=== PATIENT | female | born 1945 | race Caucasian/White ===

== ENCOUNTER 2018-03-07 00:07 | Outpatient (CLI) | payer MEDICARE, OTHER, SELFPAY ==
[2018-03-07 11:00] LABS: FREE T4 0.53 ng/dL (0.76-1.46); Magnesium 2.2 mg/dL (1.8-2.4); TSH 33.53 uIU/mL (0.358-3.74)
== END 2018-03-07 00:27 ==
PROVIDERS: PCP Family Medicine; Visit Provider Internal Medicine Endocrinology, Diabetes & Metabolism
DX: E03.9 Hypothyroidism, unspecified (principal); E87.6 Hypokalemia; M81.0 Age-related osteoporosis without current pathological fracture
CPT/HCPCS: 36415; 82306; 83735; 84439; 84443

== ENCOUNTER 2018-03-30 10:32 | Emergency (ER) | payer MEDICARE, OTHER, SELFPAY ==
[2018-03-30 10:48] VITALS: BP 151/67; PULSE 51; RESP 16; TEMP 37; O2SAT 100
--- NOTE | 2018-03-30 11:17 | ED.GENADUL_ITS ---
Discharge Plan Disposition Patient Disposition: HOME Condition: Stable Discharge Details Chief Complaint: RespSymp Clinical Impression: Sinus congestion, Difficulty sleeping Primary Care Provider: Rui Torres ED Provider: Karissa Magaña Home Meds and New Rx's Prescriptions: Continued zolpidem [Ambien] 10 MG tablet 15 mg PO DAILY RF: 0 omega-3 fatty acids-fish oil [Fish Oil] 1 EACH capsule 1 ea PO DAILY RF: 0 levothyroxine 25 MCG tablet 25 mcg PO DAILY RF: 0 estradiol [Estrace] 42.5 GM cream 42.5 gm VG DIRECTED Qty: 1 RF: 6 melatonin-pyridoxine (vit B6) [Melatonin (with B6)] 1 EACH tablet 1 ea PO HS RF: 0 ginkgo biloba leaf extract 120 MG capsule 240 mg PO DAILY RF: 0 CalMag Thins 1 EACH tablet 1,000 mg PO DAILY RF: 0 theanine (bulk) 1 GM powder 100 mcg Miscellaneous HS RF: 0 zinc gluconate 10 MG lozenge 5 ea PO DAILY RF: 0 potassium chloride 20 MEQ tablet,ER particles/crystals 20 meq PO DAILY RF: 0 coenzyme Q10 [Co Q-10] 100 MG capsule 100 mg PO DAILY RF: 0 5-hydroxytryptophan (5-HTP) 50 MG capsule 50 mg PO DAILY RF: 0 turmeric root extract 500 MG capsule 500 mg PO DAILY RF: 0 Discharge Instructions Instructions: Sinusitis (ED) Additional Instructions: Please return immediately to the emergency department if you develop any new or worsening symptoms or if you become otherwise concerned. It is extremely important that you make an appointment to be seen by your primary care doctor within the next week in follow-up for this visit. Referrals: Rui Torres [Primary Care Provider] - Discharge Data Discharge Date/Time-TO BE ENTERED AT DEPARTURE: 03/30/18 16:21 Medical Decision Making Lainey Escalante is a 72 y/o woman with h/o hypothyroidism, HTN, insomnia, presenting to the emergency department with insomnia, sinus congestion. On exam Pt is very well and non-toxic appearing. Concern for long-standing chronic insomnia, likely sinus congestion. Exam/hx not c/w acute bacterial sinusitis, sepsis, meningitis, other acute life-threatening process. Plan for flonase. I called Pt's PCP, Dr. Mckinnon, who relayed that he has seen Pt many times for insomnia, and she has been on many different medications without significant relief. He reports that Pt is supposed to have outpt f/u with psychiatry for PTSD which may be contributory, and also for outpt sleep study. He states that he will see Pt in f/u as outpt and make medication adjustments at that time. I explained to Pt that given chronicity of symptoms and multiple medications tried with adverse reactions in the past, it would be best for her PCP to prescribe and monitor sleep meds. P reports now that she had chest pain earlier this am which lasted for two hours, ending just prior to our first meeting today. Pt reports that she has had similar pain many times in the past for which she has seen her PCP for. Pain was non-exertional, radiated down her left arm, sharp in quality. Pt reports this was the same pain she has been having for years. She is concerned that her not sleeping is leading to a heart attack. Low suspicion for ACS given context, however, will obtain EKG, CXR, screening labs. EKG shows borderline left axis, TW changes similar to prior. Labs non- diagnostic. Plan for repeat trop. Pt continues to have no chest pain on reassessment. Pt left ED prior to second blood draw, apparently stating to nursing that her ride was there and she needed to leave immediately. Pt had left ED at the time I was notified. I had discussed prior to her leaving her in case of discharge, RTED precautions, and importance of outpt f/u with her PCP. She had verbalized understanding of the plan. Medical Records Medical records reviewed: Yes I reviewed the patient's medical records. Imaging Data Radiologic Study: Attestation: I personally reviewed and interpreted this imaging study as follows: Radiologist's impression: CHEST X-RAY, PA AND LATERAL: Comparison is 07/21/16. The heart is normal in size. The lungs are clear. The mediastinal structures and pleura appear intact. CONCLUSION: Normal chest. Lab Data Lab results reviewed: Yes I reviewed the patient's lab results. Laboratory Tests Range/Units 03/30/18 03/30/18 03/30/18 14:13 14:13 17:30 WBC (4.4-10.8) k/cumm 6.62 RBC (4.00-5.20) m/cumm 4.32 Hgb (12.0-15.5) g/dL 13.5 Hct (36.0-46.0) % 40.3 MCV (80-95) fL 93.3 MCH (27.0-33.0) pg 31.3 MCHC (32.0-36.0) g/dL 33.5 RDW (11.7-14.6) % 12.8 Plt Count (130-400) x1000/uL 174 MPV (8.0-11.0) fL 9.7 Immature Gran % 0.2 Neutrophils % 54.4 Lymphocytes % 30.5 Monocytes % 7.4 Eosinophils % 7.3 Basophils % 0.2 Absolute Neutrophils (1.2-6.7) k/cumm 3.61 Absolute Lymphocytes (1.2-3.4) k/cumm 2.02 Absolute Monocytes (0.11-0.7) k/cumm 0.49 Absolute Eosinophils (0.0-0.7) k/cumm 0.48 Absolute Basophils (0.0-0.2) k/cumm 0.01 Sodium (136-145) mmol/L 140 Potassium (3.5-5.1) mmol/L 3.8 Chloride (98-107) mmol/L 103 Carbon Dioxide (21.0-32.0) mmol/L 28.6 Anion Gap (3-11) mmol/L 8.4 BUN (7-18) mg/dL 13 Creatinine (0.55-1.02) mg/dL 0.84 Estimated GFR/1.73 m2 (mL/min/1.73m2) >= 60.00 Glucose (70-100) mg/dL 97 Calcium (8.5-10.1) mg/dL 9.3 Total Bilirubin (0.2-1.0) mg/dL 0.4 AST (15-37) U/L 23 ALT (12-78) U/L 23 Alkaline Phosphatase (46-116) U/L 56 Troponin I (0.00-0.06) ng/mL 0.02 Cancelled Total Protein (6.4-8.2) g/dL 7.6 Albumin (3.4-5.0) g/dL 4.1 ECG Data Attestation: I personally reviewed and interpreted this ECG (s) as follows: Interpretation: EKG shows sinus bradycardia at 58, left axis, T wave changes similar to 07/21/16, no STEMI, nondiagnostic EKG HPI General Mode of arrival: ambulatory . Date/Time Provider Initiated Documentation: 03/30/18 11:16 . Limitations to Documentation: no limitations . Information obtained by: patient, RN notes reviewed and old records reviewed . HPI Narrative: Lainey Escalante is a 72 y/o woman with h/o HTN, hypothyroidism, insomnia presenting to the emergency department with difficulty sleeping and nasal congestion. Pt reports that she has a long hx of difficulty sleeping at night, and has been seen by her primary care doctor many times for this. Pt reports that she has tried ambien at multiple doses, lunesta, other medaitons, and has had adverse reactions or no improvement with these meds. Pt reports that she tried to see her PCP for continued difficulty sleeping today, but was unable to get an appointment and thus came to the emergency department. Pt reports that she has had trouble sleeping for the past 3 years since her , but insomnia always seems worse around the holidays. Pt also reports that she has had sinus pressure in right maxillary sinus and sinus congestion. Was on abx recently for this, stopped abx approx 2 weeks ago, but sinus congestion has returned. Pt denies any other pain, fevers, n/v/d, SOB, cough. Has been eating and drinking as usual and feels in her usual state of health. Related Data Home Medications Medication Instructions Recorded Confirmed CalMag Thins 1,000 mg PO DAILY 08/26/12 03/30/18 ginkgo biloba leaf extract 240 mg PO DAILY 08/26/12 03/30/18 melatonin-pyridoxine (vit B6) 1 ea PO HS 08/26/12 03/30/18 [Melatonin (with B6)] omega-3 fatty acids-fish oil [Fish 1 ea PO DAILY 06/04/13 03/30/18 Oil] zolpidem [Ambien] 15 mg PO DAILY tab-cap 06/04/13 03/30/18 5-hydroxytryptophan (5-HTP) 50 mg PO DAILY 06/27/16 03/30/18 coenzyme Q10 [Co Q-10] 100 mg PO DAILY 06/27/16 03/30/18 potassium chloride 20 meq PO DAILY 06/27/16 03/30/18 turmeric root extract 500 mg PO DAILY 06/27/16 03/30/18 zinc gluconate 5 ea PO DAILY 06/27/16 05/30/17 levothyroxine 25 mcg PO DAILY 08/26/16 03/30/18 estradiol [Estrace] 42.5 gm VG DIRECTED #1 tube 12/18/16 03/30/18 theanine (bulk) 100 mcg MISCELLANEOUS HS 01/25/17 03/30/18 Previous Rx's Medication Instructions Recorded estradiol [Estrace] 42.5 gm VG DIRECTED #1 tube 12/18/16 Allergies Allergy/AdvReac Type Severity Reaction Status Date / Time sulfamethoxazole Allergy fever Unverified 03/30/18 10:50 [From Bactrim] trimethoprim [From Bactrim] Allergy fever Unverified 03/30/18 10:50 zinc Allergy Hives Unverified 03/30/18 10:50 acetaminophen [From Tylenol] AdvReac Intermediate Unverified 03/30/18 10:50 red dye AdvReac Nausea Unverified 03/30/18 10:50 wheat AdvReac bloating Unverified 03/30/18 10:50 oatmeal AdvReac constipatio Uncoded 03/30/18 10:50 n SUGAR AdvReac Uncoded 03/30/18 10:50 General Stated Complaint: RespSymp YUMIKO: 4 Review of Systems Review of Systems Constitutional: denies fevers Eyes: denies eye pain ENT: denies dental pain, sore throat, ear pain, reports right sided sinus pain Cardiovascular: denies chest pain Respiratory: denies SOB, cough GI: denies abdominal pain, vomiting, diarrhea : denies flank pain MSK: denies back pain, neck pain, arthralgias, myalgias Skin: denies rash Neuro: denies headaches, n/t, weakness PFSH Medical History Atrophic vulva Dry eye Elevated lipids Hypertension Hypothyroidism Myofascial pain Primary fibromyalgia syndrome dry mouth lupus Surgical History Biopsy of breast section Hemorrhoidectomy Family History Mother Dementia Father Heart disease Social History Smoking/Tobacco Use Status: Former Tobacco Use Exam Narrative Exam Narrative: Constitutional: well and [id number], pleasant, conversing normally HENT: head atraumatic, normocephalic normal inspection, mucous membranes moist Eyes: conjunctiva normal, sclera normal, pupils 3mm b/l Neck: no stridor, normal ROM, trachea midline Chest: normal inspection Resp: normal work of breathing, LCTAB Cardio: normal rate, normal rhythm, no murmur appreciated Skin: warm, dry, normal color, no rash Neuro: alert, not altered, grossly non-focal, normal tone Psych: normal mood, normal affect, normal behavior Course Vital Signs Temperature 37 C 03/30/18 10:48 Pulse 51 L 03/30/18 10:48 Respiratory Rate 16 03/30/18 10:48 Blood Pressure 151/67 H 03/30/18 10:48 Pulse Oximetry 100 03/30/18 10:48 Temperature 37 C 03/30/18 10:48 Temperature Source Skin 03/30/18 10:48 Pulse 51 L 03/30/18 10:48 Respiratory Rate 16 03/30/18 10:48 Respiratory Effort Non-Labored 03/30/18 10:48 Blood Pressure 151/67 H 03/30/18 10:48 Blood Pressure Position Sitting 03/30/18 10:48 Pulse Oximetry 100 03/30/18 10:48 Oxygen Delivery Method Room Air 03/30/18 10:48 Oxygen Flow Rate 0 03/30/18 10:48 Pain Level 8 03/30/18 10:48
[2018-03-30] MEDS: Fluticasone NASAL SPRAY 16 GM BTL NS (13:19)
--- NOTE | 2018-03-30 13:30 | DI.RAD_ITS ---
SYMPTOMS/DIAGNOSIS: CHEST PAIN CHEST X-RAY, PA AND LATERAL: Comparison is 07/21/16. The heart is normal in size. The lungs are clear. The mediastinal structures and pleura appear intact. CONCLUSION: Normal chest.
[2018-03-30] MEDS: Aspirin 81 MG CHEW 324 MG CH (13:56)
[2018-03-30 14:21] LABS: Abs Immature Grans 0.01 k/cumm (0.0-0.09); Absolute Basophil Count 0.01 k/cumm (0.0-0.2); Absolute Eosinophil Count 0.48 k/cumm (0.0-0.7); Absolute Lymphocyte Count 2.02 k/cumm (1.2-3.4); Absolute Monocyte Count 0.49 k/cumm (0.11-0.7); Absolute Neutrophil Count 3.61 k/cumm (1.2-6.7); Basophils % 0.2; Eosinophils % 7.3; HCT 40.3 % (36.0-46.0); HGB 13.5 g/dL (12.0-15.5); Immature Grans % 0.2; Lymphocytes % 30.5; Mean Corp. HGB Concentration 33.5 g/dL (32.0-36.0); Mean Corpuscular Hemoglobin 31.3 pg (27.0-33.0); Mean Corpuscular Volume 93.3 fL (80-95); Mean Platelet Volume 9.7 fL (8.0-11.0); Monocytes % 7.4; Neutrophils % 54.4; Platelet Count 174 x1000/uL (130-400); RBC 4.32 m/cumm (4.00-5.20); RBC Distribution Width 12.8 % (11.7-14.6); White Blood Cell Count 6.62 k/cumm (4.4-10.8)
[2018-03-30 14:39] LABS: ALT 23 U/L (12-78); AST 23 U/L (15-37); Albumin 4.1 g/dL (3.4-5.0); Alkaline Phosphatase 56 U/L (46-116); Anion Gap 8.4 mmol/L (3-11); BUN 13 mg/dL (7-18); Bilirubin, Total 0.4 mg/dL (0.2-1.0); CO2 28.6 mmol/L (21.0-32.0); CREATININE 0.84 mg/dL (0.55-1.02); Calcium 9.3 mg/dL (8.5-10.1); Chloride 103 mmol/L (98-107); Glucose 97 mg/dL (70-100); Potassium 3.8 mmol/L (3.5-5.1); Sodium 140 mmol/L (136-145); Total Protein 7.6 g/dL (6.4-8.2); Troponin I 0.02 ng/mL (0.00-0.06)
== END 2018-03-30 16:21 | disposition home or self-care (01) ==
PROVIDERS: Emergency Provider Student in an Organized Health Care Education/Training Program; PCP Family Medicine
DX: R09.81 Nasal congestion (principal); G47.00 Insomnia, unspecified; R07.9 Chest pain, unspecified; I10 Essential (primary) hypertension
CPT/HCPCS: 36415; 80053; 93005; 99284; 71046; 84484; 85025; 93010

== ENCOUNTER 2018-05-07 09:52 | Outpatient (CLI) | payer MEDICARE, OTHER, SELFPAY ==
[2018-05-07 11:12] LABS: Anion Gap 9.2 mmol/L (3-11); BUN 15 mg/dL (7-18); CO2 27.8 mmol/L (21.0-32.0); CREATININE 0.98 mg/dL (0.55-1.02); Calcium 9.4 mg/dL (8.5-10.1); Chloride 104 mmol/L (98-107); Estimated GFR 55.79 (mL/min/1.73m2); FREE T4 0.71 ng/dL (0.76-1.46); Glucose 92 mg/dL (70-100); Potassium 4.1 mmol/L (3.5-5.1); Sodium 141 mmol/L (136-145); TSH 17.58 uIU/mL (0.358-3.74)
[2018-05-07 22:42] LABS: T3, Total 122 ng/dl (97-169)
== END 2018-05-07 10:12 ==
PROVIDERS: PCP Family Medicine; Visit Provider Internal Medicine Endocrinology, Diabetes & Metabolism
DX: E87.6 Hypokalemia (principal); E03.9 Hypothyroidism, unspecified
CPT/HCPCS: 36415; 80048; 84439; 84443; 84480

== ENCOUNTER 2018-06-04 09:48 | Outpatient (CLI) | payer MEDICARE, OTHER, SELFPAY ==
[2018-06-04 11:19] LABS: BUN 16 mg/dL (7-18); CREATININE 0.73 mg/dL (0.55-1.02); Calcium 9.3 mg/dL (8.5-10.1); Chloride 100 mmol/L (98-107); FREE T4 0.68 ng/dL (0.76-1.46); Glucose 86 mg/dL (70-100); Magnesium 2.3 mg/dL (1.8-2.4); Sodium 138 mmol/L (136-145); TSH 21.53 uIU/mL (0.358-3.74)
[2018-06-05 18:21] LABS: Zinc, Serum 1.08 mcg/mL (0.66-1.10)
[2018-06-08 10:29] LABS: Zinc, Plasma 103 ug/dl (70 - 120); Zinc, RBC 1313 ug/dl
== END 2018-06-04 10:08 ==
PROVIDERS: PCP Family Medicine; Visit Provider Internal Medicine Endocrinology, Diabetes & Metabolism
DX: E03.9 Hypothyroidism, unspecified (principal); R53.83 Other fatigue; E87.6 Hypokalemia; L28.2 Other prurigo
CPT/HCPCS: 36415; 80048; 83018; 84630; 83735; 84100; 84439; 84443

== ENCOUNTER 2018-06-17 17:37 | Inpatient (IN) | payer MEDICARE, OTHER, SELFPAY ==
[2018-06-17] VITALS (19 sets, daily range): BP systolic 133–204; BP diastolic 68–103; PULSE 60–83; RESP 12–27; TEMP 36.4–36.9; O2SAT 95–100
--- NOTE | 2018-06-17 17:47 | W.ED.GENAD ---
Discharge Plan Disposition Patient Disposition: [facility] INPATIENT Condition: Good Discharge Details Chief Complaint: Chest Pain Clinical Impression: Chest pain Reason For Visit: KELI Primary Care Provider: Rui Torres ED Provider: Benjamin Blackwell Home Meds and New Rx's Prescriptions: No Action zolpidem [Ambien] 10 MG tablet 15 mg PO DAILY RF: 0 omega-3 fatty acids-fish oil [Fish Oil] 1 EACH capsule 1 ea PO DAILY RF: 0 levothyroxine 25 MCG tablet 25 mcg PO DAILY RF: 0 estradiol [Estrace] 42.5 GM cream 42.5 gm VG DIRECTED Qty: 1 RF: 6 melatonin-pyridoxine (vit B6) [Melatonin (with B6)] 1 EACH tablet 1 ea PO HS RF: 0 ginkgo biloba leaf extract 120 MG capsule 240 mg PO DAILY RF: 0 CalMag Thins 1 EACH tablet 1,000 mg PO DAILY RF: 0 theanine (bulk) 1 GM powder 100 mcg Miscellaneous HS RF: 0 zinc gluconate 10 MG lozenge 5 ea PO DAILY RF: 0 potassium chloride 20 MEQ tablet,ER particles/crystals 20 meq PO DAILY RF: 0 coenzyme Q10 [Co Q-10] 100 MG capsule 100 mg PO DAILY RF: 0 5-hydroxytryptophan (5-HTP) 50 MG capsule 50 mg PO DAILY RF: 0 turmeric root extract 500 MG capsule 500 mg PO DAILY RF: 0 Medical Decision Making This is a 72-year-old female with a past medical history of lupus, fibromyalgia, chronic insomnia, who presents today for evaluation of chest pain. Patient states that the pain is been going on for 40 minutes, she describes a tearing sensation, however she appears to be in no acute distress, with very normal vital signs. Physical exam demonstrates notably reproducible chest pain on the right chest wall. The patient does state that she has a history of takasubos cardiomyopathy, and she states that this feels similar to that, however she shows no signs of fluid overload or severe CHF at this time. EKG is benign in appearance. We will get a CT angios to rule out dissection or PE, check for cardiac markers, and reassess. 9:[address] angios has returned and demonstrates no evidence of acute process, PE, or dissection. There is evidence of a slightly enlarged pancreatic abnormality which is thought to be a cyst structure, however radiology does recommend follow-up on an outpatient basis. Patient has no epigastric tenderness, and no evidence of elevation in her LFTs or bilirubin. Initial troponin is 0.04, we are pending repeat troponin at this time. If the troponin is trending upwards, the patient will require admission and serial troponins and potential cardiac evaluation. Currently the patient's chest pain has completely resolved, and she is feeling much better and would like to go home. Pending repeat troponin at this time. 10:03 PM The troponin has slightly increased to 0.05, her chest pain is resolved she states that she is pain-free at this time. A long discussion with the patient regarding the risks and benefits of admission and serial troponins versus discharge with close follow-up, patient is requesting admission, which I certainly feel is reasonable she had notable chest pain earlier today, with a potential exertional and stress related component. We will contact the hospitalist for admission 10:30 PM I discussed the case with the hospitalist , he agrees with assessment and plan. The patient will be admitted for serial troponins and further evaluation. I have extensively reviewed the treatment plan with the patient. I have addressed all patient concerns at this time. I have also discussed the plan with the admitting physician and they agree with the current assessment and plan and have agreed to assume responsibility for the patient. All parties demonstrate verbal understanding and agreement with our assessment and plan at this time. EKG 17: 41 Rate 77, WA 128, QTc 475, QRS 98, sinus rhythm, no significant ST elevations or depressions, patient does have inverted T waves in V1, V2, and V3. These were present on EKG from 03/30/18. EXAM: CT Angiography Chest With Contrast EXAM DATE/TIME: 06/17/2018 5:45 PM CLINICAL HISTORY: 72 years old, female; Pain; Other: Tearing sensation in chest; Abdominal pain; Acute TECHNIQUE: Imaging protocol: Axial computed tomographic angiography images of the chest with intravenous contrast using CT angiography protocol. 3D rendering: MIP reconstructed images were created and reviewed. Radiation optimization: All CT scans at this facility use at least one of these dose optimization techniques: automated exposure control; mA and/or kV adjustment per patient size (includes targeted exams where dose is matched to clinical indication); or iterative reconstruction. Contrast material: [id number] Contrast volume: 100 ml Contrast route: iv COMPARISON: CR XR CHEST 2V PA LATERAL 03/30/2018 2:26 PM FINDINGS: Pulmonary arteries: No pulmonary emboli. Aorta: No aortic aneurysm. No aortic dissection. Thyroid: Subcentimeter right thyroid calcification is likely benign. Follow-up as per institutional protocol. Lungs: 1-2 very small, subcentimeter noncalcified pulmonary nodules. Follow-up as per institutional protocol. No airspace consolidation. No suspicious pulmonary nodules or mass lesions. Pleural space: No pneumothorax. No pleural effusion. Heart: No cardiomegaly. No pericardial effusion. Lymph nodes: No enlarged lymph nodes. Bones/joints: Mild chronic appearing loss of height in the midthoracic spine. No acute fracture or subluxation. Soft tissues: No suspicious lesions. IMPRESSION: 1. No acute aortic pathology. 2. Incidental findings as described. EXAM: CT Angiography Abdomen With Contrast EXAM DATE/TIME: 06/17/2018 5:45 PM CLINICAL HISTORY: 72 years old, female; Pain; Other: Tearing sensation in chest; Abdominal pain; Acute TECHNIQUE: Imaging protocol: Axial computed tomographic angiography images of the abdomen with intravenous contrast material, including non-contrast images if performed. 3D rendering: MIP reconstructed images were created and reviewed. Radiation optimization: All CT scans at this facility use at least one of these dose optimization techniques: automated exposure control; mA and/or kV adjustment per patient size (includes targeted exams where dose is matched to clinical indication); or iterative reconstruction. COMPARISON: CR XR CHEST 2V PA LATERAL 03/30/2018 2:26 PM COMPARISON MORE: CT - ABD PELVIS WITH CONTRAST 08/18/2016 10:58:24 PM FINDINGS: Lungs: Regarding the lung bases, please see same day CT thorax. VASCULATURE: Aorta: Minimal aortic atherosclerosis. No aneurysm or dissection. Celiac trunk and mesenteric arteries: No occlusion or significant stenosis. Renal arteries: No occlusion or significant stenosis. ABDOMEN: Liver: Benign-appearing hepatic cyst. No hepatic masses. Gallbladder and bile ducts: No calcified stones. No ductal dilation. Pancreas: 19 x 7 mm low-density structure along the medial margin of the pancreatic head, not definitely ductal in origin. Additional subcentimeter cystic charge nurse in the uncinate process. Follow-up as per institutional protocol. Spleen: No splenomegaly. Adrenals: No mass. Kidneys and ureters: Mild left hydronephrosis. Appears similar to the previous study. The inferior left kidney was not imaged. Remainder of the kidneys demonstrate no mass lesions. No right hydronephrosis. Stomach and bowel: No obstruction. No mucosal thickening. Intraperitoneal space: Unremarkable. No free air. No significant fluid collection. Bones/joints: No acute fracture. No dislocation. Soft tissues: No suspicious lesions. Lymph nodes: No enlarged lymph nodes. IMPRESSION: 1. No acute aortic pathology. 2. Mild left hydronephrosis. Appears similar to the previous study. Consider a distal obstructing lesion. 3. Incidental findings as described. Dictated and Authenticated by: Barbara Pierce MD. Ordering:ADAM Alexander MD HPI General Date/Time Provider Initiated Documentation: 06/17/18 17:43. HPI Narrative: This is a 72-year-old female with a past medical history of lupus, chronic dry mouth, fibromyalgia, chronic insomnia who presents today for evaluation of chest pain. She states that she has a history of takasubos cardiomyopathy when her close family member in the past, she states that she has had a recent in the family and she again feels similar symptoms. She describes chest pain for the last 40 minutes which she describes as a tearing sensation. Does not radiate to the arms neck or shoulder. She denies any chest heaviness or pleuritic chest pain. She denies any history of blood clots. She did aspirin at home, and this did not improve or change her symptoms. She does admit to a cough for the last month that has been nonproductive. She denies any fever or chills. She denies any history of aortic dissection. She has no other complaints or modifying factors at this time. Related Data Home Medications Medication Instructions Recorded Confirmed CalMag Thins 1,000 mg PO DAILY 08/26/12 03/30/18 ginkgo biloba leaf extract 240 mg PO DAILY 08/26/12 03/30/18 melatonin-pyridoxine (vit B6) 1 ea PO HS 08/26/12 03/30/18 [Melatonin (with B6)] omega-3 fatty acids-fish oil [Fish 1 ea PO DAILY 06/04/13 03/30/18 Oil] zolpidem [Ambien] 15 mg PO DAILY tab-cap 06/04/13 03/30/18 5-hydroxytryptophan (5-HTP) 50 mg PO DAILY 06/27/16 03/30/18 coenzyme Q10 [Co Q-10] 100 mg PO DAILY 06/27/16 03/30/18 potassium chloride 20 meq PO DAILY 06/27/16 03/30/18 turmeric root extract 500 mg PO DAILY 06/27/16 03/30/18 zinc gluconate 5 ea PO DAILY 06/27/16 05/30/17 levothyroxine 25 mcg PO DAILY 08/26/16 03/30/18 estradiol [Estrace] 42.5 gm VG DIRECTED #1 tube 12/18/16 03/30/18 theanine (bulk) 100 mcg MISCELLANEOUS HS 01/25/17 03/30/18 Previous Rx's Medication Instructions Recorded estradiol [Estrace] 42.5 gm VG DIRECTED #1 tube 12/18/16 Allergies Allergy/AdvReac Type Severity Reaction Status Date / Time sulfamethoxazole Allergy fever Unverified 03/30/18 10:50 [From Bactrim] trimethoprim [From Bactrim] Allergy fever Unverified 03/30/18 10:50 zinc Allergy Hives Unverified 03/30/18 10:50 acetaminophen [From Tylenol] AdvReac Intermediate Unverified 03/30/18 10:50 red dye AdvReac Nausea Unverified 03/30/18 10:50 wheat AdvReac bloating Unverified 03/30/18 10:50 oatmeal AdvReac constipatio Uncoded 03/30/18 10:50 n SUGAR AdvReac Uncoded 03/30/18 10:50 General YUMIKO: 4 Review of Systems Review of Systems All systems reviewed & are unremarkable except as noted in HPI and below PFSH Family History Mother Dementia Father Heart disease Social History Smoking/Tobacco Use Status: Former Tobacco Use Alcohol Intake: current Alcohol Intake frequency: 0-2 drinks per day Drug use: Never Substance use type: does not use Do you feel safe at home: Yes Do you feel safe in your relationship?: Yes Exam Narrative Exam Narrative: 1.Const: Well-nourished, Well-developed, appearing stated age 2.Eyes: PERRL, no conjunctival injection, and symmetrical lids. 3.ENT: Atraumatic external nose and ears. Moist MM. Neck: Symmetric, trachea midline, No thyromegaly. 4.CVS: +S1/S2, No murmurs or gallops. Peripheral pulses 2+ and equal in all extremities. Brisk capillary refill in all extremities. Notable reproducibility of chest pain on palpation of the right anterior chest wall by the medial aspect of the right breast. No signs of deformity or trauma. Radial pulses are +2 bilaterally. 5.RESP: Unlabored respiratory effort. Clear to auscultation bilaterally. No wheezes rales or rhonchi 6.GI: Soft, Nontender/Nondistended, No hepatosplenomegaly. No guarding or rebound. 7.MSK: Normocephalic/Atraumatic, Extremities w/o deformity or ttp No cyanosis or clubbing, Normal movement of all extremities 8.Skin: Warm, Dry. No rashes or lesions. 9.Neuro: rendering equipment tender II-XII grossly intact. Sensation grossly intact, no focal neurologic deficits. 10.Psych: (AAO) x3. Appropriate mood and affect
[2018-06-17 17:59] LABS: Abs Immature Grans 0.01 k/cumm (0.0-0.09); Absolute Basophil Count 0.02 k/cumm (0.0-0.2); Absolute Eosinophil Count 0.53 k/cumm (0.0-0.7); Absolute Lymphocyte Count 1.91 k/cumm (1.2-3.4); Absolute Monocyte Count 0.48 k/cumm (0.11-0.7); Absolute Neutrophil Count 3.12 k/cumm (1.2-6.7); Basophils % 0.3; Eosinophils % 8.7; HCT 40.3 % (36.0-46.0); HGB 13.6 g/dL (12.0-15.5); Immature Grans % 0.2; Lymphocytes % 31.5; Mean Corp. HGB Concentration 33.7 g/dL (32.0-36.0); Mean Corpuscular Hemoglobin 31.6 pg (27.0-33.0); Mean Corpuscular Volume 93.7 fL (80-95); Mean Platelet Volume 9.5 fL (8.0-11.0); Monocytes % 7.9; Neutrophils % 51.4; Platelet Count 203 x1000/uL (130-400); RBC Distribution Width 12.3 % (11.7-14.6); White Blood Cell Count 6.07 k/cumm (4.4-10.8)
[2018-06-17 18:16] LABS: ALT 24 U/L (12-78); AST 29 U/L (15-37); Albumin 4.2 g/dL (3.4-5.0); Alkaline Phosphatase 84 U/L (46-116); Anion Gap 11.7 mmol/L (3-11); BUN 16 mg/dL (7-18); Bilirubin, Total 0.3 mg/dL (0.2-1.0); CO2 26.3 mmol/L (21.0-32.0); CREATININE 0.75 mg/dL (0.55-1.02); Calcium 8.7 mg/dL (8.5-10.1); Chloride 104 mmol/L (98-107); Glucose 100 mg/dL (70-100); Potassium 3.8 mmol/L (3.5-5.1); Sodium 142 mmol/L (136-145); Total Protein 7.8 g/dL (6.4-8.2); Troponin I 0.04 ng/mL (0.00-0.06)
[2018-06-17] MEDS: Acetaminophen 500 MG TAB 1000 MG PO (18:24)
[2018-06-17] MEDS: Normal Saline 1,000 ML 1000 ML IV (18:24)
[2018-06-17 18:37] LABS: PTT Activated 21.6 sec (21.0-31.4); Prothrombin Time 9.7 sec (9.3-11.0)
--- NOTE | 2018-06-17 19:00 | DI.CT_ITS ---
SYMPTOM/DIAGNOSIS: TEARING SENSATION IN CHEST CTA ABDOMEN AND CHEST: CT angiography was performed with multi slice acquisition and multi planar and 3D reconstruction. CHEST: The study was carried out with an intravenous infusion of 100 cc's of Omnipaque 350. There is no evidence of pulmonary embolic disease. There is no evidence of an aortic aneurysm or dissection. There is no evidence of a pneumothorax or pleural effusion. One or two very small subcentimeter, non calcified pulmonary nodules are identified. Note is also made of a subcentimeter right thyroid calcification which likely is benign. The heart is not enlarged. There is no pericardial effusion. There is no evidence of lymphadenopathy. Note is made of old loss of height in the mid thoracic vertebral bodies. There are no acute fractures. No suspicious soft tissue abnormality is seen. IMPRESSION: No acute aortic pathology. No pulmonary emboli. Incidental findings as described above. ABDOMEN: The study was carried out according to the usual protocol. There are mild atherosclerotic changes involving the aorta. There is no evidence of an aneurysm or dissection. The superior mesenteric and celiac axis appear intact. There is no evidence of significant stenosis or occlusion of the renal arteries. A small hepatic left lower lobe liver cyst is demonstrated. The gallbladder is intact. There are no gallstones. Evaluation of the pancreas reveals a 1.9 by 0.7 low density structure along the medial margin of the pancreatic head. Additional subcentimeter cystic changes are seen in the uncinate process. There is no evidence of splenomegaly. The adrenals are intact. Evaluation of the kidneys reveals very mild left hydronephrosis, unchanged when compared with the prior examination. The lower border of the kidney is not included on this study. There is no evidence of a renal mass. There is no evidence of right hydronephrosis. There is no evidence of bowel obstruction. Mild mucosal thickening involving the stomach is seen. There is no evidence of free air or free fluid in the intraperitoneal space. No acute bony abnormality is seen. The soft tissues are intact. There is no evidence of lymphadenopathy. SUMMARY: No acute aortic pathology. Note is made of mild left hydronephrosis, unchanged. Also there are incidental findings as described above.
[2018-06-17] MEDS: Omnipaque 350 MG/ML 100 ML BTL IJ (19:02)
[2018-06-17 19:10] LABS: ETHANOL BLOOD < 3.0 mg/dL (<3)
--- NOTE | 2018-06-17 19:15 | DI.VRAD_ITS ---
EXAM: CT Angiography Chest With Contrast EXAM DATE/TIME: 06/17/2018 5:45 PM CLINICAL HISTORY: 72 years old, female; Pain; Other: Tearing sensation in chest; Abdominal pain; Acute TECHNIQUE: Imaging protocol: Axial computed tomographic angiography images of the chest with intravenous contrast using CT angiography protocol. 3D rendering: MIP reconstructed images were created and reviewed. Radiation optimization: All CT scans at this facility use at least one of these dose optimization techniques: automated exposure control; mA and/or kV adjustment per patient size (includes targeted exams where dose is matched to clinical indication); or iterative reconstruction. Contrast material: [id number] Contrast volume: 100 ml Contrast route: iv COMPARISON: CR XR CHEST 2V PA LATERAL 03/30/2018 2:26 PM FINDINGS: Pulmonary arteries: No pulmonary emboli. Aorta: No aortic aneurysm. No aortic dissection. Thyroid: Subcentimeter right thyroid calcification is likely benign. Follow-up as per institutional protocol. Lungs: 1-2 very small, subcentimeter noncalcified pulmonary nodules. Follow-up as per institutional protocol. No airspace consolidation. No suspicious pulmonary nodules or mass lesions. Pleural space: No pneumothorax. No pleural effusion. Heart: No cardiomegaly. No pericardial effusion. Lymph nodes: No enlarged lymph nodes. Bones/joints: Mild chronic appearing loss of height in the midthoracic spine. No acute fracture or subluxation. Soft tissues: No suspicious lesions. IMPRESSION: 1. No acute aortic pathology. 2. Incidental findings as described. EXAM: CT Angiography Abdomen With Contrast EXAM DATE/TIME: 06/17/2018 5:45 PM CLINICAL HISTORY: 72 years old, female; Pain; Other: Tearing sensation in chest; Abdominal pain; Acute TECHNIQUE: Imaging protocol: Axial computed tomographic angiography images of the abdomen with intravenous contrast material, including non-contrast images if performed. 3D rendering: MIP reconstructed images were created and reviewed. Radiation optimization: All CT scans at this facility use at least one of these dose optimization techniques: automated exposure control; mA and/or kV adjustment per patient size (includes targeted exams where dose is matched to clinical indication); or iterative reconstruction. COMPARISON: CR XR CHEST 2V PA LATERAL 03/30/2018 2:26 PM COMPARISON MORE: CT - ABD PELVIS WITH CONTRAST 08/18/2016 10:58:24 PM FINDINGS: Lungs: Regarding the lung bases, please see same day CT thorax. VASCULATURE: Aorta: Minimal aortic atherosclerosis. No aneurysm or dissection. Celiac trunk and mesenteric arteries: No occlusion or significant stenosis. Renal arteries: No occlusion or significant stenosis. ABDOMEN: Liver: Benign-appearing hepatic cyst. No hepatic masses. Gallbladder and bile ducts: No calcified stones. No ductal dilation. Pancreas: 19 x 7 mm low-density structure along the medial margin of the pancreatic head, not definitely ductal in origin. Additional subcentimeter cystic charge nurse in the uncinate process. Follow-up as per institutional protocol. Spleen: No splenomegaly. Adrenals: No mass. Kidneys and ureters: Mild left hydronephrosis. Appears similar to the previous study. The inferior left kidney was not imaged. Remainder of the kidneys demonstrate no mass lesions. No right hydronephrosis. Stomach and bowel: No obstruction. No mucosal thickening. Intraperitoneal space: Unremarkable. No free air. No significant fluid collection. Bones/joints: No acute fracture. No dislocation. Soft tissues: No suspicious lesions. Lymph nodes: No enlarged lymph nodes. IMPRESSION: 1. No acute aortic pathology. 2. Mild left hydronephrosis. Appears similar to the previous study. Consider a distal obstructing lesion. 3. Incidental findings as described. Dictated and Authenticated by: Barbara Pierce MD. Ordering:ADAM Alexander MD
[2018-06-17 21:15] LABS: Troponin I 0.05 ng/mL (0.00-0.06)
--- NOTE | 2018-06-17 23:50 | HPE_ITS ---
Date of service: 06/17/18 Time of Service: 23:49 Assessment and Plan (1) Atypical chest pain: Current visit: Yes Status: Acute Given her hx of walking 5 miles daily until onset of this winter and not having any exertional chest pain, I think that her symptoms are unlikely to be ischemic in origin. Her symptoms may be due to an arrythmia since they are paroxysmal and have the quality of a feeling of her heart pounding. Since it has been several years since her last stress test, I have ordered a stress MPI. If this can not be done as an inpatient then I think that she can safely follow up with the study as outpatient. She ought to have a Zio patch to assess for any arrythmia. (2) Lung nodules: Current visit: Yes Status: Acute CTA of her chest was done at request of the ER attending to rule out a dissecting aortic aneurysm and PE. However incidental findings of subcentimeter non-calcified lung nodules were found and these will need to be followed up as an outpatient w/ follow up CT of chest in 6 to 12 months to assess stability. (3) Pancreatic abnormality: Current visit: Yes Status: Acute non-specific finding around the medial pancreatic head was seen 19 mm x 7 mm, this will need close follow up imaging as an outpatient and may necessitate endoscopic ultrasound to clarify. She also has cystic change at the uncinate process. (4) Thyroid disorder: Current visit: Yes Status: Acute patient has known hypothyroidism and apparently has been referred by her PCP to an entrepreneurship program director whom she says took more interest in the skin lesions on her face and did skin biopsies. Nevertheless the thyroid calcifications sh ould be followed up as an outpatient History of Present Illness Chief Complaint: chest palpitations Narrative: 72 yr old female w/ PMH of hypothyroidism, hypoglycemia, remote smoking hx, alleged Takatsubo cardiomyopathy (per prior [facility] notes, however this is not well documented w/ any cardiology consults, heart cath reports) although she says she was given a diagnosis of broken heart syndrome by her 's palliative care physician. The patient reports that for past couple months she has had intermittent feeling of her heart pounding for past couple months particularly during times of e motional stress. Mrs. Escalante has been emotionally distressed lately d/t this being the anniversary of her 's who 3 yrs ago this April d/t leukemia. She lives w/ her 46 yr old PhD physics son who has bipolar disorder and has had a recent flare of his BPD. Normally Mrs. Escalante deals w/ her stress by calming herself w/ walking, up to 5 miles per day, but has been unable to do so this winter d/t icey roads. Her chest discomfort is worsened by emotional distress and usually calms down w/ walking or sleep. She has chronic insomnia which adds to her stress and takes Ambien, and melatonin chronically to help her sleep. She previously saw a sleep specialist while in [facility] prior to moving to [place]. She has had a prior stress test for complaints of chest pain but never a heart catheterization. Stress test was done 5 to 10 yrs ago while in [place], [place]. Workup in the ER included routine labs including normal troponin levels of 0.4 and 0.5 and EKG that showed non-specific T wave inversions in V1-V3 similar to prior EKG from 03/30/2018. CBC and CMP were all unremarkable. CTA of her chest did not demonstrate any PE or aortic aneurysm or dissection. However, non-specific findings included 1-2 small (subcentimeter non-calcified lung nodules for which follow up exam is recommended per institutional guidelines. She also has a subcentimeter calcification of her right thyroid lobe, also for which follow up study is recommended. Dr. Blackwell counseled the patient on these findings as well as the non-specific unchanged EKG and normal troponins and offered her close outpatient follow up w/ cardiology versus overnight admission for serial troponins and stress MPI. She opted to stay. She has had no further chest discomfort or palpitations since admission. Review of Systems Review of Systems All systems reviewed & are unremarkable except as noted in HPI and below Cardiovascular Reports system reviewed and no additional complaints, except as docu PFSH Medical History Hypoglycemia (Chronic) IBS (irritable bowel syndrome) (Chronic) Hypothyroid (Chronic) Hypertension (Chronic) Vertigo (Chronic) Insomnia (Chronic) Atrophic vulva Dry eye Elevated lipids Hypertension Hypothyroidism Myofascial pain Primary fibromyalgia syndrome dry mouth lupus Surgical History H/O section (Resolved) Biopsy of breast section Hemorrhoidectomy Family History Mother Dementia Father Heart disease Stroke Social History Smoking/Tobacco Use Status: Former Tobacco Use Alcohol Intake: current Alcohol Intake frequency: 0-2 drinks per day Alcohol type: wine Drug use: Never Substance use type: does not use Household members: children Number of Children: 2 number of grandchildren: 1 What is your relationship status?: Panel score (0-1 are the most socially isolated patients): 0 What type of physical activity do you participate in: walking Duration: 60-90 minutes/day Do you feel safe at home: Yes Do you feel safe in your relationship?: Yes Meds Home Medications Medication Instructions Recorded Confirmed Type ginkgo biloba leaf extract 240 mg PO DAILY 08/26/12 06/17/18 History melatonin-pyridoxine (vit B6) 1 ea PO HS 08/26/12 06/17/18 History [Melatonin (with B6)] omega-3 fatty acids-fish oil [Fish 1 ea PO DAILY 06/04/13 06/17/18 History Oil] zolpidem [Ambien] 15 mg PO HS tab-cap 06/04/13 06/17/18 History 5-hydroxytryptophan (5-HTP) 50 mg PO HS 06/27/16 06/17/18 History coenzyme Q10 [Co Q-10] 100 mg PO DAILY 06/27/16 06/17/18 History potassium chloride 20 meq PO BID 06/27/16 06/17/18 History turmeric root extract 500 mg PO DAILY 06/27/16 06/17/18 History zinc gluconate 5 ea PO DAILY 06/27/16 06/17/18 History levothyroxine 25 mcg PO DAILY 08/26/16 06/17/18 History estradiol [Estrace] 42.5 gm VG DIRECTED #1 tube 12/18/16 06/17/18 Rx calcium carb-magnesium ox,carb 1 tab PO DAILY 06/17/18 06/17/18 History Allergies Allergy/AdvReac Type Severity Reaction Status Date / Time sulfamethoxazole Allergy fever Unverified 06/17/18 23:11 [From Bactrim] trimethoprim [From Bactrim] Allergy fever Unverified 06/17/18 23:11 zinc Allergy Hives Unverified 06/17/18 23:11 acetaminophen [From Tylenol] AdvReac Intermediate Unverified 06/17/18 23:11 red dye AdvReac Nausea Unverified 06/17/18 23:11 wheat AdvReac bloating Unverified 06/17/18 23:11 oatmeal AdvReac constipatio Uncoded 06/17/18 23:11 n SUGAR AdvReac Uncoded 06/17/18 23:11 Exam Const General: cooperative, healthy appearing, well developed, well groomed and anxious Nutritional Appearance: average body habitus Orientation: alert, awake and oriented x3 [facility] Head: normal to inspection, no palpable skull fracture, normocephalic and atraumatic Ears: hearing grossly normal bilaterally and EAC abnormal excessive cerumen General nose exam: nares normal Face and sinus: sinuses nontender and erythema bilaterally maxilla Throat: posterior oropharynx normal Eyes General: appearance normal, both eyes and all related structures Periorbital: periorbital findings normal Eyelids: eyelids normal Conjunctivae: conjunctivae normal Sclera: sclerae normal Cornea: corneas normal Pupils: PERRL EOM: EOM intact bilaterally Neck Neck: normal visual inspection, full ROM, no lymphadenopathy, trachea midline and supple Thyroid: thyroid normal Carotids: normal carotid upstroke Resp Effort & Inspection: normal respiratory effort and able to speak in complete se ntences Auscultation: clear to auscultation bilaterally Cardio Jugular venous pressure: no JVD Palpation: normal PMI Rate: regular rate Rhythm: regular rhythm Heart Sounds: S1 normal, S2 normal and normal, physiologic split S2 Pulses: normal peripheral pulses GI Inspection: normal to inspection Palpation: soft Percussion: normal to percussion Skin Lesions: lesion noted (s/p skin excisions) bilateral forehead color red and with an erythematous base Neuro General: alert, awake and oriented x3 Cognition: normal cognition Speech: speech normal Motor: muscle tone normal throughout, strength 5/5 throughout and no movement abnormalities noted Sensory Exam: no sensory deficits noted Extrem General: normal to inspection, full ROM, normal capillary refill, no joint enlargement, no clubbing, cyanosis or edema, no pedal edema and no calf tende rness Psych Appearance: grossly normal Mental Status: mental status grossly normal Speech and Movement: speech and movement normal Mood: congruent mood Affect: anxious affect Attitude: cooperative Thought Process: normal Thought Content: normal Insight: insight good Judgment: judgment good Results Imaging Abdomen CT scan report/results: report reviewed (FINDINGS: Lungs: Regarding the lung bases, please see same day CT thorax. VASCULATURE: Aorta: Minimal aortic atherosclerosis. No aneurysm or dissection. Celiac trunk and mesenteric arteries: No occlusion or significant stenosis. Renal arteries: No occlusion or significant stenosis. ABD) CT scan - chest: report reviewed (FINDINGS: Pulmonary arteries: No pulmonary emboli. Aorta: No aortic aneurysm. No aortic dissection. Thyroid: Subcentimeter right thyroid calcification is likely benign. Follow-up as per institutional protocol. Lungs: 1-2 very small, subcentimeter noncalcified pulmonary nodules. Follow- up) Labs : 06/17/18 17:50 06/17/18 17:50 Laboratory Results - last 24 hr 06/17/18 06/17/18 06/17/18 17:50 17:50 17:50 WBC 6.07 RBC 4.30 Hgb 13.6 Hct 40.3 MCV 93.7 MCH 31.6 MCHC 33.7 RDW 12.3 Plt Count 203 MPV 9.5 Immature Gran % 0.2 Neutrophils % 51.4 Lymphocytes % 31.5 Monocytes % 7.9 Eosinophils % 8.7 Basophils % 0.3 Absolute Neutrophils 3.12 Absolute Lymphocytes 1.91 Absolute Monocytes 0.48 Absolute Eosinophils 0.53 Absolute Basophils 0.02 PT 9.7 INR 1.0 APTT 21.6 Sodium 142 Potassium 3.8 Chloride 104 Carbon Dioxide 26.3 Anion Gap 11.7 H BUN 16 Creatinine 0.75 Estimated GFR/1.73 m2 >= 60.00 Glucose 100 Calcium 8.7 Total Bilirubin 0.3 AST 29 ALT 24 Alkaline Phosphatase 84 Troponin I 0.04 Total Protein 7.8 Albumin 4.2 Ethyl Alcohol 06/17/18 06/17/18 18:28 20:45 WBC RBC Hgb Hct MCV MCH MCHC RDW Plt Count MPV Immature Gran % Neutrophils % Lymphocytes % Monocytes % Eosinophils % Basophils % Absolute Neutrophils Absolute Lymphocytes Absolute Monocytes Absolute Eosinophils Absolute Basophils PT INR APTT Sodium Potassium Chloride Carbon Dioxide Anion Gap BUN Creatinine Estimated GFR/1.73 m2 Glucose Calcium Total Bilirubin AST ALT Alkaline Phosphatase Troponin I 0.05 Total Protein Albumin Ethyl Alcohol < 3.0 Last Vital Signs Temp 36.5 C 06/17/18 22:46 Pulse 64 06/17/18 23:16 Resp 19 06/17/18 23:20 BP 178/84 H 06/17/18 23:16 Pulse Ox 95 06/17/18 23:20
[2018-06-18] VITALS (75 sets, daily range): BP systolic 135–270; BP diastolic 50–135; PULSE 55–85; RESP 7–30; TEMP 37.2–37.4; O2SAT 86–99
[2018-06-18] MEDS: Melatonin 3 MG TAB 9 MG PO ×2 (00:31→21:06)
[2018-06-18] MEDS: Zolpidem 10 MG TAB 15 MG PO (00:49)
[2018-06-18 02:44] LABS: Troponin I 0.06 ng/mL (0.00-0.06)
[2018-06-18] MEDS: Enoxaparin 40 MG/0.4 ML SYR SC (06:25)
[2018-06-18] MEDS: Levothyroxine 25 MCG TAB PO (06:25)
[2018-06-18 08:19] LABS: FREE T4 0.53 ng/dL (0.76-1.46)
[2018-06-18 08:20] LABS: Cholesterol 301 mg/dL (50-200); HDL Cholesterol 119 mg/dL (40-60); LDL CHOLESTEROL 157 mg/dL (<100); Triglyceride 53 mg/dL (30-150); Troponin I 0.02 ng/mL (0.00-0.06)
--- NOTE | 2018-06-18 08:37 | PDOC.CMIN ---
- If Service Date Differs Date of service: 06/18/18 Time of Service: 08:38 Care Management Initial Assess REASON FOR HOSPITALIZATION:: chest pain, hypothyroidisim PAST MEDICAL HISTORY/PAST SURGICAL HISTORY:: Lung Nodules, atypical chest pain, hypothyroidisim, Hypertension, Vertigo, insominia, IBS PREVIOUS FUNCTIONAL STATUS/SOCIAL/FAMILY SUPPORTS:: Lainey (Janet) is a 72 year old female that lives with her Son in [place], [place]. Her spouse about 3 years ago after a long christianson with leukemia. She is indepednet with ADL's and care at home. 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 CURRENT FUNCTIONAL STATUS:: Lainey is alert and engaged with assessment she states she has been feeling like her thyroid has been low. She states when her thyroid is low she feel like she is dragging her feet. During good weather she walks 5 miles a day. She states she has a good relationship with her primary care. She has an appointment with him in a week. ADVANCE DIRECTIVES:: Not compelted she would like the forms to bring home. Has patient been provided with information about the portal?: Yes Did the patient sign up for the portal?: No CODE STATUS:: Full Code INSURANCE COVERAGE / FINANCIAL ISSUES:: Medicare CURRENT HOME/COMMUNITY SERVICES/EQUIPMENT:: No current services or equipment. She does see pulmonogist regularly related to exposure to TB as an . She states she has never been positive for TB or shown signs of it. PRIMARY CARE PHYSICIAN:: Rui Torres [facility] [phone] POTENTIAL DISCHARGE NEEDS:: Follow up appointment scheduled with primary care. PATIENT/FAMILY EDUCATION NEEDS:: Discharge education, limitations and follow up plan of care. ANTICIPATED BARRIERS TO DISCHARGE:: None identified at this time TRANSPORTATION:: Via private car with son at time of discharge. PLAN:: Lainey remains observation in the ICU. She continues on cardiac monitoring Her blood pressure remains elevated. Levothyroxine has been increased. She will be discharged home when medically ready no servcies at time of discharge.
[2018-06-18] MEDS: Omega-3 Fatty Acids 1000 MG CAP PO (08:50)
[2018-06-18] MEDS: Potassium Chloride 20 MEQ TABCR PO ×2 (08:50→21:06)
[2018-06-18] MEDS: hydrOXYzine HCL 25 MG TAB PO ×2 (09:30→21:11)
[2018-06-18] MEDS: LORazepam 2 MG/ML VIAL 1 MG IV (10:58)
[2018-06-18 11:59] LABS: Magnesium 2.3 mg/dL (1.8-2.4)
--- NOTE | 2018-06-18 12:28 | MERGE_ITS ---
*[facility]* *[facility]* [address] [place] [address] Date of study: 06/18/2018 Transthoracic Echocardiography M-mode, complete 2D, complete spectral Doppler, and color Doppler *STUDY CONCLUSIONS* Summary: 1. Left ventricle: The cavity size was normal. Systolic function was hyperdynamic. The estimated ejection fraction was 65-70%. Diastolic parameters were normal. There was no evidence of elevated ventricular filling pressure by Doppler parameters. 2. Right ventricle: The cavity size was normal. Wall thickness was normal. Systolic function was normal. 3. Atrial septum: No defect or patent foramen ovale was identified. 4. Pulmonary arteries: Systolic pressure could not be accurately estimated. 5. Inferior vena cava: The vessel was patent and normal in size. The respirophasic diameter changes were in the normal range (greater than or equal to 50%), consistent with normal central venous pressure. *PATIENT PRESENTATION* Height: 152.4cm ((60in) ) S/D Pressure: 156 / 62 Weight: 55.8kg ((122.7lb) ) BSA: 1.55m^2 Test start time: 12:30 PM. Test stop time: 01:25 PM. PERFORMING Unknown PERFORMING [facility] SWITCHBOARD AND CONTROL ROOM OPERATOR RT Forest Roach)(CT), [facility] ORDERING Linda Oropeza REFERRING Linda Oropeza CONSULTING Rui Trevino *PROCEDURE DATA* Procedure information: The patient was identified by two identifiers. This study was interpreted by [facility]. Pertinent images and digital data are archived for permanent storage and are available for subsequent review. Comparison was made to the study of 05/30/2015. Study status: Routine. Transthoracic echocardiography. M-mode, complete 2D, complete spectral Doppler, and color Doppler. A Transthoracic Echocardiogram was performed. Scanning was performed from the parasternal, apical, subcostal, and suprasternal notch acoustic windows. Images were obtained using an [id number] cardiac ultrasound machine. Image quality was good. Study completion: The patient tolerated the procedure well. 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 *CARDIAC ANATOMY* Left ventricle: The cavity size was normal. Systolic function was hyperdynamic. The estimated ejection fraction was 65-70%. The tissue Doppler parameters were normal. Diastolic parameters were normal. There was no evidence of elevated ventricular filling pressure by Doppler parameters. Aortic valve: Trileaflet. Doppler: There was no stenosis. There was no regurgitation. VTI ratio of LVOT to aortic valve: 0.67. Valve area (VTI): 2cm^2. Indexed valve area (VTI): 1.3cm^2/m^2. Peak velocity ratio of LVOT to aortic valve: 0.61. Valve area (Vmax): 1.8cm^2. Indexed valve area (Vmax): 1.2cm^2/m^2. Mean velocity ratio of LVOT to aortic valve: 0.73. Valve area (Vmean): 2.2cm^2. Indexed valve area (Vmean): 1.4cm^2/m^2. Mean gradient (S): 3.9mm Hg. Peak gradient (S): 8.1mm Hg. Aorta: Aortic root: The aortic root was normal in size. Ascending aorta: The ascending aorta was mildly dilated. Mitral valve: Doppler: There was no evidence for stenosis. There was no significant regurgitation. Valve area by pressure half-time: 2.8cm^2. Indexed valve area by pressure half-time: 1.8cm^2/m^2. Left atrium: The atrium was normal in size. Atrial septum: No defect or patent foramen ovale was identified. Right ventricle: The cavity size was normal. Wall thickness was normal. Systolic function was normal. Pulmonic valve: Doppler: There was no evidence for stenosis. There was no significant regurgitation. Peak gradient (S): 3.3mm Hg. Tricuspid valve: Doppler: There was no significant regurgitation. Pulmonary artery: Poorly visualized. Systolic pressure could not be accurately estimated. Right atrium: The atrium was normal in size. Pericardium: There was no pericardial effusion. Systemic veins: Inferior vena cava: Well visualized. The vessel was patent and normal in size. The respirophasic diameter changes were in the normal range (greater than or equal to 50%), consistent with normal central venous pressure. Baseline ECG: Normal sinus rhythm. Measurements Left ventricle Value Reference LV ID, ED, PLAX 4.4 cm 3.5 - 6.0 LV ID, ES, PLAX 2.3 cm 2.1 - 4.0 LV PW thickness, ED, PLAX 1.1 cm LV end-diastolic volume, 1-p A2C 56 ml LV ejection fraction, 1-p A2C 62 % LV end-diastolic volume, 1-p A4C 56 ml LV ejection fraction, 1-p A4C 76 % LV e', lateral 0.056 m/sec LV E/e', lateral 11 LV e', medial 0.047 m/sec LV E/e', medial 13 LV e', average 0.052 m/sec LV E/e', average 12 Ventricular septum Value Reference IVS thickness, ED, PLAX 1.2 cm LVOT Value Reference LVOT ID, A-P 2.0 cm LVOT area 3 cm^2 LVOT peak velocity, S 0.87 m/sec LVOT mean velocity, S 0.67 m/sec LVOT VTI, S 18.0 cm LVOT peak gradient, S 3 mm Hg LVOT mean gradient, S 2 mm Hg Stroke volume (SV), LVOT DP 54 ml Stroke index (SV/bsa), LVOT DP 35 ml/m^2 Aortic valve Value Reference Aortic valve peak velocity, S 1.4 m/sec Aortic valve mean velocity, S 0.92 m/sec Aortic valve VTI, S 27.0 cm Aortic mean gradient, S 3.9 mm Hg Aortic peak gradient, S 8.1 mm Hg VTI ratio, LVOT/AV 0.67 Aortic valve area, VTI 2 cm^2 Velocity ratio, peak, LVOT/AV 0.61 Aortic valve area, peak velocity 1.8 cm^2 Velocity ratio, mean, LVOT/AV 0.73 Aortic valve area, mean velocity 2.2 cm^2 Aortic valve area/bsa, mean velocity 1.4 cm^2/m^2 Aorta Value Reference Aortic root ID, ED 2.9 cm Ascending aorta ID, A-P, S 3.3 cm Left atrium Value Reference LA ID, A-P, ES 2.8 cm LA ID/bsa, A-P 1.8 cm/m^2 <=2.2 LA area, ES, A4C 16.8 cm^2 8.8 - 23.4 LA area, ES, A2C 12 cm^2 LA volume/bsa, ES, 1-p A4C 33 ml/m^2 LA volume, ES, 2-p 33 ml LA volume/bsa, ES, 2-p 22 ml/m^2 LA/aortic root ratio 0.96 Mitral valve Value Reference Mitral E-wave peak velocity 0.63 m/sec Mitral A-wave peak velocity 0.96 m/sec Mitral deceleration time (H) 270 ms 150 - 230 Mitral pressure half-time 78 ms Mitral E/A ratio, peak 0.66 Mitral valve area, PHT, DP 2.8 cm^2 Pulmonary veins Value Reference Pulmonary vein peak velocity, S 0.88 m/sec Pulmonary vein peak velocity, D 0.36 m/sec Pulmonary vein velocity ratio, peak, 2.48 S/D Pulmonary vein A-wave reversal peak 0.81 m/sec velocity Pulmonary vein A-wave reversal 182 ms duration Tricuspid valve Value Reference Tricuspid regurg peak velocity 2.1 m/sec Tricuspid peak RV-RA gradient 17.7 mm Hg Right atrium Value Reference RA area, ES, A4C 14.1 cm^2 8.3 - 19.5 Pulmonic valve Value Reference Pulmonic peak gradient, S 3.3 mm Hg Legend: (L) and (H) kathryn values outside specified reference range. I have personally reviewed the images and have reviewed and edited the reported findings. Electronically signed by Jean Alcantar MD 06/19/2018 08:18
--- NOTE | 2018-06-18 13:34 | PGE_ITS ---
Date of Service Date of service: 06/18/18 Time of Service: 13:32 Assessment and Plan (1) Hypertensive urgency: Current visit: Yes Status: Acute Likely anxiety driven. Echo is pending - h/o Takotsubo's could in fact be a part of this picture, and I think it is important to make sure it's not recurrent. I hesitate to treat the patient with aggressive antihypertensives and feel her anxiety should be addressed. Will trial norvasc 5 mg. If BP spikes, would prefer to treat with benzos prn. Secondary workup of hypertension could be considered. (2) Atypical chest pain: Current visit: Yes Status: Acute No ACS. There is definitly a musculskeletal component. The patient will need to have an outpatient stress test. (3) Takotsubo syndrome: Current visit: Yes Status: Suspected History of - and with evidence of anxiety/depression, it could be recurrent. Echo pending (4) Anxiety and depression: Current visit: Yes Status: Acute We will get in touch with Dr Torres's office to see what his thoughts are about starting the patient on SSRI. Certainly, that should be done only if the patient is going to have close outpatient follow up. (5) Hypothyroid: Current visit: No Status: Chronic TSH still quite high. The patient states she last had her dose adjusted 4 weeks ago, and I feel it is safe to increase to 50 mcg PO daily. (6) Lung nodules: Current visit: Yes Status: Acute Outpt f/u (7) Pancreatic abnormality: Current visit: Yes Status: Acute Outpatient follow up (8) Discharge planning issues: Current visit: Yes Status: Acute Full code. Anticipated discharge home tomorrow. (9) DVT prophylaxis: Current visit: Yes Status: Acute Lovenox Subjective Interval history since last seen: Ms Escalante reports feeling some chest discomfort, which is reproducible with palpation. She thinks this is because she was chipping away the ice on her front steps for a prolonged period of time. She states she hasn't felt the pounding in her chest today. This am, her blood pressure was 270/102. It did happen in the setting of anxiety. It responded to IV ativan. The patient states that she thinks she used to take zoloft in the past. She also tells me that she had written to her PCP through a patient portal 2 days ago asking for some antidepressants because she did feel depressed and like she wasn't recovering from it. She describes a recent episode of not being able to button her shirt because her fingernails were too long - because she hadn't cut them because she hadn't been taking care of herself. She is very willing to go back on zoloft. She thinks she took the smallest dose back then. She is not sure if Dr Torres already filled it - she would like me to get in touch with him. 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 She is anxious to go home tonight because of the icy roads where she lives and would really like to go home tomorrow morning. Exam Narrative Exam Narrative: General: anxious, but very reasonable elderly female, speaking with a [place] accent, A&Ox3, laying comfortably in bed HEENT: EOMI, MMM Heart: RRR, no m/r/g; L-sided chest pain is reproducible with palpation Lungs; CTAB Abdomen: soft, nontender, nondistended Extremities: no e/c/c BLE's, 2+ pedal pulses B Objective Objective Clinical Data: Abnormal lab results 06/17/18 06/18/18 Range/Units 17:50 06:12 Anion Gap 11.7 H (3-11) mmol/L Total Cholesterol 301 H (50-200) mg/dL LDL Cholesterol Direct 157 H (<100) mg/dL HDL Cholesterol 119 H (40-60) mg/dL TSH 28.40 H (0.358-3.74) uIU/mL Free T4 0.53 L (0.76-1.46) ng/dL Vital Signs Temperature 37.2 C 06/18/18 08:55 Temperature Source Temporal Artery Scan 06/18/18 08:55 Pulse 71 06/18/18 12:01 Pulse Rhythm Regular 06/18/18 08:45 Pulse 68 06/18/18 12:01 Respiratory Rate 19 06/18/18 12:01 Respiratory Effort 06/18/18 08:45 Respiratory Depth Normal 06/18/18 08:45 Respiratory Pattern Normal 06/18/18 08:45 Blood Pressure 173/108 H 06/18/18 12:01 Blood Pressure Mean 125 06/18/18 12:01 Blood Pressure Position Sitting 06/17/18 17:53 Pulse Oximetry 98 06/18/18 08:55 Oxygen Delivery Method Room Air 06/18/18 08:55 Oxygen Flow Rate 0 06/18/18 08:55 Pain Level 0 06/17/18 23:45 Comment 06/18/18 09:25 Intake & Output 06/17/18 06/18/18 06/18/18 23:59 11:59 23:59 Intake Total 1000 / 1000 610 / 610 Output Total 150 / 150 825 / 1225 400 / 1225 Balance 850 / 850 -215 / -615 -400 / -615 Weight 56.8 kg 55.9 kg Intake: IV 1000 / 1000 10 / 10 Oral 600 / 600 Output: Urine 150 / 150 825 / 1225 400 / 1225 Other: Urine Color Pale Pale Yellow Yellow Urine Appearance Clear Clear Clear Urine Odor None None None Comment void x 1. commode emptied at this time. Voiding Methods Bedside Commode Bedside Commode Bedside Commode Laboratory Results WBC 6.07 k/cumm (4.4-10.8) 06/17/18 17:50 RBC 4.30 m/cumm (4.00-5.20) 06/17/18 17:50 Hgb 13.6 g/dL (12.0-15.5) 06/17/18 17:50 Hct 40.3 % (36.0-46.0) 06/17/18 17:50 MCV 93.7 fL (80-95) 06/17/18 17:50 MCH 31.6 pg (27.0-33.0) 06/17/18 17:50 MCHC 33.7 g/dL (32.0-36.0) 06/17/18 17:50 RDW 12.3 % (11.7-14.6) 06/17/18 17:50 Plt Count 203 x1000/uL (130-400) 06/17/18 17:50 MPV 9.5 fL (8.0-11.0) 06/17/18 17:50 Immature Gran % 0.2 06/17/18 17:50 Neutrophils % 51.4 06/17/18 17:50 Lymphocytes % 31.5 06/17/18 17:50 Monocytes % 7.9 06/17/18 17:50 Eosinophils % 8.7 06/17/18 17:50 Basophils % 0.3 06/17/18 17:50 Absolute Neutrophils 3.12 k/cumm (1.2-6.7) 06/17/18 17:50 Absolute Lymphocytes 1.91 k/cumm (1.2-3.4) 06/17/18 17:50 Absolute Monocytes 0.48 k/cumm (0.11-0.7) 06/17/18 17:50 Absolute Eosinophils 0.53 k/cumm (0.0-0.7) 06/17/18 17:50 Absolute Basophils 0.02 k/cumm (0.0-0.2) 06/17/18 17:50 PT 9.7 sec (9.3-11.0) 06/17/18 17:50 INR 1.0 (0.9-1.1) 06/17/18 17:50 APTT 21.6 sec (21.0-31.4) 06/17/18 17:50 Sodium 142 mmol/L (136-145) 06/17/18 17:50 Potassium 3.8 mmol/L (3.5-5.1) 06/17/18 17:50 Chloride 104 mmol/L (98-107) 06/17/18 17:50 Carbon Dioxide 26.3 mmol/L (21.0-32.0) 06/17/18 17:50 Anion Gap 11.7 mmol/L (3-11) H 06/17/18 17:50 BUN 16 mg/dL (7-18) 06/17/18 17:50 Creatinine 0.75 mg/dL (0.55-1.02) 06/17/18 17:50 Estimated GFR/1.73 m2 >= 60.00 (mL/min/1.73m2) 06/17/18 17:50 Glucose 100 mg/dL (70-100) 06/17/18 17:50 Calcium 8.7 mg/dL (8.5-10.1) 06/17/18 17:50 Magnesium 2.3 mg/dL (1.8-2.4) 06/18/18 06:12 Total Bilirubin 0.3 mg/dL (0.2-1.0) 06/17/18 17:50 AST 29 U/L (15-37) 06/17/18 17:50 ALT 24 U/L (12-78) 06/17/18 17:50 Alkaline Phosphatase 84 U/L (46-116) 06/17/18 17:50 Troponin I 0.02 ng/mL (0.00-0.06) 06/18/18 06:12 Total Protein 7.8 g/dL (6.4-8.2) 06/17/18 17:50 Albumin 4.2 g/dL (3.4-5.0) 06/17/18 17:50 Triglycerides 53 mg/dL (30-150) 06/18/18 06:12 Total Cholesterol 301 mg/dL (50-200) H 06/18/18 06:12 LDL Cholesterol Direct 157 mg/dL (<100) H 06/18/18 06:12 HDL Cholesterol 119 mg/dL (40-60) H 06/18/18 06:12 TSH 28.40 uIU/mL (0.358-3.74) H 06/18/18 06:12 Free T4 0.53 ng/dL (0.76-1.46) L 06/18/18 06:12 Ethyl Alcohol < 3.0 mg/dL (<3) 06/17/18 18:28 Echo done, results unavialable
--- NOTE | 2018-06-18 14:39 | CHAPLAIN ---
Lainey was sitting up in her chair playing Scrabble on her iPad, when I visited. She told me she thinks she had an anxiety attack, as lots of stressers piled up on her. She normally walks 5 miles a day, but hasn't been able to because of the weather and the long winter has left her feeling cooped up she said. 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 Lainey's about 3 years ago, and she said since then she has not be interested in being involved anyone else. Her son lives with her and does much of the cooking and cleaning. She is grateful to have him living with her. Lainey said she is beginning to feel better.
[2018-06-18] MEDS: amLODIPine 5 MG TAB PO (15:36)
[2018-06-18] MEDS: Zolpidem 5 MG TAB 15 MG PO (21:06)
[2018-06-19] VITALS (21 sets, daily range): BP systolic 124–217; BP diastolic 48–166; PULSE 56–91; RESP 11–23; O2SAT 93–97
[2018-06-19] MEDS: Enoxaparin 40 MG/0.4 ML SYR SC (08:05)
[2018-06-19] MEDS: Omega-3 Fatty Acids 1000 MG CAP PO (08:06)
[2018-06-19] MEDS: Lisinopril 10 MG TAB PO (08:06)
[2018-06-19] MEDS: Levothyroxine 50 MCG TAB PO (08:06)
[2018-06-19] MEDS: Potassium Chloride 20 MEQ TABCR PO ×2 (08:06→21:13)
[2018-06-19] MEDS: amLODIPine 5 MG TAB PO (08:07)
[2018-06-19 10:48] LABS: Anion Gap 8.8 mmol/L (3-11); BUN 15 mg/dL (7-18); CO2 28.2 mmol/L (21.0-32.0); CREATININE 0.87 mg/dL (0.55-1.02); Calcium 9.5 mg/dL (8.5-10.1); Chloride 101 mmol/L (98-107); Glucose 119 mg/dL (70-100); Sodium 138 mmol/L (136-145)
--- NOTE | 2018-06-19 10:52 | PDOC.CMPRO ---
- If Service Date Differs Date of service: 06/19/18 Time of Service: 10:52 Care Management Progress Note S/O: Lainey will transition to inpatient today she continues to have significant hypertension. She is a medical surgical patient at this time. CM provided the advance directive forms for her to complete she does not want to complete today. A: Lainey is a 72 year old female admitted with chest pain and hypothyroidism. P:Lainey remains in the ICU. She continues on cardiac monitoring Her blood pressure remains elevated. Levothyroxine has been increased. She will be discharged home when medically ready no services at time of discharge. Her son will transport her home when she is ready.
--- NOTE | 2018-06-19 11:10 | PHARADMIT ---
Admission Pharmacy Clinical Review CHEST PAIN Code Status Full Code Current Weight 55.9 kg Renally Cleared and Narrow Therapeutic Index Meds crcl ~42ml/min QTc Value / Action Taken 475 BP Control, Fever 181/96 Electrolytes reviewed ok DVT Prophylaxis enoxaparin Opiate Usage / Scheduled Bowel Regimen Ordered no/prn Plt/SCr for Heparin / Enoxaparin 203/0.87 INR for Warfarin 1.0 H/H stable, WBC/Bands 13.6/40.3 wbc 6.07 Antibiotic appropriateness na Cultures and Sensitivities na Surgical ABX d/c within 24 hr na DM control / Insulin Dosing na Heart Failure (Check EF%) (GRACIE's, B-Block, Diuretics) na IV to PO Switch Home Meds Reviewed levothyroxine dose increased due to high TSH . home dose zolpidem verified Home Meds Not Ordered all ordered Comments lisinopril started, waiting for control of BP before doing stress test
[2018-06-19] MEDS: Normal Saline Flush 10 ML SYR IVP (13:25)
[2018-06-19] MEDS: Normal Saline 1,000 ML 50 ML IV (13:25)
[2018-06-19] MEDS: Refresh PLUS Eye Drops 0.4ml 1 EACH OU (14:41)
--- NOTE | 2018-06-19 16:07 | W.PM.PROGNOT ---
Date of Service Date of service: 06/19/18 Time of Service: 16:07 Assessment and Plan (1) Hypertensive urgency: Current visit: Yes Status: Acute Likely anxiety driven, but reviewing the data, the patient is overall rather hypertensive. Echo without evidence of Takotsubo's at least now. Continue norvasc 5 mg PO daily; lisinopril added. I also added very gentle IVF to counteract pressure natriuresis. On discharge, will also need an SSRI rx - preferably written by PCP's office. (2) Atypical chest pain: Current visit: Yes Status: Acute No ACS. There is definitly a musculskeletal component. Will need outpatient stress test once BP's are controlled. (3) Takotsubo syndrome: Current visit: Yes Status: Ruled-out History of. At this time, echo reveals no evidence thereof. (4) Anxiety and depression: Current visit: Yes Status: Acute Case management is communicating with PCP's office to ensure the patient is placed on an SSRI. (5) Hypothyroid: Current visit: No Status: Chronic Continue increased dose of synthroid (50 mcg PO daily). (6) Lung nodules: Current visit: Yes Status: Acute Outpt f/u (7) Pancreatic abnormality: Current visit: Yes Status: Acute Outpatient follow up (8) Discharge planning issues: Current visit: Yes Status: Acute Full code. Anticipated discharge home tomorrow. (9) DVT prophylaxis: Current visit: Yes Status: Acute Lovenox Subjective Interval history since last seen: Lainey is doing better today. Her BP's were still very high this morning, but now seem to be improving. She denies dizziness, chest pain, shortness of breath, nausea, vomiting. She still had palpitations today. Exam Narrative Exam Narrative: General: anxious female, looks more calm today, A&Ox3 HEENT: EOMI, MMM Heart: RRR, no m/r/g Lungs; CTAB Abdomen: soft, nontender, nondistended Extremities: no e/c/c BLE's, 2+ pedal pulses B Objective Objective Clinical Data: Abnormal lab results 06/19/18 Range/Units 10:30 Glucose 119 H (70-100) mg/dL Vital Signs Temperature 37.4 C 06/18/18 15:41 Temperature Source Temporal Artery Scan 06/18/18 15:41 Pulse 72 06/19/18 12:40 Pulse Rhythm Regular 06/19/18 08:02 Pulse 73 06/19/18 14:00 Respiratory Rate 19 06/19/18 14:00 Respiratory Effort Non-Labored 06/19/18 08:02 Respiratory Depth Normal 06/19/18 08:02 Respiratory Pattern Normal 06/19/18 08:02 Blood Pressure 124/67 06/19/18 12:40 Blood Pressure Mean 77 06/19/18 12:40 Blood Pressure Position Sitting 06/17/18 17:53 Pulse Oximetry 97 06/18/18 23:01 Oxygen Delivery Method Room Air 06/18/18 15:41 Oxygen Flow Rate 0 06/18/18 15:41 Pain Level 0 06/17/18 23:45 Comment 06/18/18 09:25 Intake & Output 06/18/18 06/19/18 06/19/18 23:59 11:59 23:59 Intake Total 1100 / 1710 250 / 500 250 / 500 Output Total 1175 / 2000 550 / 550 Balance -75 / -290 250 / -50 -300 / -50 Intake: Oral 1100 / 1700 250 / 500 250 / 500 Output: Urine 1175 / 2000 550 / 550 Other: Urine Color Pale Light Abbie Yellow Urine Appearance Clear Clear Urine Odor None Normal Comment commode emptied at this time. Stool Size Moderate Stool Characteristics Soft Brown Voiding Methods Bedside Commode Bedside Commode Laboratory Results WBC 6.07 k/cumm (4.4-10.8) 06/17/18 17:50 RBC 4.30 m/cumm (4.00-5.20) 06/17/18 17:50 Hgb 13.6 g/dL (12.0-15.5) 06/17/18 17:50 Hct 40.3 % (36.0-46.0) 06/17/18 17:50 MCV 93.7 fL (80-95) 06/17/18 17:50 MCH 31.6 pg (27.0-33.0) 06/17/18 17:50 MCHC 33.7 g/dL (32.0-36.0) 06/17/18 17:50 RDW 12.3 % (11.7-14.6) 06/17/18 17:50 Plt Count 203 x1000/uL (130-400) 06/17/18 17:50 MPV 9.5 fL (8.0-11.0) 06/17/18 17:50 Immature Gran % 0.2 06/17/18 17:50 Neutrophils % 51.4 06/17/18 17:50 Lymphocytes % 31.5 06/17/18 17:50 Monocytes % 7.9 06/17/18 17:50 Eosinophils % 8.7 06/17/18 17:50 Basophils % 0.3 06/17/18 17:50 Absolute Neutrophils 3.12 k/cumm (1.2-6.7) 06/17/18 17:50 Absolute Lymphocytes 1.91 k/cumm (1.2-3.4) 06/17/18 17:50 Absolute Monocytes 0.48 k/cumm (0.11-0.7) 06/17/18 17:50 Absolute Eosinophils 0.53 k/cumm (0.0-0.7) 06/17/18 17:50 Absolute Basophils 0.02 k/cumm (0.0-0.2) 06/17/18 17:50 PT 9.7 sec (9.3-11.0) 06/17/18 17:50 INR 1.0 (0.9-1.1) 06/17/18 17:50 APTT 21.6 sec (21.0-31.4) 06/17/18 17:50 Sodium 138 mmol/L (136-145) 06/19/18 10:30 Potassium 4.0 mmol/L (3.5-5.1) 06/19/18 10:30 Chloride 101 mmol/L (98-107) 06/19/18 10:30 Carbon Dioxide 28.2 mmol/L (21.0-32.0) 06/19/18 10:30 Anion Gap 8.8 mmol/L (3-11) 06/19/18 10:30 BUN 15 mg/dL (7-18) 06/19/18 10:30 Creatinine 0.87 mg/dL (0.55-1.02) 06/19/18 10:30 Estimated GFR/1.73 m2 >= 60.00 (mL/min/1.73m2) 06/19/18 10:30 Glucose 119 mg/dL (70-100) H 06/19/18 10:30 Calcium 9.5 mg/dL (8.5-10.1) 06/19/18 10:30 Magnesium 2.0 mg/dL (1.8-2.4) 06/19/18 10:30 Total Bilirubin 0.3 mg/dL (0.2-1.0) 06/17/18 17:50 AST 29 U/L (15-37) 06/17/18 17:50 ALT 24 U/L (12-78) 06/17/18 17:50 Alkaline Phosphatase 84 U/L (46-116) 06/17/18 17:50 Troponin I 0.02 ng/mL (0.00-0.06) 06/18/18 06:12 Total Protein 7.8 g/dL (6.4-8.2) 06/17/18 17:50 Albumin 4.2 g/dL (3.4-5.0) 06/17/18 17:50 Triglycerides 53 mg/dL (30-150) 06/18/18 06:12 Total Cholesterol 301 mg/dL (50-200) H 06/18/18 06:12 LDL Cholesterol Direct 157 mg/dL (<100) H 06/18/18 06:12 HDL Cholesterol 119 mg/dL (40-60) H 06/18/18 06:12 TSH 28.40 uIU/mL (0.358-3.74) H 06/18/18 06:12 Free T4 0.53 ng/dL (0.76-1.46) L 06/18/18 06:12 Ethyl Alcohol < 3.0 mg/dL (<3) 06/17/18 18:28 1. Left ventricle: The cavity size was normal. Systolic function was hyperdynamic. The estimated ejection fraction was 65-70%. Diastolic parameters were normal. There was no evidence of elevated ventricular filling pressure by Doppler parameters. 2. Right ventricle: The cavity size was normal. Wall thickness was normal. Systolic function was normal. 3. Atrial septum: No defect or patent foramen ovale was identified. 4. Pulmonary arteries: Systolic pressure could not be accurately estimated. 5. Inferior vena cava: The vessel was patent and normal in size. The respirophasic diameter changes were in the normal range (greater than or equal to 50%), consistent with normal central venous pressure.
[2018-06-19] MEDS: Melatonin 3 MG TAB 9 MG PO (21:13)
[2018-06-19] MEDS: Zolpidem 5 MG TAB 15 MG PO (21:14)
[2018-06-20] VITALS (8 sets, daily range): BP systolic 137–140; BP diastolic 57–70; PULSE 58–84; RESP 14–27; TEMP 36.9
[2018-06-20] MEDS: Levothyroxine 50 MCG TAB PO (06:04)
[2018-06-20] MEDS: Enoxaparin 40 MG/0.4 ML SYR SC (06:05)
[2018-06-20 06:35] LABS: Anion Gap 9.1 mmol/L (3-11); BUN 19 mg/dL (7-18); CO2 24.9 mmol/L (21.0-32.0); CREATININE 0.64 mg/dL (0.55-1.02); Calcium 9.1 mg/dL (8.5-10.1); Chloride 106 mmol/L (98-107); Glucose 98 mg/dL (70-100); Magnesium 1.8 mg/dL (1.8-2.4); Potassium 4.2 mmol/L (3.5-5.1); Sodium 140 mmol/L (136-145)
[2018-06-20] MEDS: Potassium Chloride 20 MEQ TABCR PO (08:32)
[2018-06-20] MEDS: Omega-3 Fatty Acids 1000 MG CAP PO (08:32)
[2018-06-20] MEDS: amLODIPine 5 MG TAB PO (08:32)
[2018-06-20] MEDS: Lisinopril 10 MG TAB PO (08:32)
--- NOTE | 2018-06-20 09:49 | PDOC.CMDIS ---
- If Service Date Differs Date of service: 06/20/18 Time of Service: 09:49 LACE Index Scoring Tool - Questions: Length of Stay (in days): 3 Acuity (Admit via E.D.?): Yes E.D. Visits: 3 - Answers: Total Score: 9 Risk of Readmission: Low Risk Care Management Discharge Reason for Hospitalization: chest pain, hypothyroidisim Discharge Plan: Lainey will return home today with no services. She will F/U with PCP and plan of care as prescribed. Lainey will have an outpatient stress test. Her son will transport her home today. Patient/Family Education Needs: Review DC instructions, any limitations, and discuss 'Ask Me Three'
--- NOTE | 2018-06-20 12:47 | DSE_ITS ---
Date of service: 06/20/18 Time of Service: 12:24 DS: Diagnosis Discharge Diagnosis (1) Hypertensive urgency: Status: Acute (2) Atypical chest pain: Status: Acute (3) Takotsubo syndrome: Status: Ruled-out (4) Anxiety and depression: Status: Acute (5) Hypothyroid: Status: Chronic (6) Lung nodules: Status: Acute (7) Pancreatic abnormality: Status: Acute (8) Thyroid nodule: Status: Acute Discharge Plan Disposition Patient Disposition: HOME Condition: Stable Discharge Details Reason For Visit: CHEST PAIN, HYPERTENSIVE URGENCY Admit Date/Time: 06/17/18 22:30 Admit Provider: Royce Burkett Attending Provider: Royce Burkett Primary Care Provider: Rui Torres Hospital Course Hospital Course: CC: Chest Pain HPI: 72 yr old woman with a prior history of hypothyroidism, remote tobacco use, and alleged Takatsubo Cardiomyopathy (no prior documentation on specifics) admitted from [facility] Emergency Department with a diagnosis of chest pain. Mrs. Escalante reported an approximate 2 month history of intermittent feeling of her heart pounding, particularly during times of emotional stress. She reports worsening stress recently due to the anniversary of her 's who 3 yrs ago this April from leukemia. She also lives with her 46 year old son who has bipolar disorder and has had a recent flare. Normally Mrs. Escalante deals w/ her stress by calming herself w/ walking, up to 5 miles per day, but has been unable to do so this winter because of icy roads. Her chest discomfort is worsened by emotional distress and usually calms down with walking or sleep. She has chronic insomnia which adds to her stress and takes Ambien, and melatonin chronically to help her sleep. She previously saw a sleep specialist while in [facility] prior to moving to [place]. She has had a prior stress test for complaints of chest pain but never a heart catheterization. Stress test was done 5 to 10 yrs ago while in [place], [place]. The patient's initial ED work-up included normal troponin levels and an EKG that showed non-specific T wave inversions in V1-V3 similar to prior EKG from 03/2018. CBC and CMP were all unremarkable. CTA of her chest and abdomen did not demonstrate any PE, aortic aneurysm, or dissection. However, non-specific findings included 1-2 small (subcentimeter non-calcified lung nodules, subcentimeter calcification of the right thyroid lobe, a small hepatic left lower lobe cyst, and a 0.7 by 1.9 cm low density structure at the pancreatic head. Following her admission she also underwent an essentially unremarkable ECHO and normal serial cardiac biomarkers. She was however noted to have some significantly elevated blood pressures, attributed to her anxiety. She was initiated on a regimen of amlodipine and lisinopril, with vast improvement and fairly good control of her systolic values, with plans on outpatient follow-up for repeat blood pressure check and repeat BMP in 5-7 days. Given her CP an outpatient stress test will also be scheduled. Given other incidental findings on imaging, follow-up examination and work-up is recommended for patient's lung nodules, small likely benign thyroid calcification, and pancreatic lesion. Also, the patient's TSH was found to be markedly elevated again, and her Levothyroxine dose was increased, with recommendation for repeat check in 6-8 weeks. Home Meds and New Rx's Prescriptions: New amlodipine 5 mg Tablet 5 mg PO DAILY Qty: 30 RF: 0 levothyroxine 50 mcg Tablet 50 mcg PO DAILY@0600 Qty: 30 RF: 0 lisinopril 10 mg Tablet 10 mg PO DAILY Qty: 30 RF: 0 Continued zolpidem [Ambien] 10 MG tablet 15 mg PO HS RF: 0 omega-3 fatty acids-fish oil [Fish Oil] 1 EACH capsule 1 ea PO DAILY RF: 0 estradiol [Estrace] 42.5 GM cream 42.5 gm VG DIRECTED Qty: 1 RF: 6 melatonin-pyridoxine (vit B6) [Melatonin (with B6)] 1 EACH tablet 1 ea PO HS RF: 0 ginkgo biloba leaf extract 120 MG capsule 240 mg PO DAILY RF: 0 zinc gluconate 10 MG lozenge 5 ea PO DAILY RF: 0 potassium chloride 20 MEQ tablet,ER particles/crystals 20 meq PO BID RF: 0 coenzyme Q10 [Co Q-10] 100 MG capsule 100 mg PO DAILY RF: 0 5-hydroxytryptophan (5-HTP) 50 MG capsule 50 mg PO HS RF: 0 turmeric root extract 500 MG capsule 500 mg PO DAILY RF: 0 calcium carb-magnesium ox,carb 200 mg calcium- 100 mg Tablet,Chewable 1 tab PO DAILY RF: 0 Discontinued levothyroxine 25 MCG tablet 25 mcg PO DAILY RF: 0 Discharge Instructions Additional Instructions: Please see your PCP for a blood pressure check in one week. Please repeat blood work in 5-7 days. A stress test will be scheduled for you as an outpatient. Activity:: No strenuous Activity Equipment/Supplies:: No Equipment Needed Diet:: Low Sodium Discharge Orders Discharge Orders: Discharge Order (Routine); Ordered 06/20/18 Ordered By: Arjun Lopez Other Ambulatory Orders: Basic Metabolic Panel (Routine) Location: Determined by Patient Ordered By: Arjun Lopez Nuclear Medicine Stress Test (Outpt) (ONCE) Timeframe: [id number] Location: Determined by Patient Ordered By: Arjun Lopez DS: Data Vitals/I&O Vitals and I&O: Vital Signs Temperature 36.9 C 06/20/18 02:34 Temperature Source Temporal Artery Scan 06/20/18 02:34 Pulse 58 L 06/20/18 07:40 Pulse Rhythm Regular 06/20/18 08:15 Pulse 80 06/20/18 12:00 Respiratory Rate 15 06/20/18 12:00 Respiratory Effort Non-Labored 06/20/18 08:15 Respiratory Depth Normal 06/20/18 08:15 Respiratory Pattern Normal 06/20/18 08:15 Blood Pressure 137/70 06/20/18 07:40 Blood Pressure Mean 81 06/20/18 07:40 Blood Pressure Position Sitting 06/17/18 17:53 Pulse Oximetry 93 L 06/19/18 22:00 Oxygen Delivery Method Room Air 06/20/18 02:34 Oxygen Flow Rate 0 06/20/18 02:34 Pain Level 0 06/20/18 02:34 Comment 06/18/18 09:25 Intake & Output 06/19/18 06/20/18 06/20/18 23:59 11:59 23:59 Intake Total 460 / 710 110 / 110 Output Total 950 / 950 700 / 700 Balance -490 / -240 -590 / -590 Weight 54.8 kg Intake: IV 10 Oral 450 / 700 100 / 100 Output: Urine 950 / 950 700 / 700 Other: Urine Color Light Abbie Light Abbie Urine Appearance Clear Clear Urine Odor Normal Normal Voiding Methods Bedside Commode Bedside Commode Completed studies during hospitalization [Text1]: Exam(s) 06/[address]:CT thorax & abdomen CTA SYMPTOM/DIAGNOSIS: TEARING SENSATION IN CHEST CTA ABDOMEN AND CHEST: CT angiography was performed with multi slice acquisition and multi planar and 3D reconstruction. CHEST: The study was carried out with an intravenous infusion of 100 cc's of Omnipaque 350. There is no evidence of pulmonary embolic disease. There is no evidence of an aortic aneurysm or dissection. There is no evidence of a pneumothorax or pleural effusion. One or two very small subcentimeter, non calcified pulmonary nodules are identified. Note is also made of a subcentimeter right thyroid calcification which likely is benign. The heart is not enlarged. There is no pericardial effusion. There is no evidence of lymphadenopathy. Note is made of old loss of height in the mid thoracic vertebral bodies. There are no acute fractures. No suspicious soft tissue abnormality is seen. IMPRESSION: No acute aortic pathology. No pulmonary emboli. Incidental findings as described above. ABDOMEN: The study was carried out according to the usual protocol. There are mild atherosclerotic changes involving the aorta. There is no evidence of an aneurysm or dissection. The superior mesenteric and celiac axis appear intact. There is no evidence of significant stenosis or occlusion of the renal arteries. A small hepatic left lower lobe liver cyst is demonstrated. The gallbladder is intact. There are no gallstones. Evaluation of the pancreas reveals a 1.9 by 0.7 low density structure along the medial margin of the pancreatic head. Additional subcentimeter cystic changes are seen in the uncinate process. There is no evidence of splenomegaly. The adrenals are intact. Evaluation of the kidneys reveals very mild left hydronephrosis, unchanged when compared with the prior examination. The lower border of the kidney is not included on this study. There is no evidence of a renal mass. There is no evidence of right hydronephrosis. There is no evidence of bowel obstruction. Mild mucosal thickening involving the stomach is seen. There is no evidence of free air or free fluid in the intraperitoneal space. No acute bony abnormality is seen. The soft tissues are intact. There is no evidence of lymphadenopathy. SUMMARY: No acute aortic pathology. Note is made of mild left hydronephrosis, unchanged. Also there are incidental findings as described above. Exam(s) a US:US echocardiogram Date of study: 06/18/2018 Transthoracic Echocardiography M-mode, complete 2D, complete spectral Doppler, and color Doppler *STUDY CONCLUSIONS* Summary: 1. Left ventricle: The cavity size was normal. Systolic function was hyperdynamic. The estimated ejection fraction was 65-70%. Diastolic parameters were normal. There was no evidence of elevated ventricular filling pressure by Doppler parameters. 2. Right ventricle: The cavity size was normal. Wall thickness was normal. Systolic function was normal. 3. Atrial septum: No defect or patent foramen ovale was identified. 4. Pulmonary arteries: Systolic pressure could not be accurately estimated. 5. Inferior vena cava: The vessel was patent and normal in size. The respirophasic diameter changes were in the normal range (greater than or equal to 50%), consistent with normal central venous pressure. Labs on day of discharge: Labs from last 24 hours 06/20/18 05:50 Sodium 140 Potassium 4.2 Chloride 106 Carbon Dioxide 24.9 Anion Gap 9.1 BUN 19 H Creatinine 0.64 Estimated GFR/1.73 m2 >= 60.00 Glucose 98 Calcium 9.1 Magnesium 1.8 [facility] Medical History Hypoglycemia (Chronic) IBS (irritable bowel syndrome) (Chronic) Hypothyroid (Chronic) Hypertension (Chronic) Vertigo (Chronic) Insomnia (Chronic) Atrophic vulva Dry eye Elevated lipids Hypertension Hypothyroidism Myofascial pain Primary fibromyalgia syndrome dry mouth lupus Surgical History H/O section (Resolved) Biopsy of breast section Hemorrhoidectomy Family History Mother Dementia Father Heart disease Stroke Social History Smoking/Tobacco Use Status: Former Tobacco Use Alcohol Intake: current Alcohol Intake frequency: 0-2 drinks per day Alcohol type: wine Drug use: Never Substance use type: does not use Household members: children Number of Children: 2 number of grandchildren: 1 What is your relationship status?: Panel score (0-1 are the most socially isolated patients): 0 What type of physical activity do you participate in: walking Duration: 60-90 minutes/day Do you feel safe at home: Yes Do you feel safe in your relationship?: Yes
--- NOTE | 2018-06-20 14:17 | NUR.NOTE ---
Pt's HR 120, RR deep and apneic with 5-7 sec pauses. No mottling noted. Patient resting calmly lying in bed with friends at bedside. RN has been in the room every hour to assess patient and friends' needs. Music playing in the room for patient's comfort. Nursing Note:
== END 2018-06-20 14:02 | disposition home or self-care (01) | DRG 305 ==
LOC: ER 22:35 → ICU 23:45
PROVIDERS: Internal Medicine; Admitting Provider Internal Medicine; Emergency Provider Student in an Organized Health Care Education/Training Program; PCP Family Medicine; Visit Provider Internal Medicine
DX: I16.0 Hypertensive urgency (principal); I51.81 Takotsubo syndrome; F41.8 Other specified anxiety disorders; E03.9 Hypothyroidism, unspecified; E16.2 Hypoglycemia, unspecified; E04.1 Nontoxic single thyroid nodule; F51.04 Psychophysiologic insomnia; R91.1 Solitary pulmonary nodule; K86.9 Disease of pancreas, unspecified; E78.5 Hyperlipidemia, unspecified; H04.129 Dry eye syndrome of unspecified lacrimal gland; R00.2 Palpitations; Z87.891 Personal history of nicotine dependence
CPT/HCPCS: 36415; 71275; 74175; 80048; 80053; 80061; 83721; 93005; 93306; 96360; 96361; 99223; 99225; 99232; 99239; 99285; J1650; 80320; 83735; 84439; 84443; 84484; 85025; 85610; 85730; 93010; 99220; G0378; J2060; J3490

== ENCOUNTER 2018-07-16 09:05 | Outpatient (CLI) | payer MEDICARE, OTHER, SELFPAY ==
[2018-07-16 10:49] LABS: FREE T4 0.58 ng/dL (0.76-1.46)
[2018-07-16 21:20] LABS: T3, Total 137 ng/dl (97-169)
== END 2018-07-16 09:25 ==
PROVIDERS: PCP Family Medicine; Visit Provider Internal Medicine Endocrinology, Diabetes & Metabolism
DX: E03.9 Hypothyroidism, unspecified (principal)
CPT/HCPCS: 36415; 84439; 84480; 84481

== ENCOUNTER 2018-08-26 09:35 | Emergency (ER) | payer MEDICARE, OTHER, SELFPAY ==
--- NOTE | 2018-08-26 09:41 | NUR.NOTE ---
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 pt is here because she can not go to the sleep study in [place] because she can not acquire a ride at that time and states i want to have it here pt is also out of her regular sleeping pill
[2018-08-26 09:44] VITALS: BP 180/101; PULSE 64; RESP 16; TEMP 37.2; O2SAT 100
[2018-08-26 09:47] VITALS: RESP 14
--- NOTE | 2018-08-26 09:51 | W.ED.GENAD ---
Discharge Plan Disposition Patient Disposition: HOME Condition: Stable Discharge Details Chief Complaint: GenMedical Clinical Impression: Difficulty sleeping Primary Care Provider: Rui Torres ED Provider: Jean Webber Home Meds and New Rx's Prescriptions: No Action zolpidem [Ambien] 10 MG tablet 15 mg PO HS RF: 0 omega-3 fatty acids-fish oil [Fish Oil] 1 EACH capsule 1 ea PO DAILY RF: 0 estradiol [Estrace] 42.5 GM cream 42.5 gm VG DIRECTED Qty: 1 RF: 6 melatonin-pyridoxine (vit B6) [Melatonin (with B6)] 1 EACH tablet 1 ea PO HS RF: 0 ginkgo biloba leaf extract 120 MG capsule 240 mg PO DAILY RF: 0 zinc gluconate 10 MG lozenge 5 ea PO DAILY RF: 0 potassium chloride 20 MEQ tablet,ER particles/crystals 20 meq PO BID RF: 0 coenzyme Q10 [Co Q-10] 100 MG capsule 100 mg PO DAILY RF: 0 5-hydroxytryptophan (5-HTP) 50 MG capsule 50 mg PO HS RF: 0 turmeric root extract 500 MG capsule 500 mg PO DAILY RF: 0 calcium carb-magnesium ox,carb 200 mg calcium- 100 mg Tablet,Chewable 1 tab PO DAILY RF: 0 amlodipine 5 mg Tablet 5 mg PO DAILY Qty: 30 RF: 0 levothyroxine 50 mcg Tablet 50 mcg PO DAILY@0600 Qty: 30 RF: 0 lisinopril 10 mg Tablet 10 mg PO DAILY Qty: 30 RF: 0 Discharge Instructions Additional Instructions: I placed you on our follow up list to get set up with a primary care provider in the [facility]. They are the ones that have to refer you for sleep studies and prescribe sleep medicine If you have new symptoms such as high fevers, severe shortness of breath or persistent vomit reutrn to the emergency departent Medical Decision Making PAtient arrives with request for referral to sleep study center in [facility]. She has had trouble sleeping for months and her pcp per pt is in [place] and referred her to sleep studies in [place]. She states she has no means to get there and would also like a pcp in the [facility] area. She has no acute complaints and is in no distress on exam. I advised I can have our health care law specialist's assist in getting her set up with a pcp in this area and that a pcp normally has to do the referral for sleep studies for prior auth. Will d/c home and return precautions given Differential Diagnosis sleep apnea, restless legs, anxiety HPI General Mode of arrival: ambulatory. Date/Time Provider Initiated Documentation: 08/26/18 09:36. Limitations to Documentation: no limitations. Information obtained by: patient. History of Present Illness 72 year old F presents to the emergency department with the chief complaint of trouble sleeping, described as moderate, Patient started experiencing this month(s) (3) and it has been constant. No relieving factors improve symptom(s), No exacerbating factors reported . Patient notes no other symptoms.. Patient did receive the following treatments prior to arrival, none Related Data Home Medications Medication Instructions Recorded Confirmed ginkgo biloba leaf extract 240 mg PO DAILY 08/26/12 08/26/18 melatonin-pyridoxine (vit B6) 1 ea PO HS 08/26/12 08/26/18 [Melatonin (with B6)] omega-3 fatty acids-fish oil [Fish 1 ea PO DAILY 06/04/13 08/26/18 Oil] zolpidem [Ambien] 15 mg PO HS tab-cap 06/04/13 08/26/18 5-hydroxytryptophan (5-HTP) 50 mg PO HS 06/27/16 08/26/18 coenzyme Q10 [Co Q-10] 100 mg PO DAILY 06/27/16 08/26/18 potassium chloride 20 meq PO BID 06/27/16 08/26/18 turmeric root extract 500 mg PO DAILY 06/27/16 08/26/18 zinc gluconate 5 ea PO DAILY 06/27/16 08/26/18 estradiol [Estrace] 42.5 gm VG DIRECTED #1 tube 12/18/16 08/26/18 calcium carb-magnesium ox,carb 1 tab PO DAILY 06/17/18 08/26/18 amlodipine 5 mg PO DAILY #30 tab 06/20/18 08/26/18 levothyroxine 50 mcg PO DAILY@0600 #30 tab 06/20/18 08/26/18 lisinopril 10 mg PO DAILY #30 tab 06/20/18 08/26/18 Previous Rx's Medication Instructions Recorded estradiol [Estrace] 42.5 gm VG DIRECTED #1 tube 12/18/16 amlodipine 5 mg PO DAILY #30 tab 06/20/18 levothyroxine 50 mcg PO DAILY@0600 #30 tab 06/20/18 lisinopril 10 mg PO DAILY #30 tab 06/20/18 Allergies Allergy/AdvReac Type Severity Reaction Status Date / Time sulfamethoxazole Allergy fever Unverified 08/26/18 09:46 [From Bactrim] trimethoprim [From Bactrim] Allergy fever Unverified 08/26/18 09:46 zinc Allergy Hives Unverified 08/26/18 09:46 acetaminophen [From Tylenol] AdvReac Intermediate Unverified 08/26/18 09:46 red dye AdvReac Nausea Unverified 08/26/18 09:46 wheat AdvReac bloating Unverified 08/26/18 09:46 oatmeal AdvReac constipatio Uncoded 08/26/18 09:46 n SUGAR AdvReac Uncoded 08/26/18 09:46 General Stated Complaint: GenMedical YUMIKO: 5 Review of Systems Review of Systems All systems reviewed & are unremarkable except as noted in HPI and below Constitutional Denies chills, Denies fever(s) and Denies weakness Cardiovascular Denies chest pain and Denies dyspnea Respiratory Denies cough and Denies dyspnea Gastrointestinal Denies abdominal pain, Denies nausea and Denies vomiting Integumentary/Breasts Denies rash Neurologic Denies weakness [facility] Social History Smoking/Tobacco Use Status: Former Tobacco Use Alcohol Intake: current Alcohol Intake frequency: 0-2 drinks per day Alcohol type: wine Drug use: Never Substance use type: does not use Household members: children Number of Children: 2 number of grandchildren: 1 What is your relationship status?: Panel score (0-1 are the most socially isolated patients): 0 What type of physical activity do you participate in: walking Duration: 60-90 minutes/day Do you feel safe at home: Yes Do you feel safe in your relationship?: Yes Exam Const General: no acute distress Orientation: alert HENMT Head: normal to inspection Ears: external ears normal General nose exam: external nose normal Mouth: moist mucous membranes Eyes General: appearance normal, both eyes and all related structures Neck Neck: normal visual inspection Resp Effort & Inspection: normal respiratory effort and able to speak in complete sentences Cardio Rate: regular rate Skin General skin exam: no rashes or lesions noted Neuro General: alert and oriented x3 Extrem General: normal to inspection Psych Mental Status: mental status grossly normal Course Vital Signs Temperature 37.2 C 08/26/18 09:44 Pulse 64 08/26/18 09:44 Respiratory Rate 16 08/26/18 09:44 Blood Pressure 180/101 H 08/26/18 09:44 Pulse Oximetry 100 08/26/18 09:44 Temperature 37.2 C 08/26/18 09:44 Temperature Source Skin 08/26/18 09:44 Pulse 64 08/26/18 09:44 Respiratory Rate 14 08/26/18 09:47 Respiratory Effort 08/26/18 09:47 Respiratory Pattern Normal 08/26/18 09:47 Blood Pressure 180/101 H 08/26/18 09:44 Blood Pressure Position Sitting 08/26/18 09:44 Pulse Oximetry 100 08/26/18 09:44 Oxygen Delivery Method Room Air 08/26/18 09:44 Oxygen Flow Rate 0 08/26/18 09:44 Pain Level 0 08/26/18 09:44
--- NOTE | 2018-08-26 09:58 | ED.GENADUL_ITS ---
Discharge Plan Disposition Patient Disposition: HOME Condition: Stable Discharge Details Chief Complaint: GenMedical Clinical Impression: Difficulty sleeping Primary Care Provider: Rui Torres ED Provider: Jean Webber Home Meds and New Rx's Prescriptions: No Action zolpidem [Ambien] 10 MG tablet 15 mg PO HS RF: 0 omega-3 fatty acids-fish oil [Fish Oil] 1 EACH capsule 1 ea PO DAILY RF: 0 estradiol [Estrace] 42.5 GM cream 42.5 gm VG DIRECTED Qty: 1 RF: 6 melatonin-pyridoxine (vit B6) [Melatonin (with B6)] 1 EACH tablet 1 ea PO HS RF: 0 ginkgo biloba leaf extract 120 MG capsule 240 mg PO DAILY RF: 0 zinc gluconate 10 MG lozenge 5 ea PO DAILY RF: 0 potassium chloride 20 MEQ tablet,ER particles/crystals 20 meq PO BID RF: 0 coenzyme Q10 [Co Q-10] 100 MG capsule 100 mg PO DAILY RF: 0 5-hydroxytryptophan (5-HTP) 50 MG capsule 50 mg PO HS RF: 0 turmeric root extract 500 MG capsule 500 mg PO DAILY RF: 0 calcium carb-magnesium ox,carb 200 mg calcium- 100 mg Tablet,Chewable 1 tab PO DAILY RF: 0 amlodipine 5 mg Tablet 5 mg PO DAILY Qty: 30 RF: 0 levothyroxine 50 mcg Tablet 50 mcg PO DAILY@0600 Qty: 30 RF: 0 lisinopril 10 mg Tablet 10 mg PO DAILY Qty: 30 RF: 0 Discharge Instructions Additional Instructions: I placed you on our follow up list to get set up with a primary care provider in the [facility]. They are the ones that have to refer you for sleep studies and prescribe sleep medicine If you have new symptoms such as high fevers, severe shortness of breath or persistent vomit reutrn to the emergency departent Medical Decision Making PAtient arrives with request for referral to sleep study center in [facility]. She has had trouble sleeping for months and her pcp per pt is in [place] and referred her to sleep studies in [place]. She states she has no means to get there and would also like a pcp in the [facility] area. She has no acute complaints and is in no distress on exam. I advised I can have our daycare teacher's assist in getting her set up with a pcp in this area and that a pcp normally has to do the referral for sleep studies for prior auth. Will d/c home and return precautions given Differential Diagnosis sleep apnea, restless legs, anxiety HPI General Mode of arrival: ambulatory . Date/Time Provider Initiated Documentation: 08/26/18 09:36 . Limitations to Documentation: no limitations . Information obtained by: patient . History of Present Illness 72 year old F presents to the emergency department with the chief complaint of trouble sleeping, described as moderate, Patient started experiencing this month(s) (3) and it has been constant. No relieving factors improve symptom(s), No exacerbating factors reported . Patient notes no other symptoms.. Patient did receive the following treatments prior to arrival, none Related Data Home Medications Medication Instructions Recorded Confirmed ginkgo biloba leaf extract 240 mg PO DAILY 08/26/12 08/26/18 melatonin-pyridoxine (vit B6) 1 ea PO HS 08/26/12 08/26/18 [Melatonin (with B6)] omega-3 fatty acids-fish oil [Fish 1 ea PO DAILY 06/04/13 08/26/18 Oil] zolpidem [Ambien] 15 mg PO HS tab-cap 06/04/13 08/26/18 5-hydroxytryptophan (5-HTP) 50 mg PO HS 06/27/16 08/26/18 coenzyme Q10 [Co Q-10] 100 mg PO DAILY 06/27/16 08/26/18 potassium chloride 20 meq PO BID 06/27/16 08/26/18 turmeric root extract 500 mg PO DAILY 06/27/16 08/26/18 zinc gluconate 5 ea PO DAILY 06/27/16 08/26/18 estradiol [Estrace] 42.5 gm VG DIRECTED #1 tube 12/18/16 08/26/18 calcium carb-magnesium ox,carb 1 tab PO DAILY 06/17/18 08/26/18 amlodipine 5 mg PO DAILY #30 tab 06/20/18 08/26/18 levothyroxine 50 mcg PO DAILY@0600 #30 tab 06/20/18 08/26/18 lisinopril 10 mg PO DAILY #30 tab 06/20/18 08/26/18 Previous Rx's Medication Instructions Recorded estradiol [Estrace] 42.5 gm VG DIRECTED #1 tube 12/18/16 amlodipine 5 mg PO DAILY #30 tab 06/20/18 levothyroxine 50 mcg PO DAILY@0600 #30 tab 06/20/18 lisinopril 10 mg PO DAILY #30 tab 06/20/18 Allergies Allergy/AdvReac Type Severity Reaction Status Date / Time sulfamethoxazole Allergy fever Unverified 08/26/18 09:46 [From Bactrim] trimethoprim [From Bactrim] Allergy fever Unverified 08/26/18 09:46 zinc Allergy Hives Unverified 08/26/18 09:46 acetaminophen [From Tylenol] AdvReac Intermediate Unverified 08/26/18 09:46 red dye AdvReac Nausea Unverified 08/26/18 09:46 wheat AdvReac bloating Unverified 08/26/18 09:46 oatmeal AdvReac constipatio Uncoded 08/26/18 09:46 n SUGAR AdvReac Uncoded 08/26/18 09:46 General Stated Complaint: GenMedical YUMIKO: 5 Review of Systems Review of Systems All systems reviewed & are unremarkable except as noted in HPI and below Constitutional Denies chills, Denies fever(s) and Denies weakness Cardiovascular Denies chest pain and Denies dyspnea Respiratory Denies cough and Denies dyspnea Gastrointestinal Denies abdominal pain, Denies nausea and Denies vomiting Integumentary/Breasts Denies rash Neurologic Denies weakness [facility] Social History Smoking/Tobacco Use Status: Former Tobacco Use Alcohol Intake: current Alcohol Intake frequency: 0-2 drinks per day Alcohol type: wine Drug use: Never Substance use type: does not use Household members: children Number of Children: 2 number of grandchildren: 1 What is your relationship status?: Panel score (0-1 are the most socially isolated patients): 0 What type of physical activity do you participate in: walking Duration: 60-90 minutes/day Do you feel safe at home: Yes Do you feel safe in your relationship?: Yes Exam Const General: no acute distress Orientation: alert HENMT Head: normal to inspection Ears: external ears normal General nose exam: external nose normal Mouth: moist mucous membranes Eyes General: appearance normal, both eyes and all related structures Neck Neck: normal visual inspection Resp Effort & Inspection: normal respiratory effort and able to speak in complete sentences Cardio Rate: regular rate Skin General skin exam: no rashes or lesions noted Neuro General: alert and oriented x3 Extrem General: normal to inspection Psych Mental Status: mental status grossly normal Course Vital Signs Temperature 37.2 C 08/26/18 09:44 Pulse 64 08/26/18 09:44 Respiratory Rate 16 08/26/18 09:44 Blood Pressure 180/101 H 08/26/18 09:44 Pulse Oximetry 100 08/26/18 09:44 Temperature 37.2 C 08/26/18 09:44 Temperature Source Skin 08/26/18 09:44 Pulse 64 08/26/18 09:44 Respiratory Rate 14 08/26/18 09:47 Respiratory Effort 08/26/18 09:47 Respiratory Pattern Normal 08/26/18 09:47 Blood Pressure 180/101 H 08/26/18 09:44 Blood Pressure Position Sitting 08/26/18 09:44 Pulse Oximetry 100 08/26/18 09:44 Oxygen Delivery Method Room Air 08/26/18 09:44 Oxygen Flow Rate 0 08/26/18 09:44 Pain Level 0 08/26/18 09:44
[2018-08-26] MEDS: Ibuprofen 600 MG TAB (10:16)
[2018-08-26 10:17] VITALS: BP 159/67; PULSE 61; RESP 16; TEMP 37.2; O2SAT 94
--- NOTE | 2018-08-26 14:23 | NUR.NOTE ---
Nursing Note: [facility] was contacted about the patient requesting to go to their practice and that she had been a previous patient of theirs. They will mail a new patient packet to her and then once they receive information from current PCP they will schedule appt for her. I called patient soon after about her request to transfer care to [facility] from Dr. Trevino. She stated that she did not like the care that she received today and that she felt it was very poor. She then stated that she was not going to change PCP because Dr. Trevino was a very good provider. Elsy Chaudhari.
== END 2018-08-26 10:10 | disposition home or self-care (01) ==
PROVIDERS: Emergency Provider Emergency Medicine; PCP Family Medicine
DX: G47.00 Insomnia, unspecified (principal)
CPT/HCPCS: 99282

== ENCOUNTER 2018-09-03 09:26 | Outpatient (CLI) | payer MEDICARE, OTHER, SELFPAY ==
[2018-09-03 11:20] LABS: FREE T4 0.75 ng/dL (0.76-1.46); TSH 13.56 uIU/mL (0.358-3.74)
[2018-09-03 21:20] LABS: T3, Total 110 ng/dl (97-169)
== END 2018-09-03 09:46 ==
PROVIDERS: PCP Family Medicine; Visit Provider Internal Medicine Endocrinology, Diabetes & Metabolism
DX: E03.9 Hypothyroidism, unspecified (principal)
CPT/HCPCS: 36415; 84439; 84443; 84480

== ENCOUNTER 2018-09-22 09:37 | Outpatient (CLI) | payer MEDICARE, OTHER, SELFPAY ==
[2018-09-22 10:59] LABS: FREE T4 0.62 ng/dL (0.76-1.46); TSH 16.21 uIU/mL (0.358-3.74)
[2018-09-22 18:36] LABS: T3, Total 110 ng/dl (97-169)
== END 2018-09-22 09:57 ==
PROVIDERS: PCP Family Medicine; Visit Provider Internal Medicine Endocrinology, Diabetes & Metabolism
DX: E03.9 Hypothyroidism, unspecified (principal)
CPT/HCPCS: 36415; 84439; 84443; 84480

== ENCOUNTER 2018-10-01 10:17 | Emergency (ER) | payer MEDICARE, OTHER, SELFPAY ==
[2018-10-01 10:25] VITALS: BP 222/95; PULSE 60; RESP 16; TEMP 36.6; O2SAT 99
[2018-10-01 11:00] VITALS: BP 144/90; PULSE 83; O2SAT 99
--- NOTE | 2018-10-01 11:12 | ED.GENADUL_ITS ---
Discharge Plan Disposition Patient Disposition: HOME Condition: Good Discharge Details Chief Complaint: EyeProblem Clinical Impression: Allergic conjunctivitis Primary Care Provider: Rui Torres ED Provider: Pascale Jacques Home Meds and New Rx's Prescriptions: Continued zolpidem [Ambien] 10 MG tablet 15 mg PO HS RF: 0 omega-3 fatty acids-fish oil [Fish Oil] 1 EACH capsule 1 ea PO DAILY RF: 0 estradiol [Estrace] 42.5 GM cream 42.5 gm VG DIRECTED Qty: 1 RF: 6 melatonin-pyridoxine (vit B6) [Melatonin (with B6)] 1 EACH tablet 1 ea PO HS RF: 0 ginkgo biloba leaf extract 120 MG capsule 240 mg PO DAILY RF: 0 zinc gluconate 10 MG lozenge 5 ea PO DAILY RF: 0 potassium chloride 20 MEQ tablet,ER particles/crystals 20 meq PO BID RF: 0 coenzyme Q10 [Co Q-10] 100 MG capsule 100 mg PO DAILY RF: 0 5-hydroxytryptophan (5-HTP) 50 MG capsule 50 mg PO HS RF: 0 turmeric root extract 500 MG capsule 500 mg PO DAILY RF: 0 calcium carb-magnesium ox,carb 200 mg calcium- 100 mg Tablet,Chewable 1 tab PO DAILY RF: 0 amlodipine 5 mg Tablet 5 mg PO DAILY Qty: 30 RF: 0 levothyroxine 50 mcg Tablet 50 mcg PO DAILY@0600 Qty: 30 RF: 0 lisinopril 10 mg Tablet 10 mg PO DAILY Qty: 30 RF: 0 Discharge Instructions Instructions: Conjunctivitis (ED) Additional Instructions: Encourage hydration. Your symptoms are likely associated with you sitting outside for period of time with your seasonal allergies. Please continue the medications as previously prescribed. You may use topical ivib-gej-wrjvxor medications such as Clear Eyes redness relief. Please keep your upcoming appointment with your eye doctor. Please follow-up with your primary care in 2 weeks if not improved. If you develop eye pain, change in your vision, fever/chills or other new/worsening symptoms please seek care urgently once again. Referrals: Rui Torres [Primary Care Provider] - Discharge Data Discharge Date/Time-TO BE ENTERED AT DEPARTURE: 10/01/18 10:56 Medical Decision Making Patient is 72-year-old female presents today with chief complaint of bilateral eye irritation. She reports that she has had this irritation for the past few days after taking an extra Seroquel. She also reports that she has had seasonal allergies with runny nose. She denies any pain in the eyes. States that the eyes have been tearing. Denies fevers or chills. Denies any change in the vision. Patient does often take [id number]-[id number] antihistamines since that she has not done so recently. She reports that she was sitting outside for an extended period of time recently and reports that this may be associate with the onset of symptoms. On exam, patient appears nontoxic. His patient is not having any tenderness, no pain with extra ocular movements, no pain to palpation, I do not feel that she has an acute angle glaucoma. She does not have evidence to suggest a bacterial conjunctivitis. Rather, her history sounds more to be allergic in nature. We discussed xvvr-cim-eshomhv remedies that may be of benefit to this. Patient does take medication to help with her allergies and is well aware of what to use. I encouraged hydration. Advise close follow- up with primary care. She was given strict return precautions. In particular, we discussed signs of infection. All her questions and concerns were addressed and she is in agreement with this plan. HPI General Mode of arrival: ambulatory . Date/Time Provider Initiated Documentation: 10/01/18 10:30 . Limitations to Documentation: no limitations . Information obtained by: patient and RN notes reviewed . History of Present Illness 72 year old F presents to the emergency department with the chief complaint of bilateral eye redness and itching, described as mild (no pain), Quality is described as other (itching), and is localized to the eyes. Patient reports no radiation. Patient started experiencing this day(s) (3) and it has been constant. No relieving factors improve symptom(s), No exacerbating factors reported . Patient notes cough (associates with PND) and rash (erythema around bilateral eyes); denies chest pain, fever/chills, headaches, loss of appetite, malaise, nausea/vomiting and shortness of breath. Patient did receive the following treatments prior to arrival, other Related Data Home Medications Medication Instructions Recorded Confirmed ginkgo biloba leaf extract 240 mg PO DAILY 08/26/12 08/26/18 melatonin-pyridoxine (vit B6) 1 ea PO HS 08/26/12 08/26/18 [Melatonin (with B6)] omega-3 fatty acids-fish oil [Fish 1 ea PO DAILY 06/04/13 08/26/18 Oil] zolpidem [Ambien] 15 mg PO HS tab-cap 06/04/13 08/26/18 5-hydroxytryptophan (5-HTP) 50 mg PO HS 06/27/16 08/26/18 coenzyme Q10 [Co Q-10] 100 mg PO DAILY 06/27/16 08/26/18 potassium chloride 20 meq PO BID 06/27/16 08/26/18 turmeric root extract 500 mg PO DAILY 06/27/16 08/26/18 zinc gluconate 5 ea PO DAILY 06/27/16 08/26/18 estradiol [Estrace] 42.5 gm VG DIRECTED #1 tube 12/18/16 08/26/18 calcium carb-magnesium ox,carb 1 tab PO DAILY 06/17/18 08/26/18 amlodipine 5 mg PO DAILY #30 tab 06/20/18 08/26/18 levothyroxine 50 mcg PO DAILY@0600 #30 tab 06/20/18 08/26/18 lisinopril 10 mg PO DAILY #30 tab 06/20/18 08/26/18 Previous Rx's Medication Instructions Recorded estradiol [Estrace] 42.5 gm VG DIRECTED #1 tube 12/18/16 amlodipine 5 mg PO DAILY #30 tab 06/20/18 levothyroxine 50 mcg PO DAILY@0600 #30 tab 06/20/18 lisinopril 10 mg PO DAILY #30 tab 06/20/18 Allergies Allergy/AdvReac Type Severity Reaction Status Date / Time sulfamethoxazole Allergy fever Unverified 10/01/18 10:29 [From Bactrim] trimethoprim [From Bactrim] Allergy fever Unverified 10/01/18 10:29 zinc Allergy Hives Unverified 10/01/18 10:29 acetaminophen [From Tylenol] AdvReac Intermediate Unverified 10/01/18 10:29 red dye AdvReac Nausea Unverified 10/01/18 10:29 wheat AdvReac bloating Unverified 10/01/18 10:29 oatmeal AdvReac constipatio Uncoded 10/01/18 10:29 n SUGAR AdvReac Uncoded 10/01/18 10:29 General Stated Complaint: EyeProblem YUMIKO: 4 Review of Systems Constitutional Reports as per HPI, Denies chills, Denies fever(s) and Denies headache(s) Eyes Reports as per HPI, Denies blurry vision, Denies change in vision, Reports eye d ischarge (tearing), Reports irritation, Reports itchy eyes and Denies eye pain ENT Reports as per HPI, Denies ear discharge, Denies otalgia, Denies headache(s), Denies hoarseness, Denies lip swelling, Reports nasal congestion, Reports nasal discharge (clear), Denies sore throat and Denies throat swelling Cardiovascular Reports as per HPI, Denies chest pain and Denies dyspnea Respiratory Reports as per HPI, Reports cough (associates with PND) and Denies dyspnea Gastrointestinal Reports as per HPI, Denies abdominal pain, Denies change in bowel habits, Denies nausea and Denies vomiting Integumentary/Breasts Reports as per HPI and Denies rash Neurologic Reports as per HPI and Denies headache(s) Allergic/Immunologic Reports itchy eyes, Denies lip swelling and Denies throat swelling [facility] Medical History Atrophic vulva Dry eye dry mouth Elevated lipids Hypertension (Chronic) Hypertension Hypoglycemia (Chronic) Hypothyroid (Chronic) Hypothyroidism IBS (irritable bowel syndrome) (Chronic) Insomnia (Chronic) lupus Myofascial pain Primary fibromyalgia syndrome Vertigo (Chronic) Surgical History Biopsy of breast section H/O section (Resolved) Hemorrhoidectomy Social History Smoking/Tobacco Use Status: Former Tobacco Use Alcohol Intake: current Alcohol Intake frequency: 0-2 drinks per day Alcohol type: wine Drug use: Never Substance use type: does not use Household members: children Number of Children: 2 number of grandchildren: 1 What is your relationship status?: Panel score (0-1 are the most socially isolated patients): 0 What type of physical activity do you participate in: walking Duration: 60-90 minutes/day Do you feel safe at home: Yes Do you feel safe in your relationship?: Yes Exam Const General: cooperative, healthy appearing, comfortable, no acute distress, well developed and well groomed Nutritional Appearance: average body habitus and well nourished Orientation: alert and awake [facility] Head: normal to inspection, normocephalic and atraumatic Ears: hearing grossly normal bilaterally, external ears normal and TM's normal bilaterally General nose exam: external nose normal and nares normal Face and sinus: normal facial exam, sinuses nontender and face symmetric Mouth: oral mucosae normal, lip normal, tongue normal, oropharynx normal and moist mucous membranes Teeth and gingiva: dentition normal Throat: posterior oropharynx normal, tonsils normal and uvula midline Eyes Visual Palencia: normal visual palencia by confrontation Alignment and Position: alignment normal and position normal Periorbital: periorbital findings normal Eyelids: eyelid abnormality (mild swelling and pinkness of skin to eyelids) Conjunctivae: conjunctival abnormality bilaterally conjunctival injection (mild irritation) diffuse; without discharge and without subconjunctival hemorrhages Pupils: PERRL and normal by confrontation EOM: EOM intact bilaterally Direct ophthalmoscopy: normal light reflex Neck Neck: normal visual inspection, full ROM, no lymphadenopathy and no meningeal signs Resp Effort & Inspection: normal respiratory effort, able to speak in complete sentences and no respiratory distress Auscultation: clear to auscultation bilaterally, no rales, no rhonchi and no wheezes Cardio Rate: regular rate Rhythm: regular rhythm Heart Sounds: S1 normal and S2 normal Skin General skin exam: no rashes or lesions noted Neuro General: alert and awake Cognition: normal cognition Speech: speech normal Gait: normal gait Psych Appearance: grossly normal and well kempt Mental Status: mental status grossly normal Speech and Movement: speech and movement normal Course Vital Signs Temperature 36.6 C 10/01/18 10:25 Pulse 60 10/01/18 10:25 Respiratory Rate 16 10/01/18 10:25 Blood Pressure 222/95 H 10/01/18 10:25 Pulse Oximetry 99 10/01/18 10:25 Temperature 36.6 C 10/01/18 10:25 Temperature Source Skin 10/01/18 10:25 Pulse 83 10/01/18 11:00 Respiratory Rate 16 10/01/18 10:25 Respiratory Effort Non-Labored 10/01/18 10:27 Blood Pressure 144/90 H 10/01/18 11:00 Blood Pressure Position Standing 10/01/18 10:25 Pulse Oximetry 99 10/01/18 11:00 Pain Level 2 10/01/18 11:00
== END 2018-10-01 10:56 | disposition home or self-care (01) ==
PROVIDERS: Emergency Provider Physician Assistant; PCP Family Medicine
DX: H10.13 Acute atopic conjunctivitis, bilateral (principal); J30.1 Allergic rhinitis due to pollen; I10 Essential (primary) hypertension
CPT/HCPCS: 99282

== ENCOUNTER 2018-10-10 07:00 | Outpatient (CLI) | payer MEDICARE, OTHER, SELFPAY ==
[2018-10-10 12:53] LABS: FREE T4 0.65 ng/dL (0.76-1.46); TSH 9.95 uIU/mL (0.358-3.74)
[2018-10-11 17:02] LABS: T3, Total 119 ng/dl (97-169)
== END 2018-10-10 07:20 ==
PROVIDERS: PCP Family Medicine; Visit Provider Internal Medicine Endocrinology, Diabetes & Metabolism
DX: E03.9 Hypothyroidism, unspecified (principal)
CPT/HCPCS: 36415; 84439; 84443; 84480

== ENCOUNTER 2018-10-24 09:00 | Emergency (ER) | payer MEDICARE, OTHER, SELFPAY ==
[2018-10-24] VITALS (40 sets, daily range): BP systolic 131–210; BP diastolic 59–86; PULSE 0–70; RESP 11–62; TEMP 36.6; O2SAT 95–100
[2018-10-24 09:23] LABS: Abs Immature Grans 0.02 k/cumm (0.0-0.09); Absolute Basophil Count 0.05 k/cumm (0.0-0.2); Absolute Eosinophil Count 0.62 k/cumm (0.0-0.7); Absolute Lymphocyte Count 1.93 k/cumm (1.2-3.4); Absolute Monocyte Count 0.45 k/cumm (0.11-0.7); Absolute Neutrophil Count 2.76 k/cumm (1.2-6.7); Basophils % 0.9; Eosinophils % 10.6; HCT 43.1 % (36.0-46.0); HGB 14.7 g/dL (12.0-15.5); Immature Grans % 0.3; Lymphocytes % 33.1; Mean Corp. HGB Concentration 34.1 g/dL (32.0-36.0); Mean Corpuscular Hemoglobin 30.9 pg (27.0-33.0); Mean Corpuscular Volume 90.7 fL (80-95); Mean Platelet Volume 9.8 fL (8.0-11.0); Monocytes % 7.7; Neutrophils % 47.4; Platelet Count 182 x1000/uL (130-400); RBC 4.75 m/cumm (4.00-5.20); RBC Distribution Width 12.1 % (11.7-14.6); White Blood Cell Count 5.83 k/cumm (4.4-10.8)
--- NOTE | 2018-10-24 09:39 | W.ED.GENAD ---
Discharge Plan Disposition Patient Disposition: AGAINST MEDICAL ADVICE Condition: Improving Discharge Details Chief Complaint: Chest Pain Clinical Impression: Chest pain, Anxiety Primary Care Provider: Rui Torres ED Provider: Tash Leach Home Meds and New Rx's Prescriptions: Continued zolpidem [Ambien] 10 MG tablet 15 mg PO HS RF: 0 Fish Oil 1 EACH capsule 1 ea PO DAILY RF: 0 estradiol [Estrace] 42.5 GM cream 42.5 gm VG DIRECTED Qty: 1 RF: 6 melatonin-pyridoxine (vit B6) [Melatonin (with B6)] 1 EACH tablet 1 ea PO HS RF: 0 ginkgo biloba leaf extract 120 MG capsule 240 mg PO DAILY RF: 0 thyroid (pork) [[place] Thyroid] 15 mg Tablet 15 mg PO DAILY RF: 0 hydroxyzine pamoate 25 mg Capsule 50 mg PO QHS RF: 0 cholecalciferol (vitamin D3) [Vitamin D3] 1,000 unit Capsule 1,000 unit PO DAILY RF: 0 aspirin [Aspir-81] 81 mg Tablet,Delayed Release (Dr/Ec) 81 mg PO DAILY PRNRF: 0 Restasis 0.05 % Dropperette 1 drp OPHTHALMIC (EYE) Q12H RF: 0 Systane (propylene glycol) 0.4-0.3 % Drops 1 drp OPHTHALMIC (EYE) BID-QID PRNRF: 0 potassium chloride 20 MEQ tablet,ER particles/crystals 20 meq PO BID RF: 0 coenzyme Q10 [Co Q-10] 100 MG capsule 100 mg PO DAILY RF: 0 5-hydroxytryptophan (5-HTP) 50 MG capsule 50 mg PO HS RF: 0 turmeric root extract 500 MG capsule 500 mg PO DAILY RF: 0 calcium carb-magnesium ox,carb 200 mg calcium- 100 mg Tablet,Chewable 1 tab PO DAILY RF: 0 Discharge Instructions Instructions: Chest Pain (ED), Anxiety (ED) Additional Instructions: Drink plenty of fluids and get plenty of rest. Follow-up with your primary care doctor this week for reevaluation. Return immediately to the emergency department if you develop any worsening or new concerning symptoms. Discharge Data Discharge Physician: Tash Leach Medical Decision Making 72-year-old female with a history of hypertension, hyperlipidemia, irritable bowel syndrome, fibromyalgia who presents with shortness of breath, dizziness and chest pain that started upon awakening this morning. Chest pain resolved after 1 hour. She states she feels much better after leaving her apartment. Patient has had ongoing arguments with a neighbor in which she has had a no trespassing order with multiple calls to police. Patient states she called the police last night due to loud music from neighbors apartment. Patient states she will not go back there tonight. Blood pressure hypertensive. She has a history of hypertension but does not take any medications. BP 164/78. EKG notes a rate of 56, T wave inversion in V2 and V3 which has been seen in previous EKG. New T wave inversion with less than [address] depression noted in V4 and V5. Considering patient's age and EKG changes, cardiac work-up ordered. As her symptoms may have been exacerbated by anxiety, this could also be a possibility. Will give a dose of Ativan. Labs and imaging reviewed and unremarkable. Troponin negative. Chest x-ray negative. Repeat EKG still notes the more pronounced T wave inversion in the now with new less than [address] depression in V4 and V5. Was able to obtain a more recent EKG from [place] January 2017 which notes the T wave inversion in V4 and V5 as well as the ST depression although this T wave inversion today appears much more pronounced. Patient is requesting to leave. Advised patient to stay for third troponin and EKG but she is declining. The risks of and disability due to a serious pathology were explained and she fully understands. She demonstrates capacity make decisions. AMA form signed per she states she will follow-up with her primary care doctor return here at any time if worse. Medical Records Medical records reviewed: Yes I reviewed the patient's medical records. Imaging Data Radiologic Study: Radiologist's impression: XR Chest, 2 Views EXAM DATE/TIME: 10/24/2018 9:13 AM CLINICAL HISTORY: 72 years old, female; Chest pain; Type not specified TECHNIQUE: Imaging protocol: XR of the chest, 2 views. COMPARISON: CR XR CHEST 2V PA LATERAL 03/30/2018 2:26 PM FINDINGS: Lungs: Unremarkable. No consolidation. Pleural space: Unremarkable. No pleural effusion. No pneumothorax. Heart/Mediastinum: Unremarkable. No cardiomegaly. Bones/joints: Unremarkable. IMPRESSION: No acute findings. ECG Data Attestation: I personally reviewed and interpreted this ECG (s) as follows: Interpretation: #1 --Rate of 56, sinus, T wave inversion in V2 and V3 V5 and V6 which is been seen in previous. Questionable new less than [address] depression in V4 V5. No acute ST elevation. QTc 428. QRS 102. #2 --Rate of 56, sinus, T wave inversion in V2 through V5. Still saying less than [address] depression in V4 and V5 which appears new. Compared to EKG from January 2017 from [facility] this appears present but more pronounced today. QTc 436. QRS 100 per HPI General Date/Time Provider Initiated Documentation: 10/24/18 09:09. Related Data Home Medications Medication Instructions Recorded Confirmed ginkgo biloba leaf extract 240 mg PO DAILY 08/26/12 10/24/18 melatonin-pyridoxine (vit B6) 1 ea PO HS 08/26/12 10/24/18 [Melatonin (with B6)] Fish Oil 1 ea PO DAILY 06/04/13 10/24/18 zolpidem [Ambien] 15 mg PO HS tab-cap 06/04/13 10/24/18 5-hydroxytryptophan (5-HTP) 50 mg PO HS 06/27/16 10/24/18 coenzyme Q10 [Co Q-10] 100 mg PO DAILY 06/27/16 10/24/18 potassium chloride 20 meq PO BID 06/27/16 10/24/18 turmeric root extract 500 mg PO DAILY 06/27/16 10/24/18 estradiol [Estrace] 42.5 gm VG DIRECTED #1 tube 12/18/16 10/24/18 calcium carb-magnesium ox,carb 1 tab PO DAILY 06/17/18 10/24/18 Restasis 1 drp OPHTHALMIC (EYE) Q12H 10/24/18 10/24/18 Systane (propylene glycol) 1 drp OPHTHALMIC (EYE) BID-QID PRN 10/24/18 10/24/18 aspirin [Aspir-81] 81 mg PO DAILY PRN 10/24/18 10/24/18 cholecalciferol (vitamin D3) 1,000 unit PO DAILY 10/24/18 10/24/18 [Vitamin D3] hydroxyzine pamoate 50 mg PO QHS 10/24/18 10/24/18 thyroid (pork) [[place] Thyroid] 15 mg PO DAILY 10/24/18 10/24/18 Previous Rx's Medication Instructions Recorded estradiol [Estrace] 42.5 gm VG DIRECTED #1 tube 12/18/16 Allergies Allergy/AdvReac Type Severity Reaction Status Date / Time sulfamethoxazole Allergy fever Unverified 10/24/18 09:09 [From Bactrim] trimethoprim [From Bactrim] Allergy fever Unverified 10/24/18 09:09 zinc Allergy Hives Unverified 10/24/18 09:09 acetaminophen [From Tylenol] AdvReac Intermediate Unverified 10/24/18 09:09 red dye AdvReac Nausea Unverified 10/24/18 09:09 wheat AdvReac bloating Unverified 10/24/18 09:09 oatmeal AdvReac constipatio Uncoded 10/24/18 09:09 n SUGAR AdvReac Uncoded 10/24/18 09:09 General Stated Complaint: Chest Pain YUMIKO: 3 Review of Systems Review of Systems All systems reviewed & are unremarkable except as noted in HPI and below Constitutional Reports as per HPI, Denies chills and Denies fever(s) Eyes Denies blurry vision ENT Reports dizziness, Denies sore throat and Denies throat swelling Cardiovascular Reports chest pain and Reports dyspnea Respiratory Denies cough and Reports dyspnea Gastrointestinal Denies abdominal pain, Denies diarrhea and Denies vomiting Genitourinary Denies hematuria and Denies dysuria Musculoskeletal Denies back pain and Denies numbness Integumentary/Breasts Denies lesions and Denies rash Neurologic Reports dizziness, Denies focal weakness and Denies numbness Allergic/Immunologic Denies throat swelling [facility] Medical History Atrophic vulva Dry eye dry mouth Elevated lipids Hypertension (Chronic) Hypertension Hypoglycemia (Chronic) Hypothyroid (Chronic) Hypothyroidism IBS (irritable bowel syndrome) (Chronic) Insomnia (Chronic) lupus Myofascial pain Primary fibromyalgia syndrome Vertigo (Chronic) Surgical History Biopsy of breast section H/O section (Resolved) Hemorrhoidectomy Family History Mother Dementia Father Heart disease Stroke Social History (Reviewed 10/24/18 @ 09:39 by ARIELA Rojas Smoking/Tobacco Use Status: Former Tobacco Use Alcohol Intake: current Alcohol Intake frequency: 0-2 drinks per day Alcohol type: wine Drug use: Never Substance use type: does not use Household members: children Number of Children: 2 number of grandchildren: 1 What is your relationship status?: Panel score (0-1 are the most socially isolated patients): 0 What type of physical activity do you participate in: walking Duration: 60-90 minutes/day Do you feel safe at home: Yes Do you feel safe in your relationship?: Yes Exam Const General: cooperative, healthy appearing and no acute distress HENMT Head: normal to inspection Face and sinus: normal facial exam Eyes General: appearance normal, both eyes and all related structures EOM: EOM intact bilaterally Neck Neck: normal visual inspection and No submandibular swelling Lymphatic: no lymphadenopathy noted Chest Chest: normal inspection of the chest and no tenderness Resp Effort & Inspection: normal respiratory effort and able to speak in complete sentences Auscultation: clear to auscultation bilaterally Cardio Rate: regular rate Rhythm: regular rhythm GI Inspection: normal to inspection Palpation: soft, not firm, not rigid and nontender Auscultation: normal bowel sounds Skin General skin exam: no rashes or lesions noted Neuro General: alert, awake and oriented x3 Cognition: normal cognition Speech: speech normal Motor: muscle tone normal throughout Sensory Exam: no sensory deficits noted Extrem General: normal to inspection, full ROM, normal capillary refill, no calf tenderness bilaterally and no edema Psych Appearance: grossly normal Mental Status: mental status grossly normal Speech and Movement: speech and movement normal Affect: normal affect Course Vital Signs Temperature 97.9 F 10/24/18 09:01 Pulse 67 10/24/18 09:01 Respiratory Rate 16 10/24/18 09:01 Blood Pressure 164/78 H 10/24/18 09:01 Pulse Oximetry 98 10/24/18 09:01 Temperature 97.9 F 10/24/18 09:01 Temperature Source Temporal Artery Scan 10/24/18 09:01 Pulse 67 10/24/18 09:01 Pulse 58 L 10/24/18 09:06 Respiratory Rate 62 H 10/24/18 09:10 Respiratory Effort Non-Labored 10/24/18 09:10 Respiratory Depth Normal 10/24/18 09:10 Respiratory Pattern Normal 10/24/18 09:10 Blood Pressure 164/78 H 10/24/18 09:01 Blood Pressure Position Sitting 10/24/18 09:01 Pulse Oximetry 99 10/24/18 09:06 Oxygen Delivery Method Room Air 10/24/18 09:01 Oxygen Flow Rate 0 10/24/18 09:01 Pain Level 8 10/24/18 09:10 Lab/Test Results Lab/Test Results: Laboratory Tests Range/Units 10/24/18 09:10 WBC (4.4-10.8) k/cumm 5.83 RBC (4.00-5.20) m/cumm 4.75 Hgb (12.0-15.5) g/dL 14.7 Hct (36.0-46.0) % 43.1 MCV (80-95) fL 90.7 MCH (27.0-33.0) pg 30.9 MCHC (32.0-36.0) g/dL 34.1 RDW (11.7-14.6) % 12.1 Plt Count (130-400) x1000/uL 182 MPV (8.0-11.0) fL 9.8 Immature Gran % 0.3 Neutrophils % 47.4 Lymphocytes % 33.1 Monocytes % 7.7 Eosinophils % 10.6 Basophils % 0.9 Absolute Neutrophils (1.2-6.7) k/cumm 2.76 Absolute Lymphocytes (1.2-3.4) k/cumm 1.93 Absolute Monocytes (0.11-0.7) k/cumm 0.45 Absolute Eosinophils (0.0-0.7) k/cumm 0.62 Absolute Basophils (0.0-0.2) k/cumm 0.05
[2018-10-24 09:42] LABS: ALT 30 U/L (12-78); AST 26 U/L (15-37); Alkaline Phosphatase 79 U/L (46-116); BUN 14 mg/dL (7-18); Bilirubin, Total 0.6 mg/dL (0.2-1.0); Chloride 103 mmol/L (98-107); Glucose 102 mg/dL (70-100); Magnesium 2.3 mg/dL (1.8-2.4); Potassium 3.8 mmol/L (3.5-5.1); Sodium 139 mmol/L (136-145); Total Protein 7.5 g/dL (6.4-8.2)
[2018-10-24 09:44] LABS: Troponin I < 0.05 ng/mL (0.00-0.06)
--- NOTE | 2018-10-24 10:02 | DI.RAD_ITS ---
SYMPTOMS/DIAGNOSIS: CHEST PAIN PA AND LATERAL CHEST: Comparison is made with 7Jan19. The heart size is normal. The lungs are clear. No infiltrate, effusion or pneumothorax is seen. IMPRESSION: Negative chest x-ray.
--- NOTE | 2018-10-24 10:20 | DI.VRAD_ITS ---
EXAM: XR Chest, 2 Views EXAM DATE/TIME: 10/24/2018 9:13 AM CLINICAL HISTORY: 72 years old, female; Chest pain; Type not specified TECHNIQUE: Imaging protocol: XR of the chest, 2 views. COMPARISON: CR XR CHEST 2V PA LATERAL 03/30/2018 2:26 PM FINDINGS: Lungs: Unremarkable. No consolidation. Pleural space: Unremarkable. No pleural effusion. No pneumothorax. Heart/Mediastinum: Unremarkable. No cardiomegaly. Bones/joints: Unremarkable. IMPRESSION: No acute findings. Dictated and Authenticated by: Kayode Bates MD. Ordering:RADHA Bianchi MD
[2018-10-24] MEDS: LORazepam 2 MG/ML VIAL 0.5 MG IVP (10:22)
[2018-10-24 13:37] LABS: Troponin I < 0.05 ng/mL (0.00-0.06)
== END 2018-10-24 14:59 | disposition left against medical advice (07) ==
PROVIDERS: Emergency Provider Physician Assistant; PCP Family Medicine
DX: R07.9 Chest pain, unspecified (principal); F41.9 Anxiety disorder, unspecified; I10 Essential (primary) hypertension
CPT/HCPCS: 36415; 80053; 93005; 96374; 99285; 71046; 83735; 84484; 85025; 93010; J2060

== ENCOUNTER 2018-10-25 08:26 | Emergency (ER) | payer MEDICARE, OTHER, SELFPAY ==
[2018-10-25] VITALS (31 sets, daily range): BP systolic 136–183; BP diastolic 45–90; PULSE 59–83; RESP 6–26; TEMP 36.9; O2SAT 92–100
--- NOTE | 2018-10-25 08:38 | NUR.NOTE ---
pt as per triage ecg performed placed on pvc monitor Nursing Note:
--- NOTE | 2018-10-25 08:41 | DI.RAD_ITS ---
SYMPTOMS/DIAGNOSIS: CHEST PAIN, NAUSEA, ? ACUTE DISEASE PA AND LATERAL CHEST: Comparison is made with the previous day's exam. The heart size is normal. The lungs are well inflated and clear. No infiltrate, effusion or pneumothorax is seen. IMPRESSION: Negative chest x-ray.
[2018-10-25 08:56] LABS: Abs Immature Grans 0.02 k/cumm (0.0-0.09); Absolute Basophil Count 0.05 k/cumm (0.0-0.2); Absolute Eosinophil Count 0.46 k/cumm (0.0-0.7); Absolute Lymphocyte Count 1.93 k/cumm (1.2-3.4); Absolute Monocyte Count 0.54 k/cumm (0.11-0.7); Absolute Neutrophil Count 4.02 k/cumm (1.2-6.7); Basophils % 0.7; Eosinophils % 6.6; HCT 42.8 % (36.0-46.0); HGB 14.5 g/dL (12.0-15.5); Immature Grans % 0.3; Lymphocytes % 27.5; Mean Corp. HGB Concentration 33.9 g/dL (32.0-36.0); Mean Corpuscular Hemoglobin 30.8 pg (27.0-33.0); Mean Corpuscular Volume 90.9 fL (80-95); Mean Platelet Volume 9.8 fL (8.0-11.0); Monocytes % 7.7; Neutrophils % 57.2; Platelet Count 190 x1000/uL (130-400); RBC 4.71 m/cumm (4.00-5.20); RBC Distribution Width 12.4 % (11.7-14.6); White Blood Cell Count 7.02 k/cumm (4.4-10.8)
[2018-10-25] MEDS: LORazepam 2 MG/ML VIAL (09:11)
[2018-10-25] MEDS: Normal Saline Flush 10 ML SYR IVP (09:11)
[2018-10-25] MEDS: Ondansetron 4 MG/2 ML VIAL (09:12)
[2018-10-25] MEDS: Normal Saline 1,000 ML 1000 ML IV (09:14)
[2018-10-25 09:16] LABS: ALT 32 U/L (12-78); AST 28 U/L (15-37); Albumin 3.9 g/dL (3.4-5.0); Alkaline Phosphatase 80 U/L (46-116); Anion Gap 11.9 mmol/L (3-11); BUN 14 mg/dL (7-18); Bilirubin, Total 0.6 mg/dL (0.2-1.0); CO2 27.1 mmol/L (21.0-32.0); CREATININE 0.84 mg/dL (0.55-1.02); Calcium 8.9 mg/dL (8.5-10.1); Chloride 102 mmol/L (98-107); Glucose 117 mg/dL (70-100); Magnesium 2.4 mg/dL (1.8-2.4); Potassium 4.6 mmol/L (3.5-5.1); Sodium 141 mmol/L (136-145); Total Protein 7.5 g/dL (6.4-8.2)
[2018-10-25 09:18] LABS: Troponin I < 0.05 ng/mL (0.00-0.06)
--- NOTE | 2018-10-25 09:19 | ED.GENADUL_ITS ---
Discharge Plan Disposition Patient Disposition: HOME Condition: Improving Discharge Details Chief Complaint: Chest Pain Clinical Impression: Medication refill, Chronic chest pain, Anxiety Primary Care Provider: Rui Torres ED Provider: Tash Leach Home Meds and New Rx's Prescriptions: Continued zolpidem [Ambien] 10 MG tablet 15 mg PO HS RF: 0 Fish Oil 1 EACH capsule 1 ea PO DAILY RF: 0 estradiol [Estrace] 42.5 GM cream 42.5 gm VG DIRECTED Qty: 1 RF: 6 melatonin-pyridoxine (vit B6) [Melatonin (with B6)] 1 EACH tablet 1 ea PO HS RF: 0 ginkgo biloba leaf extract 120 MG capsule 240 mg PO DAILY RF: 0 thyroid (pork) [[place] Thyroid] 15 mg Tablet 15 mg PO DAILY RF: 0 hydroxyzine pamoate 25 mg Capsule 50 mg PO QHS RF: 0 cholecalciferol (vitamin D3) [Vitamin D3] 1,000 unit Capsule 1,000 unit PO DAILY RF: 0 aspirin [Aspir-81] 81 mg Tablet,Delayed Release (Dr/Ec) 81 mg PO DAILY PRNRF: 0 Restasis 0.05 % Dropperette 1 drp OPHTHALMIC (EYE) Q12H RF: 0 Systane (propylene glycol) 0.4-0.3 % Drops 1 drp OPHTHALMIC (EYE) BID-QID PRNRF: 0 potassium chloride 20 MEQ tablet,ER particles/crystals 20 meq PO BID RF: 0 coenzyme Q10 [Co Q-10] 100 MG capsule 100 mg PO DAILY RF: 0 5-hydroxytryptophan (5-HTP) 50 MG capsule 50 mg PO HS RF: 0 turmeric root extract 500 MG capsule 500 mg PO DAILY RF: 0 calcium carb-magnesium ox,carb 200 mg calcium- 100 mg Tablet,Chewable 1 tab PO DAILY RF: 0 Discharge Instructions Instructions: Chronic Pain (ED), Anxiety (ED) Additional Instructions: Follow-up with your primary care doctor this week. Take your Ambien at night to help with sleep. Obtain your refill of her Ambien this week. Return to the emergency department if you develop any worsening or new concerning symptoms. Discharge Data Discharge Date/Time-TO BE ENTERED AT DEPARTURE: 10/25/18 12:16 Discharge Physician: Tash Leach Medical Decision Making 72-year-old female with a history of hypertension, fibromyalgia, anxiety and depression who presents with substernal chest pain and nausea for the past 5 days. She states she feels her symptoms are mainly due to anxiety due to arguments with her neighbor as well as due to lack of sleep. She was seen here yesterday for the same complaint and forgot to get a few tabs of Ambien before she left. EKG notes a rate of 73, sinus, T wave inversion in V2 and V3 and V4 which is been seen in previous EKG. there was some questionable ST depression on EKG yesterday but this is not noted today no acute ST elevation or depression. Denies tearing sensation and not consistent with dissection. No DVT/PE risk factors and vitals and history not consistent with PE. Cardiac work-up ordered. Will also give a dose of Ativan and Zofran. Labs and imaging reviewed and unremarkable. Negative troponin. Chest x-ray negative. Patient is requesting to go home. She denies any symptoms and states she mainly just needs a few doses of Ambien so she can sleep. She has been ambulatory around the ED and appears in no acute distress. Vitals within normal limits. 3 tabs of Ambien given for home. She is instructed to follow-up with her primary care doctor this week and return here anytime if worse. Medical Records Medical records reviewed: Yes I reviewed the patient's medical records. Imaging Data Radiologic Study: Radiologist's impression: XR Chest, 2 Views EXAM DATE/TIME: 10/25/2018 8:42 AM CLINICAL HISTORY: 72 years old, female; Other: Chest pain, nausea, R/O acute disease TECHNIQUE: Imaging protocol: XR of the chest, 2 views. COMPARISON: CR XR CHEST 2V PA LATERAL 10/24/2018 9:58 AM FINDINGS: Lungs: Mildly hyperaerated lungs consistent with deep inspiratory effort vs reactive airway disease vs mild COPD . Pleural space: Unremarkable. No pleural effusion. No pneumothorax. Heart/Mediastinum: Unremarkable. No cardiomegaly. Bones/joints: Unremarkable. IMPRESSION: Mildly hyperaerated lungs consistent with deep inspiratory effort vs reactive airway disease vs mild COPD . Lab Data Lab results reviewed: Yes I reviewed the patient's lab results. ECG Data Attestation: I personally reviewed and interpreted this ECG (s) as follows: Interpretation: Rate of 73, sinus, T wave inversion in V2, V3 and V4, seen in previous EKG no acute ST elevation or depression. QTc 463. QRS 98. HPI General Mode of arrival: ambulatory . Date/Time Provider Initiated Documentation: 10/25/18 08:41 . Limitations to Documentation: no limitations . Information obtained by: patient . HPI Narrative: Patient is a 72-year-old female with a history of hypothyroidism, irritable bowel syndrome, hypertension and anxiety who presents with nausea and left-sided chest pain for the past 5 days. Patient was seen here yesterday for complaint of chest pain that started yesterday morning after she was unable to sleep in the night after an argument with her neighbor. She stated at that time that she has had ongoing anxiety and chest pain due to her living situation in which she has called the police multiple times due to her Related Data Home Medications Medication Instructions Recorded Confirmed ginkgo biloba leaf extract 240 mg PO DAILY 08/26/12 10/25/18 melatonin-pyridoxine (vit B6) 1 ea PO HS 08/26/12 10/25/18 [Melatonin (with B6)] Fish Oil 1 ea PO DAILY 06/04/13 10/25/18 zolpidem [Ambien] 15 mg PO HS tab-cap 06/04/13 10/25/18 5-hydroxytryptophan (5-HTP) 50 mg PO HS 06/27/16 10/25/18 coenzyme Q10 [Co Q-10] 100 mg PO DAILY 06/27/16 10/25/18 potassium chloride 20 meq PO BID 06/27/16 10/25/18 turmeric root extract 500 mg PO DAILY 06/27/16 10/25/18 estradiol [Estrace] 42.5 gm VG DIRECTED #1 tube 12/18/16 10/25/18 calcium carb-magnesium ox,carb 1 tab PO DAILY 06/17/18 10/25/18 Restasis 1 drp OPHTHALMIC (EYE) Q12H 10/24/18 10/25/18 Systane (propylene glycol) 1 drp OPHTHALMIC (EYE) BID-QID PRN 10/24/18 10/25/18 aspirin [Aspir-81] 81 mg PO DAILY PRN 10/24/18 10/25/18 cholecalciferol (vitamin D3) 1,000 unit PO DAILY 10/24/18 10/25/18 [Vitamin D3] hydroxyzine pamoate 50 mg PO QHS 10/24/18 10/25/18 thyroid (pork) [[place] Thyroid] 15 mg PO DAILY 10/24/18 10/25/18 Previous Rx's Medication Instructions Recorded estradiol [Estrace] 42.5 gm VG DIRECTED #1 tube 12/18/16 Allergies Allergy/AdvReac Type Severity Reaction Status Date / Time sulfamethoxazole Allergy fever Unverified 10/25/18 08:52 [From Bactrim] trimethoprim [From Bactrim] Allergy fever Unverified 10/25/18 08:52 zinc Allergy Hives Unverified 10/25/18 08:52 acetaminophen [From Tylenol] AdvReac Intermediate Unverified 10/25/18 08:52 red dye AdvReac Nausea Unverified 10/25/18 08:52 wheat AdvReac bloating Unverified 10/25/18 08:52 oatmeal AdvReac constipatio Uncoded 10/25/18 08:52 n SUGAR AdvReac Uncoded 10/25/18 08:52 General Stated Complaint: Chest Pain YUMIKO: 3 Review of Systems Review of Systems All systems reviewed & are unremarkable except as noted in HPI and below Constitutional Reports as per HPI, Denies chills and Denies fever(s) Eyes Denies blurry vision ENT Denies dizziness, Denies sore throat and Denies throat swelling Cardiovascular Reports chest pain and Denies dyspnea Respiratory Denies cough and Denies dyspnea Gastrointestinal Denies abdominal pain, Denies diarrhea, Reports nausea and Denies vomiting Genitourinary Denies hematuria and Denies dysuria Musculoskeletal Denies back pain and Denies numbness Integumentary/Breasts Denies lesions and Denies rash Neurologic Denies dizziness, Denies focal weakness and Denies numbness Allergic/Immunologic Denies throat swelling [facility] Social History Smoking/Tobacco Use Status: Never Alcohol Intake: current Alcohol Intake frequency: 0-2 drinks per day Alcohol type: wine Drug use: Never Substance use type: does not use Household members: children Number of Children: 2 number of grandchildren: 1 What is your relationship status?: Panel score (0-1 are the most socially isolated patients): 0 What type of physical activity do you participate in: walking Duration: 60-90 minutes/day Do you feel safe at home: Yes Do you feel safe in your relationship?: Yes Exam Const General: cooperative, healthy appearing and no acute distress HENMT Head: normal to inspection Face and sinus: normal facial exam Eyes General: appearance normal, both eyes and all related structures EOM: EOM intact bilaterally Neck Neck: normal visual inspection and No submandibular swelling Lymphatic: no lymphadenopathy noted Chest Chest: normal inspection of the chest and no tenderness Resp Effort & Inspection: normal respiratory effort and able to speak in complete sentences Auscultation: clear to auscultation bilaterally Cardio Rate: regular rate Rhythm: regular rhythm GI Inspection: normal to inspection Palpation: soft, not firm, not rigid and nontender Auscultation: normal bowel sounds Skin General skin exam: no rashes or lesions noted Neuro General: alert, awake and oriented x3 Cognition: normal cognition Speech: speech normal Motor: muscle tone normal throughout Sensory Exam: no sensory deficits noted Extrem General: normal to inspection, full ROM, normal capillary refill, no calf tenderness bilaterally and no edema Psych Appearance: grossly normal Mental Status: mental status grossly normal Speech and Movement: speech and movement normal Affect: normal affect Course Vital Signs Respiratory Rate 6 L 10/25/18 08:24 Temperature 98.4 F 10/25/18 08:34 Temperature Source Temporal Artery Scan 10/25/18 08:34 Pulse 59 L 10/25/18 09:01 Pulse 63 10/25/18 09:01 Respiratory Rate 16 10/25/18 09:01 Respiratory Effort Non-Labored 10/25/18 08:51 Respiratory Depth Normal 10/25/18 08:51 Respiratory Pattern Normal 10/25/18 08:51 Blood Pressure 177/71 H 10/25/18 09:01 Blood Pressure Mean 92 10/25/18 09:01 Blood Pressure Position Supine 10/25/18 08:34 Pulse Oximetry 99 10/25/18 09:01 Oxygen Delivery Method Room Air 10/25/18 08:34 Oxygen Flow Rate 0 10/25/18 08:34 Pain Level 6 10/25/18 08:51 Lab/Test Results Lab/Test Results: Laboratory Tests Range/Units 10/25/18 10/25/18 08:45 08:45 WBC (4.4-10.8) k/cumm 7.02 RBC (4.00-5.20) m/cumm 4.71 Hgb (12.0-15.5) g/dL 14.5 Hct (36.0-46.0) % 42.8 MCV (80-95) fL 90.9 MCH (27.0-33.0) pg 30.8 MCHC (32.0-36.0) g/dL 33.9 RDW (11.7-14.6) % 12.4 Plt Count (130-400) x1000/uL 190 MPV (8.0-11.0) fL 9.8 Immature Gran % 0.3 Neutrophils % 57.2 Lymphocytes % 27.5 Monocytes % 7.7 Eosinophils % 6.6 Basophils % 0.7 Absolute Neutrophils (1.2-6.7) k/cumm 4.02 Absolute Lymphocytes (1.2-3.4) k/cumm 1.93 Absolute Monocytes (0.11-0.7) k/cumm 0.54 Absolute Eosinophils (0.0-0.7) k/cumm 0.46 Absolute Basophils (0.0-0.2) k/cumm 0.05 Sodium (136-145) mmol/L 141 Potassium (3.5-5.1) mmol/L 4.6 D Chloride (98-107) mmol/L 102 Carbon Dioxide (21.0-32.0) mmol/L 27.1 Anion Gap (3-11) mmol/L 11.9 H BUN (7-18) mg/dL 14 Creatinine (0.55-1.02) mg/dL 0.84 Estimated GFR/1.73 m2 (mL/min/1.73m2) >= 60.00 Glucose (70-100) mg/dL 117 H Calcium (8.5-10.1) mg/dL 8.9 Magnesium (1.8-2.4) mg/dL 2.4 Total Bilirubin (0.2-1.0) mg/dL 0.6 AST (15-37) U/L 28 ALT (12-78) U/L 32 Alkaline Phosphatase (46-116) U/L 80 Troponin I (0.00-0.06) ng/mL < 0.05 Total Protein (6.4-8.2) g/dL 7.5 Albumin (3.4-5.0) g/dL 3.9
--- NOTE | 2018-10-25 10:31 | DI.VRAD_ITS ---
EXAM: XR Chest, 2 Views EXAM DATE/TIME: 10/25/2018 8:42 AM CLINICAL HISTORY: 72 years old, female; Other: Chest pain, nausea, R/O acute disease TECHNIQUE: Imaging protocol: XR of the chest, 2 views. COMPARISON: CR XR CHEST 2V PA LATERAL 10/24/2018 9:58 AM FINDINGS: Lungs: Mildly hyperaerated lungs consistent with deep inspiratory effort vs reactive airway disease vs mild COPD . Pleural space: Unremarkable. No pleural effusion. No pneumothorax. Heart/Mediastinum: Unremarkable. No cardiomegaly. Bones/joints: Unremarkable. IMPRESSION: Mildly hyperaerated lungs consistent with deep inspiratory effort vs reactive airway disease vs mild COPD . Dictated and Authenticated by: Jean Roach MD. Ordering:RADHA Bianchi MD
[2018-10-25] MEDS: Zolpidem 10 MG TAB 30 MG PO (12:11)
== END 2018-10-25 12:16 | disposition home or self-care (01) ==
PROVIDERS: Emergency Provider Physician Assistant; PCP Family Medicine
DX: R07.9 Chest pain, unspecified (principal); G89.29 Other chronic pain; F41.8 Other specified anxiety disorders; R11.0 Nausea; I10 Essential (primary) hypertension
CPT/HCPCS: 36415; 80053; 93005; 96361; 96374; 96375; 99285; 71046; 83735; 84484; 85025; 93010; J2060; J2405

== ENCOUNTER 2018-12-07 09:53 | Outpatient (CLI) | payer MEDICARE, OTHER, SELFPAY ==
[2018-12-07 11:19] LABS: FREE T4 0.58 ng/dL (0.76-1.46); TSH 14.76 uIU/mL (0.36-3.74)
[2018-12-07 16:23] LABS: T3, Total 119 ng/dl (97-169)
== END 2018-12-07 10:13 ==
PROVIDERS: PCP Family Medicine; Visit Provider Internal Medicine Endocrinology, Diabetes & Metabolism
DX: E03.9 Hypothyroidism, unspecified (principal)
CPT/HCPCS: 36415; 84439; 84443; 84480

== ENCOUNTER 2019-01-11 08:26 | Emergency (ER) | payer MEDICARE, OTHER, SELFPAY ==
[2019-01-11 08:28] VITALS: BP 184/88; PULSE 66; RESP 16; TEMP 36.7; O2SAT 98
--- NOTE | 2019-01-11 08:29 | W.ED.GENAD ---
Discharge Plan Disposition Patient Disposition: HOME Condition: Good Discharge Details Chief Complaint: GenMedical Clinical Impression: Allergic reaction, Itching Primary Care Provider: Rui Torres ED Provider: Pascale Jacques Home Meds and New Rx's Prescriptions: Continued zolpidem [Ambien] 10 MG tablet 15 mg PO HS RF: 0 Fish Oil 1 EACH capsule 1 ea PO DAILY RF: 0 estradiol [Estrace] 42.5 GM cream 42.5 gm VG DIRECTED Qty: 1 RF: 6 melatonin-pyridoxine (vit B6) [Melatonin (with B6)] 1 EACH tablet 1 ea PO HS RF: 0 ginkgo biloba leaf extract 120 MG capsule 240 mg PO DAILY RF: 0 thyroid (pork) [Byron Thyroid] 15 mg Tablet 15 mg PO DAILY RF: 0 hydroxyzine pamoate 25 mg Capsule 50 mg PO QHS RF: 0 cholecalciferol (vitamin D3) [Vitamin D3] 1,000 unit Capsule 1,000 unit PO DAILY RF: 0 aspirin [Aspir-81] 81 mg Tablet,Delayed Release (Dr/Ec) 81 mg PO DAILY PRNRF: 0 Restasis 0.05 % Dropperette 1 drp OPHTHALMIC (EYE) Q12H RF: 0 Systane (propylene glycol) 0.4-0.3 % Drops 1 drp OPHTHALMIC (EYE) BID-QID PRNRF: 0 Thera-Tears ophthalmic (eye) PRNRF: 0 potassium chloride 20 MEQ tablet,ER particles/crystals 20 meq PO BID RF: 0 coenzyme Q10 [Co Q-10] 100 MG capsule 100 mg PO DAILY RF: 0 5-hydroxytryptophan (5-HTP) 50 MG capsule 50 mg PO HS RF: 0 calcium carb-magnesium ox,carb 200 mg calcium- 100 mg Tablet,Chewable 1 tab PO DAILY RF: 0 Discontinued cefdinir 300 mg Capsule 300 mg PO BID RF: 0 Discharge Instructions Instructions: General Allergic Reaction (ED) Additional Instructions: Encourage hydration. Continue to hydrate your skin well. You may use calamine lotion to help with symptomatic management. May also try Benadryl and other prescribed antihistamines to help with symptomatic management. Hoping that with you stopping the antibiotic will stop the reaction. Please follow-up with primary care at the end of the week for reevaluation. If you develop difficulty breathing, shortness of breath, wheezing, nausea/vomiting, have lesions in your mouth or other new/worsening symptoms please seek care urgently once again. Referrals: Rui Torres [Primary Care Provider] - Discharge Data Discharge Date/Time-TO BE ENTERED AT DEPARTURE: 01/11/19 09:27 Medical Decision Making Patient is a 73-year-old female with history of SIMRAN, allergic rhinitis, tach Assubel, anxiety, depression, hypertension, hypothyroidism, and a multitude of allergies, presenting today with chief complaint of allergic reaction. She reports that for the past 2 to 3 days she has noted diffuse itching. She is itching frequently when I am in the room with her particularly along her scalp, neck, back and chest. She reports itching all of her extremities. I do not see any rash. She denies any shortness of breath, wheezing, stridor. Her lungs are clear. She does not appear to be in any acute distress. No intraoral lesions are noted. She denies any GI upset abdominal exam is benign. She is noted to be hypertensive but this is not atypical for the patient. Patient is quite concerned regarding her allergies and ensuring that her allergy list is up-to-date, will obtain notes from recent visit with primary care to update her medications and allergies. I did discuss the use of oral steroids. At this point, I do not see any evidence of otitis media. We did discuss stopping the antibiotic as this may be the offending agent. Also discussed this could be secondary to the flu shot hesitant to give her this diagnosis as I would hate to not have her get this in the future. I feel that further testing is appropriate and will refer back to her primary care prior to a formal diagnosis being made. Reviewed the list of allergies and medications from the patient's primary care. Also reviewed the recent office note. Patient does have an allergy listed to prednisolone. At this point, her reaction seems to be quite mild and I do not feel that steroids are necessary. It was more to help relieve her annoying symptoms in a more expeditious manner. Again, I do not see any intraoral lesions, rash, note any wheezing or stridor on exam. Plan to have her continue with her antihistamines. She is tolerated Benadryl well in the past. Hesitant to use any topical steroids as I am not sure what her allergen to them have been historically although I find it unlikely she would actually have a reaction. She has tolerated calamine lotion well historically and is found that this is been of benefit. She was given return precautions and I advised that she follow-up with primary care at the end of the week for reevaluation. I advised she stop the antibiotic. I am hesitant to place her on any others given her lengthy list of allergies and that her otitis seems to have cleared at this point. She will discuss this further if symptoms recur. Prefer a watch and wait approach with this patient. All of her questions and concerns were addressed and she is in agreement with this plan. HPI General Mode of arrival: ambulatory. Date/Time Provider Initiated Documentation: 01/11/19 08:27. Limitations to Documentation: no limitations. Information obtained by: patient and RN notes reviewed. HPI Narrative: Patient is a 73-year-old female presents today with chief complaint of diffuse itching. She reports that she was seen 3 days ago at her primary care office where she was diagnosed with otitis media and begun on Cefdinir and also received her flu shot. She reports that since that time, she has been having diffuse itching that has not been improving despite taking oral antihistamines. She has continued with the antibiotic. Denies any intraoral lesions. No shortness of breath, wheezing, stridor. Has not actually been able to see a rash but states that the itching has been to the point that she is not sleeping at night. Patient does have a multitude of allergies and has had similar reactions historically. Related Data Home Medications Medication Instructions Recorded Confirmed ginkgo biloba leaf extract 240 mg PO DAILY 08/26/12 01/11/19 melatonin-pyridoxine (vit B6) 1 ea PO HS 08/26/12 01/11/19 [Melatonin (with B6)] Fish Oil 1 ea PO DAILY 06/04/13 01/11/19 zolpidem [Ambien] 15 mg PO HS tab-cap 06/04/13 01/11/19 5-hydroxytryptophan (5-HTP) 50 mg PO HS 06/27/16 01/11/19 coenzyme Q10 [Co Q-10] 100 mg PO DAILY 06/27/16 01/11/19 potassium chloride 20 meq PO BID 06/27/16 01/11/19 estradiol [Estrace] 42.5 gm VG DIRECTED #1 tube 12/18/16 01/11/19 calcium carb-magnesium ox,carb 1 tab PO DAILY 06/17/18 01/11/19 Restasis 1 drp OPHTHALMIC (EYE) Q12H 10/24/18 01/11/19 Systane (propylene glycol) 1 drp OPHTHALMIC (EYE) BID-QID PRN 10/24/18 01/11/19 aspirin [Aspir-81] 81 mg PO DAILY PRN 10/24/18 01/11/19 cholecalciferol (vitamin D3) 1,000 unit PO DAILY 10/24/18 01/11/19 [Vitamin D3] hydroxyzine pamoate 50 mg PO QHS 10/24/18 01/11/19 thyroid (pork) [Byron Thyroid] 15 mg PO DAILY 10/24/18 01/11/19 Thera-Tears OPHTHALMIC (EYE) PRN 01/11/19 Previous Rx's Medication Instructions Recorded estradiol [Estrace] 42.5 gm VG DIRECTED #1 tube 12/18/16 Allergies Allergy/AdvReac Type Severity Reaction Status Date / Time amoxicillin Allergy Unverified 01/11/19 09:34 cephalexin [From Keflex] Allergy Unverified 01/11/19 09:34 cetirizine [From Zyrtec] Allergy Skin Rash Unverified 01/11/19 09:34 clindamycin Allergy Unverified 01/11/19 09:34 estradiol [From Activella] Allergy Skin Rash Unverified 01/11/19 09:34 hydrochlorothiazide Allergy Unverified 01/11/19 09:34 lactose Allergy Unverified 01/11/19 09:34 losartan Allergy Swelling/Ed Unverified 01/11/19 09:34 bree norethindrone Allergy Skin Rash Unverified 01/11/19 09:34 [From Activella] oxycodone [From Percocet] Allergy Unverified 01/11/19 09:34 prednisolone Allergy Unverified 01/11/19 09:34 sulfamethoxazole Allergy fever Unverified 01/11/19 09:34 [From Bactrim] trimethoprim [From Bactrim] Allergy fever Unverified 01/11/19 09:34 zinc Allergy Hives Unverified 01/11/19 09:34 acetaminophen [From Tylenol] AdvReac Intermediate Unverified 01/11/19 09:34 aspirin AdvReac Diarrhea Unverified 01/11/19 09:34 diazepam [From Valium] AdvReac Other (See Unverified 01/11/19 09:34 Comment) esomeprazole [From Nexium] AdvReac Other (See Unverified 01/11/19 09:34 Comment) hydrocodone [From Vicodin] AdvReac Nausea Unverified 01/11/19 09:34 hydroxychloroquine AdvReac Swelling/Ed Unverified 01/11/19 09:34 [From Plaquenil] bree levothyroxine sodium AdvReac Itching Unverified 01/11/19 09:34 [From Synthroid] omeprazole [From Prilosec] AdvReac Nausea Unverified 01/11/19 09:34 red dye AdvReac Nausea Unverified 01/11/19 09:34 sertraline [From Zoloft] AdvReac Other (See Unverified 01/11/19 09:34 Comment) topiramate [From Topamax] AdvReac Headache Unverified 01/11/19 09:34 venlafaxine [From Effexor] AdvReac Other (See Unverified 01/11/19 09:34 Comment) wheat AdvReac bloating Unverified 01/11/19 09:34 zolpidem [From Intermezzo] AdvReac Itching Unverified 01/11/19 09:34 oatmeal AdvReac constipatio Uncoded 01/11/19 09:34 n SUGAR AdvReac Other (See Uncoded 01/11/19 09:34 Comment) General YUMIKO: 3 Review of Systems Constitutional Constitutional: Reports as per HPI, Denies chills, Reports fatigue (Reports difficulty sleeping secondary to itching), Denies fever(s), Denies headache(s), Denies malaise and Denies poor appetite Eyes Eyes: Reports as per HPI, Denies eye discharge, Denies irritation, Denies itchy eyes and Denies eye pain ENT Ears, Nose, Mouth, and Throat: Reports as per HPI, Denies headache(s), Denies lip swelling, Denies mouth lesions, Denies mouth pain, Denies sore throat, Denies throat swelling and Denies tongue swelling Cardiovascular Cardiovascular: Reports as per HPI, Denies chest pain, Denies dyspnea and Denies dyspnea on exertion Respiratory Respiratory: Reports as per HPI, Denies cough, Denies dyspnea, Denies dyspnea on exertion, Denies stridor and Denies wheezing Gastrointestinal Gastrointestinal: Reports as per HPI, Denies abdominal pain, Denies change in bowel habits, Denies nausea and Denies vomiting Integumentary/Breasts Skin/Breast: Reports as per HPI, Reports rash (Feels like she has an itchy rash but none visible) and Reports unusual bruising (Patient reports easy bruising, states this is chronic) Neurologic Neurologic: Reports as per HPI and Denies headache(s) Endocrine Endocrine: Reports fatigue (Reports difficulty sleeping secondary to itching) Allergic/Immunologic Allergic/Immunologic: Denies itchy eyes, Denies lip swelling, Denies throat swelling, Denies tongue swelling and Denies wheezing [facility] Medical History 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 Dry eye dry mouth Elevated lipids Hypertension (Chronic) Hypertension Hypoglycemia (Chronic) Hypothyroid (Chronic) Hypothyroidism IBS (irritable bowel syndrome) (Chronic) Insomnia (Chronic) lupus Myofascial pain Primary fibromyalgia syndrome Vertigo (Chronic) Surgical History Biopsy of breast x2 section H/O section (Resolved) Hemorrhoidectomy Social History Smoking/Tobacco Use Status: Never Alcohol Intake: current Alcohol Intake frequency: 0-2 drinks per day Alcohol type: wine Drug use: Never Substance use type: does not use Household members: children Number of Children: 2 number of grandchildren: 1 What is your relationship status?: Panel score (0-1 are the most socially isolated patients): 0 What type of physical activity do you participate in: walking Duration: 60-90 minutes/day Do you feel safe at home: Yes Do you feel safe in your relationship?: Yes Exam Const General: cooperative, healthy appearing, comfortable, no acute distress, well developed and well groomed Nutritional Appearance: average body habitus and well nourished Orientation: alert and awake HENKY Head: normal to inspection, normocephalic and atraumatic Ears: hearing grossly normal bilaterally, external ears normal and TM's normal bilaterally General nose exam: external nose normal and nares normal Face and sinus: normal facial exam, sinuses nontender and face symmetric Mouth: oral mucosae normal, lip normal, tongue normal, oropharynx normal and moist mucous membranes Teeth and gingiva: dentition normal Throat: posterior oropharynx normal, tonsils normal and uvula midline Eyes General: appearance normal, both eyes and all related structures Neck Neck: normal visual inspection, full ROM, no lymphadenopathy and no meningeal signs Resp Effort & Inspection: normal respiratory effort, able to speak in complete sentences and no respiratory distress Auscultation: clear to auscultation bilaterally, no rales, no rhonchi and no wheezes Cardio Rate: regular rate Rhythm: regular rhythm Heart Sounds: S1 normal and S2 normal GI Inspection: normal to inspection (no rash, no excoriations) Back/Spine/Pelvis Thoracic/Lumbar Spine: thoracic and lumbar spine normal to inspection (no rash, no excoriations) Skin General skin exam: no rashes or lesions noted Neuro General: alert and awake Cognition: normal cognition Speech: speech normal Gait: normal gait Extrem General: normal to inspection (few areas of ecchymosis on BLE) Psych Appearance: grossly normal and well kempt Mental Status: mental status grossly normal Speech and Movement: speech and movement normal
[2019-01-11 08:31] VITALS: RESP 16
== END 2019-01-11 09:27 | disposition home or self-care (01) ==
LOC: ER 09:16
PROVIDERS: Emergency Provider Physician Assistant; PCP Family Medicine
DX: T78.40XA Allergy, unspecified, initial encounter (principal); L29.9 Pruritus, unspecified; I10 Essential (primary) hypertension
CPT/HCPCS: 99282

== ENCOUNTER 2019-03-09 08:35 | Observation (INO) | payer MEDICARE, OTHER, SELFPAY ==
[2019-03-09] VITALS (35 sets, daily range): BP systolic 117–159; BP diastolic 57–88; PULSE 53–82; RESP 12–31; TEMP 36.5–37; O2SAT 95–100
--- NOTE | 2019-03-09 08:49 | DI.RAD_ITS ---
EXAM: XR PORTABLE CHEST AP INDICATION: chest pain. COMPARISON: No exams were available for comparison TECHNIQUE: 2D digital imaging was performed. FINDINGS: Theheart size is normal. Leads overlie the chest. The lungs show mild increased interstitial biswas e. No superimposed infiltrate, effusion or pulmonary edema is seen. There is an exostosis of the pr oximal right humerus. IMPRESSION: No acute abnormality.
--- NOTE | 2019-03-09 08:51 | W.ED.GENAD ---
Discharge Plan Disposition Patient Disposition: [facility] INPATIENT Condition: Good Discharge Details Chief Complaint: Chest Pain Clinical Impression: Chest pain Primary Care Provider: Rui Torres ED Provider: Bnejamin Blackwell Home Meds and New Rx's Prescriptions: No Action zolpidem [Ambien] 10 MG tablet 15 mg PO HS RF: 0 Fish Oil 1 EACH capsule 1 ea PO DAILY RF: 0 estradiol [Estrace] 42.5 GM cream 42.5 gm VG DIRECTED Qty: 1 RF: 6 melatonin-pyridoxine (vit B6) [Melatonin (with B6)] 1 EACH tablet 1 ea PO HS RF: 0 ginkgo biloba leaf extract 120 MG capsule 240 mg PO DAILY RF: 0 thyroid (pork) [[place] Thyroid] 15 mg Tablet 15 mg PO DAILY RF: 0 hydroxyzine pamoate 25 mg Capsule 50 mg PO QHS RF: 0 cholecalciferol (vitamin D3) [Vitamin D3] 1,000 unit Capsule 1,000 unit PO DAILY RF: 0 aspirin [Aspir-81] 81 mg Tablet,Delayed Release (Dr/Ec) 81 mg PO DAILY PRNRF: 0 Restasis 0.05 % Dropperette 1 drp OPHTHALMIC (EYE) Q12H RF: 0 Systane (propylene glycol) 0.4-0.3 % Drops 1 drp OPHTHALMIC (EYE) BID-QID PRNRF: 0 Thera-Tears ophthalmic (eye) PRNRF: 0 potassium chloride 20 MEQ tablet,ER particles/crystals 20 meq PO BID RF: 0 coenzyme Q10 [Co Q-10] 100 MG capsule 100 mg PO DAILY RF: 0 5-hydroxytryptophan (5-HTP) 50 MG capsule 50 mg PO HS RF: 0 calcium carb-magnesium ox,carb 200 mg calcium- 100 mg Tablet,Chewable 1 tab PO DAILY RF: 0 Medical Decision Making This is a pleasant 73-year-old female with a past medical history of fibromyalgia, hypertension, high cholesterol was scheduled to have a stress test in a month, who presents for atypical chest pain for her. She has had chest pain in the past, which after multiple negative work-ups is been attributed to her fibromyalgia. However she states that today it is different, she has been anxious for the last week, and has had chest pain for the last 12 hours, she describes it as pressure-like with some tearing sensation when asked, there is radiation to the shoulders and arms bilaterally. She does admit to mild shortness of breath with exertion which appears to be new. She does admit mild lightheadedness but no syncope. Physical exam demonstrates equal pulses in the radial pulses bilaterally, limited portable bedside ultrasound shows a trace pericardial effusion, no gross hypokinesis. EKG shows diffusely inverted T waves in the anterior and lateral leads which is new compared to prior EKGs. Subtle elevation in aVR however this was present in previous EKGs. Differential is broad but does include ACS, also questionable dissection. She is not hemodynamically unstable at this time. Her pain has responded to nitroglycerin. Will perform cardiac work-up, get a CTA of the chest, portable chest x-ray shows no mediastinal widening at this time. We will continue to monitor closely and reassess. We will place nitroglycerin ointment to help with the pain at this time. 10:21 AM Patient laboratory work-up is returned unremarkable, no white count, troponin normal. Patient's electrolytes are within normal limits, CTA per radiology is negative for acute process, no evidence of dissection or emboli. Upon reassessment the patient's pain is notably improved/resolved with the nitroglycerin ointment. The patient feels well. With the patient's pain relieved with nitroglycerin, her EKG changes that are not indicative of a STEMI, but are concerning for cardiac etiology, I do feel that she would benefit from serial EKGs, troponins, cardiology evaluation as well as formal echo/stress test. I did contact cyber security specialist Dr. Cruz, here at [facility], he agrees with the plan. Did contact the hospitalist and discussed the case with Dr. Ng, she too agrees for the need for admission. Additionally her heart score is in the moderate to high risk category. I will place admission orders on behalf of Dr. Ng. I have extensively reviewed the treatment plan with the patient. I have addressed all patient concerns at this time. I have also discussed the plan with the admitting physician and they agree with the current assessment and plan and have agreed to assume responsibility for the patient. All parties demonstrate verbal understanding and agreement with our assessment and plan at this time. EKG 8: 39 Rate 62, MT 126, QTc 461, QRS 106, sinus rhythm, no significant ST elevation or depression, no evidence of STEMI, Q waves are noted in the inferior leads, inverted T waves in V2 through V6, with subtle less than 1 mm depression in those leads. Review of prior EKG from 03/30/2018 demonstrates that these findings are new. Radiology report: There is no evidence of aortic dissection or aneurysm. No pulmonary emboli are seen. There is a trace pericardial effusion versus minimal pericardial thickening. Stable areas of scarring are seen in the left lung apex. No infiltrates or pulmonary edema is seen. There are stable mild thoracic compression fractures. HPI General Date/Time Provider Initiated Documentation: 03/09/19 08:47. HPI Narrative: This is a pleasant 73-year-old female with a past medical history of irritable bowel syndrome, fibromyalgia, hypertension, high cholesterol, family history of cardiac disease, who did smoke 40 years ago, who presents today for evaluation of chest pain. Patient states that she has been mildly anxious over the last week or 2, however over the last 12 to 18 hours she has developed moderate chest pain, which she describes as 10 out of 10 pressure tearing-like sensation in her chest. She does note that she has been more short of breath when she exerts herself. She is uncertain if exertion worsens her chest pain though. She does have a history of atypical chest pain in the past, which oftentimes has been chalked up to fibromyalgia, however she states that this is notably different including how it radiates to her shoulders bilaterally. She was scheduled to have a stress test in 4 weeks. She has no history of [place] before. EMS was contacted and she was brought to the ED. She was given full dose aspirin, as well as a single sublingual nitroglycerin which took her pain from a 10 to a 6. Currently the patient states that her pain is now coming back up to an 8 out of 10. She denies any history of dissection or PE. She has no other complaints at this time. She denies syncope. She does admit to occasional lightheadedness when walking around. No other modifying factors. Related Data Home Medications Medication Instructions Recorded Confirmed ginkgo biloba leaf extract 240 mg PO DAILY 08/26/12 03/09/19 melatonin-pyridoxine (vit B6) 1 ea PO HS 08/26/12 03/09/19 [Melatonin (with B6)] Fish Oil 1 ea PO DAILY 06/04/13 01/11/19 zolpidem [Ambien] 15 mg PO HS tab-cap 06/04/13 03/09/19 5-hydroxytryptophan (5-HTP) 50 mg PO HS 06/27/16 01/11/19 coenzyme Q10 [Co Q-10] 100 mg PO DAILY 06/27/16 03/09/19 potassium chloride 20 meq PO BID 06/27/16 03/09/19 estradiol [Estrace] 42.5 gm VG DIRECTED #1 tube 12/18/16 03/09/19 calcium carb-magnesium ox,carb 1 tab PO DAILY 06/17/18 03/09/19 Restasis 1 drp OPHTHALMIC (EYE) Q12H 10/24/18 01/11/19 Systane (propylene glycol) 1 drp OPHTHALMIC (EYE) BID-QID PRN 10/24/18 03/09/19 aspirin [Aspir-81] 81 mg PO DAILY PRN 10/24/18 03/09/19 cholecalciferol (vitamin D3) 1,000 unit PO DAILY 10/24/18 03/09/19 [Vitamin D3] hydroxyzine pamoate 50 mg PO QHS 10/24/18 03/09/19 thyroid (pork) [[place] Thyroid] 15 mg PO DAILY 10/24/18 03/09/19 Thera-Tears OPHTHALMIC (EYE) PRN 01/11/19 Previous Rx's Medication Instructions Recorded estradiol [Estrace] 42.5 gm VG DIRECTED #1 tube 12/18/16 Allergies Allergy/AdvReac Type Severity Reaction Status Date / Time amoxicillin Allergy Unverified 03/09/19 09:18 cephalexin [From Keflex] Allergy Unverified 03/09/19 09:18 cetirizine [From Zyrtec] Allergy Skin Rash Unverified 03/09/19 09:18 clindamycin Allergy Unverified 03/09/19 09:18 estradiol [From Activella] Allergy Skin Rash Unverified 03/09/19 09:18 hydrochlorothiazide Allergy Unverified 03/09/19 09:18 lactose Allergy Unverified 03/09/19 09:18 losartan Allergy Swelling/Ed Unverified 03/09/19 09:18 bree norethindrone Allergy Skin Rash Unverified 03/09/19 09:18 [From Activella] oxycodone [From Percocet] Allergy Unverified 03/09/19 09:18 prednisolone Allergy Unverified 03/09/19 09:18 sulfamethoxazole Allergy fever Unverified 03/09/19 09:18 [From Bactrim] trimethoprim [From Bactrim] Allergy fever Unverified 03/09/19 09:18 acetaminophen [From Tylenol] AdvReac Intermediate states Unverified 03/09/19 09:31 tylenol creates more pain aspirin AdvReac Diarrhea, Unverified 03/09/19 09:31 upset stomach but takes it daily diazepam [From Valium] AdvReac shakes Unverified 03/09/19 09:31 esomeprazole [From Nexium] AdvReac depression Unverified 03/09/19 09:31 hydrocodone [From Vicodin] AdvReac Nausea Unverified 03/09/19 09:18 hydroxychloroquine AdvReac Swelling/Ed Unverified 03/09/19 09:18 [From Plaquenil] bree levothyroxine sodium AdvReac Itching Unverified 03/09/19 09:18 [From Synthroid] omeprazole [From Prilosec] AdvReac Nausea Unverified 03/09/19 09:18 red dye AdvReac Nausea Unverified 03/09/19 09:18 sertraline [From Zoloft] AdvReac depression Unverified 03/09/19 09:31 topiramate [From Topamax] AdvReac Headache Unverified 03/09/19 09:18 venlafaxine [From Effexor] AdvReac Psychomotor Unverified 03/09/19 09:31 retardation wheat AdvReac bloating Unverified 03/09/19 09:18 zinc AdvReac Hives Unverified 03/09/19 09:31 zolpidem [From Intermezzo] AdvReac Itching Unverified 03/09/19 09:18 oatmeal AdvReac constipatio Uncoded 03/09/19 09:18 n SUGAR AdvReac Other (See Uncoded 03/09/19 09:18 Comment) General Stated Complaint: Chest Pain YUMIKO: 3 Review of Systems All systems reviewed & are unremarkable except as noted in HPI and below PFSH Social History (Reviewed 01/11/19 @ 08:50 by CLEMENT Barahona Smoking/Tobacco Use Status: Never Alcohol Intake: current Alcohol Intake frequency: 0-2 drinks per day Alcohol type: wine Drug use: Never Substance use type: does not use Household members: children Number of Children: 2 number of grandchildren: 1 What is your relationship status?: Panel score (0-1 are the most socially isolated patients): 0 What type of physical activity do you participate in: walking Duration: 60-90 minutes/day Do you feel safe at home: Yes Do you feel safe in your relationship?: Yes Exam Narrative Exam Narrative: 1.Const: Well-nourished, Well-developed, appearing stated age 2.Eyes: PERRL, no conjunctival injection, and symmetrical lids. 3.ENT: Atraumatic external nose and ears. Moist MM. Neck: Symmetric, trachea midline, No thyromegaly. 4.CVS: +S1/S2, No murmurs or gallops. Peripheral pulses 2+ and equal in all extremities. Brisk capillary refill in all extremities. Radial pulses +2 bilaterally. Mild reproducible chest pain in the left chest, just the left of the sternum. 5.RESP: Unlabored respiratory effort. Clear to auscultation bilaterally. No wheezes rales or rhonchi 6.GI: Soft, Nontender/Nondistended, No hepatosplenomegaly. No guarding or rebound. 7.MSK: Normocephalic/Atraumatic, Extremities w/o deformity or ttp No cyanosis or clubbing, Normal movement of all extremities 8.Skin: Warm, Dry. No rashes or lesions. 9.Neuro: safety consultant II-XII grossly intact. Sensation grossly intact, no focal neurologic deficits. 10.Psych: (AAO) x3. Appropriate mood and affect Course Vital Signs Vital signs: Vital Signs Temperature 36.6 C 03/09/19 08:45 Pulse 57 L 03/09/19 08:45 Respiratory Rate 20 03/09/19 08:45 Blood Pressure 159/68 H 03/09/19 08:45 Pulse Oximetry 100 03/09/19 08:45 Temperature 36.6 C 03/09/19 08:45 Pulse 57 L 03/09/19 08:45 Respiratory Rate 20 03/09/19 08:45 Blood Pressure 159/68 H 03/09/19 08:45 Blood Pressure Position Supine 1217/19 08:45 Pulse Oximetry 100 03/09/19 08:45 Oxygen Delivery Method Room Air 03/09/19 08:45 Oxygen Flow Rate 0 03/09/19 08:45 Pain Level 4 03/09/19 08:45
[2019-03-09 08:57] LABS: Abs Immature Grans 0.02 k/cumm (0.0-0.09); Absolute Basophil Count 0.02 k/cumm (0.0-0.2); Absolute Lymphocyte Count 1.66 k/cumm (1.2-3.4); Absolute Monocyte Count 0.49 k/cumm (0.11-0.7); Absolute Neutrophil Count 3.33 k/cumm (1.2-6.7); Basophils % 0.4; Eosinophils % 1.8; HGB 14.2 g/dL (12.0-15.5); Immature Grans % 0.4; Lymphocytes % 29.5; Mean Corp. HGB Concentration 33.8 g/dL (32.0-36.0); Mean Corpuscular Hemoglobin 31.3 pg (27.0-33.0); Mean Corpuscular Volume 92.7 fL (80-95); Mean Platelet Volume 9.6 fL (8.0-11.0); Monocytes % 8.7; Neutrophils % 59.2; Platelet Count 200 x1000/uL (130-400); RBC 4.53 m/cumm (4.00-5.20); RBC Distribution Width 11.4 % (11.7-14.6); White Blood Cell Count 5.62 k/cumm (4.4-10.8)
[2019-03-09] MEDS: Ondansetron 4 MG/2 ML VIAL IVP (08:59)
[2019-03-09 09:09] LABS: PTT Activated 23.9 sec (21.0-31.4)
[2019-03-09] MEDS: Normal Saline 500 ML IV (09:10)
[2019-03-09 09:27] LABS: ALT 15 U/L (14-59); AST 17 U/L (15-37); Alkaline Phosphatase 78 U/L (46-116); Anion Gap 9.1 mmol/L (3-11); BUN 10 mg/dL (7-18); Bilirubin, Total 0.5 mg/dL (0.2-1.0); CO2 28.9 mmol/L (21.0-32.0); CREATININE 0.75 mg/dL (0.55-1.02); Calcium 8.9 mg/dL (8.5-10.1); Chloride 103 mmol/L (98-107); Glucose 104 mg/dL (74-106); Potassium 3.9 mmol/L (3.5-5.1); Sodium 141 mmol/L (136-145); Total Protein 7.7 g/dL (6.4-8.2)
[2019-03-09 09:29] LABS: Troponin I < 0.05 ng/Ml (<0.06)
--- NOTE | 2019-03-09 09:40 | DI.CT_ITS ---
EXAM: CT THORAX CTA CLINICAL HISTORY: CP, trace pericardial effusion,eval for dissection TECHNIQUE: 89 cc of Omnipaque 350 IV during the arterial phase. Axial CT angiography was performed with multi-slice acquisition and multi-planar and/or 3D reconstruc tions. COMPARISON: CHEST 2 VIEWS PA,LAT from 04/13/2011 ABD PELVIS WITH CONTRAST from 08/18/2016 CT thorax abdomen CTA from 06/17/2018 XR CHEST 2V PA LATERAL from 10/25/2018 XR PORTABLE CHEST AP from 03/09/2019 FINDINGS: There is no evidence of aortic dissection or aneurysm. No pulmonary emboli are seen. There is a tr petros pericardial effusion versus minimal pericardial thickening. Stable areas of scarring are seen in the left lung apex. No infiltrates or pulmonary edema is seen. There are stable mild thoracic comp ression fractures. IMPRESSION: Left apical scarring. No evidence of aortic dissection or other acute abnormality.
[2019-03-09] MEDS: Omnipaque 350 MG/ML 100 ML BTL IJ (09:56)
[2019-03-09] MEDS: Normal Saline 500 ML 75 ML IV ×2 (10:28→13:02)
[2019-03-09 12:14] LABS: Troponin I < 0.05 ng/Ml (<0.06)
--- NOTE | 2019-03-09 12:58 | HPE_ITS ---
Date of service: 03/09/19 Time of Service: 13:04 Assessment and Plan Assessment and plan (1) Chest pain: Status: Acute Assessment and plan: She continues to have chest pressure with mild nausea and dizziness. Her troponin was <0.05 x2, third troponin is pending. Stress test ordered. Continue to monitor on telemetry. NPO for stress test. Continue daily aspirin. (2) Hypertension: Status: Chronic Assessment and plan: Her blood pressure is acceptable. Not on medication for hypertension. Continue to monitor. (3) Hypothyroid: Status: Chronic Assessment and plan: Her most recent TSH was 14.76, with free T4 slightly low at 0.58. She is on armour thyroid. Repeat TSH with morning labs. Consider increasing [place] Thyroid to 30 mg daily, vs follow up with her PCP for dose adjustment. Does not appear to be having symptoms of hypothyroidism. (4) Insomnia: Status: Chronic Assessment and plan: She ran out of Ambien and did not sleep last night. Continue ambien at HS. (5) Anxiety and depression: Status: Acute Assessment and plan: She feels that this episode of chest pressure could be related to anxiety. Continue to rule out, stress test and continue hydroxy zine at HS. (6) DVT prophylaxis: Status: Acute Assessment and plan: Subcutaneous lovenox for DVT prophylaxis. Teds and SCDs for mechanical DVT ppx. (7) Discharge planning issues: Status: Acute Assessment and plan: She is a DNR/DNI. Discussed code status with her and she states she is a DNR/DNI. Care management to do advanced directives with her. She would be interested in transfer if indicated based on the results of her stress test. This case was discussed with Dr. More who is in agreement. History of Present Illness History of Present Illness Chief Complaint: CP, SOB, dizziness, nausea Narrative: Lainey Escalante is a very pleasant 73 year old female with a past medical history significant for hypertension, hyperlipidemia, fibromyalgia, RLS, takotsubo syndrome and hypothyroidism who presented to the ED today with reports of chest pressure with associated shortness of breath, dizziness and nausea. She reports that she began having chest pain, feeling depressed and unwell about 2 weeks ago. She ran out of her ambien and was unable to sleep last night. The chest pain increased last night and persisted this morning, she describes it as feeling like pressure on the left side. She waited until this morning to call 911 because she did not want to awaken anyone. In the ED, her vital signs were unremarkable. She was scheduled to have an outpatient stress test next month. She had an EKG which showed diffusely inverted T waves in the anterior and lateral leads which is new compared to prior EKGs. She had a CTA chest which showed No evidence of aortic dissection or other acute abnormality. Chest x-ray showed no acute abnormality. Her labs were unremarkable. Troponin was <0.05. She received nitroglycerin which relieved her pain. Nitroglycerin ointment was placed. The ED attending provider discussed her case with Dr. Noe, Cardiology who agrees with admission to the hospital to trend troponin, monitor on telemetry and stress testing. She is admitted to the med/surg floor for further evaluation and management. At the time of her admission, she continues to report left sided chest discomfort, mild nausea and dizziness. She does not feel short of breath. She reports that she had a panic attack many years ago and this sensation is reminiscent of that experience. She denies coughing or wheezing, she has not eaten today. Her bowels and bladder are functioning normally. She has pain in various areas of her body r/t fibromyalgia. She denies edema. 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 Dry eye dry mouth Elevated lipids Hypertension (Chronic) Hypertension Hypoglycemia (Chronic) Hypothyroid (Chronic) Hypothyroidism IBS (irritable bowel syndrome) (Chronic) Insomnia (Chronic) lupus Myofascial pain Primary fibromyalgia syndrome Vertigo (Chronic) Surgical History Biopsy of breast x2 section H/O section (Resolved) Hemorrhoidectomy Family History Mother Dementia Father Heart disease Stroke Social History Smoking/Tobacco Use Status: Never Alcohol Intake: current Alcohol Intake frequency: 0-2 drinks per day Alcohol type: wine Drug use: Never Substance use type: does not use Household members: children Number of Children: 2 number of grandchildren: 1 What is your relationship status?: Panel score (0-1 are the most socially isolated patients): 0 What type of physical activity do you participate in: walking Duration: 60-90 minutes/day Do you feel safe at home: Yes Do you feel safe in your relationship?: Yes Meds Home Medications and Allergies Home Medications Medication Instructions Recorded Confirmed Type ginkgo biloba leaf extract 240 mg PO DAILY 08/26/12 03/09/19 History melatonin-pyridoxine (vit B6) 1 ea PO HS 08/26/12 03/09/19 History [Melatonin (with B6)] Fish Oil 1 ea PO DAILY 06/04/13 01/11/19 History zolpidem [Ambien] 15 mg PO HS tab-cap 06/04/13 03/09/19 History 5-hydroxytryptophan (5-HTP) 50 mg PO HS 06/27/16 01/11/19 History coenzyme Q10 [Co Q-10] 100 mg PO DAILY 06/27/16 03/09/19 History potassium chloride 20 meq PO BID 06/27/16 03/09/19 History estradiol [Estrace] 42.5 gm VG DIRECTED #1 tube 12/18/16 03/09/19 Rx calcium carb-magnesium ox,carb 1 tab PO DAILY 06/17/18 03/09/19 History Restasis 1 drp OPHTHALMIC (EYE) Q12H 10/24/18 01/11/19 History Systane (propylene glycol) 1 drp OPHTHALMIC (EYE) BID-QID PRN 10/24/18 03/09/19 History aspirin [Aspir-81] 81 mg PO DAILY PRN 10/24/18 03/09/19 History cholecalciferol (vitamin D3) 1,000 unit PO DAILY 10/24/18 03/09/19 History [Vitamin D3] hydroxyzine pamoate 50 mg PO QHS 10/24/18 03/09/19 History thyroid (pork) [[place] Thyroid] 15 mg PO DAILY 10/24/18 03/09/19 History Thera-Tears OPHTHALMIC (EYE) PRN 01/11/19 History Allergies Allergy/AdvReac Type Severity Reaction Status Date / Time amoxicillin Allergy Unverified 03/09/19 09:18 cephalexin [From Keflex] Allergy Unverified 03/09/19 09:18 cetirizine [From Zyrtec] Allergy Skin Rash Unverified 03/09/19 09:18 clindamycin Allergy Unverified 03/09/19 09:18 estradiol [From Activella] Allergy Skin Rash Unverified 03/09/19 09:18 hydrochlorothiazide Allergy Unverified 03/09/19 09:18 lactose Allergy Unverified 03/09/19 09:18 losartan Allergy Swelling/Ed Unverified 03/09/19 09:18 bree norethindrone Allergy Skin Rash Unverified 03/09/19 09:18 [From Activella] oxycodone [From Percocet] Allergy Unverified 03/09/19 09:18 prednisolone Allergy Unverified 03/09/19 09:18 sulfamethoxazole Allergy fever Unverified 03/09/19 09:18 [From Bactrim] trimethoprim [From Bactrim] Allergy fever Unverified 03/09/19 09:18 acetaminophen [From Tylenol] AdvReac Intermediate states Unverified 03/09/19 09:31 tylenol creates more pain aspirin AdvReac Diarrhea, Unverified 03/09/19 09:31 upset stomach but takes it daily diazepam [From Valium] AdvReac shakes Unverified 03/09/19 09:31 esomeprazole [From Nexium] AdvReac depression Unverified 03/09/19 09:31 hydrocodone [From Vicodin] AdvReac Nausea Unverified 03/09/19 09:18 hydroxychloroquine AdvReac Swelling/Ed Unverified 03/09/19 09:18 [From Plaquenil] bree Influenza Virus Vaccines AdvReac Unverified 03/09/19 13:21 levothyroxine sodium AdvReac Itching Unverified 03/09/19 09:18 [From Synthroid] omeprazole [From Prilosec] AdvReac Nausea Unverified 03/09/19 09:18 red dye AdvReac Nausea Unverified 03/09/19 09:18 sertraline [From Zoloft] AdvReac depression Unverified 03/09/19 09:31 topiramate [From Topamax] AdvReac Headache Unverified 03/09/19 09:18 venlafaxine [From Effexor] AdvReac Psychomotor Unverified 03/09/19 09:31 retardation wheat AdvReac bloating Unverified 03/09/19 09:18 zinc AdvReac Hives Unverified 03/09/19 09:31 zolpidem [From Intermezzo] AdvReac Itching Unverified 03/09/19 09:18 oatmeal AdvReac constipatio Uncoded 03/09/19 09:18 n SUGAR AdvReac Other (See Uncoded 03/09/19 09:18 Comment) Exam Narrative Exam Narrative: General: 73 year old female, appears fatigued, alert and oriented, pleasant and talkative, in NAD. HEENT: normocephalic, atraumatic, pupils equal and round, EOMI, mucous membranes moist. Neck: supple, no JVD. Cardiovascular: heart has regular rate and rhythm, no murmur appreciated. Respiratory: respirations even and unlabored, lung sounds clear bilaterally. GI: normoacitve bowel sounds throughout, abdomen soft, nontender on palpation, nondistended. Extremities: no clubbing, cyanosis or edema. Pedal pulses palpable bilaterally. Results Labs Result diagrams: 03/09/19 08:43 03/09/19 08:43 Labs: Laboratory Results - last 24 hr 03/09/19 03/09/19 03/09/19 08:43 08:43 08:43 WBC 5.62 RBC 4.53 Hgb 14.2 Hct 42.0 MCV 92.7 MCH 31.3 MCHC 33.8 RDW 11.4 L Plt Count 200 MPV 9.6 Immature Gran % 0.4 Neutrophils % 59.2 Lymphocytes % 29.5 Monocytes % 8.7 Eosinophils % 1.8 Basophils % 0.4 Absolute Neutrophils 3.33 Absolute Lymphocytes 1.66 Absolute Monocytes 0.49 Absolute Eosinophils 0.10 Absolute Basophils 0.02 PT 10.0 INR 1.0 APTT 23.9 Sodium 141 Potassium 3.9 Chloride 103 Carbon Dioxide 28.9 Anion Gap 9.1 BUN 10 Creatinine 0.75 Estimated GFR/1.73 m2 >= 60.00 Glucose 104 Calcium 8.9 Total Bilirubin 0.5 AST 17 ALT 15 Alkaline Phosphatase 78 Troponin I < 0.05 Total Protein 7.7 Albumin 4.0 03/09/19 11:45 WBC RBC Hgb Hct MCV MCH MCHC RDW Plt Count MPV Immature Gran % Neutrophils % Lymphocytes % Monocytes % Eosinophils % Basophils % Absolute Neutrophils Absolute Lymphocytes Absolute Monocytes Absolute Eosinophils Absolute Basophils PT INR APTT Sodium Potassium Chloride Carbon Dioxide Anion Gap BUN Creatinine Estimated GFR/1.73 m2 Glucose Calcium Total Bilirubin AST ALT Alkaline Phosphatase Troponin I < 0.05 Total Protein Albumin Last Vital Signs Temp 36.8 C 03/09/19 11:57 Pulse 58 L 03/09/19 11:57 Resp 20 03/09/19 11:57 BP 136/79 03/09/19 11:57 Pulse Ox 98 03/09/19 11:57
[2019-03-09] MEDS: Enoxaparin 40 MG/0.4 ML SYR SC (13:06)
[2019-03-09 14:35] LABS: Troponin I < 0.05 ng/Ml (<0.06)
--- NOTE | 2019-03-09 14:48 | DI.NM_ITS ---
APPROVED REPORT Exam: Pharmacologic Patient Location: In-Patient Room/Bed: Stress Nurse: Irasema Crews RN BMI: 25.44 Baseline Rhythm: Sinus rhythm. Indications: In-patient admitted through the ER for chest pain. Medical History Cardiac Medications: Aspirin. Fish Oil. Coenzyme q10. Potassium chloride. Aspirin. Vitamin D3 [place] thyroid. Allergies: Amoxicillin. Cephalexin. Cetirizine. Clindamycin. Estradiol. HCTZ. Lactose. Losartan. Nore thindrone. Oxycodone. Prednisolone. Sulfamethoxazole. Trimethoprim. Acetaminophen. Aspirin. Diazepam. Esomeprazole. Hydrocodone. Hydroxychloroquine. Influenza vaccine. Levothyroxine sodium. Omeprazole. Red dye. Cardiac Risk Factors: HTN, Hyperlipidemia Pretest Chest Pain Characteristics: Non-exertional Chest pain Physical Disabilities: Fibromyalgia. Lung Sounds: Clear to auscultation Heart Sounds: Regular Stress Test Details Test: Pharmacologic stress testing performed using 0.4 mg of regadenoson per 5 mL given IV over 10 s econds. Nuclear Acquisition: Rest Tc-99m/Stress Tc-99m 1 day Rest Isotope: Tc-99m Sestamibi. Dose: 10.0 Date: 03/09/2019 Injection Time: 1350 Stress Isotope: Tc-99m Sestamibi. Dose: 31.4 Date: 03/09/2019 Injection Time: 1500 HR Max Heart Rate (APMHR): 147 bpm Resting HR Supine: 69 bpm Target HR (85% APMHR): 124 bpm Max HR Achieved: 95 bpm % of APMHR: 64 Recovery HR: 84 bpm HR response to stress: Normal HR response to stress BP Resting BP Supine: 136/76 mmHg Max BP: 150/80 mmHg Recovery BP: 150/80 mmHg ECG Resting ECG: Sinus Rhythm ST Change: No significant ST segment changes Stress ECG: Sinus Rhythm ST Change: No sginificant ST segment changes Arrhythmia: None Recovery ECG: Sinus Rhythm Recovery ST Change: none Recovery Arrhythmia: None Clinical Stress Symptoms: No significant symptoms from Lexiscan injection Stress ECG Conclusion 1. There is no evidence of ischemia on the ECG portion of the stress test. Protocol Used: Regadenoson Stress Test Summary STAGE HR BP Symptoms NOTES Supine 69 136/76 1 min post lexiscan injection 83 138/80 3 min post lexiscan injection 84 150/80 6 min post lexiscan injection 71 134/72 MPI Conclusion Ejection fraction with stress was 75%. There is no evidence of ischemia on the imaging portion of this exam. This represents a normal SPECT test. Radiologist Interpretation Radiologist Interpretation by: Theresa Medina MD Interpretation Date/Time: 03/09/2019 15:56:51
[2019-03-09] MEDS: Regadenoson 0.4 MG/5 ML SYR IVP (15:27)
--- NOTE | 2019-03-09 15:47 | RESPIRATORY ---
Pt states she does not use a CPAP machine for her SIMRAN as she didn't realize she had it.
[2019-03-09] MEDS: Normal Saline 1,000 ML 75 ML IV (18:30)
[2019-03-09 18:40] LABS: Troponin I < 0.05 ng/Ml (<0.06)
[2019-03-09] MEDS: Potassium Chloride 20 MEQ TABCR PO (19:17)
[2019-03-09] MEDS: Zolpidem 10 MG TAB 15 MG PO (21:49)
[2019-03-09] MEDS: Melatonin 3 MG TAB 6 MG PO (21:50)
[2019-03-09] MEDS: hydrOXYzine PAMOATE 25 MG CAP 50 MG PO (21:50)
[2019-03-10 00:24] VITALS: PULSE 71
[2019-03-10] MEDS: Normal Saline 1,000 ML 75 ML IV (03:20)
[2019-03-10 03:43] VITALS: BP 155/85; PULSE 64; RESP 16; TEMP 37.1; O2SAT 96
[2019-03-10 06:24] LABS: HCT 36.9 % (36.0-46.0); HGB 12.5 g/dL (12.0-15.5); Mean Corp. HGB Concentration 33.9 g/dL (32.0-36.0); Mean Corpuscular Hemoglobin 31.5 pg (27.0-33.0); Mean Corpuscular Volume 92.9 fL (80-95); Mean Platelet Volume 9.7 fL (8.0-11.0); Platelet Count 170 x1000/uL (130-400); RBC 3.97 m/cumm (4.00-5.20); RBC Distribution Width 11.4 % (11.7-14.6); White Blood Cell Count 5.71 k/cumm (4.4-10.8)
[2019-03-10 06:44] LABS: Anion Gap 7.9 mmol/L (3-11); BUN 13 mg/dL (7-18); CO2 26.1 mmol/L (21.0-32.0); CREATININE 0.67 mg/dL (0.55-1.02); Calcium 8.4 mg/dL (8.5-10.1); Chloride 109 mmol/L (98-107); Glucose 88 mg/dL (74-106); Magnesium 1.9 mg/dL (1.8-2.4); Potassium 3.9 mmol/L (3.5-5.1); Sodium 143 mmol/L (136-145)
[2019-03-10 07:14] VITALS: BP 153/71; PULSE 60; RESP 17; TEMP 37; O2SAT 99
[2019-03-10 07:14] LABS: FREE T4 0.56 ng/dL (0.76-1.46)
[2019-03-10 07:30] VITALS: PULSE 59
[2019-03-10] MEDS: Cholecalciferol (Vitamin D3) 1,000 UNIT TAB 1000 UNITS PO (08:44)
[2019-03-10] MEDS: Potassium Chloride 20 MEQ TABCR PO (08:44)
--- NOTE | 2019-03-10 10:45 | DSE_ITS ---
Date of service: 03/10/19 Time of Service: 10:45 DS: Diagnosis Discharge Diagnosis (1) Chest pain: Status: Acute (2) Hypertension: Status: Chronic (3) Hypothyroid: Status: Chronic (4) Insomnia: Status: Chronic (5) Anxiety and depression: Status: Acute Discharge Plan Disposition Patient Disposition: HOME Condition: Improving Discharge Details Chief Complaint: Chest Pain Clinical Impression: Chest pain Reason For Visit: CHEST PAIN Admit Date/Time: 03/09/19 10:20 Admit Provider: Stephanie More Attending Provider: Stephanie More Primary Care Provider: Rui Torres ED Provider: Benjamin Blackwell Hospital Course Hospital Course: Lainey Escalante is a very pleasant 73 year old female with a past medical history significant for hypertension, hyperlipidemia, fibromyalgia, RLS, takotsubo syndrome and hypothyroidism who presented to the ED yesterday (03/09/19) with reports of chest pressure with associated shortness of breath, dizziness and nausea which began about 2 weeks ago. She also ran out of her ambien and was unable to sleep the night prior. She described the pain as feeling like pressure on the left side. She waited until the morning to call 911 because she did not want to awaken anyone. In the ED, her vital signs were unremarkable. She was scheduled to have an outpatient stress test next month. She had an EKG which cinthia wed diffusely inverted T waves in the anterior and lateral leads which was new compared to prior EKGs. She had a CTA chest which showed No evidence of aortic dissection or other acute abnormality. Chest x-ray showed no acute abnormality. Her labs were unremarkable. Troponin was <0.05. She received nitroglycerin which relieved her pain. Nitroglycerin ointment was placed. The ED attending provider discussed her case with Dr. Noe, Cardiology who agreed with admission to the hospital to trend troponin, monitor on telemetry and stress testing. She is admitted to the med/surg floor for further evaluation and management. At the time of her admission, she reported that she had a panic attack many years ago and this felt reminiscent of that experience. She was monitored on telemetry overnight and found to be in sinus bradycardia to normal sinus rhythm. Her troponins were trended and found to be less than 0.05?4. She had a stress test which was normal, her ejection fraction with stress was 75%, there was no evidence of ischemia. By the following morning, she was feeling remarkably better, she was no longer experiencing chest pain, shortness of breath or nausea. Her TSH was noted to be very high at 49.4 with a low free T4 of 0.56. She was previously taking [place] Thyroid due to inability to tolerate Synthroid. She reports today that she actually stopped taking her [place] Thyroid as she could not tolerate that either. She refused to trial synthroid again due to her reaction previously. She is interested in starting nature- throid. She has follow up scheduled with endocrinology in March 2019. She is requesting that we initiate her on nature-throid. A prescription will be sent to her pharmacy. She will follow up with her PCP as scheduled. Home Meds and New Rx's Prescriptions: New zolpidem 10 mg Tablet 15 mg PO HS Qty: 4 RF: 0 Nature-Throid 32.5 mg tablet 32.5 mg PO DAILY Qty: 30 RF: 0 Continued zolpidem [Ambien] 10 MG tablet 15 mg PO HS RF: 0 Fish Oil 1 EACH capsule 1 ea PO DAILY RF: 0 estradiol [Estrace] 42.5 GM cream 42.5 gm VG DIRECTED Qty: 1 RF: 6 melatonin-pyridoxine (vit B6) [Melatonin (with B6)] 1 EACH tablet 1 ea PO HS RF: 0 ginkgo biloba leaf extract 120 MG capsule 240 mg PO DAILY RF: 0 hydroxyzine pamoate 25 mg Capsule 50 mg PO QHS RF: 0 cholecalciferol (vitamin D3) [Vitamin D3] 1,000 unit Capsule 1,000 unit PO DAILY RF: 0 aspirin [Aspir-81] 81 mg Tablet,Delayed Release (Dr/Ec) 81 mg PO DAILY PRNRF: 0 Restasis 0.05 % Dropperette 1 drp OPHTHALMIC (EYE) Q12H RF: 0 Systane (propylene glycol) 0.4-0.3 % Drops 1 drp OPHTHALMIC (EYE) BID-QID PRNRF: 0 Thera-Tears ophthalmic (eye) PRNRF: 0 potassium chloride 20 MEQ tablet,ER particles/crystals 20 meq PO BID RF: 0 coenzyme Q10 [Co Q-10] 100 MG capsule 100 mg PO DAILY RF: 0 5-hydroxytryptophan (5-HTP) 50 MG capsule 50 mg PO HS RF: 0 calcium carb-magnesium ox,carb 200 mg calcium- 100 mg Tablet,Chewable 1 tab PO DAILY RF: 0 Discontinued thyroid (pork) [[place] Thyroid] 15 mg Tablet 15 mg PO DAILY RF: 0 Discharge Instructions Instructions: Hypothyroidism (DC) Additional Instructions: Start taking nature-throid. Take your usual medication as prescribed. Follow up with your PCP and endocrinology as scheduled. Take care! Stand Alone Forms: Nursing Discharge Form Referrals: Rui Torres [Primary Care Provider] - (The office will call you to be seen within a week) Activity:: Activity as Tolerated Equipment/Supplies:: No Equipment Needed Diet:: As Tolerated Discharge Orders Discharge Orders: Discharge Order (Routine); Ordered 03/10/19 Ordered By: Jennifer Hermosillo DS: Summary Status at Discharge Functional status at discharge: independent ambulation Overall status at discharge: patient is progressing back to baseline Mental Status: mental status grossly normal Speech and Movement: speech and movement normal Mood: congruent mood Affect: normal affect Exam Narrative Exam Narrative: General: 73 year old female, appears fatigued, alert and oriented, pleasant and talkative, in NAD. HEENT: normocephalic, atraumatic, pupils equal and round, EOMI, mucous membranes moist. Neck: supple, no JVD. Cardiovascular: heart has regular rate and rhythm, no murmur appreciated. Respiratory: respirations even and unlabored, lung sounds clear bilaterally. GI: normoacitve bowel sounds throughout, abdomen soft, nontender on palpation, nondistended. Extremities: no clubbing, cyanosis or edema. Pedal pulses palpable bilaterally. Psych Mental Status: mental status grossly normal Speech and Movement: speech and movement normal Mood: congruent mood Affect: normal affect DS: Data Vitals/I&O Vitals and I&O: Vital Signs Temperature 37.0 C 03/10/19 07:14 Temperature Source Tympanic 03/10/19 07:14 Pulse 59 L 03/10/19 07:30 Pulse Rhythm Regular 03/10/19 08:52 Pulse 63 03/09/19 11:11 Respiratory Rate 17 03/10/19 07:14 Respiratory Effort Non-Labored 03/10/19 08:52 Respiratory Depth Normal 03/10/19 08:52 Respiratory Pattern Normal 03/10/19 08:52 Blood Pressure 153/71 H 03/10/19 07:14 Blood Pressure Mean 82 03/09/19 11:11 Blood Pressure Position Supine 03/09/19 08:45 Pulse Oximetry 99 03/10/19 07:14 Oxygen Delivery Method Room Air 03/10/19 07:14 Oxygen Flow Rate 0 03/10/19 07:14 Pain Level 8 03/10/19 08:50 Intake & Output 03/09/19 03/09/19 03/10/19 11:59 23:59 11:59 Intake Total 510 / 1085 575 / 1085 902.5 / 902.5 Output Total 650 / 650 500 / 500 Balance 510 / 435 -75 / 435 402.5 / 402.5 Weight 57.2 kg 52.9 kg Intake: IV 510 / 1085 575 / 1085 662.5 / 662.5 Oral 240 / 240 Output: Urine 650 / 650 500 / 500 Other: Urine Color Straw Yellow Urine Appearance Clear Clear Urine Odor None Normal Voiding Methods Toilet Toilet Data Completed and Pending Completed studies during hospitalization [Text1]: 03/09/19: Exam(s) a RAD:XR portable chest AP EXAM: XR PORTABLE CHEST AP INDICATION: chest pain. COMPARISON: No exams were available for comparison TECHNIQUE: 2D digital imaging was performed. FINDINGS: Theheart size is normal. Leads overlie the chest. The lungs show mild increased interstitial change. No superimposed infiltrate, effusion or pulmonary edema is seen. There is an exostosis of the proximal right humerus. IMPRESSION: No acute abnormality. EXAM: CT THORAX CTA CLINICAL HISTORY: CP, trace pericardial effusion,eval for dissection TECHNIQUE: 89 cc of Omnipaque 350 IV during the arterial phase. Axial CT angiography was performed with multi-slice acquisition and multi-planar and/or 3D reconstructions. COMPARISON: CHEST 2 VIEWS PA,LAT from 04/13/2011 ABD PELVIS WITH CONTRAST from 08/18/2016 CT thorax abdomen CTA from 06/17/2018 XR CHEST 2V PA LATERAL from 10/25/2018 XR PORTABLE CHEST AP from 03/09/2019 FINDINGS: There is no evidence of aortic dissection or aneurysm. No pulmonary emboli are seen. There is a trace pericardial effusion versus minimal pericardial thickening. Stable areas of scarring are seen in the left lung apex. No infiltrates or pulmonary edema is seen. There are stable mild thoracic compression fractures. IMPRESSION: Left apical scarring. No evidence of aortic dissection or other acute abnormality. SEE MPI REPORT Labs on day of discharge: Labs from last 24 hours 03/10/19 03/10/19 03/09/19 06:03 06:03 18:13 WBC 5.71 RBC 3.97 L Hgb 12.5 Hct 36.9 MCV 92.9 MCH 31.5 MCHC 33.9 RDW 11.4 L Plt Count 170 MPV 9.7 Sodium 143 Potassium 3.9 Chloride 109 H Carbon Dioxide 26.1 Anion Gap 7.9 BUN 13 Creatinine 0.67 Estimated GFR/1.73 m2 >= 60.00 Glucose 88 Calcium 8.4 L Magnesium 1.9 Troponin I < 0.05 TSH 49.40 H Free T4 0.56 L 03/09/19 03/09/19 14:00 11:45 WBC RBC Hgb Hct MCV MCH MCHC RDW Plt Count MPV Sodium Potassium Chloride Carbon Dioxide Anion Gap BUN Creatinine Estimated GFR/1.73 m2 Glucose Calcium Magnesium Troponin I < 0.05 < 0.05 TSH Free T4 PFSH Medical History 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 Dry eye dry mouth Elevated lipids Hypertension (Chronic) Hypertension Hypoglycemia (Chronic) Hypothyroid (Chronic) Hypothyroidism IBS (irritable bowel syndrome) (Chronic) Insomnia (Chronic) lupus Myofascial pain Primary fibromyalgia syndrome Vertigo (Chronic) Surgical History Biopsy of breast x2 section H/O section (Resolved) Hemorrhoidectomy Family History Mother Dementia Father Heart disease Stroke Social History Smoking/Tobacco Use Status: Never Alcohol Intake: current Alcohol Intake frequency: 0-2 drinks per day Alcohol type: wine Drug use: Never Substance use type: does not use Household members: children Number of Children: 2 number of grandchildren: 1 What is your relationship status?: Panel score (0-1 are the most socially isolated patients): 0 What type of physical activity do you participate in: walking Duration: 60-90 minutes/day Do you feel safe at home: Yes Do you feel safe in your relationship?: Yes
[2019-03-10 11:07] VITALS: BP 159/87; PULSE 58; RESP 17; TEMP 37; O2SAT 98
--- NOTE | 2019-03-10 12:52 | NUR.NOTE ---
Nursing Note: Patient educated that her potassium pills are not any good at this time, that they are outdated by over a year and they are disintegrating. Patient insistent that she put the new pills in an old bottle. This RN re-educated that the pills have turned into a powder and therefore should be properly discarded. Patient said she would look at them when she got home and put her glasses on.
== END 2019-03-10 12:48 | disposition home or self-care (01) ==
LOC: ER 10:25 → MS 11:24
PROVIDERS: Nurse Practitioner; Admitting Provider Internal Medicine; Emergency Provider Student in an Organized Health Care Education/Training Program; PCP Family Medicine; Visit Provider Family Medicine
DX: R07.9 Chest pain, unspecified (principal); I10 Essential (primary) hypertension; E03.9 Hypothyroidism, unspecified; G47.00 Insomnia, unspecified; F41.8 Other specified anxiety disorders; E78.5 Hyperlipidemia, unspecified; R42 Dizziness and giddiness; R94.6 Abnormal results of thyroid function studies; T38.1X6A Underdosing of thyroid hormones and substitutes, initial encounter; Z91.128 Patient's intentional underdosing of medication regimen for other reason; Z66 Do not resuscitate
CPT/HCPCS: 36415; 71275; 78452; 80048; 80053; 85027; 93005; 93016; 93018; 96361; 96374; 99239; 99285; J1650; 71045; 83735; 84439; 84443; 84484; 85025; 85610; 85730; 93010; 93017; 99217; 99219; G0378; J2405; J2785; J3490

== ENCOUNTER 2019-03-26 01:49 | Outpatient (CLI) | payer MEDICARE, OTHER, SELFPAY ==
[2019-03-26 11:45] LABS: Anion Gap 9.5 mmol/L (3-11); BUN 14 mg/dL (7-18); CO2 26.5 mmol/L (21.0-32.0); CREATININE 0.81 mg/dL (0.55-1.02); Calcium 9.7 mg/dL (8.5-10.1); Chloride 105 mmol/L (98-107); FREE T4 0.58 ng/dL (0.76-1.46); Glucose 100 mg/dL (74-106); Potassium 4.4 mmol/L (3.5-5.1); Sodium 141 mmol/L (136-145); TSH 11.32 uIU/mL (0.36-3.74)
[2019-03-26 16:22] LABS: T3, Total 94 ng/dL (97-169)
== END 2019-03-26 02:09 ==
PROVIDERS: PCP Family Medicine; Visit Provider Family Medicine
DX: E03.9 Hypothyroidism, unspecified (principal); E87.6 Hypokalemia
CPT/HCPCS: 36415; 80048; 84439; 84443; 84480

== ENCOUNTER 2019-04-21 08:38 | Outpatient (CLI) | payer MEDICARE, OTHER, SELFPAY ==
[2019-04-21 10:44] LABS: Abs Immature Grans 0.01 k/cumm (0.0-0.09); Absolute Basophil Count 0.03 k/cumm (0.0-0.2); Absolute Eosinophil Count 0.17 k/cumm (0.0-0.7); Absolute Lymphocyte Count 2.03 k/cumm (1.2-3.4); Absolute Monocyte Count 0.49 k/cumm (0.11-0.7); Absolute Neutrophil Count 2.91 k/cumm (1.2-6.7); Basophils % 0.5; HCT 41.1 % (36.0-46.0); HGB 13.9 g/dL (12.0-15.5); Immature Grans % 0.2 %; Mean Corp. HGB Concentration 33.8 g/dL (32.0-36.0); Mean Corpuscular Hemoglobin 30.8 pg (27.0-33.0); Mean Corpuscular Volume 91.1 fL (80-95); Mean Platelet Volume 9.7 fL (8.0-11.0); Monocytes % 8.7; Neutrophils % 51.6; Platelet Count 221 x1000/uL (130-400); RBC 4.51 m/cumm (4.00-5.20); RBC Distribution Width 11.8 % (11.7-14.6); White Blood Cell Count 5.64 k/cumm (4.4-10.8)
[2019-04-21 11:11] LABS: ALT 16 U/L (14-59); AST 18 U/L (15-37); Albumin 4.1 g/dL (3.4-5.0); Alkaline Phosphatase 61 U/L (46-116); BUN 11 mg/dL (7-18); Bilirubin, Total 0.6 mg/dL (0.2-1.0); Calcium 9.1 mg/dL (8.5-10.1); Chloride 105 mmol/L (98-107); Glucose 89 mg/dL (74-106); PHOSPHORUS 3.8 mg/dL (2.6-4.7); Sodium 142 mmol/L (136-145); Total Protein 7.1 g/dL (6.4-8.2)
[2019-04-21 16:03] LABS: T3,Free 4.2 pg/mL (2.8-5.3)
[2019-04-21 16:16] LABS: T3, Total 131 ng/dL (97-169)
[2019-04-22 12:11] LABS: Thyroperoxidase Antibody 40 U/mL (<=60)
== END 2019-04-21 08:58 ==
PROVIDERS: PCP Family Medicine; Visit Provider Internal Medicine Endocrinology, Diabetes & Metabolism
DX: E03.9 Hypothyroidism, unspecified (principal); R53.83 Other fatigue; M85.80 Other specified disorders of bone density and structure, unspecified site
CPT/HCPCS: 36415; 80053; 82533; 84100; 84480; 84481; 85025; 86376

== ENCOUNTER 2019-05-29 00:39 | Outpatient (CLI) | payer MEDICARE, OTHER, SELFPAY ==
[2019-05-29 11:12] LABS: FREE T4 0.57 ng/dL (0.76-1.46); TSH 19.26 uIU/mL (0.36-3.74)
== END 2019-05-29 00:59 ==
PROVIDERS: PCP Family Medicine; Visit Provider Internal Medicine Endocrinology, Diabetes & Metabolism
DX: E03.9 Hypothyroidism, unspecified (principal)
CPT/HCPCS: 36415; 84439; 84443

== ENCOUNTER 2019-07-23 01:57 | Outpatient (CLI) | payer MEDICARE, OTHER, SELFPAY ==
[2019-07-23 10:55] LABS: TSH (W/Ref FT4) 9.83 uIU/mL (0.36-3.74)
[2019-07-23 21:25] LABS: T3,Free 3.7 pg/mL (2.8-5.3)
[2019-07-23 21:40] LABS: T3, Total 108 ng/dL (97-169)
== END 2019-07-23 02:17 ==
PROVIDERS: PCP Family Medicine; Visit Provider Internal Medicine Endocrinology, Diabetes & Metabolism
DX: E03.9 Hypothyroidism, unspecified (principal)
CPT/HCPCS: 36415; 84439; 84443; 84480; 84481

== ENCOUNTER 2019-09-23 07:22 | Emergency (ER) | payer MEDICARE, OTHER, SELFPAY ==
[2019-09-23] VITALS (42 sets, daily range): BP systolic 109–195; BP diastolic 59–87; PULSE 56–85; RESP 14–21; TEMP 36.5–36.6; O2SAT 93–100
--- NOTE | 2019-09-23 07:30 | DI.RAD_ITS ---
EXAM: XR CHEST 2V PA LATERAL CLINICAL HISTORY: chest pain TECHNIQUE: 2D digital imaging was performed. COMPARISON: CR XR CHEST 2V PA LATERAL from 10/25/2018 FINDINGS: MEDIASTINUM: Normal. HEART: Normal. PULMONARY VASCULATURE: Normal. LUNGS: Clear. PLEURAL SPACE: No pleural effusion or pneumothorax. BONE:Normal. OTHER FINDINGS:Normal. IMPRESSION: No acute pulmonary findings. DATA REPOSITORY: RADIATION DOSE DELIVERED:
[2019-09-23] MEDS: Aspirin 81 MG CHEW 162 MG CH (07:48)
[2019-09-23 07:57] LABS: Abs Immature Grans 0.01 k/cumm (0.0-0.09); Absolute Basophil Count 0.02 k/cumm (0.0-0.2); Absolute Monocyte Count 0.46 k/cumm (0.11-0.7); Absolute Neutrophil Count 2.91 k/cumm (1.2-6.7); Basophils % 0.4; Eosinophils % 3.7; HCT 41.5 % (36.0-46.0); HGB 13.6 g/dL (12.0-15.5); Immature Grans % 0.2 %; Lymphocytes % 33.3; Mean Corp. HGB Concentration 32.8 g/dL (32.0-36.0); Mean Corpuscular Hemoglobin 30.8 pg (27.0-33.0); Mean Corpuscular Volume 94.1 fL (80-95); Mean Platelet Volume 9.9 fL (8.0-11.0); Monocytes % 8.5; Neutrophils % 53.9; Platelet Count 193 x1000/uL (130-400); RBC 4.41 m/cumm (4.00-5.20); RBC Distribution Width 11.7 % (11.7-14.6)
[2019-09-23 08:18] LABS: ALT 32 U/L (14-59); AST 31 U/L (15-37); Albumin 3.9 g/dL (3.4-5.0); Alkaline Phosphatase 73 U/L (46-116); Anion Gap 8.7 mmol/L (3-11); BUN 11 mg/dL (7-18); Bilirubin, Total 0.6 mg/dL (0.2-1.0); CO2 27.3 mmol/L (21.0-32.0); CREATININE 0.86 mg/dL (0.55-1.02); Calcium 8.9 mg/dL (8.5-10.1); Chloride 102 mmol/L (98-107); Glucose 97 mg/dL (74-106); Magnesium 2.1 mg/dL (1.8-2.4); Potassium 4.1 mmol/L (3.5-5.1); Sodium 138 mmol/L (136-145); Total Protein 7.5 g/dL (6.4-8.2); Troponin I < 0.05 ng/mL (<0.06)
--- NOTE | 2019-09-23 08:46 | W.ED.GENAD ---
Discharge Plan Disposition Patient Disposition: HOME Condition: Stable Discharge Details Chief Complaint: Chest Pain Clinical Impression: Hypertension, Chest pain, Anxiety Primary Care Provider: Rui Torres ED Provider: Mehdi Magaña Home Meds and New Rx's Prescriptions: New metoprolol succinate 25 mg tablet extended release 24 hr 25 mg PO DAILY Qty: 30 RF: 0 Continued zolpidem [Ambien] 10 MG tablet 20 mg PO HS RF: 0 Fish Oil 1 EACH capsule 1 ea PO DAILY RF: 0 estradiol [Estrace] 42.5 GM cream 42.5 gm VG DIRECTED Qty: 1 RF: 6 melatonin-pyridoxine (vit B6) [Melatonin (with B6)] 1 EACH tablet 1 ea PO HS RF: 0 ginkgo biloba leaf extract 120 MG capsule 240 mg PO DAILY RF: 0 hydroxyzine pamoate 25 mg Capsule 50 mg PO QHS RF: 0 cholecalciferol (vitamin D3) [Vitamin D3] 1,000 unit Capsule 1,000 unit PO DAILY RF: 0 aspirin [Aspir-81] 81 mg Tablet,Delayed Release (Dr/Ec) 81 mg PO DAILY PRNRF: 0 potassium chloride 20 MEQ tablet,ER particles/crystals 20 meq PO BID RF: 0 coenzyme Q10 [Co Q-10] 100 MG capsule 100 mg PO DAILY RF: 0 5-hydroxytryptophan (5-HTP) 50 MG capsule 50 mg PO HS RF: 0 calcium carb-magnesium ox,carb 200 mg calcium- 100 mg Tablet,Chewable 1 tab PO DAILY RF: 0 Nature-Throid 32.5 mg tablet 65 mg PO DAILY RF: 0 No Action codeine sulfate 15 mg tablet 15 mg PO BID PRN (Reason: pain) Qty: 10 RF: 0 gabapentin 300 mg capsule See Rx Instructions .ROUTE .COMPLEX Qty: 14 RF: 0 prednisone 10 mg tablet 40 mg PO DAILY Qty: 32 RF: 0 codeine sulfate 15 mg tablet 15 mg PO BID PRN (Reason: pain) Qty: 30 RF: 0 glycerin (adult) Suppository 1 supp [place] RF: 0 valacyclovir [Valtrex] 1 gram tablet 1,000 mg PO TID Qty: 20 RF: 0 Discharge Instructions Instructions: Chest Pain (ED), Hypertension (ED), Anxiety (ED) Additional Instructions: Patient have a stress test performed. You will be contacted by radiology to schedule this. Your TSH today was elevated at 9.32 and your free T4 was 0.70. Please follow-up with your chemicals distiller. Be sure to discuss results. Please contact your primary care physician to arrange follow-up. Call today. Return to the ER for any worsening or new concerning symptoms. Referrals: Rui Torres [Primary Care Provider] - Discharge Data Discharge Date/Time-TO BE ENTERED AT DEPARTURE: 09/23/19 11:46 Medical Decision Making 850??73-year-old female with multi-medical problems including history of hypertension, hyperlipidemia, anxiety, fibromyalgia, here with chest discomfort persistent over the past 3 days. Patient does note the pain may be related to fibromyalgia and also notes that she has had significant anxiety recently. Patient appears quite well, is pleasant and conversational. I did obtain and reviewed past medical record: Patient was seen here in the emerge department and admitted in February with chest pain and had a negative work-up. Myocardial perfusion scan performed 03/09/2019 resulted as: MPI Conclusion Ejection fraction with stress was 75%. There is no evidence of ischemia on the imaging portion of this exam. This represents a normal SPECT test. Screening ECG today was reviewed and interpreted by me: Sinus rhythm 67 bpm, left axis deviation noted, negative T waves anteriorly V1 to V5, no significant changes when compared to prior ECG 03/09/2019. Initial troponin is negative. I think chest pain is unlikely ACS given recent negative work-up and negative troponin in the setting of persistent pain over the past 3 days. I will observe the patient in the emergency department on cardiac monitoring over the next few hours and out of abundance of caution, I will check a delta troponin and repeat ECG. Patient is hypertensive with a systolic in the 170s to 180s. Patient notes that she has intermittent hypertension and that she is not currently treated for hypertension as she has had side effects to antihypertensive medication. I will discuss blood pressure management with the patient's primary care physician. 1040 --repeat ECG was reviewed and interpreted by me: Sinus bradycardia 56 bpm, negative T waves persistent with no significant changes from prior ECG. Patient reassessed and blood pressure improved to 150 systolic without medication. Labs reviewed and elevated TSH and mildly depressed free T4 noted. --Troponin negative, unchanged from prior. Patient reassessed and notes I feel fine. Plan will be for discharge with outpatient stress test. I will order this test to expedite this work-up. Disposition decision was made weighing the risks and benefits of hospitalization versus outpatient treatment, the risk for further decompensation, and the patient's wishes. The patient was stable and requested discharge. Prior to discharge, my usual and customary return precautions were reviewed with the patient - this included follow-up instructions and reason to return to the emergency department if condition worsens, does not improve as expected, or other new concerns arise. --I called and spoke with Dr. Torres, the patient's primary care physician, discussed ED presentation and course. He agrees the patient may benefit from low-dose beta-fabio could treat both her anxiety and hypertension. He reviewed her medical record and notes she has not been on this in the past. Initial dose was given here. He noted the patient should be encouraged to take her thyroid hormone as she is frequently does not take as prescribed. Patient was encouraged to follow-up with her chemicals distiller who is monitoring her thyroid function closely and recently increased dosing. HPI General Mode of arrival: ambulatory. Date/Time Provider Initiated Documentation: 09/23/19 07:37. Limitations to Documentation: no limitations. Information obtained by: patient. HPI Narrative: 73-year-old female with history of anxiety, prior history of hypertensive urgency, atypical chest pain, hypertension, hypothyroidism, hyperlipidemia, and fibromyalgia here with chief complaint of chest pain. Patient notes 3 days of persistent sharp central chest pain. Patient notes the pain does not radiate. Patient notes that her pain is likely secondary to anxiety. Her this time of year and it is also his birthday. She has been upset about this and feeling stressed. In addition she has a neighbor who intermittently shoots a gun and may sound startles her. She is also stressed about the current political environment. She has no associated shortness of breath. No associated leg swelling or calf pain. Related Data Home Medications Medication Instructions Recorded Confirmed ginkgo biloba leaf extract 240 mg PO DAILY 08/26/12 10/04/19 melatonin-pyridoxine (vit B6) 1 ea PO HS 08/26/12 10/04/19 [Melatonin (with B6)] Fish Oil 1 ea PO DAILY 06/04/13 10/04/19 zolpidem [Ambien] 20 mg PO HS tab-cap 06/04/13 10/04/19 5-hydroxytryptophan (5-HTP) 50 mg PO HS 06/27/16 10/04/19 coenzyme Q10 [Co Q-10] 100 mg PO DAILY 06/27/16 10/04/19 potassium chloride 20 meq PO BID 06/27/16 10/04/19 estradiol [Estrace] 42.5 gm VG DIRECTED #1 tube 12/18/16 10/04/19 calcium carb-magnesium ox,carb 1 tab PO DAILY 06/17/18 10/04/19 aspirin [Aspir-81] 81 mg PO DAILY PRN 10/24/18 10/04/19 cholecalciferol (vitamin D3) 1,000 unit PO DAILY 10/24/18 10/04/19 [Vitamin D3] hydroxyzine pamoate 50 mg PO QHS 10/24/18 10/04/19 Nature-Throid 65 mg PO DAILY 09/23/19 10/04/19 metoprolol succinate 25 mg PO DAILY #30 tab 09/23/19 10/04/19 glycerin (adult) 1 supp [place] 09/25/19 valacyclovir [Valtrex] 1,000 mg PO TID #20 tab 09/25/19 10/04/19 codeine sulfate 15 mg PO BID PRN #10 tab 09/28/19 10/04/19 gabapentin See Rx Instructions .ROUTE 09/28/19 10/04/19 .COMPLEX #14 cap codeine sulfate 15 mg PO BID PRN #30 tab 10/04/19 prednisone 40 mg PO DAILY #32 tab 10/04/19 Previous Rx's Medication Instructions Recorded estradiol [Estrace] 42.5 gm VG DIRECTED #1 tube 12/18/16 metoprolol succinate 25 mg PO DAILY #30 tab 09/23/19 valacyclovir [Valtrex] 1,000 mg PO TID #20 tab 09/25/19 codeine sulfate 15 mg PO BID PRN #10 tab 09/28/19 gabapentin See Rx Instructions .ROUTE 09/28/19 .COMPLEX #14 cap codeine sulfate 15 mg PO BID PRN #30 tab 10/04/19 prednisone 40 mg PO DAILY #32 tab 10/04/19 Allergies Allergy/AdvReac Type Severity Reaction Status Date / Time amoxicillin Allergy Unverified 10/04/19 09:51 cephalexin [From Keflex] Allergy Unverified 10/04/19 09:51 cetirizine [From Zyrtec] Allergy Skin Rash Unverified 10/04/19 09:51 clindamycin Allergy Unverified 10/04/19 09:51 estradiol [From Activella] Allergy Skin Rash Unverified 10/04/19 09:51 hydrochlorothiazide Allergy Unverified 10/04/19 09:51 lactose Allergy Unverified 10/04/19 09:51 losartan Allergy Swelling/Ed Unverified 10/04/19 09:51 bree norethindrone Allergy Skin Rash Unverified 10/04/19 09:51 [From Activella] oxycodone [From Percocet] Allergy Unverified 10/04/19 09:51 prednisolone Allergy Unverified 10/04/19 09:51 sulfamethoxazole Allergy fever Unverified 10/04/19 09:51 [From Bactrim] trimethoprim [From Bactrim] Allergy fever Unverified 10/04/19 09:51 acetaminophen [From Tylenol] AdvReac Intermediate states Unverified 10/04/19 09:51 tylenol creates more pain aspirin AdvReac Diarrhea, Unverified 10/04/19 09:51 upset stomach but takes it daily diazepam [From Valium] AdvReac shakes Unverified 10/04/19 09:51 esomeprazole [From Nexium] AdvReac depression Unverified 10/04/19 09:51 hydrocodone [From Vicodin] AdvReac Nausea Unverified 10/04/19 09:51 hydroxychloroquine AdvReac Swelling/Ed Unverified 10/04/19 09:51 [From Plaquenil] bree Influenza Virus Vaccines AdvReac Unverified 10/04/19 09:51 levothyroxine sodium AdvReac Itching Unverified 10/04/19 09:51 [From Synthroid] omeprazole [From Prilosec] AdvReac Nausea Unverified 10/04/19 09:51 red dye AdvReac Nausea Unverified 10/04/19 09:51 sertraline [From Zoloft] AdvReac depression Unverified 10/04/19 09:51 topiramate [From Topamax] AdvReac Headache Unverified 10/04/19 09:51 venlafaxine [From Effexor] AdvReac Psychomotor Unverified 10/04/19 09:51 retardation wheat AdvReac bloating Unverified 10/04/19 09:51 zinc AdvReac Hives Unverified 10/04/19 09:51 zolpidem [From Intermezzo] AdvReac Itching Unverified 10/04/19 09:51 oatmeal AdvReac constipatio Uncoded 10/04/19 09:51 n SUGAR AdvReac Other (See Uncoded 10/04/19 09:51 Comment) General Stated Complaint: Chest Pain YUMIKO: 2 Review of Systems Constitutional Constitutional: Denies fever(s) Cardiovascular Cardiovascular: Reports chest pain and Denies dyspnea Respiratory Respiratory: Denies cough and Denies dyspnea Gastrointestinal Gastrointestinal: Denies abdominal pain PFSH Medical History 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 Dry eye dry mouth Elevated lipids Hypertension (Chronic) Hypertension Hypoglycemia (Chronic) Hypothyroid (Chronic) Hypothyroidism IBS (irritable bowel syndrome) (Chronic) Insomnia (Chronic) lupus Myofascial pain Primary fibromyalgia syndrome Vertigo (Chronic) Surgical History Biopsy of breast x2 section H/O section (Resolved) Hemorrhoidectomy Family History Mother Dementia Father Heart disease Stroke Social History Smoking/Tobacco Use Status: Never Alcohol Intake: current Alcohol Intake frequency: 0-2 drinks per day Alcohol type: wine Drug use: Never Substance use type: does not use Household members: children Number of Children: 2 number of grandchildren: 1 What is your relationship status?: Panel score (0-1 are the most socially isolated patients): 0 What type of physical activity do you participate in: walking Duration: 60-90 minutes/day Do you feel safe at home: Yes Do you feel safe in your relationship?: Yes Exam Const General: cooperative and no acute distress HENMT Mouth: moist mucous membranes Eyes Conjunctivae: normal conjunctivae Sclera: normal sclerae Neck Neck: trachea midline and supple Resp Auscultation: clear to auscultation bilaterally, no rales, no rhonchi and no wheezes Cardio Jugular venous pressure: no JVD Rate: regular rate and not tachycardic Rhythm: regular rhythm Heart Sounds: no murmurs Pulses: radial pulses present bilaterally 2+ GI Palpation: soft, not firm, no guarding, no masses, not rigid and nontender Skin General skin exam: no rashes or lesions noted Neuro General: patient alert, patient awake, patient oriented x3 and tone normal Extrem General: no calf tenderness and no edema Psych Appearance: grossly normal Mental Status: mental status grossly normal Course Vital Signs Vital signs: Vital Signs Temperature 36.5 C 09/23/19 07:28 Pulse 70 09/23/19 07:28 Respiratory Rate 16 09/23/19 07:28 Blood Pressure 180/83 H 09/23/19 07:28 Pulse Oximetry 99 09/23/19 07:28 Temperature 36.5 C 09/23/19 07:28 Temperature Source Temporal Artery Scan 09/23/19 07:28 Pulse 62 09/23/19 08:01 Pulse 62 09/23/19 08:01 Respiratory Rate 20 09/23/19 08:01 Respiratory Effort Non-Labored 09/23/19 07:34 Respiratory Depth Normal 09/23/19 07:34 Respiratory Pattern Normal 09/23/19 07:34 Blood Pressure 172/73 H 09/23/19 08:01 Blood Pressure Mean 97 09/23/19 08:01 Blood Pressure Position Sitting 09/23/19 07:28 Pulse Oximetry 96 09/23/19 08:01 Oxygen Delivery Method Room Air 09/23/19 07:28 Oxygen Flow Rate 0 09/23/19 07:28 Pain Level 7 09/23/19 07:34 Lab/Test Results Lab/Test Results: Laboratory Tests Range/Units 09/23/19 09/23/19 07:35 07:35 WBC (4.4-10.8) k/cumm 5.40 RBC (4.00-5.20) m/cumm 4.41 Hgb (12.0-15.5) g/dL 13.6 Hct (36.0-46.0) % 41.5 MCV (80-95) fL 94.1 MCH (27.0-33.0) pg 30.8 MCHC (32.0-36.0) g/dL 32.8 RDW (11.7-14.6) % 11.7 Plt Count (130-400) x1000/uL 193 MPV (8.0-11.0) fL 9.9 Immature Gran % % 0.2 Neutrophils % 53.9 Lymphocytes % 33.3 Monocytes % 8.5 Eosinophils % 3.7 Basophils % 0.4 Absolute Neutrophils (1.2-6.7) k/cumm 2.91 Absolute Lymphocytes (1.2-3.4) k/cumm 1.80 Absolute Monocytes (0.11-0.7) k/cumm 0.46 Absolute Eosinophils (0.0-0.7) k/cumm 0.20 Absolute Basophils (0.0-0.2) k/cumm 0.02 Sodium (136-145) mmol/L 138 Potassium (3.5-5.1) mmol/L 4.1 Chloride (98-107) mmol/L 102 Carbon Dioxide (21.0-32.0) mmol/L 27.3 Anion Gap (3-11) mmol/L 8.7 BUN (7-18) mg/dL 11 Creatinine (0.55-1.02) mg/dL 0.86 Estimated GFR/1.73 m2 (mL/min/1.73m2) >= 60.00 Glucose (74-106) mg/dL 97 Calcium (8.5-10.1) mg/dL 8.9 Magnesium (1.8-2.4) mg/dL 2.1 Total Bilirubin (0.2-1.0) mg/dL 0.6 AST (15-37) U/L 31 ALT (14-59) U/L 32 Alkaline Phosphatase (46-116) U/L 73 Troponin I (<0.06) ng/mL < 0.05 Total Protein (6.4-8.2) g/dL 7.5 Albumin (3.4-5.0) g/dL 3.9
[2019-09-23 08:59] LABS: TSH (W/Ref FT4) 9.32 uIU/mL (0.36-3.74)
[2019-09-23 10:51] LABS: Troponin I < 0.05 ng/mL (<0.06)
[2019-09-23] MEDS: Metoprolol CR 25 MG TABCR PO (11:19)
== END 2019-09-23 11:46 | disposition home or self-care (01) ==
PROVIDERS: Emergency Medicine; Emergency Provider Student in an Organized Health Care Education/Training Program; PCP Family Medicine
DX: R07.89 Other chest pain (principal); F41.8 Other specified anxiety disorders; I10 Essential (primary) hypertension
CPT/HCPCS: 80053; 93005; 99284; 71046; 83735; 84439; 84443; 84484; 85025; 93010

== ENCOUNTER 2019-09-25 08:15 | Emergency (ER) | payer MEDICARE, OTHER, SELFPAY ==
[2019-09-25 08:21] VITALS: BP 175/78; PULSE 70; RESP 18; TEMP 37.1; O2SAT 98
--- NOTE | 2019-09-25 08:54 | ED.GENADUL_ITS ---
Discharge Plan Disposition Patient Disposition: HOME Condition: Stable Discharge Details Chief Complaint: RashLesion Clinical Impression: Shingles Primary Care Provider: Rui Torres ED Provider: Mehdi Magaña Home Meds and New Rx's Prescriptions: New valacyclovir [Valtrex] 1 gram tablet 1,000 mg PO TID Qty: 20 RF: 0 Continued zolpidem [Ambien] 10 MG tablet 20 mg PO HS RF: 0 Fish Oil 1 EACH capsule 1 ea PO DAILY RF: 0 estradiol [Estrace] 42.5 GM cream 42.5 gm VG DIRECTED Qty: 1 RF: 6 melatonin-pyridoxine (vit B6) [Melatonin (with B6)] 1 EACH tablet 1 ea PO HS RF: 0 ginkgo biloba leaf extract 120 MG capsule 240 mg PO DAILY RF: 0 hydroxyzine pamoate 25 mg Capsule 50 mg PO QHS RF: 0 cholecalciferol (vitamin D3) [Vitamin D3] 1,000 unit Capsule 1,000 unit PO DAILY RF: 0 aspirin [Aspir-81] 81 mg Tablet,Delayed Release (Dr/Ec) 81 mg PO DAILY PRNRF: 0 potassium chloride 20 MEQ tablet,ER particles/crystals 20 meq PO BID RF: 0 coenzyme Q10 [Co Q-10] 100 MG capsule 100 mg PO DAILY RF: 0 5-hydroxytryptophan (5-HTP) 50 MG capsule 50 mg PO HS RF: 0 calcium carb-magnesium ox,carb 200 mg calcium- 100 mg Tablet,Chewable 1 tab PO DAILY RF: 0 Nature-Throid 32.5 mg tablet 65 mg PO DAILY RF: 0 metoprolol succinate 25 mg tablet extended release 24 hr 25 mg PO DAILY Qty: 30 RF: 0 glycerin (adult) Suppository 1 supp [place] RF: 0 Discharge Instructions Instructions: Shingles (ED) Additional Instructions: You may apply calamine lotion to your rash. Use antiviral medication as prescribed. Please contact your primary care physician to arrange follow-up. Return to the ER for any worsening or new concerning symptoms. Referrals: Rui Torres [Primary Care Provider] - Medical Decision Making 73-year-old female presents with painful vesicular rash involving T3 dermatome on the left. Patient was here in the emerge department a couple days ago with chest discomfort in that area. Suspect herpes zoster. Will initiate treatment with valacyclovir. Initial dose given here in the emergency department. Usual and customary discharge instructions were reviewed with the patient. HPI General Mode of arrival: ambulatory . Date/Time Provider Initiated Documentation: 09/25/19 08:53 . Limitations to Documentation: no limitations . Information obtained by: patient . HPI Narrative: 73-year-old female here with painful rash. Rash first noticed this morning. Patient notes she has had a few days of pain in area where rash is now located. Rash is localized to her left breast and lateral chest. Rash is red. Severely painful. No modifiers. No associated fever. Patient has had significant stressors recently. Related Data Home Medications Medication Instructions Recorded Confirmed ginkgo biloba leaf extract 240 mg PO DAILY 08/26/12 09/25/19 melatonin-pyridoxine (vit B6) 1 ea PO HS 08/26/12 09/25/19 [Melatonin (with B6)] Fish Oil 1 ea PO DAILY 06/04/13 09/25/19 zolpidem [Ambien] 20 mg PO HS tab-cap 06/04/13 09/25/19 5-hydroxytryptophan (5-HTP) 50 mg PO HS 06/27/16 09/25/19 coenzyme Q10 [Co Q-10] 100 mg PO DAILY 06/27/16 09/25/19 potassium chloride 20 meq PO BID 06/27/16 09/25/19 estradiol [Estrace] 42.5 gm VG DIRECTED #1 tube 12/18/16 09/25/19 calcium carb-magnesium ox,carb 1 tab PO DAILY 06/17/18 09/25/19 aspirin [Aspir-81] 81 mg PO DAILY PRN 10/24/18 09/25/19 cholecalciferol (vitamin D3) 1,000 unit PO DAILY 10/24/18 09/25/19 [Vitamin D3] hydroxyzine pamoate 50 mg PO QHS 10/24/18 09/25/19 Nature-Throid 65 mg PO DAILY 09/23/19 09/25/19 metoprolol succinate 25 mg PO DAILY #30 tab 09/23/19 09/25/19 glycerin (adult) 1 supp [place] 09/25/19 valacyclovir [Valtrex] 1,000 mg PO TID #20 tab 09/25/19 Previous Rx's Medication Instructions Recorded estradiol [Estrace] 42.5 gm VG DIRECTED #1 tube 12/18/16 metoprolol succinate 25 mg PO DAILY #30 tab 09/23/19 valacyclovir [Valtrex] 1,000 mg PO TID #20 tab 09/25/19 Allergies Allergy/AdvReac Type Severity Reaction Status Date / Time amoxicillin Allergy Unverified 09/25/19 08:42 cephalexin [From Keflex] Allergy Unverified 09/25/19 08:42 cetirizine [From Zyrtec] Allergy Skin Rash Unverified 09/25/19 08:42 clindamycin Allergy Unverified 09/25/19 08:42 estradiol [From Activella] Allergy Skin Rash Unverified 09/25/19 08:42 hydrochlorothiazide Allergy Unverified 09/25/19 08:42 lactose Allergy Unverified 09/25/19 08:42 losartan Allergy Swelling/Ed Unverified 09/25/19 08:42 bree norethindrone Allergy Skin Rash Unverified 09/25/19 08:42 [From Activella] oxycodone [From Percocet] Allergy Unverified 09/25/19 08:42 prednisolone Allergy Unverified 09/25/19 08:42 sulfamethoxazole Allergy fever Unverified 09/25/19 08:42 [From Bactrim] trimethoprim [From Bactrim] Allergy fever Unverified 09/25/19 08:42 acetaminophen [From Tylenol] AdvReac Intermediate states Unverified 09/25/19 08:42 tylenol creates more pain aspirin AdvReac Diarrhea, Unverified 09/25/19 08:42 upset stomach but takes it daily diazepam [From Valium] AdvReac shakes Unverified 09/25/19 08:42 esomeprazole [From Nexium] AdvReac depression Unverified 09/25/19 08:42 hydrocodone [From Vicodin] AdvReac Nausea Unverified 09/25/19 08:42 hydroxychloroquine AdvReac Swelling/Ed Unverified 09/25/19 08:42 [From Plaquenil] bree Influenza Virus Vaccines AdvReac Unverified 09/25/19 08:42 levothyroxine sodium AdvReac Itching Unverified 09/25/19 08:42 [From Synthroid] omeprazole [From Prilosec] AdvReac Nausea Unverified 09/25/19 08:42 red dye AdvReac Nausea Unverified 09/25/19 08:42 sertraline [From Zoloft] AdvReac depression Unverified 09/25/19 08:42 topiramate [From Topamax] AdvReac Headache Unverified 09/25/19 08:42 venlafaxine [From Effexor] AdvReac Psychomotor Unverified 09/25/19 08:42 retardation wheat AdvReac bloating Unverified 09/25/19 08:42 zinc AdvReac Hives Unverified 09/25/19 08:42 zolpidem [From Intermezzo] AdvReac Itching Unverified 09/25/19 08:42 oatmeal AdvReac constipatio Uncoded 09/25/19 08:42 n SUGAR AdvReac Other (See Uncoded 09/25/19 08:42 Comment) General Stated Complaint: RashLesion YUMIKO: 3 Review of Systems All systems reviewed & are unremarkable except as noted in HPI and below Constitutional Constitutional: Denies fever(s) Cardiovascular Cardiovascular: Denies dyspnea Respiratory Respiratory: Denies cough and Denies dyspnea Integumentary/Breasts Skin/Breast: Reports as per HPI PFSH Medical History 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 Dry eye dry mouth Elevated lipids Hypertension (Chronic) Hypertension Hypoglycemia (Chronic) Hypothyroid (Chronic) Hypothyroidism IBS (irritable bowel syndrome) (Chronic) Insomnia (Chronic) lupus Myofascial pain Primary fibromyalgia syndrome Vertigo (Chronic) Surgical History Biopsy of breast x2 section H/O section (Resolved) Hemorrhoidectomy Family History Mother Dementia Father Heart disease Stroke Social History Smoking/Tobacco Use Status: Never Alcohol Intake: current Alcohol Intake frequency: 0-2 drinks per day Alcohol type: wine Drug use: Never Substance use type: does not use Household members: children Number of Children: 2 number of grandchildren: 1 What is your relationship status?: Panel score (0-1 are the most socially isolated patients): 0 What type of physical activity do you participate in: walking Duration: 60-90 minutes/day Do you feel safe at home: Yes Do you feel safe in your relationship?: Yes Exam Const General: cooperative and no acute distress HENMT Mouth: moist mucous membranes Eyes Conjunctivae: normal conjunctivae Sclera: normal sclerae Resp Auscultation: clear to auscultation bilaterally, no rales, no rhonchi and no wheezes Cardio Jugular venous pressure: no JVD Rate: regular rate and not tachycardic Rhythm: regular rhythm Skin Rashes: rashes noted (Vesicular rash with surrounding erythema left anterior and lateral chest) Neuro General: patient alert, patient awake, patient oriented x3 and tone normal Psych Mental Status: mental status grossly normal Course Vital Signs Vital signs: Vital Signs Temperature 37.1 C 09/25/19 08:21 Pulse 70 09/25/19 08:21 Respiratory Rate 18 09/25/19 08:21 Blood Pressure 175/78 H 09/25/19 08:21 Pulse Oximetry 98 09/25/19 08:21 Temperature 37.1 C 09/25/19 08:21 Temperature Source Temporal Artery Scan 09/25/19 08:21 Pulse 70 09/25/19 08:21 Respiratory Rate 18 09/25/19 08:21 Respiratory Effort Non-Labored 09/25/19 08:25 Blood Pressure 175/78 H 09/25/19 08:21 Blood Pressure Position Supine 09/25/19 08:21 Pulse Oximetry 98 09/25/19 08:21 Oxygen Delivery Method Room Air 09/25/19 08:21 Oxygen Flow Rate 0 09/25/19 08:21 Pain Level 8 09/25/19 08:21
[2019-09-25] MEDS: valACYclovir 1,000 MG TAB 1000 MG PO (09:08)
== END 2019-09-25 09:10 | disposition home or self-care (01) ==
PROVIDERS: Emergency Provider Student in an Organized Health Care Education/Training Program; PCP Family Medicine
DX: B02.9 Zoster without complications (principal); I10 Essential (primary) hypertension
CPT/HCPCS: 99283

== ENCOUNTER 2019-09-28 08:31 | Emergency (ER) | payer MEDICARE, OTHER, SELFPAY ==
[2019-09-28 08:36] VITALS: BP 186/78; PULSE 66; RESP 16; TEMP 36.6; O2SAT 99
--- NOTE | 2019-09-28 08:52 | W.ED.GENAD ---
Discharge Plan Disposition Patient Disposition: HOME Condition: Stable Discharge Details Chief Complaint: RashLesion Clinical Impression: Neuropathic pain, Shingles Primary Care Provider: Rui Torres ED Provider: Tash Leach Home Meds and New Rx's Prescriptions: New codeine sulfate 15 mg tablet 15 mg PO BID PRN (Reason: pain) Qty: 10 RF: 0 gabapentin 300 mg capsule See Rx Instructions .ROUTE .COMPLEX Qty: 14 RF: 0 Continued zolpidem [Ambien] 10 MG tablet 20 mg PO HS RF: 0 Fish Oil 1 EACH capsule 1 ea PO DAILY RF: 0 estradiol [Estrace] 42.5 GM cream 42.5 gm VG DIRECTED Qty: 1 RF: 6 melatonin-pyridoxine (vit B6) [Melatonin (with B6)] 1 EACH tablet 1 ea PO HS RF: 0 ginkgo biloba leaf extract 120 MG capsule 240 mg PO DAILY RF: 0 hydroxyzine pamoate 25 mg Capsule 50 mg PO QHS RF: 0 cholecalciferol (vitamin D3) [Vitamin D3] 1,000 unit Capsule 1,000 unit PO DAILY RF: 0 aspirin [Aspir-81] 81 mg Tablet,Delayed Release (Dr/Ec) 81 mg PO DAILY PRNRF: 0 potassium chloride 20 MEQ tablet,ER particles/crystals 20 meq PO BID RF: 0 coenzyme Q10 [Co Q-10] 100 MG capsule 100 mg PO DAILY RF: 0 5-hydroxytryptophan (5-HTP) 50 MG capsule 50 mg PO HS RF: 0 calcium carb-magnesium ox,carb 200 mg calcium- 100 mg Tablet,Chewable 1 tab PO DAILY RF: 0 Nature-Throid 32.5 mg tablet 65 mg PO DAILY RF: 0 metoprolol succinate 25 mg tablet extended release 24 hr 25 mg PO DAILY Qty: 30 RF: 0 glycerin (adult) Suppository 1 supp CO RF: 0 valacyclovir [Valtrex] 1 gram tablet 1,000 mg PO TID Qty: 20 RF: 0 Discharge Instructions Instructions: Shingles (ED) Additional Instructions: Take your valacyclovir until finished. Take the gabapentin as directed. If you have no relief with the gabapentin or difficulty sleeping with pain at night, take the codeine as directed. Follow-up with your primary care doctor in 1 week. Return to the emergency department with any worsening or new concerning symptoms. Discharge Data Discharge Physician: Tash Leach Medical Decision Making 73-year-old female with a history of fibromyalgia and recently diagnosed shingles presents with neuropathic pain. She was seen here twice in the past 5 days and had a cardiac work-up which was negative. She is complaining about pain around the vesicular rash site around her chest and left upper extremity. She appears nontoxic. She has multiple medication allergies including steroids, Tylenol and hydrocodone. She initially requested codeine but without Tylenol. She also states she can take gabapentin. We will send home with a prescription for gabapentin to take as needed for pain throughout the day and then codeine for breakthrough pain. Advised to follow up with the primary care doctor for re-evaluation. Usual and customary return precautions given prior to discharge. Medical Records Medical records reviewed: Yes I reviewed the patient's medical records. HPI General Mode of arrival: ambulatory. Date/Time Provider Initiated Documentation: 09/28/19 08:33. Limitations to Documentation: no limitations. Information obtained by: patient. HPI Narrative: Patient is a 73-year-old female diagnosed with shingles on the left chest and left upper extremity 3 days ago presents with continued pain around the area of vesicular rash. She is taking her valacyclovir. She has multiple allergies including steroids and Tylenol which causes body pain, and hydrocodone which causes nausea. She states she has taken gabapentin and codeine in the past for pain control without side effects. She denies any fever. Related Data Home Medications Medication Instructions Recorded Confirmed ginkgo biloba leaf extract 240 mg PO DAILY 08/26/12 09/28/19 melatonin-pyridoxine (vit B6) 1 ea PO HS 08/26/12 09/28/19 [Melatonin (with B6)] Fish Oil 1 ea PO DAILY 06/04/13 09/28/19 zolpidem [Ambien] 20 mg PO HS tab-cap 06/04/13 09/28/19 5-hydroxytryptophan (5-HTP) 50 mg PO HS 06/27/16 09/28/19 coenzyme Q10 [Co Q-10] 100 mg PO DAILY 06/27/16 09/28/19 potassium chloride 20 meq PO BID 06/27/16 09/28/19 estradiol [Estrace] 42.5 gm VG DIRECTED #1 tube 12/18/16 09/28/19 calcium carb-magnesium ox,carb 1 tab PO DAILY 06/17/18 09/28/19 aspirin [Aspir-81] 81 mg PO DAILY PRN 10/24/18 09/28/19 cholecalciferol (vitamin D3) 1,000 unit PO DAILY 10/24/18 09/28/19 [Vitamin D3] hydroxyzine pamoate 50 mg PO QHS 10/24/18 09/28/19 Nature-Throid 65 mg PO DAILY 09/23/19 09/28/19 metoprolol succinate 25 mg PO DAILY #30 tab 09/23/19 09/28/19 glycerin (adult) 1 supp CO 09/25/19 valacyclovir [Valtrex] 1,000 mg PO TID #20 tab 09/25/19 09/28/19 codeine sulfate 15 mg PO BID PRN #10 tab 09/28/19 gabapentin See Rx Instructions .ROUTE 09/28/19 .COMPLEX #14 cap Previous Rx's Medication Instructions Recorded estradiol [Estrace] 42.5 gm VG DIRECTED #1 tube 12/18/16 metoprolol succinate 25 mg PO DAILY #30 tab 09/23/19 valacyclovir [Valtrex] 1,000 mg PO TID #20 tab 09/25/19 codeine sulfate 15 mg PO BID PRN #10 tab 09/28/19 gabapentin See Rx Instructions .ROUTE 09/28/19 .COMPLEX #14 cap Allergies Allergy/AdvReac Type Severity Reaction Status Date / Time amoxicillin Allergy Unverified 09/28/19 08:39 cephalexin [From Keflex] Allergy Unverified 09/28/19 08:39 cetirizine [From Zyrtec] Allergy Skin Rash Unverified 09/28/19 08:39 clindamycin Allergy Unverified 09/28/19 08:39 estradiol [From Activella] Allergy Skin Rash Unverified 09/28/19 08:39 hydrochlorothiazide Allergy Unverified 09/28/19 08:39 lactose Allergy Unverified 09/28/19 08:39 losartan Allergy Swelling/Ed Unverified 09/28/19 08:39 bree norethindrone Allergy Skin Rash Unverified 09/28/19 08:39 [From Activella] oxycodone [From Percocet] Allergy Unverified 09/28/19 08:39 prednisolone Allergy Unverified 09/28/19 08:39 sulfamethoxazole Allergy fever Unverified 09/28/19 08:39 [From Bactrim] trimethoprim [From Bactrim] Allergy fever Unverified 09/28/19 08:39 acetaminophen [From Tylenol] AdvReac Intermediate states Unverified 09/28/19 08:39 tylenol creates more pain aspirin AdvReac Diarrhea, Unverified 09/28/19 08:39 upset stomach but takes it daily diazepam [From Valium] AdvReac shakes Unverified 09/28/19 08:39 esomeprazole [From Nexium] AdvReac depression Unverified 09/28/19 08:39 hydrocodone [From Vicodin] AdvReac Nausea Unverified 09/28/19 08:39 hydroxychloroquine AdvReac Swelling/Ed Unverified 09/28/19 08:39 [From Plaquenil] bree Influenza Virus Vaccines AdvReac Unverified 09/28/19 08:39 levothyroxine sodium AdvReac Itching Unverified 09/28/19 08:39 [From Synthroid] omeprazole [From Prilosec] AdvReac Nausea Unverified 09/28/19 08:39 red dye AdvReac Nausea Unverified 09/28/19 08:39 sertraline [From Zoloft] AdvReac depression Unverified 09/28/19 08:39 topiramate [From Topamax] AdvReac Headache Unverified 09/28/19 08:39 venlafaxine [From Effexor] AdvReac Psychomotor Unverified 09/28/19 08:39 retardation wheat AdvReac bloating Unverified 09/28/19 08:39 zinc AdvReac Hives Unverified 09/28/19 08:39 zolpidem [From Intermezzo] AdvReac Itching Unverified 09/28/19 08:39 oatmeal AdvReac constipatio Uncoded 09/28/19 08:39 n SUGAR AdvReac Other (See Uncoded 09/28/19 08:39 Comment) General Stated Complaint: GenMedical YUMIKO: 4 Review of Systems All systems reviewed & are unremarkable except as noted in HPI and below Constitutional Constitutional: Reports as per HPI, Denies chills and Denies fever(s) Eyes Eyes: Denies blurry vision ENT Ears, Nose, Mouth, and Throat: Denies dizziness, Denies sore throat and Denies throat swelling Cardiovascular Cardiovascular: Denies chest pain and Denies dyspnea Respiratory Respiratory: Denies cough and Denies dyspnea Gastrointestinal Gastrointestinal: Denies abdominal pain, Denies diarrhea and Denies vomiting Genitourinary Genitourinary: Denies hematuria and Denies dysuria Musculoskeletal Musculoskeletal: Denies back pain and Denies numbness Integumentary/Breasts Skin/Breast: Denies lesions and Reports rash Neurologic Neurologic: Denies dizziness, Denies localized weakness and Denies numbness Allergic/Immunologic Allergic/Immunologic: Denies throat swelling FORMERLY [facility], [facility]–1983 Social History Smoking/Tobacco Use Status: Never Alcohol Intake: current Alcohol Intake frequency: 0-2 drinks per day Alcohol type: wine Drug use: Never Substance use type: does not use Household members: children Number of Children: 2 number of grandchildren: 1 What is your relationship status?: Panel score (0-1 are the most socially isolated patients): 0 What type of physical activity do you participate in: walking Duration: 60-90 minutes/day Do you feel safe at home: Yes Do you feel safe in your relationship?: Yes Exam Const General: cooperative and anxious (mild) Orientation: alert, awake and oriented x3 HENMT Head: normal to inspection Face and sinus: normal facial exam Eyes General: appearance normal, both eyes and all related structures EOM: EOM intact bilaterally Neck Neck: normal visual inspection and No submandibular swelling Lymphatic: no lymphadenopathy noted Chest Chest/axillae images: 1. Vesicular crusted lesions with surrounding erythema. Resp Effort & Inspection: normal respiratory effort and able to speak in complete sentences Auscultation: clear to auscultation bilaterally Cardio Rate: regular rate Rhythm: regular rhythm GI Inspection: normal to inspection Neuro General: patient alert, patient awake and patient oriented x3 Cognition: normal cognition Speech: speech normal Motor: muscle tone normal throughout Sensory Exam: no sensory deficits noted Extrem General: normal to inspection, full ROM, capillary refill normal, no calf tenderness bilaterally and no edema Psych Appearance: grossly normal Mental Status: mental status grossly normal Speech and Movement: speech and movement normal Affect: anxious affect (mild) Course Vital Signs Vital signs: Vital Signs Temperature 97.9 F 09/28/19 08:36 Pulse 66 09/28/19 08:36 Respiratory Rate 16 09/28/19 08:36 Blood Pressure 186/78 H 09/28/19 08:36 Pulse Oximetry 99 09/28/19 08:36 Temperature 97.9 F 09/28/19 08:36 Temperature Source Skin 09/28/19 08:36 Pulse 66 09/28/19 08:36 Respiratory Rate 16 09/28/19 08:36 Respiratory Effort Non-Labored 09/28/19 08:36 Blood Pressure 186/78 H 09/28/19 08:36 Blood Pressure Position Sitting 09/28/19 08:36 Pulse Oximetry 99 09/28/19 08:36 Oxygen Delivery Method Room Air 09/28/19 08:36 Oxygen Flow Rate 0 09/28/19 08:36 Pain Level 10 09/28/19 08:36
== END 2019-09-28 09:02 | disposition home or self-care (01) ==
PROVIDERS: Emergency Provider Physician Assistant; PCP Family Medicine
DX: B02.8 Zoster with other complications (principal); M79.2 Neuralgia and neuritis, unspecified
CPT/HCPCS: 99283

== ENCOUNTER 2019-10-04 09:44 | Emergency (ER) | payer MEDICARE, OTHER, SELFPAY ==
[2019-10-04 09:48] VITALS: BP 178/81; PULSE 55; RESP 18; TEMP 36.8; O2SAT 100
--- NOTE | 2019-10-04 10:02 | ED.GENADUL_ITS ---
Discharge Plan Disposition Patient Disposition: HOME Condition: Stable Discharge Details Chief Complaint: RashLesion Clinical Impression: Acute pain associated with herpes zoster Primary Care Provider: Rui Torres ED Provider: Mehdi Magaña Home Meds and New Rx's Prescriptions: New prednisone 10 mg tablet 40 mg PO DAILY Qty: 32 RF: 0 codeine sulfate 15 mg tablet 15 mg PO BID PRN (Reason: pain) Qty: 30 RF: 0 Continued zolpidem [Ambien] 10 MG tablet 20 mg PO HS RF: 0 Fish Oil 1 EACH capsule 1 ea PO DAILY RF: 0 estradiol [Estrace] 42.5 GM cream 42.5 gm VG DIRECTED Qty: 1 RF: 6 melatonin-pyridoxine (vit B6) [Melatonin (with B6)] 1 EACH tablet 1 ea PO HS RF: 0 ginkgo biloba leaf extract 120 MG capsule 240 mg PO DAILY RF: 0 hydroxyzine pamoate 25 mg Capsule 50 mg PO QHS RF: 0 cholecalciferol (vitamin D3) [Vitamin D3] 1,000 unit Capsule 1,000 unit PO DAILY RF: 0 aspirin [Aspir-81] 81 mg Tablet,Delayed Release (Dr/Ec) 81 mg PO DAILY PRNRF: 0 codeine sulfate 15 mg tablet 15 mg PO BID PRN (Reason: pain) Qty: 10 RF: 0 gabapentin 300 mg capsule See Rx Instructions .ROUTE .COMPLEX Qty: 14 RF: 0 potassium chloride 20 MEQ tablet,ER particles/crystals 20 meq PO BID RF: 0 coenzyme Q10 [Co Q-10] 100 MG capsule 100 mg PO DAILY RF: 0 5-hydroxytryptophan (5-HTP) 50 MG capsule 50 mg PO HS RF: 0 calcium carb-magnesium ox,carb 200 mg calcium- 100 mg Tablet,Chewable 1 tab PO DAILY RF: 0 Nature-Throid 32.5 mg tablet 65 mg PO DAILY RF: 0 metoprolol succinate 25 mg tablet extended release 24 hr 25 mg PO DAILY Qty: 30 RF: 0 glycerin (adult) Suppository 1 supp IN RF: 0 valacyclovir [Valtrex] 1 gram tablet 1,000 mg PO TID Qty: 20 RF: 0 Discharge Instructions Instructions: Shingles (ED) Additional Instructions: Please drink plenty of fluids and allow for plenty of rest. Please follow-up with your doctor. Return to the ER for any worsening or new concerning symptoms. Discharge Data Discharge Date/Time-TO BE ENTERED AT DEPARTURE: 10/04/19 10:31 Medical Decision Making 10:13 -- 73-year-old female here with painful herpes zoster left chest. Patient has completed Valtrex course and continues to have pain. She is run out of her codeine. Patient has multiple allergies. I will refill codeine and also start prednisone. Patient was encouraged to follow-up with primary care physician. She notes she is attempted to follow-up with her PCP and is having difficulty and request a new primary care physician. I will ask care management to assist. HPI General Mode of arrival: ambulatory . Date/Time Provider Initiated Documentation: 10/04/19 09:51 . Limitations to Documentation: no limitations . Information obtained by: patient . HPI Narrative: 73-year-old female here with painful herpes zoster left chest. Patient was seen here on 09/25/2019 and diagnosed with shingles. She is completed course of Valtrex and continues to have pain. Pain is severe, localized area of rash, with no modifiers. Related Data Home Medications Medication Instructions Recorded Confirmed ginkgo biloba leaf extract 240 mg PO DAILY 08/26/12 10/04/19 melatonin-pyridoxine (vit B6) 1 ea PO HS 08/26/12 10/04/19 [Melatonin (with B6)] Fish Oil 1 ea PO DAILY 06/04/13 10/04/19 zolpidem [Ambien] 20 mg PO HS tab-cap 06/04/13 10/04/19 5-hydroxytryptophan (5-HTP) 50 mg PO HS 06/27/16 10/04/19 coenzyme Q10 [Co Q-10] 100 mg PO DAILY 06/27/16 10/04/19 potassium chloride 20 meq PO BID 06/27/16 10/04/19 estradiol [Estrace] 42.5 gm VG DIRECTED #1 tube 12/18/16 10/04/19 calcium carb-magnesium ox,carb 1 tab PO DAILY 06/17/18 10/04/19 aspirin [Aspir-81] 81 mg PO DAILY PRN 10/24/18 10/04/19 cholecalciferol (vitamin D3) 1,000 unit PO DAILY 10/24/18 10/04/19 [Vitamin D3] hydroxyzine pamoate 50 mg PO QHS 10/24/18 10/04/19 Nature-Throid 65 mg PO DAILY 09/23/19 10/04/19 metoprolol succinate 25 mg PO DAILY #30 tab 09/23/19 10/04/19 glycerin (adult) 1 supp IN 09/25/19 valacyclovir [Valtrex] 1,000 mg PO TID #20 tab 09/25/19 10/04/19 codeine sulfate 15 mg PO BID PRN #10 tab 09/28/19 10/04/19 gabapentin See Rx Instructions .ROUTE 09/28/19 10/04/19 .COMPLEX #14 cap codeine sulfate 15 mg PO BID PRN #30 tab 10/04/19 prednisone 40 mg PO DAILY #32 tab 10/04/19 Previous Rx's Medication Instructions Recorded estradiol [Estrace] 42.5 gm VG DIRECTED #1 tube 12/18/16 metoprolol succinate 25 mg PO DAILY #30 tab 09/23/19 valacyclovir [Valtrex] 1,000 mg PO TID #20 tab 09/25/19 codeine sulfate 15 mg PO BID PRN #10 tab 09/28/19 gabapentin See Rx Instructions .ROUTE 09/28/19 .COMPLEX #14 cap codeine sulfate 15 mg PO BID PRN #30 tab 10/04/19 prednisone 40 mg PO DAILY #32 tab 10/04/19 Allergies Allergy/AdvReac Type Severity Reaction Status Date / Time amoxicillin Allergy Unverified 10/04/19 09:51 cephalexin [From Keflex] Allergy Unverified 10/04/19 09:51 cetirizine [From Zyrtec] Allergy Skin Rash Unverified 10/04/19 09:51 clindamycin Allergy Unverified 10/04/19 09:51 estradiol [From Activella] Allergy Skin Rash Unverified 10/04/19 09:51 hydrochlorothiazide Allergy Unverified 10/04/19 09:51 lactose Allergy Unverified 10/04/19 09:51 losartan Allergy Swelling/Ed Unverified 10/04/19 09:51 bree norethindrone Allergy Skin Rash Unverified 10/04/19 09:51 [From Activella] oxycodone [From Percocet] Allergy Unverified 10/04/19 09:51 prednisolone Allergy Unverified 10/04/19 09:51 sulfamethoxazole Allergy fever Unverified 10/04/19 09:51 [From Bactrim] trimethoprim [From Bactrim] Allergy fever Unverified 10/04/19 09:51 acetaminophen [From Tylenol] AdvReac Intermediate states Unverified 10/04/19 09:51 tylenol creates more pain aspirin AdvReac Diarrhea, Unverified 10/04/19 09:51 upset stomach but takes it daily diazepam [From Valium] AdvReac shakes Unverified 10/04/19 09:51 esomeprazole [From Nexium] AdvReac depression Unverified 10/04/19 09:51 hydrocodone [From Vicodin] AdvReac Nausea Unverified 10/04/19 09:51 hydroxychloroquine AdvReac Swelling/Ed Unverified 10/04/19 09:51 [From Plaquenil] bree Influenza Virus Vaccines AdvReac Unverified 10/04/19 09:51 levothyroxine sodium AdvReac Itching Unverified 10/04/19 09:51 [From Synthroid] omeprazole [From Prilosec] AdvReac Nausea Unverified 10/04/19 09:51 red dye AdvReac Nausea Unverified 10/04/19 09:51 sertraline [From Zoloft] AdvReac depression Unverified 10/04/19 09:51 topiramate [From Topamax] AdvReac Headache Unverified 10/04/19 09:51 venlafaxine [From Effexor] AdvReac Psychomotor Unverified 10/04/19 09:51 retardation wheat AdvReac bloating Unverified 10/04/19 09:51 zinc AdvReac Hives Unverified 10/04/19 09:51 zolpidem [From Intermezzo] AdvReac Itching Unverified 10/04/19 09:51 oatmeal AdvReac constipatio Uncoded 10/04/19 09:51 n SUGAR AdvReac Other (See Uncoded 10/04/19 09:51 Comment) General Stated Complaint: RashLesion YUMIKO: 4 Review of Systems Constitutional Constitutional: Denies fever(s) Integumentary/Breasts Skin/Breast: Reports as per HPI [facility] Social History Smoking/Tobacco Use Status: Never Alcohol Intake: current Alcohol Intake frequency: 0-2 drinks per day Alcohol type: wine Drug use: Never Substance use type: does not use Household members: children Number of Children: 2 number of grandchildren: 1 What is your relationship status?: Panel score (0-1 are the most socially isolated patients): 0 What type of physical activity do you participate in: walking Duration: 60-90 minutes/day Do you feel safe at home: Yes Do you feel safe in your relationship?: Yes Exam Const General: cooperative and no acute distress HENMT Mouth: moist mucous membranes Eyes Conjunctivae: normal conjunctivae Skin Rashes: rashes noted (Vesicular rash left anterior and lateral chest) Neuro General: patient alert, patient awake, patient oriented x3 and tone normal Course Vital Signs Vital signs: Vital Signs Temperature 36.8 C 10/04/19 09:48 Pulse 55 L 10/04/19 09:48 Respiratory Rate 18 10/04/19 09:48 Blood Pressure 178/81 H 10/04/19 09:48 Pulse Oximetry 100 10/04/19 09:48 Temperature 36.8 C 10/04/19 09:48 Temperature Source Temporal Artery Scan 10/04/19 09:48 Pulse 55 L 10/04/19 09:48 Respiratory Rate 18 10/04/19 09:48 Respiratory Effort Non-Labored 10/04/19 09:55 Blood Pressure 178/81 H 10/04/19 09:48 Blood Pressure Position Sitting 10/04/19 09:48 Pulse Oximetry 100 10/04/19 09:48 Oxygen Delivery Method Room Air 10/04/19 09:48 Oxygen Flow Rate 0 10/04/19 09:48 Pain Level 10 10/04/19 09:48
[2019-10-04] MEDS: predniSONE 20 MG TAB 60 MG PO (10:22)
--- NOTE | 2019-10-04 11:03 | NUR.NOTE ---
referral to care management for new pcp locally.Nursing Note:
--- NOTE | 2019-10-12 09:35 | PDOC.ERCMPRO ---
- If Service Date Differs Date of service: 10/04/19 Time of Service: 09:35 Care Management Progress Note At request of ED provider, CM coordinates a referral to janel Banerjee, [facility], of [facility] to assist patient in transferring her care from her current PCP in [place] to [facility].
== END 2019-10-04 10:31 | disposition home or self-care (01) ==
PROVIDERS: Emergency Provider Student in an Organized Health Care Education/Training Program; PCP Family Medicine
DX: B02.8 Zoster with other complications (principal); R07.89 Other chest pain; R21 Rash and other nonspecific skin eruption
CPT/HCPCS: 99283; J7512

== ENCOUNTER 2019-10-05 04:55 | Outpatient (CLI) | payer MEDICARE, OTHER, SELFPAY ==
[2019-10-05 15:34] LABS: ESR 33 mm/hr (0-30)
[2019-10-05 16:01] LABS: Anion Gap 10.1 mmol/L (3-11); BUN 17 mg/dL (7-18); C-Reactive Protein 0.35 mg/dL (0.0-0.3); CO2 26.9 mmol/L (21.0-32.0); CREATININE 0.88 mg/dL (0.55-1.02); Chloride 105 mmol/L (98-107); Glucose 146 mg/dL (74-106); PHOSPHORUS 3.5 mg/dL (2.6-4.7); Potassium 4.5 mmol/L (3.5-5.1); Sodium 142 mmol/L (136-145); TSH (W/Ref FT4) 2.05 uIU/mL (0.36-3.74)
[2019-10-05 23:02] LABS: T3, Total 116 ng/dL (97-169)
[2019-10-07 04:49] LABS: Vitamin D 25 Total 42.6 ng/ml (30-100)
[2019-10-11 11:41] LABS: Misc Referral (MAYO) See Comments
== END 2019-10-05 05:15 ==
PROVIDERS: PCP Family Medicine; Visit Provider Internal Medicine Endocrinology, Diabetes & Metabolism
DX: E03.9 Hypothyroidism, unspecified (principal); M81.0 Age-related osteoporosis without current pathological fracture; R21 Rash and other nonspecific skin eruption; E87.6 Hypokalemia
CPT/HCPCS: 36415; 80048; 82306; 85652; 82523; 84100; 84443; 84480; 86140

== ENCOUNTER 2019-11-05 11:57 | Emergency (ER) | payer MEDICARE, OTHER, SELFPAY ==
[2019-11-05 12:04] VITALS: BP 191/82; PULSE 64; RESP 16; TEMP 36.6; O2SAT 97
--- NOTE | 2019-11-05 12:27 | W.ED.GENAD ---
Discharge Plan Disposition Patient Disposition: HOME Condition: Stable Discharge Details Chief Complaint: RashLesion Clinical Impression: Rash Primary Care Provider: Rui Torres ED Provider: Jean Webber Home Meds and New Rx's Prescriptions: Continued zolpidem [Ambien] 10 MG tablet 20 mg PO HS RF: 0 Fish Oil 1 EACH capsule 1 ea PO DAILY RF: 0 estradiol [Estrace] 42.5 GM cream 42.5 gm VG DIRECTED Qty: 1 RF: 6 melatonin-pyridoxine (vit B6) [Melatonin (with B6)] 1 EACH tablet 1 ea PO HS RF: 0 ginkgo biloba leaf extract 120 MG capsule 240 mg PO DAILY RF: 0 hydroxyzine pamoate 25 mg Capsule 50 mg PO QHS RF: 0 cholecalciferol (vitamin D3) [Vitamin D3] 1,000 unit Capsule 1,000 unit PO DAILY RF: 0 aspirin [Aspir-81] 81 mg Tablet,Delayed Release (Dr/Ec) 81 mg PO DAILY PRNRF: 0 codeine sulfate 15 mg tablet 15 mg PO BID PRN (Reason: pain) Qty: 10 RF: 0 prednisone 10 mg tablet 40 mg PO DAILY Qty: 32 RF: 0 codeine sulfate 15 mg tablet 15 mg PO BID PRN (Reason: pain) Qty: 30 RF: 0 potassium chloride 20 MEQ tablet,ER particles/crystals 20 meq PO BID RF: 0 coenzyme Q10 [Co Q-10] 100 MG capsule 100 mg PO DAILY RF: 0 5-hydroxytryptophan (5-HTP) 50 MG capsule 50 mg PO HS RF: 0 calcium carb-magnesium ox,carb 200 mg calcium- 100 mg Tablet,Chewable 1 tab PO DAILY RF: 0 Nature-Throid 32.5 mg tablet 65 mg PO DAILY RF: 0 metoprolol succinate 25 mg tablet extended release 24 hr 25 mg PO DAILY Qty: 30 RF: 0 glycerin (adult) Suppository 1 supp [place] RF: 0 valacyclovir [Valtrex] 1 gram tablet 1,000 mg PO TID Qty: 20 RF: 0 gabapentin 300 mg capsule See Rx Instructions .ROUTE .COMPLEX Qty: 14 RF: 0 Discharge Instructions Instructions: Acute Rash (ED) Additional Instructions: follow up with your primary care provider within a week especially if not improving if you feel more ill, have difficulty breathing or high fevers return to the emergency department Medical Decision Making 74 yo female who was treated for zoster a month ago with gabapentin and valtrex comes in with recurrent rash in same area for a day. No fevers or severe pain. HAs very mild erythema without scales warmth tenderness or crusting. The erythema is 3 flat areas that are about 2x3cm each, no fluctuance. NO dyspnea or respiratory symptoms, no crepitus. Could be recurrent shingles but also could be dermatitis. Will restart valtrex and advised to f/u with pcp within a week and return precautions given Differential Diagnosis Differential Diagnosis: eczema, herpes, dermatitis HPI General Mode of arrival: ambulatory. Date/Time Provider Initiated Documentation: 11/05/19 12:22. Limitations to Documentation: no limitations. Information obtained by: patient. History of Present Illness 74 year old F presents to the emergency department with the chief complaint of rash, described as moderate, and it has been constant. No relieving factors improve symptom(s), No exacerbating factors reported . Patient did receive the following treatments prior to arrival, none Related Data Home Medications Medication Instructions Recorded Confirmed ginkgo biloba leaf extract 240 mg PO DAILY 08/26/12 10/04/19 melatonin-pyridoxine (vit B6) 1 ea PO HS 08/26/12 10/04/19 [Melatonin (with B6)] Fish Oil 1 ea PO DAILY 06/04/13 10/04/19 zolpidem [Ambien] 20 mg PO HS tab-cap 06/04/13 10/04/19 5-hydroxytryptophan (5-HTP) 50 mg PO HS 06/27/16 10/04/19 coenzyme Q10 [Co Q-10] 100 mg PO DAILY 06/27/16 10/04/19 potassium chloride 20 meq PO BID 06/27/16 10/04/19 estradiol [Estrace] 42.5 gm VG DIRECTED #1 tube 12/18/16 10/04/19 calcium carb-magnesium ox,carb 1 tab PO DAILY 06/17/18 10/04/19 aspirin [Aspir-81] 81 mg PO DAILY PRN 10/24/18 10/04/19 cholecalciferol (vitamin D3) 1,000 unit PO DAILY 10/24/18 10/04/19 [Vitamin D3] hydroxyzine pamoate 50 mg PO QHS 10/24/18 10/04/19 Nature-Throid 65 mg PO DAILY 09/23/19 10/04/19 metoprolol succinate 25 mg PO DAILY #30 tab 09/23/19 10/04/19 glycerin (adult) 1 supp [place] 09/25/19 codeine sulfate 15 mg PO BID PRN #10 tab 09/28/19 10/04/19 codeine sulfate 15 mg PO BID PRN #30 tab 10/04/19 prednisone 40 mg PO DAILY #32 tab 10/04/19 gabapentin See Rx Instructions .ROUTE 11/05/19 .COMPLEX #14 cap valacyclovir [Valtrex] 1,000 mg PO TID #20 tab 11/05/19 Previous Rx's Medication Instructions Recorded estradiol [Estrace] 42.5 gm VG DIRECTED #1 tube 12/18/16 metoprolol succinate 25 mg PO DAILY #30 tab 09/23/19 codeine sulfate 15 mg PO BID PRN #10 tab 09/28/19 codeine sulfate 15 mg PO BID PRN #30 tab 10/04/19 prednisone 40 mg PO DAILY #32 tab 10/04/19 gabapentin See Rx Instructions .ROUTE 11/05/19 .COMPLEX #14 cap valacyclovir [Valtrex] 1,000 mg PO TID #20 tab 11/05/19 Allergies Allergy/AdvReac Type Severity Reaction Status Date / Time cephalexin [From Keflex] Allergy Unknown Unverified 11/05/19 12:29 clindamycin Allergy Unknown Unverified 11/05/19 12:29 estradiol [From Activella] Allergy Unknown Skin Rash Unverified 11/05/19 12:29 hydrochlorothiazide Allergy Unknown Unverified 11/05/19 12:29 lactose Allergy Unknown Unverified 11/05/19 12:29 losartan Allergy Unknown Swelling/Ed Unverified 11/05/19 12:29 bree norethindrone Allergy Unknown Skin Rash Unverified 11/05/19 12:29 [From Activella] oxycodone [From Percocet] Allergy Unknown Unverified 11/05/19 12:29 prednisolone Allergy Unknown Unverified 11/05/19 12:29 sulfamethoxazole Allergy Unknown fever Unverified 11/05/19 12:29 [From Bactrim] trimethoprim [From Bactrim] Allergy Unknown fever Unverified 11/05/19 12:29 amoxicillin Allergy Unverified 10/04/19 09:51 cetirizine [From Zyrtec] Allergy Skin Rash Unverified 10/04/19 09:51 acetaminophen [From Tylenol] AdvReac Unknown states Unverified 11/05/19 12:29 tylenol creates more pain aspirin AdvReac Unknown Diarrhea, Unverified 11/05/19 12:29 upset stomach but takes it daily esomeprazole [From Nexium] AdvReac Unknown depression Unverified 11/05/19 12:29 hydrocodone [From Vicodin] AdvReac Unknown Nausea Unverified 11/05/19 12:29 hydroxychloroquine AdvReac Unknown Swelling/Ed Unverified 11/05/19 12:29 [From Plaquenil] bree Influenza Virus Vaccines AdvReac Unknown Unverified 11/05/19 12:29 levothyroxine sodium AdvReac Unknown Itching Unverified 11/05/19 12:29 [From Synthroid] omeprazole [From Prilosec] AdvReac Unknown Nausea Unverified 11/05/19 12:29 sertraline [From Zoloft] AdvReac Unknown depression Unverified 11/05/19 12:29 topiramate [From Topamax] AdvReac Unknown Headache Unverified 11/05/19 12:29 venlafaxine [From Effexor] AdvReac Unknown Psychomotor Unverified 11/05/19 12:29 retardation wheat AdvReac Unknown bloating Unverified 11/05/19 12:29 zinc AdvReac Unknown Hives Unverified 11/05/19 12:29 zolpidem [From Intermezzo] AdvReac Unknown Itching Unverified 11/05/19 12:29 diazepam [From Valium] AdvReac shakes Unverified 10/04/19 09:51 red dye AdvReac Nausea Unverified 10/04/19 09:51 oatmeal AdvReac Unknown constipatio Uncoded 11/05/19 12:29 n SUGAR AdvReac Unknown Other (See Uncoded 11/05/19 12:29 Comment) General Stated Complaint: RashLesion YUMIKO: 4 Review of Systems All systems reviewed & are unremarkable except as noted in HPI and below Constitutional Constitutional: Denies chills, Denies fever(s) and Denies weakness ENT Ears, Nose, Mouth, and Throat: Denies change in voice Cardiovascular Cardiovascular: Denies chest pain and Denies dyspnea Respiratory Respiratory: Denies cough and Denies dyspnea Gastrointestinal Gastrointestinal: Denies abdominal pain, Denies nausea and Denies vomiting Musculoskeletal Musculoskeletal: Denies joint swelling Neurologic Neurologic: Denies weakness Psychiatric Psychiatric: Denies depression [facility] Medical History (Updated 11/05/19 @ 12:28 by Jean Webber MD) 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 Dry eye dry mouth Elevated lipids Hypertension (Chronic) Hypertension Hypoglycemia (Chronic) Hypothyroid (Chronic) Hypothyroidism IBS (irritable bowel syndrome) (Chronic) Insomnia (Chronic) lupus Myofascial pain Primary fibromyalgia syndrome Vertigo (Chronic) Surgical History Biopsy of breast x2 section H/O section (Resolved) Hemorrhoidectomy Family History Mother Dementia Father Heart disease Stroke Social History Smoking/Tobacco Use Status: Never Alcohol Intake: current Alcohol Intake frequency: 0-2 drinks per day Alcohol type: wine Drug use: Never Substance use type: does not use Household members: children Number of Children: 2 number of grandchildren: 1 What is your relationship status?: Panel score (0-1 are the most socially isolated patients): 0 What type of physical activity do you participate in: walking Duration: 60-90 minutes/day Do you feel safe at home: Yes Do you feel safe in your relationship?: Yes Exam Const General: no acute distress Orientation: alert HENMT Head: normal to inspection Ears: external ears normal General nose exam: external nose normal Mouth: moist mucous membranes Eyes General: appearance normal, both eyes and all related structures Neck Neck: normal visual inspection Resp Effort & Inspection: normal respiratory effort and able to speak in complete sentences Cardio Rate: regular rate Skin General skin exam: elasticity normal Neuro General: patient alert and patient oriented x3 Extrem General: normal to inspection Psych Mental Status: mental status grossly normal Course Vital Signs Vital signs: Vital Signs Temperature 36.6 C 11/05/19 12:04 Pulse 64 11/05/19 12:04 Respiratory Rate 16 11/05/19 12:04 Blood Pressure 191/82 H 11/05/19 12:04 Pulse Oximetry 97 11/05/19 12:04 Temperature 36.6 C 11/05/19 12:04 Temperature Source Tympanic 11/05/19 12:04 Pulse 64 11/05/19 12:04 Respiratory Rate 16 11/05/19 12:04 Blood Pressure 191/82 H 11/05/19 12:04 Blood Pressure Position Sitting 11/05/19 12:04 Pulse Oximetry 97 11/05/19 12:04 Oxygen Delivery Method Room Air 11/05/19 12:04 Oxygen Flow Rate 0 11/05/19 12:04 Pain Level 8 11/05/19 12:04
== END 2019-11-05 12:45 | disposition home or self-care (01) ==
PROVIDERS: Emergency Provider Emergency Medicine; PCP Family Medicine
DX: R21 Rash and other nonspecific skin eruption (principal); I10 Essential (primary) hypertension
CPT/HCPCS: 99283

== ENCOUNTER 2019-12-28 09:58 | Emergency (ER) | payer MEDICARE, OTHER, SELFPAY ==
[2019-12-28 10:01] VITALS: BP 177/157; PULSE 55; RESP 18; TEMP 36.1; O2SAT 96
--- NOTE | 2019-12-28 10:08 | ED.GENADUL_ITS ---
Discharge Plan Disposition Patient Disposition: HOME Condition: Improving Discharge Details Clinical Impression: Insomnia Primary Care Provider: Rui Torres ED Provider: Rui Frederick Home Meds and New Rx's Prescriptions: New zolpidem 10 mg tablet 10 mg PO QHS Qty: 10 RF: 0 Continued Fish Oil 1 EACH capsule 1 ea PO DAILY RF: 0 estradiol [Estrace] 42.5 GM cream 42.5 gm VG DIRECTED Qty: 1 RF: 6 melatonin-pyridoxine (vit B6) [Melatonin (with B6)] 1 EACH tablet 3 ea PO HS RF: 0 ginkgo biloba leaf extract 120 MG capsule 240 mg PO DAILY RF: 0 hydroxyzine pamoate 25 mg Capsule 50 mg PO QHS RF: 0 cholecalciferol (vitamin D3) [Vitamin D3] 1,000 unit Capsule 1,000 unit PO DAILY RF: 0 codeine sulfate 15 mg tablet 15 mg PO BID PRN (Reason: pain) Qty: 30 RF: 0 potassium chloride 20 MEQ tablet,ER particles/crystals 20 meq PO BID RF: 0 coenzyme Q10 [Co Q-10] 100 MG capsule 100 mg PO DAILY RF: 0 5-hydroxytryptophan (5-HTP) 50 MG capsule 50 mg PO HS RF: 0 calcium carb-magnesium ox,carb 200 mg calcium- 100 mg Tablet,Chewable 1 tab PO DAILY RF: 0 Nature-Throid 32.5 mg tablet 65 mg PO DAILY RF: 0 glycerin (adult) Suppository 1 supp [place] RF: 0 valacyclovir [Valtrex] 1 gram tablet 1,000 mg PO TID Qty: 20 RF: 0 gabapentin 300 mg capsule See Rx Instructions .ROUTE .COMPLEX Qty: 14 RF: 0 No Action zolpidem [Ambien] 10 MG tablet 20 mg PO HS RF: 0 Medical Decision Making 74-year-old female presents from home. She has been doing well and recovering from a bout of shingles. She states she believes her neighbor stole or she lost the remaining 5 tablets that were left on her Ambien prescription which she takes nightly. Since that time she has not had any sleep. No new medications. She has otherwise been well. She denies other complaints. He feels reasonable for me to prescribe her 5 tablets. She will follow-up with primary care for other prescription needs, and understands to lock up the medications. HPI General Mode of arrival: ambulatory . Date/Time Provider Initiated Documentation: 12/28/19 09:59 . Limitations to Documentation: no limitations . Information obtained by: patient . History of Present Illness 74 year old F presents to the emergency department with the chief complaint of Insomnia, described as moderate, Quality is described as dull and constant, Patient reports no radiation. Patient started experiencing this day(s) and it has been constant. No relieving factors improve symptom(s), No exacerbating fac tors reported . Patient did receive the following treatments prior to arrival, none Related Data Home Medications Medication Instructions Recorded Confirmed ginkgo biloba leaf extract 240 mg PO DAILY 08/26/12 11/05/19 melatonin-pyridoxine (vit B6) 3 ea PO HS 08/26/12 11/05/19 [Melatonin (with B6)] Fish Oil 1 ea PO DAILY 06/04/13 11/05/19 zolpidem [Ambien] 20 mg PO HS tab-cap 06/04/13 11/05/19 5-hydroxytryptophan (5-HTP) 50 mg PO HS 06/27/16 11/05/19 coenzyme Q10 [Co Q-10] 100 mg PO DAILY 06/27/16 11/05/19 potassium chloride 20 meq PO BID 06/27/16 11/05/19 estradiol [Estrace] 42.5 gm VG DIRECTED #1 tube 12/18/16 11/05/19 calcium carb-magnesium ox,carb 1 tab PO DAILY 06/17/18 11/05/19 cholecalciferol (vitamin D3) 1,000 unit PO DAILY 10/24/18 11/05/19 [Vitamin D3] hydroxyzine pamoate 50 mg PO QHS 10/24/18 11/05/19 Nature-Throid 65 mg PO DAILY 09/23/19 11/05/19 glycerin (adult) 1 supp [place] 09/25/19 codeine sulfate 15 mg PO BID PRN #30 tab 10/04/19 11/05/19 gabapentin See Rx Instructions .ROUTE 11/05/19 .COMPLEX #14 cap valacyclovir [Valtrex] 1,000 mg PO TID #20 tab 11/05/19 zolpidem 10 mg PO QHS #10 tab 12/28/19 Previous Rx's Medication Instructions Recorded estradiol [Estrace] 42.5 gm VG DIRECTED #1 tube 12/18/16 codeine sulfate 15 mg PO BID PRN #30 tab 10/04/19 gabapentin See Rx Instructions .ROUTE 11/05/19 .COMPLEX #14 cap valacyclovir [Valtrex] 1,000 mg PO TID #20 tab 11/05/19 zolpidem 10 mg PO QHS #10 tab 12/28/19 Allergies Allergy/AdvReac Type Severity Reaction Status Date / Time cephalexin [From Keflex] Allergy Unknown Unverified 11/05/19 12:29 clindamycin Allergy Unknown Unverified 11/05/19 12:29 estradiol [From Activella] Allergy Unknown Skin Rash Unverified 11/05/19 12:29 hydrochlorothiazide Allergy Unknown Unverified 11/05/19 12:29 lactose Allergy Unknown Unverified 11/05/19 12:29 losartan Allergy Unknown Swelling/Ed Unverified 11/05/19 12:29 bree norethindrone Allergy Unknown Skin Rash Unverified 11/05/19 12:29 [From Activella] oxycodone [From Percocet] Allergy Unknown Unverified 11/05/19 12:29 prednisolone Allergy Unknown Unverified 11/05/19 12:29 sulfamethoxazole Allergy Unknown fever Unverified 11/05/19 12:29 [From Bactrim] trimethoprim [From Bactrim] Allergy Unknown fever Unverified 11/05/19 12:29 amoxicillin Allergy Unverified 10/04/19 09:51 cetirizine [From Zyrtec] Allergy Skin Rash Unverified 10/04/19 09:51 acetaminophen [From Tylenol] AdvReac Unknown states Unverified 11/05/19 12:29 tylenol creates more pain aspirin AdvReac Unknown Diarrhea, Unverified 11/05/19 12:29 upset stomach but takes it daily esomeprazole [From Nexium] AdvReac Unknown depression Unverified 11/05/19 12:29 hydrocodone [From Vicodin] AdvReac Unknown Nausea Unverified 11/05/19 12:29 hydroxychloroquine AdvReac Unknown Swelling/Ed Unverified 11/05/19 12:29 [From Plaquenil] bree Influenza Virus Vaccines AdvReac Unknown Unverified 11/05/19 12:29 levothyroxine sodium AdvReac Unknown Itching Unverified 11/05/19 12:29 [From Synthroid] omeprazole [From Prilosec] AdvReac Unknown Nausea Unverified 11/05/19 12:29 sertraline [From Zoloft] AdvReac Unknown depression Unverified 11/05/19 12:29 topiramate [From Topamax] AdvReac Unknown Headache Unverified 11/05/19 12:29 venlafaxine [From Effexor] AdvReac Unknown Psychomotor Unverified 11/05/19 12:29 retardation wheat AdvReac Unknown bloating Unverified 11/05/19 12:29 zinc AdvReac Unknown Hives Unverified 11/05/19 12:29 zolpidem [From Intermezzo] AdvReac Unknown Itching Unverified 11/05/19 12:29 diazepam [From Valium] AdvReac shakes Unverified 10/04/19 09:51 red dye AdvReac Nausea Unverified 10/04/19 09:51 oatmeal AdvReac Unknown constipatio Uncoded 11/05/19 12:29 n SUGAR AdvReac Unknown Other (See Uncoded 11/05/19 12:29 Comment) General Stated Complaint: GenMedical YUMIKO: 5 Review of Systems Narrative: 6 systems reviewed and otherwise negative. [facility] Medical History (Updated 12/28/19 @ 10:11 by Rui Frederick MD) 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 Dry eye dry mouth Elevated lipids Hypertension Hypertension Hypoglycemia Hypothyroid Hypothyroidism IBS (irritable bowel syndrome) Insomnia lupus Myofascial pain Primary fibromyalgia syndrome Vertigo Surgical History Biopsy of breast x2 section H/O section Hemorrhoidectomy Family History Mother Dementia Father Heart disease Stroke Social History Smoking/Tobacco Use Status: Never Alcohol Intake: current Alcohol Intake frequency: 0-2 drinks per day Alcohol type: wine Drug use: Never Substance use type: does not use Household members: children Number of Children: 2 number of grandchildren: 1 What is your relationship status?: Panel score (0-1 are the most socially isolated patients): 0 What type of physical activity do you participate in: walking Duration: 60-90 minutes/day Do you feel safe at home: Yes Do you feel safe in your relationship?: Yes Exam Narrative Exam Narrative: GEN: awake, alert, oriented 3. Pleasant, well groomed, interactive. HEAD: Normocephalic, atraumatic ENT: Mucous membranes moist, oropharynx unremarkable, External ear exam unremarkable EYES: PERRL, EOMI NECK: Full ROM, no CRISTOBAL, no menigismus CHEST/RESP: Nontender, clear to auscultation bilateral, no wheeze/rhonchi/rales CARDIOVASCULAR: RRR, no murmur, rub azul. 2+ Rad pulse bilateral EXT: Full ROM, no edema, no rash Neuro: Grossly normal neurologic exam, conversant, interactive. Psych: Speech fluent, thoughts congruent, affect normal Course Vital Signs Vital signs: Vital Signs Temperature 36.1 C L 12/28/19 10:01 Pulse 55 L 12/28/19 10:01 Respiratory Rate 18 12/28/19 10:01 Blood Pressure 177/157 H 12/28/19 10:01 Pulse Oximetry 96 12/28/19 10:01 Temperature 36.1 C L 12/28/19 10:01 Temperature Source Skin 12/28/19 10:01 Pulse 55 L 12/28/19 10:01 Respiratory Rate 18 12/28/19 10:01 Blood Pressure 177/157 H 12/28/19 10:01 Blood Pressure Position Sitting 12/28/19 10:01 Pulse Oximetry 96 12/28/19 10:01 Oxygen Delivery Method Room Air 12/28/19 10:01 Oxygen Flow Rate 0 12/28/19 10:01 Pain Level 5 12/28/19 10:01
[2019-12-28 10:13] VITALS: RESP 12
[2019-12-28 10:19] VITALS: BP 177/71; PULSE 50; RESP 16; TEMP 36.6; O2SAT 100
== END 2019-12-28 10:27 | disposition home or self-care (01) ==
LOC: ER 10:40
PROVIDERS: Emergency Provider Emergency Medicine; PCP Family Medicine
DX: G47.00 Insomnia, unspecified (principal); I10 Essential (primary) hypertension
CPT/HCPCS: 99283

== ENCOUNTER 2019-12-29 01:07 | Outpatient (CLI) | payer MEDICARE, OTHER, SELFPAY ==
[2019-12-29 11:50] LABS: FREE T4 0.66 ng/dL (0.76-1.46); TSH 14.98 uIU/mL (0.36-3.74)
[2019-12-29 19:46] LABS: T3, Total 113 ng/dL (97-169)
== END 2019-12-29 01:27 ==
PROVIDERS: PCP Family Medicine; Visit Provider Internal Medicine Endocrinology, Diabetes & Metabolism
DX: E03.9 Hypothyroidism, unspecified (principal)
CPT/HCPCS: 36415; 84439; 84443; 84480

== ENCOUNTER 2020-09-05 02:39 | Outpatient (CLI) | payer MEDICARE, OTHER, SELFPAY ==
[2020-09-05 09:58] LABS: Anion Gap 8.9 mmol/L (3-11); BUN 15 mg/dL (7-18); CO2 27.1 mmol/L (21.0-32.0); Calcium 9.1 mg/dL (8.5-10.1); Chloride 105 mmol/L (98-107); Glucose 92 mg/dL (74-106); PHOSPHORUS 3.6 mg/dL (2.6-4.7); Potassium 4.2 mmol/L (3.5-5.1); Sodium 141 mmol/L (136-145); TSH 18.17 uIU/mL (0.36-3.74)
[2020-09-05 16:55] LABS: T3, Total 111 ng/dL (97-169)
[2020-09-06 14:49] LABS: Beta-CrossLaps (B-CTx) 186 pg/mL
[2020-09-07 01:09] LABS: Vitamin D 25 Total 48.3 ng/mL (30-100)
== END 2020-09-05 02:40 | disposition home or self-care (01) ==
LOC: LBO 02:39
PROVIDERS: PCP Family Medicine; Visit Provider Internal Medicine Endocrinology, Diabetes & Metabolism
DX: E03.9 Hypothyroidism, unspecified (principal); M81.0 Age-related osteoporosis without current pathological fracture; E87.6 Hypokalemia
CPT/HCPCS: 36415; 80048; 82306; 82523; 84100; 84439; 84443; 84480

== ENCOUNTER 2020-11-14 05:05 | Outpatient (CLI) | payer MEDICARE, OTHER, SELFPAY ==
[2020-11-14 09:32] LABS: FREE T4 0.77 ng/dL (0.76-1.46); TSH 11.95 uIU/mL (0.36-3.74)
[2020-11-14 17:27] LABS: T3, Total 101 ng/dL (97-169)
== END 2020-11-14 05:06 | disposition home or self-care (01) ==
LOC: LBO 05:05
PROVIDERS: PCP Family Medicine; Visit Provider Internal Medicine Endocrinology, Diabetes & Metabolism
DX: E03.9 Hypothyroidism, unspecified (principal)
CPT/HCPCS: 36415; 84439; 84443; 84480

== ENCOUNTER 2021-02-09 02:07 | Outpatient (CLI) | payer MEDICARE, OTHER, SELFPAY ==
--- NOTE | 2021-02-09 08:30 | DI.DEXA_ITS ---
Exam(s) XR DEXA BONE DENSITY W/WO JUAN MANUEL EXAM: XR DEXA BONE DENSITY W/WO JUAN MANUEL CLINICAL HISTORY: OSTEOPOROSIS M81.0 TECHNIQUE: Interse C densitometer COMPARISON: CR XR CHEST 2V PA LATERAL from 10/25/2018 CR XR CHEST 2V PA LATERAL from 10/25/2018 CR XR CHEST 2V PA LATERAL from 09/23/2019 CR XR CHEST 2V PA LATERAL from 09/23/2019 DXA scans from 2005 and 2011 FINDINGS: Lateral view of the thoracic and lumbar spine shows minimal anterior wedging of T9. Bone mineral density measurements of the lumbar spine correspond to a total T-score of -2.4, in the osteopenic range. 4.7 percent decrease from 12/03. 5.8 percent decrease when compared with 2005. Bone mineral density measurements of the left hip correspond to a total T-score of -2.5. The femora l neck T-score is -2.8, in the osteoporotic range. 8.4 percent decrease from 12/03. 9.9 percent de crease when compared with 2005. The left forearm bone mineral density measurements correspond to a T-score of the distal 3rd of -1.9 , in the osteopenic range. 4.0 percent decrease compared with 2011.. IMPRESSION: Osteopenia of the lumbar spine and left forearm. Osteoporosis of the left hip. Decreasing bone mine ral density compared with prior exams..
== END 2021-02-09 02:27 ==
PROVIDERS: PCP Family Medicine; Visit Provider Internal Medicine Endocrinology, Diabetes & Metabolism
DX: M81.0 Age-related osteoporosis without current pathological fracture (principal); M85.88 Other specified disorders of bone density and structure, other site
CPT/HCPCS: 77080

== ENCOUNTER 2021-02-09 03:38 | Outpatient (CLI) | payer MEDICARE, OTHER, SELFPAY ==
[2021-02-09 09:20] LABS: ALT 82 U/L (14-59); AST 62 U/L (15-37); Alkaline Phosphatase 81 U/L (46-116); Anion Gap 7.1 mmol/L (3-11); BUN 13 mg/dL (7-18); Bilirubin, Total 0.5 mg/dL (0.2-1.0); CO2 28.9 mmol/L (21.0-32.0); CREATININE 0.9 mg/dL (0.55-1.02); Calcium 8.9 mg/dL (8.5-10.1); Chloride 105 mmol/L (98-107); Glucose 91 mg/dL (74-106); Magnesium 2.2 mg/dL (1.8-2.4); PHOSPHORUS 3.5 mg/dL (2.6-4.7); Potassium 4.1 mmol/L (3.5-5.1); Sodium 141 mmol/L (136-145); Total Protein 6.9 g/dL (6.4-8.2)
[2021-02-09 18:06] LABS: T3, Total 114 ng/dL (97-169)
[2021-02-12 02:52] LABS: Vitamin D 25 Total 62.6 ng/mL (30-100)
[2021-02-12 23:46] LABS: Beta-CrossLaps (B-CTx) 152 pg/mL
== END 2021-02-09 03:39 | disposition home or self-care (01) ==
LOC: LBO 03:38
PROVIDERS: PCP Family Medicine; Visit Provider Internal Medicine Endocrinology, Diabetes & Metabolism
DX: E03.9 Hypothyroidism, unspecified (principal); E87.6 Hypokalemia; M81.0 Age-related osteoporosis without current pathological fracture
CPT/HCPCS: 36415; 77080; 80053; 82306; 82523; 83735; 84100; 84480

== ENCOUNTER 2021-03-29 09:27 | Emergency (ER) | payer MEDICARE, OTHER, SELFPAY ==
[2021-03-29] VITALS (27 sets, daily range): BP systolic 139–184; BP diastolic 52–113; PULSE 58–92; RESP 8–27; TEMP 37.5; O2SAT 94–99
--- NOTE | 2021-03-29 09:15 | RT.EKG_ITS ---
APPROVED REPORT Exam: Resting ECG Reason for Exam: Chest Pain Patient Location: E HR:65 bpm ECG Measurements Heart Rate 65 AXIS SC 131 P 68 QRSd 108 QRS -24 QT 458 T 14 QTc 475 Conclusion Sinus rhythm...normal P axis, V-rate 60- 99 Abnrm T, consider ischemia, anterolateral lds...T <-0.20mV, I aVL V2-V6. Sinus. Less than 1mm ST depression and T wave inversion in anterolateral leads. No STEMI. I have reviewed and interpreted ECG and agree with software generated interpretation.
--- NOTE | 2021-03-29 09:41 | ED.GENADUL_ITS ---
Discharge Plan Disposition Patient Disposition: HOME Condition: Stable Discharge Details Clinical Impression: Insomnia, Palpitations Primary Care Provider: Rui Torres ED Provider: Glory Pierre Home Meds and New Rx's Prescriptions: New zolpidem [Ambien] 10 mg tablet 10 mg PO QHS 10 Days Qty: 10 RF: 0 No Action thyroid (pork) [CASH APPLICATION CLERK Thyroid] 15 mg tablet 60 mg PO DAILY RF: 0 Fish Oil 1 EACH capsule 1 ea PO DAILY RF: 0 estradiol [Estrace] 42.5 GM cream 42.5 gm VG DIRECTED Qty: 1 RF: 6 melatonin-pyridoxine (vit B6) [Melatonin (with B6)] 1 EACH tablet 3 ea PO HS RF: 0 ginkgo biloba leaf extract 120 MG capsule 240 mg PO DAILY RF: 0 hydroxyzine pamoate 25 mg Capsule 75 mg PO QHS RF: 0 potassium chloride 20 MEQ tablet,ER particles/crystals 20 meq PO BID RF: 0 coenzyme Q10 [Co Q-10] 100 MG capsule 100 mg PO DAILY RF: 0 5-hydroxytryptophan (5-HTP) 50 MG capsule 50 mg PO HS RF: 0 glycerin (adult) Suppository 1 supp NM RF: 0 ascorbic acid (vitamin C) [Vitamin C] 500 mg Tablet 500 mg PO DAILY RF: 0 Lacho-E 200 mg Tablet 400 mg PO DAILY RF: 0 arginine HCl (L-arginine) 1,000 mg Tablet 3,000 mg PO DAILY RF: 0 theanine 200 mg Capsule 200 mg PO QHS RF: 0 zolpidem 10 mg tablet 20 mg PO QHS RF: 0 Discharge Instructions Instructions: Heart Palpitations (ED), Insomnia (ED) Additional Instructions: A prescription was sent to the pharmacy on file for the Ambien. Please take this as previously prescribed at bedtime. The cardiac work-up done today was largely unremarkable. Covid is negative. Follow up with primary care provider in 3-5 days. Return to ED sooner if any worsening or concerns. Increase oral fluids. Referrals: Rui Torres [Primary Care Provider] - 5 days Medical Decision Making 75-year-old female presents via EMS to the ER with chief complaint of hypertension, chest pressure and palpitations for the last 2 days. EMS did give 162 of aspirin prior to arrival. Patient did take 162 of aspirin prior to that which relieved her symptoms. She is hypertensive upon arrival. She reports she has been out of Ambien for last 2 nights and got up to have a bowel movement during the middle of the night became dizzy. She did not take any of her normal daily medications this morning other than aspirin. She reports rash began shortly after having a flu shot recently. She was recently diagnosed with shingles. She does have a pruritic vesicular type rash noted to her face and chest. She has a past medical history of hypertension, hypothyroidism, vertigo, insomnia, anxiety and depression, tinnitus. Cardiac work-up ordered including serial troponins. FINDINGS: MEDIASTINUM: Normal. HEART: Normal. PULMONARY VASCULATURE: Normal. LUNGS: Clear. PLEURAL SPACE: No pleural effusion or pneumothorax. BONE:Within normal limits for the patient's age. Note is again made of an exostosis in the proximal right humerus. OTHER FINDINGS:Normal. IMPRESSION: No acute pulmonary findings. Second troponin within normal limits. Patient is remained hemodynamically stable throughout stay. Denies any further chest pain or palpitations and being here in the emergency department. Patient is requesting a refill of her Ambien which was sent to the pharmacy we have on file. Discuss strict return instructions. This text was generated using [employer] dictation system, please disregard any oddities of phrase or misspellings. Lab Data Lab results reviewed: Yes I reviewed the patient's lab results. Lab results narrative: Laboratory Tests Range/Units 03/29/21 03/29/21 03/29/21 09:07 09:07 09:45 WBC (4.4-10.8) 10^3/uL 7.59 RBC (3.93-5.22) 10^6/uL 4.94 Hgb (11.2-15.7) g/dL 15.0 Hct (36.0-46.0) % 46.4 H MCV (80-95) fL 93.9 MCH (27.0-33.0) pg 30.4 MCHC (32.0-36.0) % 32.3 RDW (11.7-14.6) % 11.8 Plt Count (130-400) 10^3/uL 199 MPV (8.0-11.0) fL 10.2 Immature Gran % 0.4 Neutrophils % 58.4 Lymphocytes % 32.8 Monocytes % 6.5 Eosinophils % 1.2 Basophils % 0.7 Nucleated RBC % % 0 Absolute Neutrophils (1.2-6.7) 10^3/uL 4.44 Absolute Lymphocytes (1.2-3.4) 10^3/uL 2.49 Absolute Monocytes (0.1-0.8) 10^3/uL 0.49 Absolute Eosinophils (0.0-0.7) 10^3/uL 0.09 Absolute Basophils (0.0-0.2) 10^3/uL 0.05 Sodium (136-145) mmol/L 140 Potassium (3.5-5.1) mmol/L 4.1 Chloride (98-107) mmol/L 103 Carbon Dioxide (21.0-32.0) mmol/L 26.7 Anion Gap (3-11) mmol/L 10.3 BUN (7-18) mg/dL 13 Creatinine (0.55-1.02) mg/dL 0.8 Estimated GFR/1.73 m2 (mL/min/1.73m2) >= 60.00 Glucose (74-106) mg/dL 104 Calcium (8.5-10.1) mg/dL 9.5 Magnesium (1.8-2.4) mg/dL 2.1 Total Bilirubin (0.2-1.0) mg/dL 0.6 AST (15-37) U/L 64 H ALT (14-59) U/L 84 H Alkaline Phosphatase (46-116) U/L 96 Troponin I (<or=60) ng/L < 50 Total Protein (6.4-8.2) g/dL 8.6 H Albumin (3.4-5.0) g/dL 4.6 COVID-19 Source Nasal/Nares SARS-CoV-2 (PCR) (Negative) Negative HPI General Mode of arrival: EMS . Date/Time Provider Initiated Documentation: 03/29/21 09:41 . Information obtained by: patient, EMS and RN notes reviewed . HPI Narrative: 75-year-old female presents via EMS to the ER with chief complaint of hypertension, chest pressure and palpitations for the last 2 days. EMS did give 162 of aspirin prior to arrival. Patient did take 162 of aspirin prior to that which relieved her symptoms. She is hypertensive upon arrival. She reports she has been out of Ambien for last 2 nights and got up to have a bowel movement during the middle of the night became dizzy. She did not take any of her normal daily medications this morning other than aspirin. She reports rash began shortly after having a flu shot recently. She was recently diagnosed with shingles. She does have a pruritic vesicular type rash noted to her face and chest. She has a past medical history of hypertension, hypothyroidism, vertigo, insomnia, anxiety and depression, tinnitus. Related Data Home Medications Medication Instructions Recorded Confirmed ginkgo biloba leaf extract 240 mg PO DAILY 08/26/12 03/29/21 melatonin-pyridoxine (vit B6) 3 ea PO HS 08/26/12 03/29/21 [Melatonin (with B6)] Fish Oil 1 ea PO DAILY 06/04/13 03/29/21 5-hydroxytryptophan (5-HTP) 50 mg PO HS 06/27/16 03/29/21 coenzyme Q10 [Co Q-10] 100 mg PO DAILY 06/27/16 03/29/21 potassium chloride 20 meq PO BID 06/27/16 03/29/21 estradiol [Estrace] 42.5 gm VG DIRECTED #1 tube 12/18/16 03/29/21 hydroxyzine pamoate 75 mg PO QHS 10/24/18 03/29/21 glycerin (adult) 1 supp NM 09/25/19 thyroid (pork) 15 mg tablet 60 mg PO DAILY 12/19/20 03/29/21 arginine HCl (L-arginine) 3,000 mg PO DAILY 03/29/21 03/29/21 ascorbic acid (vitamin C) [Vitamin 500 mg PO DAILY 03/29/21 03/29/21 C] s-adenosylmethionine [Lacho-E] 400 mg PO DAILY 03/29/21 03/29/21 theanine 200 mg PO QHS 03/29/21 03/29/21 zolpidem 20 mg PO QHS 03/29/21 03/29/21 zolpidem [Ambien] 10 mg PO QHS 10 Days #10 tab 03/29/21 Previous Rx's Medication Instructions Recorded estradiol [Estrace] 42.5 gm VG DIRECTED #1 tube 12/18/16 zolpidem [Ambien] 10 mg PO QHS 10 Days #10 tab 03/29/21 Allergies Allergy/AdvReac Type Severity Reaction Status Date / Time cephalexin [From Keflex] Allergy Unknown Unverified 03/29/21 09:56 clindamycin Allergy Unknown Unverified 03/29/21 09:56 estradiol [From Activella] Allergy Unknown Skin Rash Unverified 03/29/21 09:56 hydrochlorothiazide Allergy Unknown Unverified 03/29/21 09:56 lactose Allergy Unknown Unverified 03/29/21 09:56 losartan Allergy Unknown Swelling/Ed Unverified 03/29/21 09:56 bree norethindrone Allergy Unknown Skin Rash Unverified 03/29/21 09:56 [From Activella] oxycodone [From Percocet] Allergy Unknown Unverified 03/29/21 09:56 prednisolone Allergy Unknown Unverified 03/29/21 09:56 sulfamethoxazole Allergy Unknown fever Unverified 03/29/21 09:56 [From Bactrim] trimethoprim [From Bactrim] Allergy Unknown fever Unverified 03/29/21 09:56 amoxicillin Allergy Unverified 03/29/21 09:56 cetirizine [From Zyrtec] Allergy Skin Rash Unverified 03/29/21 09:56 acetaminophen [From Tylenol] AdvReac Unknown states Unverified 03/29/21 09:56 tylenol creates more pain aspirin AdvReac Unknown Diarrhea, Unverified 03/29/21 09:56 upset stomach but takes it daily esomeprazole [From Nexium] AdvReac Unknown depression Unverified 03/29/21 09:56 hydrocodone [From Vicodin] AdvReac Unknown Nausea Unverified 03/29/21 09:56 hydroxychloroquine AdvReac Unknown Swelling/Ed Unverified 03/29/21 09:56 [From Plaquenil] bree Influenza Virus Vaccines AdvReac Unknown Unverified 03/29/21 09:56 levothyroxine sodium AdvReac Unknown Itching Unverified 03/29/21 09:56 [From Synthroid] omeprazole [From Prilosec] AdvReac Unknown Nausea Unverified 03/29/21 09:56 sertraline [From Zoloft] AdvReac Unknown depression Unverified 03/29/21 09:56 topiramate [From Topamax] AdvReac Unknown Headache Unverified 03/29/21 09:56 venlafaxine [From Effexor] AdvReac Unknown Psychomotor Unverified 03/29/21 09:56 retardation wheat AdvReac Unknown bloating Unverified 03/29/21 09:56 zinc AdvReac Unknown Hives Unverified 03/29/21 09:56 zolpidem [From Intermezzo] AdvReac Unknown Itching Unverified 03/29/21 09:56 diazepam [From Valium] AdvReac shakes Unverified 03/29/21 09:56 red dye AdvReac Nausea Unverified 03/29/21 09:56 oatmeal AdvReac Unknown constipatio Uncoded 03/29/21 09:56 n SUGAR AdvReac Unknown Other (See Uncoded 03/29/21 09:56 Comment) General Stated Complaint: Chest Pain YUMIKO: 2 Review of Systems All systems reviewed & are unremarkable except as noted in HPI and below ENT Ears, Nose, Mouth, and Throat: Reports dizziness Cardiovascular Cardiovascular: Reports palpitations Neurologic Neurologic: Reports dizziness Endocrine Endocrine: Reports palpitations PFSH All Active Problems (Updated 03/29/21 @ 12:26 by Glory Pierre) Palpitations (Acute) Tinnitus, right (Acute) Sjogrens syndrome (Acute) Headache (Acute) Depression (Chronic) Restless leg syndrome (Acute) Osteochondritis (Acute) Hypokalemia (Acute) Chest pain (Acute) Tinnitus (Acute) Abnormal auditory perception (Acute) Skin ulcer, limited to breakdown of skin (Acute) Deviated nasal septum (Acute) Otalgia, right ear (Acute) SIMRAN (obstructive sleep apnea) (Chronic) Allergic rhinitis due to allergen (Acute) Nasal crusting (Acute) Thyroid nodule (Acute) DVT prophylaxis (Acute) Discharge planning issues (Acute) Anxiety and depression (Acute) Hypertensive urgency (Acute) Thyroid disorder (Acute) Pancreatic abnormality (Acute) Lung nodules (Acute) Atypical chest pain (Acute) Hypoglycemia (Chronic) IBS (irritable bowel syndrome) (Chronic) Hypothyroid (Chronic) Hypertension (Chronic) Vertigo (Chronic) Insomnia (Chronic) Medical History 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 Dry eye dry mouth Elevated lipids Fibromyalgia History of urinary incontinence Hypercholesterolemia Hypertension Hypothyroidism lupus Myofascial pain Primary fibromyalgia syndrome Surgical History Biopsy of breast x2 section H/O section Hemorrhoidectomy History of colonoscopy 09/06/[facility] 01/02/2016 History of endoscopy 09/23/2013 Family History Mother Dementia Father Heart disease Stroke Social History Smoking/Tobacco Use Status: Never Smoking risk assessment performed?: Yes Alcohol Intake: current Alcohol Intake frequency: 0-2 drinks per day Alcohol type: wine Drug use: Never Substance use type: does not use Household members: children Number of Children: 2 number of grandchildren: 1 What is your relationship status?: Panel score (0-1 are the most socially isolated patients): 0 What type of physical activity do you participate in: walking Duration: 60-90 minutes/day Do you feel safe at home: Yes Do you feel safe in your relationship?: Yes Exam Narrative Exam Narrative: Constitutional: Alert and oriented x3. Appears stated age. Normal body habitus. Head: Normocephalic, no trauma. Eyes: Pupils PERRL, Red reflex noted, EOM's intact. Eyelids symmetrical without lesions, discharge, or swelling. ENT: Bilateral TM's WNL, External ear normal to inspection, no mastoid TTP, swelling, or erythema, Nasal turbinates WNL, no nasal discharge. Normal dentition, Posterior pharynx WNL, no exudate. Chest: RRR, Normal S1, S2, distal pulses intact. Resp: Lungs clear to auscultation bilaterally, no wheezes, rales, or rhonchi. Abdomen: Soft, bloated, normoactive bowel sounds all 4 quads. Musculoskeletal: Normal gait, 5/5 strength to all four extremities. Skin: Vesicular type rash noted to her face chest patient reports pruritic. Recently diagnosed with shingles. capillary refill less than 2 sec. Neurologic: Cranial nerves II-XII intact. Alert and oriented x 3. Motor: No deficits noted. Sensory: Intact bilaterally all 4 extremities. Reflexes: DTR's intact bilaterally.. Hematologic/Lymphatic: No ecchymosis, no lymphadenopathy. Course Vital Signs Vital signs: Vital Signs Temperature 37.5 C 03/29/21 09:35 Pulse 61 03/29/21 09:35 Respiratory Rate 13 03/29/21 09:35 Blood Pressure 184/113 H 03/29/21 09:35 Pulse Oximetry 98 03/29/21 09:35 Temperature 37.5 C 03/29/21 09:35 Temperature Source Temporal Artery Scan 03/29/21 09:35 Pulse 61 03/29/21 09:35 Respiratory Rate 13 03/29/21 09:35 Blood Pressure 184/113 H 03/29/21 09:35 Blood Pressure Position Supine 03/29/21 09:35 Pulse Oximetry 98 03/29/21 09:35 Oxygen Delivery Method Room Air 03/29/21 09:35 Oxygen Flow Rate 0 03/29/21 09:35 Pain Level 6 03/29/21 09:35
[2021-03-29 09:53] LABS: Abs Immature Grans 0.03 10^3/uL (0.0-0.06); Absolute Basophil Count 0.05 10^3/uL (0.0-0.2); Absolute Eosinophil Count 0.09 10^3/uL (0.0-0.7); Absolute Lymphocyte Count 2.49 10^3/uL (1.2-3.4); Absolute Monocyte Count 0.49 10^3/uL (0.1-0.8); Absolute Neutrophil Count 4.44 10^3/uL (1.2-6.7); Basophils % 0.7; Eosinophils % 1.2; HCT 46.4 % (36.0-46.0); Immature Grans % 0.4; Lymphocytes % 32.8; MCH 30.4 pg (27.0-33.0); MCHC 32.3 % (32.0-36.0); MCV 93.9 fL (80-95); MPV 10.2 fL (8.0-11.0); Monocytes % 6.5; Neutrophils % 58.4; Nucleated RBC 0 %; Platelet Count 199 10^3/uL (130-400); RBC 4.94 10^6/uL (3.93-5.22); RDW 11.8 % (11.7-14.6); WBC 7.59 10^3/uL (4.4-10.8)
[2021-03-29 09:55] LABS: Source Nasal/Nares
--- NOTE | 2021-03-29 10:00 | DI.RAD_ITS ---
Exam(s) XR PORTABLE CHEST AP EXAM: XR PORTABLE CHEST AP CLINICAL HISTORY: PUI, Chest Pain TECHNIQUE: 2D digital imaging was performed of the chest. One image was obtained. An AP view was ob tained. COMPARISON: CR XR PORTABLE CHEST AP from 03/09/2019 FINDINGS: MEDIASTINUM: Normal. HEART: Normal. PULMONARY VASCULATURE: Normal. LUNGS: Clear. PLEURAL SPACE: No pleural effusion or pneumothorax. BONE:Within normal limits for the patient's age. Note is again made of an exostosis in the proximal r ight humerus. OTHER FINDINGS:Normal. IMPRESSION: No acute pulmonary findings. DATA REPOSITORY: RADIATION DOSE DELIVERED:
[2021-03-29 10:16] LABS: ALT 84 U/L (14-59); AST 64 U/L (15-37); Albumin 4.6 g/dL (3.4-5.0); Alkaline Phosphatase 96 U/L (46-116); Anion Gap 10.3 mmol/L (3-11); BUN 13 mg/dL (7-18); Bilirubin, Total 0.6 mg/dL (0.2-1.0); CO2 26.7 mmol/L (21.0-32.0); CREATININE 0.8 mg/dL (0.55-1.02); Calcium 9.5 mg/dL (8.5-10.1); Chloride 103 mmol/L (98-107); Glucose 104 mg/dL (74-106); Magnesium 2.1 mg/dL (1.8-2.4); Potassium 4.1 mmol/L (3.5-5.1); Sodium 140 mmol/L (136-145); Total Protein 8.6 g/dL (6.4-8.2); Troponin I < 50 ng/L (<or=60)
[2021-03-29 10:39] LABS: COVID-19 PCR Negative (Negative)
--- NOTE | 2021-03-29 12:40 | NUR.NOTE ---
Nursing Note: Pt resting on stretcher, assisted up to commode, denies chest pain at this time, continue to monitor.
[2021-03-29 12:47] LABS: Troponin I < 50 ng/L (<or=60)
== END 2021-03-29 13:11 | disposition home or self-care (01) ==
PROVIDERS: Emergency Provider Registered Nurse Emergency; PCP Family Medicine
DX: R07.9 Chest pain, unspecified (principal); R00.2 Palpitations; G47.09 Other insomnia; I10 Essential (primary) hypertension; R21 Rash and other nonspecific skin eruption
CPT/HCPCS: 36415; 80053; 87635; 93005; 99284; 71045; 83735; 84484; 85025; 93010; 99283

== ENCOUNTER 2021-06-11 03:15 | Outpatient (CLI) | payer MEDICARE, OTHER, SELFPAY ==
[2021-06-11 10:18] LABS: FREE T4 0.62 ng/dL (0.76-1.46); Magnesium 2.4 mg/dL (1.8-2.4); PHOSPHORUS 3.8 mg/dL (2.6-4.7)
[2021-06-11 11:04] LABS: Vitamin D 25 Total 64.4 ng/mL (30-100)
[2021-06-11 17:48] LABS: T3, Total 117 ng/dL (97-169)
== END 2021-06-11 03:16 | disposition home or self-care (01) ==
LOC: LBO 03:15
PROVIDERS: PCP Family Medicine; Visit Provider Internal Medicine Endocrinology, Diabetes & Metabolism
DX: E03.9 Hypothyroidism, unspecified (principal); M81.0 Age-related osteoporosis without current pathological fracture; E87.6 Hypokalemia
CPT/HCPCS: 36415; 82306; 83735; 84100; 84439; 84443; 84480

== ENCOUNTER 2021-06-26 08:22 | Emergency (ER) | payer MEDICARE, OTHER, SELFPAY ==
[2021-06-26] VITALS (32 sets, daily range): BP systolic 148–186; BP diastolic 66–109; PULSE 54–77; RESP 11–32; TEMP 36.4–37.1; O2SAT 91–99
--- NOTE | 2021-06-26 08:15 | RT.EKG_ITS ---
APPROVED REPORT Exam: Resting ECG Reason for Exam: anxiety Patient Location: E HR:65 bpm ECG Measurements Heart Rate 65 AXIS NE 134 P 66 QRSd 104 QRS -25 QT 499 T 254 QTc 518 Conclusion Sinus rhythm...normal P axis, V-rate 60- 99 Abnrm T, consider ischemia, anterolateral lds...T <-0.20mV, I aVL V2-V6 Prolonged QT interval...QTc >500mS
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
[2021-06-26 09:48] LABS: Abs Immature Grans 0.03 10^3/uL (0.0-0.06); Absolute Basophil Count 0.03 10^3/uL (0.0-0.2); Absolute Eosinophil Count 0.06 10^3/uL (0.0-0.7); Absolute Lymphocyte Count 1.69 10^3/uL (1.2-3.4); Absolute Monocyte Count 0.56 10^3/uL (0.1-0.8); Absolute Neutrophil Count 4.45 10^3/uL (1.2-6.7); Basophils % 0.4; Eosinophils % 0.9; HCT 42.3 % (36.0-46.0); HGB 13.6 g/dL (11.2-15.7); Immature Grans % 0.4; Lymphocytes % 24.8; MCH 28.9 pg (27.0-33.0); MCHC 32.2 % (32.0-36.0); MCV 89.8 fL (80-95); MPV 10.2 fL (8.0-11.0); Monocytes % 8.2; Neutrophils % 65.3; Nucleated RBC 0 %; Platelet Count 164 10^3/uL (130-400); RBC 4.71 10^6/uL (3.93-5.22); RDW-SD 39.5 fL; WBC 6.82 10^3/uL (4.4-10.8)
[2021-06-26 10:11] LABS: ALT 62 U/L (14-59); AST 55 U/L (15-37); Albumin 4.1 g/dL (3.4-5.0); Alkaline Phosphatase 82 U/L (46-116); Anion Gap 7.2 mmol/L (3-11); BUN 11 mg/dL (7-18); Bilirubin, Total 0.5 mg/dL (0.2-1.0); CO2 28.8 mmol/L (21.0-32.0); CREATININE 0.7 mg/dL (0.55-1.02); Calcium 9.4 mg/dL (8.5-10.1); Chloride 105 mmol/L (98-107); Glucose 110 mg/dL (74-106); Magnesium 2.3 mg/dL (1.8-2.4); NT-proBNP 244 pg/mL (<300); Potassium 4.3 mmol/L (3.5-5.1); Sodium 141 mmol/L (136-145); TSH (W/Ref FT4) 4.21 uIU/mL (0.36-3.74); Total Protein 7.5 g/dL (6.4-8.2); Troponin I < 50 ng/L (<or=60)
[2021-06-26 10:31] LABS: FREE T4 0.63 ng/dL (0.76-1.46)
--- NOTE | 2021-06-26 11:30 | RT.EKG_ITS ---
APPROVED REPORT Exam: Resting ECG Reason for Exam: chest pain Patient Location: E HR:61 bpm ECG Measurements Heart Rate 61 AXIS WV 126 P 58 QRSd 111 QRS -24 QT 530 T 28 QTc 534 Conclusion Sinus rhythm...normal P axis, V-rate 60- 99 Abnrm T, consider ischemia, anterolateral lds...T <-0.20mV, I aVL V2-V6 Prolonged QT interval...QTc >500mS
[2021-06-26 12:20] LABS: Troponin I < 50 ng/L (<or=60)
== END 2021-06-26 13:09 | disposition home or self-care (01) ==
PROVIDERS: Emergency Provider Physician Assistant; PCP Family Medicine
DX: R07.89 Other chest pain (principal); F13.20 Sedative, hypnotic or anxiolytic dependence, uncomplicated; F41.9 Anxiety disorder, unspecified
CPT/HCPCS: 36415; 80053; 93005; 99283; 83735; 83880; 84439; 84443; 84484; 85025; 93010; 93225

== ENCOUNTER 2021-07-08 18:16 | Emergency (ER) | payer MEDICARE, OTHER, SELFPAY ==
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
[2021-07-08 18:20] VITALS: BP 183/90; PULSE 87; RESP 16; TEMP 36.9; O2SAT 96
--- NOTE | 2021-07-08 18:30 | DI.CT_ITS ---
Exam(s) CT HEAD CERVICAL SPINE WO EXAM: CT HEAD CERVICAL SPINE WO CLINICAL HISTORY: head trauma. TECHNIQUE: Imaging Protocol: Axial computed tomography images with coronal and sagittal reformatted images were created and reviewed COMPARISON: CT HEAD WITHOUT CONTRAST from 07/22/2016 FINDINGS: BRAIN: There are no skull fractures. Small symmetrical fluid levels are noted in both maxillary sinuses, no t evident in 2017 and consistent with sinusitis. The sphenoid and frontal sinuses are clear as are t he ethmoidal air cells and mastoid air cells. There is no evidence of intracranial hemorrhage, mass effect, or shift of midline structures. There are no extra-axial fluid collections. The ventricles are not enlarged or shifted and there is no blo od within the ventricular system nor within the basal cisterns. There is abundant bilateral periventricular hypodensity consistent with relatively symmetrical chroni c white matter ischemic change, exhibiting minimal change from 2017. There is no evidence of obvious new infarct. CERVICAL SPINE: There is no evidence of fracture nor listhesis. No significant prevertebral soft tissue swelling. There is multilevel facet arthropathy, most prominent at C 3-4 and C4-5 levels. There is no significant facet joint malalignment. No significant osseous lesions evident. Scarring in the left lung apex noted. IMPRESSION: No acute intracranial findings on this noninfused CT scan of the brain.Chronic small-vessel white mat ter ischemic changes which appear unchanged from prior CT scan of 2017. Bilateral small fluid levels in the maxillary sinuses, consistent with sinusitis. No evidence of cervical spine fracture, malalignment, nor acute compromise of the cervical spinal can al. Degenerative facet arthropathy. RADIATION DOSE DELIVERED: 912.74mGy.cm Total DLP DATA REPOSITORY: All CT scans at this facility are submitted to the National Radiology Data Registry (NRDR) Dose Index Registry (DIR) with the [employer] ([employer]). RADIATION OPTIMIZATION: All CT scans at this facility use at least one of these dose optimization te chniques: automated exposure control; mA and/or kV adjustment per patient size (includes targeted exa ms where dose is matched to clinical indication); or iterative reconstruction.
--- NOTE | 2021-07-08 19:33 | DI.VRAD_ITS ---
PROCEDURE INFORMATION: Exam: CT Head Without Contrast Exam date and time: 07/08/2021 7:07 PM Age: 75 years old Clinical indication: Injury or trauma; Other: Something fell on head; Blunt trauma (contusions or hematomas); Consciousness not specified; Injury date: 07/08/21; Injury details: Part of the door fell of striking head, laceration TECHNIQUE: Imaging protocol: Computed tomography of the head without contrast. Radiation optimization: All CT scans at this facility use at least one of these dose optimization techniques: automated exposure control; mA and/or kV adjustment per patient size (includes targeted exams where dose is matched to clinical indication); or iterative reconstruction. COMPARISON: 1. CT HEAD WITHOUT CONTRAST 07/22/2016 1:[address] THORAX CTA 03/09/2019 9:40 AM FINDINGS: Brain: Nonspecific hypodensities of the periventricular and deep subcortical white matter, most likely secondary to chronic small vessel ischemic change. No intracranial hemorrhage or extra-axial fluid collection. No evidence of mass effect or midline shift. Church-white matter differentiation is normal. Cerebral ventricles: Mild prominence of the ventricles and sulci, most likely attributed to parenchymal volume loss. Paranasal sinuses: Small air-fluid levels in the maxillary sinuses. Mastoid air cells: Unremarkable. Bones/joints: No acute osseus lesion or fracture. Soft tissues: Unremarkable. IMPRESSION: 1. No acute intracranial pathology. 2. Small air-fluid levels in the maxillary sinuses. 3. Chronic findings, as above. PROCEDURE INFORMATION: Exam: CT Cervical Spine Without Contrast Exam date and time: 07/08/2021 7:07 PM Age: 75 years old Clinical indication: Injury or trauma; Other: Something fell on head; Blunt trauma (contusions or hematomas); Consciousness not specified; Injury date: 07/08/21; Injury details: Part of the door fell of striking head, laceration TECHNIQUE: Imaging protocol: Computed tomography images of the cervical spine without contrast. Radiation optimization: All CT scans at this facility use at least one of these dose optimization techniques: automated exposure control; mA and/or kV adjustment per patient size (includes targeted exams where dose is matched to clinical indication); or iterative reconstruction. COMPARISON: 1. CT HEAD WITHOUT CONTRAST 07/22/2016 1:[address] THORAX CTA 03/09/2019 9:40 AM FINDINGS: Bones/joints: Chronic mild compression fracture of the superior endplates of T3 and T4. Cervical vertebral body heights are maintained. No locked or perched facets. Multilevel facet arthropathy. No acute cervical spine fracture. The dens is intact. Atlanto-axial intervals are normal. Discs/Spinal canal/Neural foramina: Multilevel degenerative changes with intervertebral disc height loss and osteophyte formation. No significant spinal stenosis. Lungs: Left apical lung scarring. Soft tissues: Unremarkable. IMPRESSION: 1. No acute cervical spine fracture. 2. Chronic findings, as above. Dictated and Authenticated by: Massimo Jones MD. Ordering:GIRISH Pena MD
== END 2021-07-08 19:53 | disposition home or self-care (01) ==
PROVIDERS: Emergency Provider Emergency Medicine; PCP Family Medicine
DX: S01.01XA Laceration without foreign body of scalp, initial encounter (principal); W22.8XXA Striking against or struck by other objects, initial encounter
CPT/HCPCS: 99283; 70450; 72125

== ENCOUNTER 2021-09-20 09:04 | Emergency (ER) | payer MEDICARE, OTHER, SELFPAY ==
[2021-09-20 09:06] VITALS: BP 202/59; PULSE 59; RESP 16; TEMP 36.7; O2SAT 97
--- NOTE | 2021-09-20 09:22 | W.ED.GENAD ---
Discharge Plan Disposition Patient Disposition: HOME Condition: Improving Discharge Details Clinical Impression: Insomnia Primary Care Provider: Rui Torres ED Provider: Rui Frederick Home Meds and New Rx's Prescriptions: Continued thyroid (pork) [CHIROPRACTIC NEUROLOGIST Thyroid] 15 mg tablet 60 mg PO DAILY Fish Oil 1 EACH capsule 1 ea PO DAILY estradiol [Estrace] 42.5 GM cream 42.5 gm VG DIRECTED Qty: 1 6RF Rx Instructions: apply 3mm dot of Estrace cream to vaginal opening 3 times a week. melatonin-pyridoxine (vit B6) [Melatonin (with B6)] 1 EACH tablet 3 ea PO HS ginkgo biloba leaf extract 120 MG capsule 240 mg PO DAILY hydroxyzine pamoate 25 mg Capsule 75 mg PO QHS zolpidem 10 mg tablet 20 mg PO QHS 5 Days Qty: 10 0RF Rx Instructions: 1-2 tablets at bedtime as needed for insomnia potassium chloride 20 MEQ tablet,ER particles/crystals 20 meq PO BID coenzyme Q10 [Co Q-10] 100 MG capsule 100 mg PO DAILY 5-hydroxytryptophan (5-HTP) 50 MG capsule 50 mg PO HS Rx Instructions: not as much as on rx glycerin (adult) Suppository 1 supp NH ascorbic acid (vitamin C) [Vitamin C] 500 mg Tablet 500 mg PO DAILY Lacho-E 200 mg Tablet 400 mg PO DAILY arginine HCl (L-arginine) 1,000 mg Tablet 3,000 mg PO DAILY theanine 200 mg Capsule 200 mg PO QHS No Action lorazepam [Ativan] 1 mg tablet 1 mg PO DAILY PRNQty: 6 0RF lorazepam [Ativan] 1 mg tablet 1 mg PO DAILY PRNQty: 4 0RF Rx Instructions: take at night, 1 tablet as needed for sleep Discharge Instructions Instructions: Insomnia (ED) Additional Instructions: Please follow-up with Dr. Torres. Return to the emergency department for acute or emergent concerns. Medical Decision Making 75-year-old female with longstanding significant anxiety and insomnia. Uses intermittent Ativan as well as Ambien at night. She ran out of her Ambien which is not to be refilled until September 25. She believes it might of fallen out of her purse or been stolen. She is impressively anxious and suffers from longstanding insomnia which has been exacerbated by her family history in [place] and the current war, tragedy in her family. Performed of medical screening examination and for exam. I do feel it is reasonable to prescribe her 5 days worth of Ambien given her history, age, and previous tolerance. I discussed with her that she needs to keep careful track of her medication. She is to follow-up with Dr. Melissa COLLIER General Mode of arrival: ambulatory. Date/Time Provider Initiated Documentation: 09/20/21 09:04. Limitations to Documentation: no limitations. Information obtained by: patient. History of Present Illness 75 year old F presents to the emergency department with the chief complaint of Insomnia and anxiety, ran out of Ambien, described as moderate, Quality is described as constant, Patient started experiencing this day(s) and it has been intermittent. No relieving factors improve symptom(s), No exacerbating factors reported . Patient notes no other symptoms.. Patient did receive the following treatments prior to arrival, none Related Data Home Medications Medication Instructions Recorded Confirmed ginkgo biloba leaf extract 120 mg 240 mg PO DAILY 08/26/12 07/08/21 capsule melatonin 5 mg-pyridoxine (vitamin 3 ea PO HS 08/26/12 07/08/21 B6) 1 mg tablet (Melatonin (with B6)) omega-3 fatty acids-fish oil 340 1 ea PO DAILY 06/04/13 07/08/21 mg-1,000 mg capsule (Fish Oil) 5-hydroxytryptophan (5-HTP) 50 mg 50 mg PO HS 06/27/16 09/20/21 capsule coenzyme Q10 100 mg capsule (Co 100 mg PO DAILY 06/27/16 07/08/21 Q-10) potassium chloride 20 mEq 20 meq PO BID 06/27/16 09/20/21 tablet,extended release(part/cryst) estradiol 0.01% (0.1 mg/gram) 42.5 gm vaginal DIRECTED #1 tube 12/18/16 07/08/21 vaginal cream (Estrace) hydroxyzine pamoate 25 mg capsule 75 mg PO QHS 10/24/18 07/08/21 glycerin (adult) 1 supp NH 09/25/19 thyroid (pork) 15 mg tablet (CHIROPRACTIC NEUROLOGIST 60 mg PO DAILY 12/19/20 07/08/21 Thyroid) arginine HCl (L-arginine) 1,000 mg 3,000 mg PO DAILY 03/29/21 07/08/21 tablet ascorbic acid (vitamin C) 500 mg 500 mg PO DAILY 03/29/21 07/08/21 tablet (Vitamin C) s-adenosylmethionine 200 mg tablet 400 mg PO DAILY 03/29/21 07/08/21 (Lacho-E) theanine 200 mg capsule 200 mg PO QHS 03/29/21 07/08/21 lorazepam 1 mg tablet (Ativan) 1 mg PO DAILY PRN #6 tabs 06/26/21 07/08/21 lorazepam 1 mg tablet (Ativan) 1 mg PO DAILY PRN #4 tabs 06/28/21 07/08/21 zolpidem 10 mg tablet 20 mg PO QHS 5 days #10 tabs 09/20/21 Previous Rx's Medication Instructions Recorded estradiol 0.01% (0.1 mg/gram) 42.5 gm vaginal DIRECTED #1 tube 12/18/16 vaginal cream (Estrace) lorazepam 1 mg tablet (Ativan) 1 mg PO DAILY PRN #6 tabs 06/26/21 lorazepam 1 mg tablet (Ativan) 1 mg PO DAILY PRN #4 tabs 06/28/21 zolpidem 10 mg tablet 20 mg PO QHS 5 days #10 tabs 09/20/21 Allergies Allergy/AdvReac Type Severity Reaction Status Date / Time cephalexin [From Keflex] Allergy Unknown Unverified 09/20/21 09:15 clindamycin Allergy Unknown Unverified 09/20/21 09:15 estradiol [From Activella] Allergy Unknown Skin Rash Unverified 09/20/21 09:15 hydrochlorothiazide Allergy Unknown Unverified 09/20/21 09:15 lactose Allergy Unknown Unverified 09/20/21 09:15 losartan Allergy Unknown Swelling/Ed Unverified 09/20/21 09:15 bree norethindrone Allergy Unknown Skin Rash Unverified 09/20/21 09:15 [From Activella] oxycodone [From Percocet] Allergy Unknown Unverified 09/20/21 09:15 prednisolone Allergy Unknown Unverified 09/20/21 09:15 sulfamethoxazole Allergy Unknown fever Unverified 09/20/21 09:15 [From Bactrim] trimethoprim [From Bactrim] Allergy Unknown fever Unverified 09/20/21 09:15 amoxicillin Allergy Unverified 09/20/21 09:15 cetirizine [From Zyrtec] Allergy Skin Rash Unverified 09/20/21 09:15 acetaminophen [From Tylenol] AdvReac Unknown states Unverified 09/20/21 09:15 tylenol creates more pain aspirin AdvReac Unknown Diarrhea, Unverified 09/20/21 09:15 upset stomach but takes it daily esomeprazole [From Nexium] AdvReac Unknown depression Unverified 09/20/21 09:15 hydrocodone [From Vicodin] AdvReac Unknown Nausea Unverified 09/20/21 09:15 hydroxychloroquine AdvReac Unknown Swelling/Ed Unverified 09/20/21 09:15 [From Plaquenil] bree Influenza Virus Vaccines AdvReac Unknown Unverified 09/20/21 09:15 levothyroxine sodium AdvReac Unknown Itching Unverified 09/20/21 09:15 [From Synthroid] omeprazole [From Prilosec] AdvReac Unknown Nausea Unverified 09/20/21 09:15 sertraline [From Zoloft] AdvReac Unknown depression Unverified 09/20/21 09:15 topiramate [From Topamax] AdvReac Unknown Headache Unverified 09/20/21 09:15 venlafaxine [From Effexor] AdvReac Unknown Psychomotor Unverified 09/20/21 09:15 retardation wheat AdvReac Unknown bloating Unverified 09/20/21 09:15 zinc AdvReac Unknown Hives Unverified 09/20/21 09:15 zolpidem [From Intermezzo] AdvReac Unknown Itching Unverified 09/20/21 09:15 diazepam [From Valium] AdvReac shakes Unverified 09/20/21 09:15 red dye AdvReac Nausea Unverified 09/20/21 09:15 oatmeal AdvReac Unknown constipatio Uncoded 09/20/21 09:15 n SUGAR AdvReac Unknown Other (See Uncoded 09/20/21 09:15 Comment) General Stated Complaint: [employer] YUMIKO: 4 Review of Systems Narrative: 6 systems reviewed and otherwise negative PFSH All Active Problems (Updated 09/20/21 @ 09:25 by Rui Frederick MD) Ambien use disorder, mild (Acute) Insomnia (Acute) Tinnitus, right (Acute) Sjogrens syndrome (Acute) Headache (Acute) Depression (Chronic) Restless leg syndrome (Acute) Osteochondritis (Acute) Hypokalemia (Acute) Chest pain (Acute) Tinnitus (Acute) Abnormal auditory perception (Acute) Skin ulcer, limited to breakdown of skin (Acute) Deviated nasal septum (Acute) Otalgia, right ear (Acute) SIMRAN (obstructive sleep apnea) (Chronic) Allergic rhinitis due to allergen (Acute) Nasal crusting (Acute) Thyroid nodule (Acute) DVT prophylaxis (Acute) Discharge planning issues (Acute) Anxiety and depression (Acute) Hypertensive urgency (Acute) Thyroid disorder (Acute) Pancreatic abnormality (Acute) Lung nodules (Acute) Atypical chest pain (Acute) Hypoglycemia (Chronic) IBS (irritable bowel syndrome) (Chronic) Hypothyroid (Chronic) Hypertension (Chronic) Vertigo (Chronic) Insomnia (Chronic) Medical History 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 Dry eye dry mouth Elevated lipids Fibromyalgia History of urinary incontinence Hypercholesterolemia Hypertension Hypothyroidism lupus Myofascial pain Primary fibromyalgia syndrome Surgical History Biopsy of breast x2 section H/O section Hemorrhoidectomy History of colonoscopy 09/06/2008 Dr[facility] 01/02/2016 History of endoscopy 09/23/2013 Family History Mother Dementia Father Heart disease Stroke Social History Smoking/Tobacco Use Status: Never Smoking risk assessment performed?: Yes Alcohol Intake: current Alcohol Intake frequency: 0-2 drinks per day Alcohol type: wine Drug use: Never Substance use type: does not use Household members: children Number of Children: 2 number of grandchildren: 1 What is your relationship status?: Panel score (0-1 are the most socially isolated patients): 0 What type of physical activity do you participate in: walking Duration: 60-90 minutes/day Do you feel safe at home: Yes Do you feel safe in your relationship?: Yes Exam Narrative Exam Narrative: GEN: awake, alert, oriented 3. Pleasant, well groomed, interactive. HEAD: Normocephalic, atraumatic ENT: Mucous membranes moist, oropharynx unremarkable, External ear exam unremarkable EYES: PERRL, EOMI NECK: Full ROM, no CRISTOBAL, no menigismus CHEST/RESP: Nontender, clear to auscultation bilateral, no wheeze/rhonchi/rales CARDIOVASCULAR: RRR, no murmur, rub azul. 2+ Rad pulse bilateral ABDOMEN: Soft, nontender, no mass. +Bowel sounds EXT: Full ROM, no edema, no rash Neuro: Grossly normal neurologic exam, conversant, interactive. Psych: Speech fluent, thoughts congruent, affect anxious Course Vital Signs Vital signs: Vital Signs Temperature 36.7 C 09/20/21 09:06 Pulse 59 L 09/20/21 09:06 Respiratory Rate 16 09/20/21 09:06 Blood Pressure 202/59 H 09/20/21 09:06 Pulse Oximetry 97 09/20/21 09:06 Temperature 36.7 C 09/20/21 09:06 Pulse 59 L 09/20/21 09:06 Respiratory Rate 16 09/20/21 09:06 Respiratory Effort 09/20/21 09:17 Blood Pressure 202/59 H 09/20/21 09:06 Pulse Oximetry 97 09/20/21 09:06
== END 2021-09-20 09:36 | disposition home or self-care (01) ==
PROVIDERS: Emergency Provider Emergency Medicine; PCP Family Medicine
DX: G47.00 Insomnia, unspecified (principal); I10 Essential (primary) hypertension
CPT/HCPCS: 99283; 99284

== ENCOUNTER 2021-11-10 10:58 | Emergency (ER) | payer MEDICARE, OTHER, SELFPAY ==
--- NOTE | 2021-11-10 11:00 | RT.EKG_ITS ---
APPROVED REPORT Exam: Resting ECG Reason for Exam: chest pain Patient Location: E HR:56 bpm ECG Measurements Heart Rate 56 AXIS AL 131 P 58 QRSd 103 QRS -24 QT 488 T 9 QTc 472 Conclusion Sinus bradycardia...rate< 60. Sinus. No STEMI. I have reviewed and interpreted ECG and agree with software generated interpretation.
[2021-11-10 11:04] VITALS: BP 178/73; PULSE 63; RESP 16; TEMP 37.5; O2SAT 100
--- NOTE | 2021-11-10 11:45 | DI.RAD_ITS ---
Exam(s) XR CHEST 2V PA LATERAL EXAM: XR CHEST 2V PA LATERAL CLINICAL HISTORY: chest pain TECHNIQUE: COMPARISON: CR XR PORTABLE CHEST AP from 03/29/2021 FINDINGS: Heart is not enlarged. There are minimal changes of pulmonary scarring, otherwise the lungs appear c lear. No pleural effusion. IMPRESSION: No evidence of acute process. RADIATION DOSE DELIVERED: Total DLP
[2021-11-10 12:07] LABS: Abs Immature Grans 0.02 10^3/uL (0.0-0.06); Absolute Basophil Count 0.03 10^3/uL (0.0-0.2); Absolute Eosinophil Count 0.04 10^3/uL (0.0-0.7); Absolute Lymphocyte Count 1.61 10^3/uL (1.2-3.4); Absolute Monocyte Count 0.47 10^3/uL (0.1-0.8); Absolute Neutrophil Count 3.37 10^3/uL (1.2-6.7); Basophils % 0.5; Eosinophils % 0.7; HCT 40.5 % (36.0-46.0); HGB 13.4 g/dL (11.2-15.7); Immature Grans % 0.4; Lymphocytes % 29.1; MCHC 33.1 % (32.0-36.0); MCV 91 fL (80-95); Monocytes % 8.5; Neutrophils % 60.8; Platelet Count 154 10^3/uL (130-400); RBC 4.46 10^6/uL (3.93-5.22); RDW-SD 39.6 fL; WBC 5.54 10^3/uL (4.4-10.8)
[2021-11-10 12:32] LABS: ALT 52 U/L (14-59); AST 47 U/L (15-37); Albumin 3.9 g/dL (3.4-5.0); Alkaline Phosphatase 70 U/L (46-116); Anion Gap 6.7 mmol/L (3-11); BUN 12 mg/dL (7-18); Bilirubin, Total 0.5 mg/dL (0.2-1.0); CO2 29.3 mmol/L (21.0-32.0); Calcium 8.9 mg/dL (8.5-10.1); Chloride 104 mmol/L (98-107); Estimated GFR 53.91 (mL/min/1.73m2); Glucose 102 mg/dL (74-106); Magnesium 2.2 mg/dL (1.8-2.4); Potassium 4.4 mmol/L (3.5-5.1); Sodium 140 mmol/L (136-145); TSH (W/Ref FT4) 4.85 uIU/mL (0.36-3.74); Total Protein 7.3 g/dL (6.4-8.2); Troponin I < 50 ng/L (<or=60)
[2021-11-10 12:50] LABS: FREE T4 1.16 ng/dL (0.76-1.46)
[2021-11-10 12:53] VITALS: BP 144/36; PULSE 54; RESP 11; O2SAT 100
--- NOTE | 2021-11-10 13:06 | DI.VRAD_ITS ---
PROCEDURE INFORMATION: Exam: XR Chest Exam date and time: 11/10/2021 12:41 PM Age: 76 years old Clinical indication: Dyspnea TECHNIQUE: Imaging protocol: Radiologic exam of the chest. Views: 2 views. COMPARISON: CR XR PORTABLE CHEST AP 03/29/2021 10:35 AM FINDINGS: Lungs: Unremarkable. No consolidation. Pleural spaces: Unremarkable. No pleural effusion. No pneumothorax. Heart/Mediastinum: Unremarkable. No cardiomegaly. Bones/joints: Degenerative osseous changes. Partially visualized chronic deformity of the right proximal humeral shaft. IMPRESSION: No actue cardiopulmonary abnormalities. Dictated and Authenticated by: Farhan Jon MD. Ordering:ZEINAB Washington MD
[2021-11-10] MEDS: LORazepam 0.5 MG TAB PO (13:52)
--- NOTE | 2021-11-10 15:00 | RT.EKG_ITS ---
APPROVED REPORT Exam: Resting ECG Reason for Exam: chest pain Patient Location: E HR:51 bpm ECG Measurements Heart Rate 51 AXIS HI 134 P 58 QRSd 101 QRS -29 QT 496 T 0 QTc 455 Conclusion Sinus bradycardia...rate< 60 Nonspecific T abnormalities, anterior leads...T <-0.10mV, V2-V4. Sinus. No STEMI. No significant change from previous EKG. I have reviewed and interpreted ECG and agree with software generated interpretation.
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
[2021-11-10 15:53] LABS: Troponin I < 50 ng/L (<or=60)
[2021-11-10 16:56] VITALS: BP 149/63; PULSE 56; RESP 18; TEMP 36.1; O2SAT 99
[2021-11-10] MEDS: Zolpidem 10 MG TAB 40 MG PO (17:04)
[2021-11-10 17:09] VITALS: BP 149/63; PULSE 56; RESP 18; TEMP 36.1; O2SAT 99
== END 2021-11-10 17:09 | disposition home or self-care (01) ==
PROVIDERS: Nurse Practitioner Family; Emergency Provider Registered Nurse Emergency; PCP Family Medicine
DX: R07.89 Other chest pain (principal); F41.9 Anxiety disorder, unspecified; R00.1 Bradycardia, unspecified; R74.8 Abnormal levels of other serum enzymes; I10 Essential (primary) hypertension; Z87.891 Personal history of nicotine dependence
CPT/HCPCS: 36415; 80053; 93005; 99284; 71046; 83735; 84439; 84443; 84484; 85025; 93010

== ENCOUNTER 2021-11-13 11:04 | Emergency (ER) | payer MEDICARE, OTHER, SELFPAY ==
[2021-11-13] VITALS (29 sets, daily range): BP systolic 112–148; BP diastolic 49–84; PULSE 44–69; RESP 11–22; O2SAT 94–100
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
--- NOTE | 2021-11-13 11:30 | RT.EKG_ITS ---
APPROVED REPORT Exam: Resting ECG Reason for Exam: chest pressure Patient Location: E HR:50 bpm ECG Measurements Heart Rate 50 AXIS WA 135 P 57 QRSd 122 QRS -17 QT 524 T -4 QTc 481 Conclusion Sinus bradycardia...rate< 60 Nonspecific intraventricular conduction delay...QRSd >115mS, not LBBB/RBBB Abnrm T, consider ischemia, anterolateral lds...T <-0.20mV, I aVL V2-V6
[2021-11-13 11:55] LABS: Abs Immature Grans 0.03 10^3/uL (0.0-0.06); Absolute Basophil Count 0.05 10^3/uL (0.0-0.2); Absolute Eosinophil Count 0.07 10^3/uL (0.0-0.7); Absolute Lymphocyte Count 2.09 10^3/uL (1.2-3.4); Absolute Monocyte Count 0.58 10^3/uL (0.1-0.8); Absolute Neutrophil Count 3.51 10^3/uL (1.2-6.7); Basophils % 0.8; Eosinophils % 1.1; HCT 40.1 % (36.0-46.0); HGB 13.2 g/dL (11.2-15.7); Immature Grans % 0.5; MCH 29.6 pg (27.0-33.0); MCHC 32.9 % (32.0-36.0); MCV 90 fL (80-95); MPV 10.1 fL (8.0-11.0); Monocytes % 9.2; Neutrophils % 55.4; Platelet Count 159 10^3/uL (130-400); RBC 4.46 10^6/uL (3.93-5.22); RDW 12.1 % (11.7-14.6); RDW-SD 39.7 fL; WBC 6.33 10^3/uL (4.4-10.8)
[2021-11-13 12:19] LABS: Bilirubin Negative (Negative); Blood Negative (Negative); Clarity Clear (Clear); Glucose Negative (Negative); Ketones Negative (Negative); Leukocyte Esterase Negative (Negative); Nitrite Negative (Negative); Urobilinogen 0.2 EU/dL (Up TO 0.2)
[2021-11-13 12:20] LABS: Anion Gap 8.8 mmol/L (3-11); BUN 11 mg/dL (7-18); CO2 27.2 mmol/L (21.0-32.0); CREATININE 0.9 mg/dL (0.55-1.02); Calcium 8.9 mg/dL (8.5-10.1); Chloride 102 mmol/L (98-107); Glucose 106 mg/dL (74-106); Potassium 4.2 mmol/L (3.5-5.1); Sodium 138 mmol/L (136-145); Troponin I < 50 ng/L (<or=60)
--- NOTE | 2021-11-13 15:00 | RT.EKG_ITS ---
APPROVED REPORT Exam: Resting ECG Reason for Exam: dizzy Patient Location: E HR:48 bpm ECG Measurements Heart Rate 48 AXIS AK 133 P 51 QRSd 108 QRS -22 QT 526 T -20 QTc 470 Conclusion Sinus bradycardia...rate< 60 Abnormal T, consider ischemia, anterior leads...T <-0.20mV, V2-V4
--- NOTE | 2021-11-13 15:17 | NUR.NOTE ---
Nursing Note: 1 At 1400, Pt had ambulated to BR X2 episodes, gait steady, denied dizziness, maintaining SATs, respirations non-labored. Voided each time, denied difficulty urinating. Pt aware, call light within reach. awaiting disposition
[2021-11-13 15:52] LABS: Troponin I < 50 ng/L (<or=60)
== END 2021-11-13 16:52 | disposition home or self-care (01) ==
PROVIDERS: Emergency Provider Emergency Medicine; PCP Family Medicine
DX: G47.00 Insomnia, unspecified (principal); I10 Essential (primary) hypertension; Z87.891 Personal history of nicotine dependence; R07.89 Other chest pain
CPT/HCPCS: 80048; 93005; 99283; 81003; 84484; 85025; 93010; 99284

== ENCOUNTER 2021-11-16 07:43 | Emergency (ER) | payer MEDICARE, OTHER, SELFPAY ==
--- NOTE | 2021-11-16 07:45 | RT.EKG_ITS ---
APPROVED REPORT Exam: Resting ECG Reason for Exam: pain Patient Location: E HR:61 bpm ECG Measurements Heart Rate 61 AXIS GA 119 P 59 QRSd 107 QRS -35 QT 463 T -15 QTc 469 Conclusion Sinus rhythm...normal P axis, V-rate 60- 99 Left axis deviation...QRS axis (-30,-90) Abnrm T, consider ischemia, anterolateral lds...T <-0.20mV, I aVL V2-V6 sinus rhythm, left axis, normal intervals, t wave inversions V1-V5, largely unchanged from prior ekg
[2021-11-16 07:49] VITALS: BP 192/89; PULSE 64; RESP 14; TEMP 36.9; O2SAT 99
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
== END 2021-11-16 08:58 | disposition home or self-care (01) ==
LOC: ER 08:28
PROVIDERS: Emergency Provider Nurse Practitioner Family; PCP Family Medicine
DX: F41.9 Anxiety disorder, unspecified (principal); I10 Essential (primary) hypertension; F13.90 Sedative, hypnotic, or anxiolytic use, unspecified, uncomplicated; G47.00 Insomnia, unspecified
CPT/HCPCS: 93005; 99283; 93010

== ENCOUNTER 2021-12-11 09:54 | Emergency (ER) | payer MEDICARE, OTHER, SELFPAY ==
[2021-12-11 09:59] VITALS: BP 174/70; PULSE 54; RESP 18; TEMP 36.4; O2SAT 98
--- NOTE | 2021-12-11 10:15 | RT.EKG_ITS ---
APPROVED REPORT Exam: Resting ECG Reason for Exam: dizziness Patient Location: E HR:46 bpm ECG Measurements Heart Rate 46 AXIS FL 135 P 76 QRSd 90 QRS -7 QT 492 T 3 QTc 431 Conclusion Sinus bradycardia...rate< 60 Low voltage, extremity leads...all extremity leads <0.5mV Nonspecific T abnormalities, anterior leads...T <-0.10mV, V2-V4. Sinus. T wave inversion in anterior leads, improved compared to previous. No STEMI. I have reviewed and interpreted ECG and agree with software generated interpretation.
[2021-12-11 10:48] VITALS: RESP 16
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
[2021-12-11] MEDS: Zolpidem 10 MG TAB 20 MG PO (11:25)
[2021-12-11 11:30] VITALS: RESP 16
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
--- NOTE | 2021-12-11 12:02 | NUR.NOTE ---
Spoke with Dr. Trevino regarding Lainey's repeated use of the er to get ambien when she runs out early.
== END 2021-12-11 11:52 | disposition home or self-care (01) ==
PROVIDERS: Emergency Provider Physician Assistant; PCP Family Medicine
DX: Z76.0 Encounter for issue of repeat prescription (principal); R42 Dizziness and giddiness; I10 Essential (primary) hypertension; Z87.891 Personal history of nicotine dependence
CPT/HCPCS: 93005; 99283; 93010; 99281

== ENCOUNTER 2021-12-15 13:52 | Emergency (ER) | payer MEDICARE, OTHER, SELFPAY ==
[2021-12-15 13:46] VITALS: BP 152/87; PULSE 77; RESP 18; TEMP 36.8; O2SAT 97
--- NOTE | 2021-12-15 13:59 | W.ED.GENAD ---
Discharge Plan Disposition Patient Disposition: HOME Discharge Details Clinical Impression: Medication addiction, continuous Primary Care Provider: Rui Torres ED Provider: Ace Cruz Home Meds and New Rx's Prescriptions: No Action Fish Oil 1 EACH capsule 1 ea PO DAILY estradiol [Estrace] 42.5 GM cream 42.5 gm VG DIRECTED Qty: 1 6RF Rx Instructions: apply 3mm dot of Estrace cream to vaginal opening 3 times a week. melatonin-pyridoxine (vit B6) [Melatonin (with B6)] 1 EACH tablet 1 tab PO HS ginkgo biloba leaf extract 120 MG capsule 240 mg PO DAILY hydroxyzine pamoate 25 mg Capsule 50 - 75 mg PO DIRECTED Rx Instructions: 50mg BID 75mg HS zolpidem 10 mg tablet 20 mg PO QHS 5 Days Qty: 10 0RF Rx Instructions: 1-2 tablets at bedtime as needed for insomnia levothyroxine [Tirosint] 75 mcg capsule 1 cap PO QAM Label Comments: Take one capsule by mouth with 8 ounces plain water each morning at least 30 minutes before any food, other beverages, other medication. Restasis MultiDose 0.05 % Drops 1 drp ophthalmic (eye) HS PRN clonidine HCl 0.1 mg tablet 0.1 mg PO HS Label Comments: TAKE ONE TABLET BY MOUTH ONCE DAILY AT BEDTIME mupirocin calcium 2 % Cream 1 applic TOPICAL DIRECTED PRN Lotemax 0.5 % ointment 1 applic ophthalmic (eye) HS Label Comments: Apply a thin layer into both eyes at bedtime cetirizine [Zyrtec] 10 mg Tablet 10 mg PO DAILY potassium chloride 20 MEQ tablet,ER particles/crystals 20 meq PO BID coenzyme Q10 [Co Q-10] 100 MG capsule 100 mg PO DAILY 5-hydroxytryptophan (5-HTP) 50 MG capsule 50 mg PO HS Rx Instructions: not as much as on rx glycerin (adult) Suppository 1 supp MO ascorbic acid (vitamin C) [Vitamin C] 500 mg Tablet 500 mg PO DAILY Lacho-E 200 mg Tablet 400 mg PO DAILY arginine HCl (L-arginine) 1,000 mg Tablet 3,000 mg PO DAILY Discharge Instructions Additional Instructions: She has claimed several times on her medications are being stolen and presented to the emergency department asking for either a prescription for your Ambien or that Ambien be given to you. You need to have discussion with your primary care doctor regarding this medication use. Medical Decision Making -To the patient at this point I do not feel comfortable giving her any Ambien or prescribing any Ambien. When she became argumentative with me just told her that unfortunately I believe that she has a substance abuse problem and that she should follow-up with her primary care doctor. The patient does not appear in any distress. Unfortunately she has had multiple emergency department visit where she claims that her medications are stolen and when offered to have police investigate she always declines. HPI General Date/Time Provider Initiated Documentation: 12/15/21 13:57. HPI Narrative: 76-year-old lady presents to the emergency department via EMS stating that she has not slept in 2 to 3 days. Once again she is telling me that her Ambien was once again stolen and as such she has ran out. Her very demonstrates that she had 14 and been prescribed to her on 12 December and that she had 60 of them prescribed on October 23. The patient is actually at some point telling me that she does not want a prescription but she just wants me to give her a couple of pills for tonight. According to her she was seen at [place] emergency department and given 2 pills a few days ago. Related Data Home Medications Medication Instructions Recorded Confirmed ginkgo biloba leaf extract 120 mg 240 mg PO DAILY 08/26/12 12/15/21 capsule melatonin 5 mg-pyridoxine (vitamin 1 tab PO HS 08/26/12 12/15/21 B6) 1 mg tablet (Melatonin (with B6)) omega-3 fatty acids-fish oil 340 1 ea PO DAILY 06/04/13 12/15/21 mg-1,000 mg capsule (Fish Oil) 5-hydroxytryptophan (5-HTP) 50 mg 50 mg PO HS 06/27/16 12/15/21 capsule coenzyme Q10 100 mg capsule (Co 100 mg PO DAILY 06/27/16 12/15/21 Q-10) potassium chloride 20 mEq 20 meq PO BID 06/27/16 12/15/21 tablet,extended release(part/cryst) estradiol 0.01% (0.1 mg/gram) 42.5 gm vaginal DIRECTED #1 tube 12/18/16 12/15/21 vaginal cream (Estrace) hydroxyzine pamoate 25 mg capsule 50 - 75 mg PO DIRECTED 10/24/18 12/15/21 glycerin (adult) 1 supp MO 09/25/19 arginine HCl (L-arginine) 1,000 mg 3,000 mg PO DAILY 03/29/21 12/15/21 tablet ascorbic acid (vitamin C) 500 mg 500 mg PO DAILY 03/29/21 12/15/21 tablet (Vitamin C) s-adenosylmethionine 200 mg tablet 400 mg PO DAILY 03/29/21 12/15/21 (Lacho-E) zolpidem 10 mg tablet 20 mg PO QHS 5 days #10 tabs 09/20/21 12/15/21 cyclosporine 0.05 % eye drops 1 drp ophthalmic (eye) HS PRN 11/10/21 12/15/21 (Restasis MultiDose) levothyroxine 75 mcg capsule 1 cap PO QAM 11/10/21 12/15/21 (Tirosint) cetirizine 10 mg tablet (Zyrtec) 10 mg PO DAILY 11/13/21 12/15/21 clonidine HCl 0.1 mg tablet 0.1 mg PO HS 11/13/21 12/15/21 loteprednol etabonate 0.5 % eye 1 applic ophthalmic (eye) HS 11/13/21 12/15/21 ointment (Lotemax) mupirocin calcium 2 % topical cream 1 applic topical DIRECTED PRN 11/13/21 12/15/21 Previous Rx's Medication Instructions Recorded estradiol 0.01% (0.1 mg/gram) 42.5 gm vaginal DIRECTED #1 tube 12/18/16 vaginal cream (Estrace) zolpidem 10 mg tablet 20 mg PO QHS 5 days #10 tabs 09/20/21 Allergies Allergy/AdvReac Type Severity Reaction Status Date / Time cephalexin [From Keflex] Allergy Unknown Unverified 12/15/21 13:48 clindamycin Allergy Unknown Unverified 12/15/21 13:48 estradiol [From Activella] Allergy Unknown Skin Rash Unverified 12/15/21 13:48 hydrochlorothiazide Allergy Unknown Unverified 12/15/21 13:48 lactose Allergy Unknown Unverified 12/15/21 13:48 losartan Allergy Unknown Swelling/Ed Unverified 12/15/21 13:48 bree norethindrone Allergy Unknown Skin Rash Unverified 12/15/21 13:48 [From Activella] oxycodone [From Percocet] Allergy Unknown Unverified 12/15/21 13:48 prednisolone Allergy Unknown Unverified 12/15/21 13:48 sulfamethoxazole Allergy Unknown fever Unverified 12/15/21 13:48 [From Bactrim] trimethoprim [From Bactrim] Allergy Unknown fever Unverified 12/15/21 13:48 amoxicillin Allergy Unverified 12/15/21 13:48 cetirizine [From Zyrtec] Allergy Skin Rash Unverified 12/15/21 13:48 acetaminophen [From Tylenol] AdvReac Unknown states Unverified 12/15/21 13:48 tylenol creates more pain aspirin AdvReac Unknown Diarrhea, Unverified 12/15/21 13:48 upset stomach but takes it daily esomeprazole [From Nexium] AdvReac Unknown depression Unverified 12/15/21 13:48 hydrocodone [From Vicodin] AdvReac Unknown Nausea Unverified 12/15/21 13:48 hydroxychloroquine AdvReac Unknown Swelling/Ed Unverified 12/15/21 13:48 [From Plaquenil] bree Influenza Virus Vaccines AdvReac Unknown Unverified 12/15/21 13:48 levothyroxine sodium AdvReac Unknown Itching Unverified 12/15/21 13:48 [From Synthroid] omeprazole [From Prilosec] AdvReac Unknown Nausea Unverified 12/15/21 13:48 sertraline [From Zoloft] AdvReac Unknown depression Unverified 12/15/21 13:48 topiramate [From Topamax] AdvReac Unknown Headache Unverified 12/15/21 13:48 venlafaxine [From Effexor] AdvReac Unknown Psychomotor Unverified 12/15/21 13:48 retardation wheat AdvReac Unknown bloating Unverified 12/15/21 13:48 zinc AdvReac Unknown Hives Unverified 12/15/21 13:48 zolpidem [From Intermezzo] AdvReac Unknown Itching Unverified 12/15/21 13:48 diazepam [From Valium] AdvReac shakes Unverified 12/15/21 13:48 red dye AdvReac Nausea Unverified 12/15/21 13:48 oatmeal AdvReac Unknown constipatio Uncoded 12/15/21 13:48 n SUGAR AdvReac Unknown Other (See Uncoded 12/15/21 13:48 Comment) General Stated Complaint: [facility] YUMIKO: 4 Review of Systems Narrative: Constitutional is been negative for fever chills, negative for malaise, negative for fatigue. Eyes: No visual changes, no tearing Cardiovascular no chest pain, no shortness of breath with exertion, no palpitations, no lightheadedness Respiratory: No shortness of breath, no cough, GI: No abdominal pain, no nausea, no vomiting, MSK: No myalgias, no arthralgias Skin: facial rash Neurological: No headaches, no focal weakness, no paresthesias, no dizziness Psych: pos anxiety, no depression Endo: No weight gain no weight loss Hematology/lymph: no easy bleeding, not on blood thinners PFSH All Active Problems (Updated 12/15/21 @ 14:11 by Ace Cruz MD) Ambien use disorder, mild (Acute) Encounter for medication refill (Acute) Medication addiction, continuous (Acute) Tinnitus, right (Acute) Sjogrens syndrome (Acute) Headache (Acute) Depression (Chronic) Restless leg syndrome (Acute) Osteochondritis (Acute) Hypokalemia (Acute) Chest pain (Acute) Tinnitus (Acute) Abnormal auditory perception (Acute) Skin ulcer, limited to breakdown of skin (Acute) Deviated nasal septum (Acute) Otalgia, right ear (Acute) SIMRAN (obstructive sleep apnea) (Chronic) Allergic rhinitis due to allergen (Acute) Nasal crusting (Acute) Thyroid nodule (Acute) DVT prophylaxis (Acute) Discharge planning issues (Acute) Anxiety and depression (Acute) Hypertensive urgency (Acute) Thyroid disorder (Acute) Pancreatic abnormality (Acute) Lung nodules (Acute) Atypical chest pain (Acute) Hypoglycemia (Chronic) IBS (irritable bowel syndrome) (Chronic) Hypothyroid (Chronic) Hypertension (Chronic) Vertigo (Chronic) Insomnia (Chronic) Medical History 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 Dry eye dry mouth Elevated lipids Fibromyalgia History of urinary incontinence Hypercholesterolemia Hypertension Hypothyroidism lupus Myofascial pain Primary fibromyalgia syndrome Surgical History Biopsy of breast x2 section H/O section Hemorrhoidectomy History of colonoscopy 09/06/2008 [facility]ro[facility] 01/02/2016 History of endoscopy 09/23/2013 Family History Mother Dementia Father Heart disease Stroke Social History Smoking/Tobacco Use Status: Former Tobacco Use Smoking risk assessment performed?: Yes Alcohol Intake: current Alcohol Intake frequency: 0-2 drinks per day Alcohol type: wine Drug use: Never Substance use type: does not use Details: quit smoking 40 yrs ago Household members: children Number of Children: 2 number of grandchildren: 1 What is your relationship status?: Panel score (0-1 are the most socially isolated patients): 0 What type of physical activity do you participate in: walking Duration: 60-90 minutes/day Do you feel safe at home: Yes Do you feel safe in your relationship?: Yes Exam Narrative Exam Narrative: General: A,A Ox3, Calm, no apparent distress, well developed, pleasant and cooperative Head Size/Shape: normocephalic, atraumatic Eyes Pupils: PERRLA Extraocular Mobility: intact and symmetrical Conjunctiva: non-injected, anicteric, no discharge Ears, Nose, Throat Nares: patent bilaterally Oral Cavity: moist Respiratory Respiratory Effort: no dyspnea Cardiovascular Pulse Quality: radial pulse 2 +, cap refill normal Musculoskeletal System Joints, Bones, and Muscles: no deformities Extremities: warm and well-perfused, no cyanosis Skin Skin Inspection: no rash, no lesions, no bruising Neurological Motor: normal tone, normal strength, moving all extremities equally Psychiatric: poor insight, good judgement, normal mood and affect Course Vital Signs Vital signs: Vital Signs Temperature 36.8 C 12/15/21 13:46 Pulse 77 12/15/21 13:46 Respiratory Rate 18 12/15/21 13:46 Blood Pressure 152/87 H 12/15/21 13:46 Pulse Oximetry 97 12/15/21 13:46 Temperature 36.8 C 12/15/21 13:46 Temperature Source Temporal Artery Scan 12/15/21 13:46 Pulse 77 12/15/21 13:46 Respiratory Rate 18 12/15/21 13:46 Respiratory Effort Non-Labored 12/15/21 13:49 Blood Pressure 152/87 H 12/15/21 13:46 Blood Pressure Position Sitting 12/15/21 13:46 Pulse Oximetry 97 12/15/21 13:46 Oxygen Delivery Method Room Air 12/15/21 13:46 Oxygen Flow Rate 0 12/15/21 13:46 Pain Level 0 12/15/21 13:46
== END 2021-12-15 14:20 | disposition home or self-care (01) ==
PROVIDERS: Emergency Provider Emergency Medicine; PCP Family Medicine
DX: F19.20 Other psychoactive substance dependence, uncomplicated (principal); I10 Essential (primary) hypertension; Z87.891 Personal history of nicotine dependence
CPT/HCPCS: 99281; 99282

== ENCOUNTER 2021-12-16 08:10 | Inpatient (IN) | payer MEDICARE, OTHER, SELFPAY ==
[2021-12-16 08:09] VITALS: BP 172/75; PULSE 54; RESP 18; TEMP 36.8; O2SAT 98
[2021-12-16 08:51] VITALS: RESP 18
[2021-12-16 08:58] VITALS: BP 116/73; PULSE 56; RESP 16; O2SAT 100
--- NOTE | 2021-12-16 11:30 | RT.EKG_ITS ---
APPROVED REPORT Exam: Resting ECG Reason for Exam: dizzy Patient Location: E HR:54 bpm ECG Measurements Heart Rate 54 AXIS RI 125 P 57 QRSd 106 QRS -36 QT 518 T 244 QTc 492 Conclusion Sinus bradycardia...rate< 60 Left axis deviation...QRS axis (-30,-90) Abnormal T, consider ischemia, diffuse leads...T <-0.20mV, ant/lat/inf. Sinus. T wave inversion in anterior leads, more pronounced compared to previous. No STEMI. I have reviewed and interpreted ECG and agree with software generated interpretation.
[2021-12-16] MEDS: Ondansetron O.D.T. 4 MG TABEF PO (12:28)
[2021-12-16 12:33] LABS: Abs Immature Grans 0.02 10^3/uL (0.0-0.06); Absolute Basophil Count 0.05 10^3/uL (0.0-0.2); Absolute Eosinophil Count 0.06 10^3/uL (0.0-0.7); Absolute Lymphocyte Count 2.14 10^3/uL (1.2-3.4); Absolute Monocyte Count 0.49 10^3/uL (0.1-0.8); Absolute Neutrophil Count 3.91 10^3/uL (1.2-6.7); Basophils % 0.7; Eosinophils % 0.9; HCT 42.2 % (36.0-46.0); HGB 13.7 g/dL (11.2-15.7); Immature Grans % 0.3; Lymphocytes % 32.1; MCH 29.4 pg (27.0-33.0); MCHC 32.5 % (32.0-36.0); MCV 91 fL (80-95); MPV 10.1 fL (8.0-11.0); Monocytes % 7.3; Neutrophils % 58.7; Platelet Count 164 10^3/uL (130-400); RBC 4.66 10^6/uL (3.93-5.22); WBC 6.67 10^3/uL (4.4-10.8)
[2021-12-16 12:41] LABS: Bilirubin Negative (Negative); Blood Negative (Negative); Clarity Clear (Clear); Glucose Negative (Negative); Ketones Negative (Negative); Leukocyte Esterase Negative (Negative); Nitrite Negative (Negative); Specific Gravity 1.015 (1.005-1.025); Urobilinogen 0.2 EU/dL (Up TO 0.2)
[2021-12-16 12:52] LABS: *AMPHETAMINES SCREEN URINE Negative (Negative); *BARBITURATES SCREEN URINE Negative (Negative); *BENZODIAZEPINES SCREEN URINE Negative (Negative); Cannabinoids THC Negative (Negative); Cocaine Screen,Urine Negative (Negative); METHADONE URINE SCREEN Negative (Negative); OPIATES URINE SCREEN Negative (Negative)
[2021-12-16 12:53] LABS: Tricyclic Antidepressants Negative (Negative)
[2021-12-16 12:56] LABS: ALT 34 U/L (14-59); AST 29 U/L (15-37); Albumin 3.9 g/dL (3.4-5.0); Alkaline Phosphatase 73 U/L (46-116); Anion Gap 7.3 mmol/L (3-11); BUN 13 mg/dL (7-18); Bilirubin, Total 0.5 mg/dL (0.2-1.0); CO2 27.7 mmol/L (21.0-32.0); CREATININE 0.9 mg/dL (0.55-1.02); Calcium 9.7 mg/dL (8.5-10.1); Chloride 102 mmol/L (98-107); Estimated GFR 66.26 (mL/min/1.73m2); Glucose 108 mg/dL (74-106); Sodium 137 mmol/L (136-145); Total Protein 7.4 g/dL (6.4-8.2)
[2021-12-16 12:59] LABS: ETHANOL BLOOD < 3.0 mg/dL (<10)
[2021-12-16 13:16] LABS: FREE T4 0.84 ng/dL (0.76-1.46)
--- NOTE | 2021-12-16 13:36 | ED.GENADUL_ITS ---
Discharge Plan Disposition Patient Disposition: [facility] INPATIENT Condition: Stable Discharge Details Clinical Impression: Ambien use disorder, mild, Depression with suicidal ideation Admit Date/Time: 12/16/21 20:50 Admit Provider: Kobe Aguilar Attending Provider: Kobe Aguilar Primary Care Provider: Rui Torres ED Provider: Royce Nazario Discharge Data Discharge Date/Time-TO BE ENTERED AT DEPARTURE: 12/16/21 22:05 Medical Decision Making <KONRAD Rivera - Last Filed: 12/19/21 15:45> Patient has been calm and cooperative throughout this assessment [facility] During a search for placement at this time, patient is voluntary status at this time, she is suicidal without plan Her labs are reassuring She is alert and oriented at time of my assessment and labs are stable, mild elevation in TSH Care will be transitioned to oncoming provider at 1600 <KONRAD Gregory - Last Filed: 12/16/21 20:49> Patient has been calm and cooperative throughout this assessment She was evaluated by [facility]. During a search for placement at this time, patient is voluntary status at this time, she is suicidal without plan Her labs are reassuring She is alert and oriented at time of my assessment and labs are stable, mild elevation in TSH Care will be transitioned to oncoming provider at 1600 1600: Royce Nazario PA-C I assumed care of this 76-year-old female from my colleague KONRAD Luque, please see her initial HPI and examination. Patient has been medically cleared, mental health evaluation completed, and now awaiting voluntary bed placement. A standing order for Ativan has been written by KONRAD Luque given her dependence on Ambien. During my caring for the patient she remained calm, cooperative, had no acute medical concerns or complaints. She had dinner without difficulty. Plan is to discuss the patient with our hospitalist team for admission to our facility while placement is found. Case discussed with Dr. Aguilar, he is agreeable for admission and I will write admission orders This documentation was generated using Rel[employer]ation system, please disregard any oddities of phrase or misspellings. Medical Records Medical records reviewed: Yes I reviewed the patient's medical records. Lab Data Lab results reviewed: Yes I reviewed the patient's lab results. Labs: Laboratory Tests Range/Units 12/16/21 12/16/21 12/16/21 11:45 11:45 12:16 WBC (4.4-10.8) 10^3/uL RBC (3.93-5.22) 10^6/uL Hgb (11.2-15.7) g/dL Hct (36.0-46.0) % MCV (80-95) fL MCH (27.0-33.0) pg MCHC (32.0-36.0) % RDW (11.7-14.6) % Plt Count (130-400) 10^3/uL MPV (8.0-11.0) fL Immature Gran % Neutrophils % Lymphocytes % Monocytes % Eosinophils % Basophils % Nucleated RBC % (0.0-0.3) % Absolute Neutrophils (1.2-6.7) 10^3/uL Absolute Lymphocytes (1.2-3.4) 10^3/uL Absolute Monocytes (0.1-0.8) 10^3/uL Absolute Eosinophils (0.0-0.7) 10^3/uL Absolute Basophils (0.0-0.2) 10^3/uL Sodium (136-145) mmol/L 137 Potassium (3.5-5.1) mmol/L 4.0 Chloride (98-107) mmol/L 102 Carbon Dioxide (21.0-32.0) mmol/L 27.7 Anion Gap (3-11) mmol/L 7.3 BUN (7-18) mg/dL 13 Creatinine (0.55-1.02) mg/dL 0.9 Est GFR (CKD-EPI 2020) (mL/min/1.73m2) 66.26 Glucose (74-106) mg/dL 108 H Calcium (8.5-10.1) mg/dL 9.7 Total Bilirubin (0.2-1.0) mg/dL 0.5 AST (15-37) U/L 29 ALT (14-59) U/L 34 Alkaline Phosphatase (46-116) U/L 73 Troponin I (<or=60) ng/L Total Protein (6.4-8.2) g/dL 7.4 Albumin (3.4-5.0) g/dL 3.9 TSH (0.36-3.74) uIU/mL 11.60 H Free T4 (0.76-1.46) ng/dL 0.84 Urine Color (Yellow) Yellow Urine Clarity (Clear) Clear Urine pH (5-8) 7.0 Ur Specific Superior (1.005-1.025) 1.015 Urine Protein (Negative) mg/dL Negative Urine Ketones (Negative) mg/dL Negative Urine Blood (Negative) Negative Urine Nitrite (Negative) Negative Urine Bilirubin (Negative) Negative Urine Urobilinogen (Up TO 0.2) EU/dL 0.2 Ur Leukocyte Esterase (Negative) Negative Urine Glucose (Negative) mg/dL Negative Urine Opiates Screen (Negative) Negative Urine Methadone Screen (Negative) Negative Ur Barbiturates Screen (Negative) Negative Ur Tricyclics Screen (Negative) Negative Ur Amphetamines Screen (Negative) Negative U Benzodiazepines Scrn (Negative) Negative Urine Cocaine Screen (Negative) Negative Ur THC Screen (Negative) Negative Ethyl Alcohol (<10) mg/dL < 3.0 Range/Units 12/16/21 12/16/21 12:16 12:16 WBC (4.4-10.8) 10^3/uL 6.67 RBC (3.93-5.22) 10^6/uL 4.66 Hgb (11.2-15.7) g/dL 13.7 Hct (36.0-46.0) % 42.2 MCV (80-95) fL 91 MCH (27.0-33.0) pg 29.4 MCHC (32.0-36.0) % 32.5 RDW (11.7-14.6) % 12.0 Plt Count (130-400) 10^3/uL 164 MPV (8.0-11.0) fL 10.1 Immature Gran % 0.3 Neutrophils % 58.7 Lymphocytes % 32.1 Monocytes % 7.3 Eosinophils % 0.9 Basophils % 0.7 Nucleated RBC % (0.0-0.3) % 0.0 Absolute Neutrophils (1.2-6.7) 10^3/uL 3.91 Absolute Lymphocytes (1.2-3.4) 10^3/uL 2.14 Absolute Monocytes (0.1-0.8) 10^3/uL 0.49 Absolute Eosinophils (0.0-0.7) 10^3/uL 0.06 Absolute Basophils (0.0-0.2) 10^3/uL 0.05 Sodium (136-145) mmol/L Potassium (3.5-5.1) mmol/L Chloride (98-107) mmol/L Carbon Dioxide (21.0-32.0) mmol/L Anion Gap (3-11) mmol/L BUN (7-18) mg/dL Creatinine (0.55-1.02) mg/dL Est GFR (CKD-EPI 2020) (mL/min/1.73m2) Glucose (74-106) mg/dL Calcium (8.5-10.1) mg/dL Total Bilirubin (0.2-1.0) mg/dL AST (15-37) U/L ALT (14-59) U/L Alkaline Phosphatase (46-116) U/L Troponin I (<or=60) ng/L < 50 Total Protein (6.4-8.2) g/dL Albumin (3.4-5.0) g/dL TSH (0.36-3.74) uIU/mL Free T4 (0.76-1.46) ng/dL Urine Color (Yellow) Urine Clarity (Clear) Urine pH (5-8) Ur Specific Superior (1.005-1.025) Urine Protein (Negative) mg/dL Urine Ketones (Negative) mg/dL Urine Blood (Negative) Urine Nitrite (Negative) Urine Bilirubin (Negative) Urine Urobilinogen (Up TO 0.2) EU/dL Ur Leukocyte Esterase (Negative) Urine Glucose (Negative) mg/dL Urine Opiates Screen (Negative) Urine Methadone Screen (Negative) Ur Barbiturates Screen (Negative) Ur Tricyclics Screen (Negative) Ur Amphetamines Screen (Negative) U Benzodiazepines Scrn (Negative) Urine Cocaine Screen (Negative) Ur THC Screen (Negative) Ethyl Alcohol (<10) mg/dL HPI <KONRAD Rivera - Last Filed: 12/19/21 15:45> General Date/Time Provider Initiated Documentation: 12/16/21 08:28 . HPI Narrative: 76-year-old female presents with reports of myalgias, nausea, lightheadedness in the presence of being out of her Ambien prescription. She states that she has been feeling suicidal secondary to her lack of sleep. She states she needs this medication in order to help her sleep. She did take a dose last evening per patient. She has a plan to overdose on her hydroxyzine. She states that she is in constant pain secondary to fibromyalgia Related Data Home Medications Medication Instructions Recorded Confirmed ginkgo biloba leaf extract 120 mg 240 mg PO DAILY 08/26/12 12/16/21 capsule melatonin 5 mg-pyridoxine (vitamin 1 tab PO HS 08/26/12 12/16/21 B6) 1 mg tablet (Melatonin (with B6)) omega-3 fatty acids-fish oil 340 1 ea PO DAILY 06/04/13 12/16/21 mg-1,000 mg capsule (Fish Oil) 5-hydroxytryptophan (5-HTP) 50 mg 50 mg PO HS 06/27/16 12/16/21 capsule coenzyme Q10 100 mg capsule (Co 100 mg PO DAILY 06/27/16 12/16/21 Q-10) potassium chloride 20 mEq 20 meq PO BID 06/27/16 12/16/21 tablet,extended release(part/cryst) estradiol 0.01% (0.1 mg/gram) 42.5 gm vaginal DIRECTED #1 tube 12/18/16 12/16/21 vaginal cream (Estrace) hydroxyzine pamoate 25 mg capsule 50 - 75 mg PO DIRECTED 10/24/18 12/16/21 glycerin (adult) 1 supp NE 09/25/19 arginine HCl (L-arginine) 1,000 mg 3,000 mg PO DAILY 03/29/21 12/16/21 tablet ascorbic acid (vitamin C) 500 mg 500 mg PO DAILY 03/29/21 12/16/21 tablet (Vitamin C) s-adenosylmethionine 200 mg tablet 400 mg PO DAILY 03/29/21 12/16/21 (Lacho-E) zolpidem 10 mg tablet 20 mg PO QHS 5 days #10 tabs 09/20/21 12/16/21 cyclosporine 0.05 % eye drops 1 drp ophthalmic (eye) HS PRN 11/10/21 12/16/21 (Restasis MultiDose) levothyroxine 75 mcg capsule 1 cap PO QAM 11/10/21 12/16/21 (Tirosint) cetirizine 10 mg tablet (Zyrtec) 10 mg PO DAILY 11/13/21 12/16/21 clonidine HCl 0.1 mg tablet 0.1 mg PO HS 11/13/21 12/16/21 loteprednol etabonate 0.5 % eye 1 applic ophthalmic (eye) HS 11/13/21 12/16/21 ointment (Lotemax) mupirocin calcium 2 % topical cream 1 applic topical DIRECTED PRN 11/13/21 12/16/21 cyclosporine 0.05 % eye drops in a 1 drp ophthalmic (eye) QHS 12/16/21 12/16/21 dropperette (Restasis) eszopiclone 3 mg tablet (Lunesta) 3 mg PO QHS #10 tabs 12/19/21 Previous Rx's Medication Instructions Recorded estradiol 0.01% (0.1 mg/gram) 42.5 gm vaginal DIRECTED #1 tube 12/18/16 vaginal cream (Estrace) zolpidem 10 mg tablet 20 mg PO QHS 5 days #10 tabs 09/20/21 eszopiclone 3 mg tablet (Lunesta) 3 mg PO QHS #10 tabs 12/19/21 Allergies Allergy/AdvReac Type Severity Reaction Status Date / Time cephalexin [From Keflex] Allergy Unknown Unverified 12/16/21 08:20 clindamycin Allergy Unknown Unverified 12/16/21 08:20 estradiol [From Activella] Allergy Unknown Skin Rash Unverified 12/16/21 08:20 hydrochlorothiazide Allergy Unknown Unverified 12/16/21 08:20 lactose Allergy Unknown Unverified 12/16/21 08:20 losartan Allergy Unknown Swelling/Ed Unverified 12/16/21 08:20 bree norethindrone Allergy Unknown Skin Rash Unverified 12/16/21 08:20 [From Activella] oxycodone [From Percocet] Allergy Unknown Unverified 12/16/21 08:20 prednisolone Allergy Unknown Unverified 12/16/21 08:20 sulfamethoxazole Allergy Unknown fever Unverified 12/16/21 08:20 [From Bactrim] trimethoprim [From Bactrim] Allergy Unknown fever Unverified 12/16/21 08:20 amoxicillin Allergy Unverified 12/16/21 08:20 cetirizine [From Zyrtec] Allergy Skin Rash Unverified 12/16/21 08:20 acetaminophen [From Tylenol] AdvReac Unknown states Unverified 12/16/21 08:20 tylenol creates more pain aspirin AdvReac Unknown Diarrhea, Unverified 12/16/21 08:20 upset stomach but takes it daily esomeprazole [From Nexium] AdvReac Unknown depression Unverified 12/16/21 08:20 hydrocodone [From Vicodin] AdvReac Unknown Nausea Unverified 12/16/21 08:20 hydroxychloroquine AdvReac Unknown Swelling/Ed Unverified 12/16/21 08:20 [From Plaquenil] bree Influenza Virus Vaccines AdvReac Unknown Unverified 12/16/21 08:20 levothyroxine sodium AdvReac Unknown Itching Unverified 12/16/21 08:20 [From Synthroid] omeprazole [From Prilosec] AdvReac Unknown Nausea Unverified 12/16/21 08:20 sertraline [From Zoloft] AdvReac Unknown depression Unverified 12/16/21 08:20 topiramate [From Topamax] AdvReac Unknown Headache Unverified 12/16/21 08:20 venlafaxine [From Effexor] AdvReac Unknown Psychomotor Unverified 12/16/21 08:20 retardation wheat AdvReac Unknown bloating Unverified 12/16/21 08:20 zinc AdvReac Unknown Hives Unverified 12/16/21 08:20 zolpidem [From Intermezzo] AdvReac Unknown Itching Unverified 12/16/21 08:20 diazepam [From Valium] AdvReac shakes Unverified 12/16/21 08:20 red dye AdvReac Nausea Unverified 12/16/21 08:20 oatmeal AdvReac Unknown constipatio Uncoded 12/16/21 08:20 n SUGAR AdvReac Unknown Other (See Uncoded 12/16/21 08:20 Comment) General Stated Complaint: [facility] [facility]UMIKO: 4 Review of Systems <KONRAD Rivera - Last Filed: 12/19/21 15:45> All systems reviewed & are unremarkable except as noted in HPI and below PFSH <KONRAD Rivera - Last Filed: 12/19/21 15:45> All Active Problems (Updated 12/17/21 @ 22:27 by Kobe Aguilar) Insomnia (Acute) Chronic pain (Chronic) DVT prophylaxis (Acute) Discharge planning issues (Acute) Ambien use disorder, mild (Chronic) Encounter for medication refill (Acute) Medication addiction, continuous (Acute) Ambien use disorder, mild (Acute) Depression with suicidal ideation (Acute) Tinnitus, right (Acute) Sjogrens syndrome (Acute) Headache (Acute) Depression (Chronic) Restless leg syndrome (Acute) Osteochondritis (Acute) Hypokalemia (Acute) Chest pain (Acute) Tinnitus (Acute) Abnormal auditory perception (Acute) Skin ulcer, limited to breakdown of skin (Acute) Deviated nasal septum (Acute) Otalgia, right ear (Acute) SIMRAN (obstructive sleep apnea) (Chronic) Allergic rhinitis due to allergen (Acute) Nasal crusting (Acute) Thyroid nodule (Acute) DVT prophylaxis (Acute) Discharge planning issues (Acute) Anxiety and depression (Chronic) Hypertensive urgency (Acute) Thyroid disorder (Acute) Pancreatic abnormality (Acute) Lung nodules (Acute) Atypical chest pain (Acute) Hypoglycemia (Chronic) IBS (irritable bowel syndrome) (Chronic) Hypothyroid (Chronic) Hypertension (Chronic) Vertigo (Chronic) Insomnia (Chronic) Medical History 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 Dry eye dry mouth Elevated lipids Fibromyalgia History of urinary incontinence Hypercholesterolemia Hypertension Hypothyroidism lupus Myofascial pain Primary fibromyalgia syndrome Surgical History Biopsy of breast x2 section H/O section Hemorrhoidectomy History of colonoscopy 09/06/2008 [facility] Orope[facility] 01/02/2016 History of endoscopy 09/23/2013 Family History Mother Dementia Father Heart disease Stroke Social History Smoking/Tobacco Use Status: Former Tobacco Use Smoking risk assessment performed?: Yes Alcohol Intake: current Alcohol Intake frequency: 0-2 drinks per day Alcohol type: wine Drug use: Never Substance use type: does not use Details: quit smoking 40 yrs ago Household members: children Number of Children: 2 number of grandchildren: 1 What is your relationship status?: Panel score (0-1 are the most socially isolated patients): 0 What type of physical activity do you participate in: walking Duration: 60-90 minutes/day Do you feel safe at home: Yes Do you feel safe in your relationship?: Yes Exam <KONRAD Rivera - Last Filed: 12/19/21 15:45> Const General: cooperative, comfortable and no acute distress HENMT Head: normal to inspection Other: uvula midline Eyes Pupils: PERRL Resp Effort & Inspection: normal respiratory effort Cardio Rate: regular rate GI Inspection: normal to inspection Skin Other: excoriations to face Neuro General: patient alert and patient oriented x3 Psych Appearance: disheveled Speech and Movement: speech clear Attitude: cooperative Thought Process: tangential Course <KONRAD Rivera Last Filed: 12/19/21 15:45> Vital Signs Vital signs: Vital Signs Temperature 36.8 C 12/16/21 08:09 Pulse 54 L 12/16/21 08:09 Respiratory Rate 18 12/16/21 08:09 Blood Pressure 172/75 H 12/16/21 08:09 Pulse Oximetry 98 12/16/21 08:09 Temperature 36.8 C 12/16/21 08:09 Temperature Source Temporal Artery Scan 12/16/21 08:09 Pulse 56 L 12/16/21 08:58 Respiratory Rate 16 12/16/21 08:58 Respiratory Effort Non-Labored 12/16/21 08:51 Respiratory Depth Normal 12/16/21 08:51 Respiratory Pattern Normal 12/16/21 08:51 Blood Pressure 116/73 12/16/21 08:58 Blood Pressure Position Sitting 12/16/21 08:09 Pulse Oximetry 100 12/16/21 08:58 Oxygen Delivery Method Room Air 12/16/21 08:58 Oxygen Flow Rate 0 12/16/21 08:58 Pain Level 10 12/16/21 08:58 Lab/Test Results Lab/Test Results: Laboratory Tests Range/Units 12/16/21 12/16/21 12/16/21 11:45 11:45 12:16 WBC (4.4-10.8) 10^3/uL RBC (3.93-5.22) 10^6/uL Hgb (11.2-15.7) g/dL Hct (36.0-46.0) % MCV (80-95) fL MCH (27.0-33.0) pg MCHC (32.0-36.0) % RDW (11.7-14.6) % Plt Count (130-400) 10^3/uL MPV (8.0-11.0) fL Immature Gran % Neutrophils % Lymphocytes % Monocytes % Eosinophils % Basophils % Nucleated RBC % (0.0-0.3) % Absolute Neutrophils (1.2-6.7) 10^3/uL Absolute Lymphocytes (1.2-3.4) 10^3/uL Absolute Monocytes (0.1-0.8) 10^3/uL Absolute Eosinophils (0.0-0.7) 10^3/uL Absolute Basophils (0.0-0.2) 10^3/uL Sodium (136-145) mmol/L 137 Potassium (3.5-5.1) mmol/L 4.0 Chloride (98-107) mmol/L 102 Carbon Dioxide (21.0-32.0) mmol/L 27.7 Anion Gap (3-11) mmol/L 7.3 BUN (7-18) mg/dL 13 Creatinine (0.55-1.02) mg/dL 0.9 Est GFR (CKD-EPI 2020) (mL/min/1.73m2) 66.26 Glucose (74-106) mg/dL 108 H Calcium (8.5-10.1) mg/dL 9.7 Total Bilirubin (0.2-1.0) mg/dL 0.5 AST (15-37) U/L 29 ALT (14-59) U/L 34 Alkaline Phosphatase (46-116) U/L 73 Total Protein (6.4-8.2) g/dL 7.4 Albumin (3.4-5.0) g/dL 3.9 TSH (0.36-3.74) uIU/mL 11.60 H Free T4 (0.76-1.46) ng/dL 0.84 Urine Color (Yellow) Yellow Urine Clarity (Clear) Clear Urine pH (5-8) 7.0 Ur Specific Superior (1.005-1.025) 1.015 Urine Protein (Negative) mg/dL Negative Urine Ketones (Negative) mg/dL Negative Urine Blood (Negative) Negative Urine Nitrite (Negative) Negative Urine Bilirubin (Negative) Negative Urine Urobilinogen (Up TO 0.2) EU/dL 0.2 Ur Leukocyte Esterase (Negative) Negative Urine Glucose (Negative) mg/dL Negative Urine Opiates Screen (Negative) Negative Urine Methadone Screen (Negative) Negative Ur Barbiturates Screen (Negative) Negative Ur Tricyclics Screen (Negative) Negative Ur Amphetamines Screen (Negative) Negative U Benzodiazepines Scrn (Negative) Negative Urine Cocaine Screen (Negative) Negative Ur THC Screen (Negative) Negative Ethyl Alcohol (<10) mg/dL < 3.0 Range/Units 12/16/21 12:16 WBC (4.4-10.8) 10^3/uL 6.67 RBC (3.93-5.22) 10^6/uL 4.66 Hgb (11.2-15.7) g/dL 13.7 Hct (36.0-46.0) % 42.2 MCV (80-95) fL 91 MCH (27.0-33.0) pg 29.4 MCHC (32.0-36.0) % 32.5 RDW (11.7-14.6) % 12.0 Plt Count (130-400) 10^3/uL 164 MPV (8.0-11.0) fL 10.1 Immature Gran % 0.3 Neutrophils % 58.7 Lymphocytes % 32.1 Monocytes % 7.3 Eosinophils % 0.9 Basophils % 0.7 Nucleated RBC % (0.0-0.3) % 0.0 Absolute Neutrophils (1.2-6.7) 10^3/uL 3.91 Absolute Lymphocytes (1.2-3.4) 10^3/uL 2.14 Absolute Monocytes (0.1-0.8) 10^3/uL 0.49 Absolute Eosinophils (0.0-0.7) 10^3/uL 0.06 Absolute Basophils (0.0-0.2) 10^3/uL 0.05 Sodium (136-145) mmol/L Potassium (3.5-5.1) mmol/L Chloride (98-107) mmol/L Carbon Dioxide (21.0-32.0) mmol/L Anion Gap (3-11) mmol/L BUN (7-18) mg/dL Creatinine (0.55-1.02) mg/dL Est GFR (CKD-EPI 2020) (mL/min/1.73m2) Glucose (74-106) mg/dL Calcium (8.5-10.1) mg/dL Total Bilirubin (0.2-1.0) mg/dL AST (15-37) U/L ALT (14-59) U/L Alkaline Phosphatase (46-116) U/L Total Protein (6.4-8.2) g/dL Albumin (3.4-5.0) g/dL TSH (0.36-3.74) uIU/mL Free T4 (0.76-1.46) ng/dL Urine Color (Yellow) Urine Clarity (Clear) Urine pH (5-8) Ur Specific Superior (1.005-1.025) Urine Protein (Negative) mg/dL Urine Ketones (Negative) mg/dL Urine Blood (Negative) Urine Nitrite (Negative) Urine Bilirubin (Negative) Urine Urobilinogen (Up TO 0.2) EU/dL Ur Leukocyte Esterase (Negative) Urine Glucose (Negative) mg/dL Urine Opiates Screen (Negative) Urine Methadone Screen (Negative) Ur Barbiturates Screen (Negative) Ur Tricyclics Screen (Negative) Ur Amphetamines Screen (Negative) U Benzodiazepines Scrn (Negative) Urine Cocaine Screen (Negative) Ur THC Screen (Negative) Ethyl Alcohol (<10) mg/dL Sign Out <KONRAD Rivera - Last Filed: 12/19/21 15:45> Sign Out Data: Sign Out Comment: voluntary [facility] pt, ambien/benzo addiction hx, pending placement Last updated by Lashay Luque PA at 12/16/21 15:38
[2021-12-16 14:00] LABS: Troponin I < 50 ng/L (<or=60)
[2021-12-16] MEDS: LORazepam 1 MG TAB PO ×3 (14:19→23:42)
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
--- NOTE | 2021-12-16 16:45 | NUR.NOTE ---
1629:1/2L O2 so mom can feed patient
[2021-12-16 21:50] VITALS: BP 106/67; PULSE 57; RESP 18; TEMP 36.7; O2SAT 90
[2021-12-16 21:54] LABS: Source Nasal/Nares
[2021-12-16 22:20] VITALS: BP 158/79; PULSE 55; RESP 16; TEMP 36.8; O2SAT 98
[2021-12-16 22:24] LABS: COVID-19 PCR Negative (Negative)
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
--- NOTE | 2021-12-16 23:46 | NUR.NOTE ---
This designer writer asked nurse to bring patient eye mask along with ear plugs to this patient to help her sleep with noise level of another patient nearby. RN gave eye mask, ear plugs along with medications to this patient.
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
[2021-12-17] MEDS: Cetirizine 10 MG TAB PO (09:07)
[2021-12-17] MEDS: Potassium Chloride 20 MEQ TABCR PO ×2 (09:07→21:27)
--- NOTE | 2021-12-17 15:45 | PGE_ITS ---
Date of Service Date of service: 12/17/21 Time of Service: 15:46 Assessment and Plan Assessment and plan (1) Depression with suicidal ideation: Status: Acute Assessment and plan: Ran out of ambien - terminal worker insomnia - will have eval (2) Chronic pain: Status: Chronic Assessment and plan: S/T fibromylalgia takes no medication for this (3) Insomnia: Status: Acute Assessment and plan: Takes ambien 20 mg HS - she has 60 -- 10 mg Ambien prescribed to her from her PCP every month. She has occasionally gotten 10-14 extra/month by the ED. She also takes melatonin-pyridoxine nightly. (4) Ambien use disorder, mild: Status: Acute Assessment and plan: See above (5) Anxiety and depression: Status: Acute Assessment and plan: Takes some herbal medications - see med list - she is going to see someone from (6) DVT prophylaxis: Status: Acute Assessment and plan: NA - mobile (7) Discharge planning issues: Status: Acute Assessment and plan: Care mgt is working on placement. Subjective Subjective Patient reports: no new complaints Interval history since last seen: Awake, alert, conversant. States she is tired of not sleeping. Exam Const General: cooperative, comfortable and no acute distress HENMT Head: normal to inspection Other: uvula midline Eyes Pupils: PERRL Resp Effort & Inspection: normal respiratory effort Cardio Rate: regular rate GI Inspection: normal to inspection Skin Other: excoriations to face Neuro General: patient alert and patient oriented x3 Psych Appearance: disheveled Speech and Movement: speech clear Attitude: cooperative Thought Process: tangential Objective Last Vital Signs Temp 36.8 C 12/16/21 22:20 Pulse 55 L 12/16/21 22:20 Resp 16 12/16/21 22:20 BP 158/79 H 12/16/21 22:20 Pulse Ox 98 12/16/21 22:20 Laboratory Results - last 24 hr 12/16/21 21:47 COVID-19 Source Nasal/Nares SARS-CoV-2 (PCR) Negative Reviewed Pertinent PMH: Yes
[2021-12-17 16:11] VITALS: BP 149/83; PULSE 68; RESP 18; TEMP 36.1; O2SAT 94
--- NOTE | 2021-12-17 16:52 | CMSP_ITS ---
- If Service Date Differs Date of service: 12/17/21 Time of Service: 17:07 Care Management Safety Plan Status: Voluntary - Reason for Wait Reason for Wait: Inpatient Admission VOLUNTARY FOR INPATIENT PSYCHIATRIC STABILIZATION. Patient is appropriate in all interactions since arriving at [facility]; Pt has demonstrated appropriate coping and communication skills, has articulated his or her needs and concerns and is fully engaged during staff interactions. Safety plan has been established with patient, and care team, to adhere to patient goals, identify restrictions based on behavioral status, address nutrition, and determine allowed personal belongings, tools for hygiene and personal care. Determine level of activity including ambulation, level of supervision, visitors, and determine privileges based on behaviors and level of engagement by pt. SAFETY PLAN: 1. Will remain on suicide precautions. In Paper Clothes 2. Will remain in room under direct supervision of one-on-one staff at all times provided by [employer]; LILA, [employer] petroleum refinery operator. 3. May have paper cups, plates, finger foods as well as a cardboard spoon with which to eat meals. 4. Follow [facility] Management of the Admitted Behavioral Health Patient policy. 5. Comfort bath system, shower permitted with escort at RN discretion. 6. No personal belongings-soft items permitted at RN discretion. 7. Visitors-none at this time. 8. Activities: soft cart items approved per RN discretion. 9. Bathroom privileges: available in room without limitation on M/S. 10. Phone: via cordless phone at RN discretion. 11. Due to VOLUNTARY status, if patient wishes to leave [facility], staff will contact [facility] Crisis Screener ([phone]) and On-Call Field Underwriter ([phone]) as soon as possible. In the event of elopement, notify [facility] Police ([phone]). Patient is currently voluntarily at [facility] and seeking inpatient admission when a bed becomes available. [facility] Frontline Pile Trimmer will continue seeking placement. Please contact the Boat Rigger Field Underwriter ([phone]) and [facility] Pile Trimmer ([phone]) for any needed changes in the Safety Plan. Safety plan has been provided to interdepartmental care team.
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
[2021-12-17] MEDS: LORazepam 1 MG TAB PO ×2 (21:28→23:59)
[2021-12-17] MEDS: Acetaminophen 325 MG TAB PO (21:28)
[2021-12-17] MEDS: Milk of Magnesia 30 ML CUP PO (21:29)
[2021-12-18 07:50] VITALS: BP 163/87; PULSE 57; RESP 17; TEMP 36.6; O2SAT 98
[2021-12-18] MEDS: Potassium Chloride 20 MEQ TABCR PO ×2 (07:58→21:03)
[2021-12-18] MEDS: Cetirizine 10 MG TAB PO (07:58)
[2021-12-18] MEDS: Polyethylene Glycol 3350 17 GM PACKET PO (10:20)
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
--- NOTE | 2021-12-18 17:32 | CMPROGNOTE_ITS ---
- If Service Date Differs Date of service: 12/18/21 Time of Service: 17:32 Care Management Progress Note Hospitalist and [facility] contact coordinated by this consumer loan underwriter. VERONICA Hansen reports Lainey is sleep deprived which explains her symptomology. Her SI is related to her sleeplessness. Lainey verbalized wanting to return home, plan for her to stay overnight and leave in the morning. No SI/HI, provider cancelled [employer] order set. Lainey no longer voluntary for placement she would like to return home, HS to be notified. Anticipate outpatient referral for sleep study, per VERONICA Hansen. Transportation via private vehicle with family.
[2021-12-18] MEDS: LORazepam 1 MG TAB PO ×2 (18:20→21:05)
[2021-12-18] MEDS: Eszopiclone 3 MG TAB PO (21:03)
[2021-12-19 07:43] VITALS: BP 169/81; PULSE 71; RESP 17; TEMP 36.6; O2SAT 99
[2021-12-19] MEDS: Potassium Chloride 20 MEQ TABCR PO (07:53)
[2021-12-19] MEDS: Cetirizine 10 MG TAB PO (07:53)
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
--- NOTE | 2021-12-19 15:11 | PDOC.CMDIS ---
- If Service Date Differs Date of service: 12/19/21 Time of Service: 15:11 LACE Index Scoring Tool - Questions: Length of Stay (in days): 3 Acuity (Admit via E.D.?): Yes E.D. Visits: 10 - Answers: Total Score: 10 Risk of Readmission: High Risk Care Management Discharge Reason for Hospitalization: Depression with SI, Ambien Abuse Discharge Plan: Lainey will return home today with no new services. Per MD, she denies SI/HI, and stated that her suicidal statement was situational due to her medical concerns at the time. CM coordinated a private vehicle through [facility], including a stop at [facility] in [facility]. CM sent a referral to [facility] to help coordinate a new, more local PCP for Lainey. She will follow up with her PCP and discharge plan of care. She was happy to be returning home. Patient/Family Education Needs: Review discharge instructions and limitations, discussion of self care needs including ask me three. Services Needed at Discharge: Transportation ([facility])
== END 2021-12-19 13:46 | disposition home or self-care (01) | DRG 881 ==
LOC: ER 21:11 → MS 22:04
PROVIDERS: Physician Assistant; Admitting Provider Family Medicine; Emergency Provider Physician Assistant; PCP Family Medicine; Visit Provider Family Medicine
DX: F32.A Depression, unspecified (principal); R45.851 Suicidal ideations; F13.139 Sedative, hypnotic or anxiolytic abuse with withdrawal, unspecified; M79.7 Fibromyalgia; G47.00 Insomnia, unspecified; M35.00 Sjogren syndrome, unspecified; G25.81 Restless legs syndrome; G47.33 Obstructive sleep apnea (adult) (pediatric); F41.9 Anxiety disorder, unspecified; F43.10 Post-traumatic stress disorder, unspecified; R91.8 Other nonspecific abnormal finding of lung field; E03.9 Hypothyroidism, unspecified; I10 Essential (primary) hypertension; Z87.891 Personal history of nicotine dependence
CPT/HCPCS: 36415; 80053; 80307; 87635; 93005; 99285; 80320; 81003; 84439; 84443; 84484; 85025; 93010; 99222; 99232; 99239

== ENCOUNTER 2022-01-05 10:07 | Emergency (ER) | payer MEDICARE, OTHER, SELFPAY ==
[2022-01-05 10:10] VITALS: BP 176/81; PULSE 66; RESP 18; TEMP 36.3; O2SAT 97
--- NOTE | 2022-01-05 10:26 | W.ED.GENAD ---
Discharge Plan Disposition Patient Disposition: HOME Condition: Stable Discharge Details Clinical Impression: Insomnia Primary Care Provider: Rui Torres ED Provider: Felix Wood Home Meds and New Rx's Prescriptions: Continued Fish Oil 1 EACH capsule 1 ea PO DAILY estradiol [Estrace] 42.5 GM cream 42.5 gm VG DIRECTED Qty: 1 6RF Rx Instructions: apply 3mm dot of Estrace cream to vaginal opening 3 times a week. melatonin-pyridoxine (vit B6) [Melatonin (with B6)] 1 EACH tablet 1 tab PO HS ginkgo biloba leaf extract 120 MG capsule 240 mg PO DAILY hydroxyzine pamoate 25 mg Capsule 50 - 75 mg PO DIRECTED Rx Instructions: 50mg BID 75mg HS zolpidem 10 mg tablet 20 mg PO QHS 5 Days Qty: 10 0RF Rx Instructions: 1-2 tablets at bedtime as needed for insomnia levothyroxine [Tirosint] 75 mcg capsule 1 cap PO QAM Label Comments: Take one capsule by mouth with 8 ounces plain water each morning at least 30 minutes before any food, other beverages, other medication. Restasis MultiDose 0.05 % Drops 1 drp ophthalmic (eye) HS PRN clonidine HCl 0.1 mg tablet 0.1 mg PO HS Label Comments: TAKE ONE TABLET BY MOUTH ONCE DAILY AT BEDTIME mupirocin calcium 2 % Cream 1 applic TOPICAL DIRECTED PRN Lotemax 0.5 % ointment 1 applic ophthalmic (eye) HS Label Comments: Apply a thin layer into both eyes at bedtime cetirizine [Zyrtec] 10 mg Tablet 10 mg PO DAILY potassium chloride 20 MEQ tablet,ER particles/crystals 20 meq PO BID coenzyme Q10 [Co Q-10] 100 MG capsule 100 mg PO DAILY 5-hydroxytryptophan (5-HTP) 50 MG capsule 50 mg PO HS Rx Instructions: not as much as on rx glycerin (adult) Suppository 1 supp [place] ascorbic acid (vitamin C) [Vitamin C] 500 mg Tablet 500 mg PO DAILY Lacho-E 200 mg Tablet 400 mg PO DAILY arginine HCl (L-arginine) 1,000 mg Tablet 3,000 mg PO DAILY cyclosporine [Restasis] 0.05 % dropperette 1 drp ophthalmic (eye) QHS eszopiclone [Lunesta] 3 mg tablet 3 mg PO QHS Qty: 10 0RF Discharge Instructions Additional Instructions: Please continue to take your medication as prescribed and follow-up with your primary care provider for any further needs of refills of your medication. Referrals: Rui Torres [Primary Care Provider] - Discharge Data Discharge Date/Time-TO BE ENTERED AT DEPARTURE: 01/05/22 10:41 Medical Decision Making Also patient presenting to the emergency department for chief complaint of needing her Lunesta medication. Patient reports that her [facility] and she was not able to fill her prescription in time and has no further medication left. She states that the Ambien and lorazepam was discontinued and is just taking her Lunesta which has been helping. Patient denies any other new or change in her medical condition. Basic physical exam is unremarkable and patient in stable condition. Patient is hypertensive on exam but was encouraged to take normally prescribed medications. Reviewed patient's recent hospital admission and patient was prescribed Lunesta at time of discharge. Will give patient 2 tablets to go home with that should allow her sleep over the next 2 days until she can refill her medication on Friday. After discussion of diagnosis and plan of care patient has no further needs, questions, or concerns and states clear understanding to return to the emergency department for any worsening symptoms. This documentation was generated using [employer] dictation system, please disregard any oddities of phrase or misspellings. HPI General Mode of arrival: ambulatory. Date/Time Provider Initiated Documentation: 01/05/22 10:10. Limitations to Documentation: no limitations. Information obtained by: patient, RN notes reviewed and old records reviewed. History of Present Illness 76 year old F presents to the emergency department with the chief complaint of Insomnia, described as similar to prior episodes, Quality is described as other (Denies any change in chronic medical condition), No relieving factors improve symptom(s), No exacerbating factors reported . Patient notes no other symptoms.. Patient did receive the following treatments prior to arrival, none Related Data Home Medications Medication Instructions Recorded Confirmed ginkgo biloba leaf extract 120 mg 240 mg PO DAILY 08/26/12 01/05/22 capsule melatonin 5 mg-pyridoxine (vitamin 1 tab PO HS 08/26/12 01/05/22 B6) 1 mg tablet (Melatonin (with B6)) omega-3 fatty acids-fish oil 340 1 ea PO DAILY 06/04/13 01/05/22 mg-1,000 mg capsule (Fish Oil) 5-hydroxytryptophan (5-HTP) 50 mg 50 mg PO HS 06/27/16 01/05/22 capsule coenzyme Q10 100 mg capsule (Co 100 mg PO DAILY 06/27/16 01/05/22 Q-10) potassium chloride 20 mEq 20 meq PO BID 06/27/16 01/05/22 tablet,extended release(part/cryst) estradiol 0.01% (0.1 mg/gram) 42.5 gm vaginal DIRECTED #1 tube 12/18/16 12/16/21 vaginal cream (Estrace) hydroxyzine pamoate 25 mg capsule 50 - 75 mg PO DIRECTED 10/24/18 01/05/22 glycerin (adult) 1 supp IL 09/25/19 arginine HCl (L-arginine) 1,000 mg 3,000 mg PO DAILY 03/29/21 01/05/22 tablet ascorbic acid (vitamin C) 500 mg 500 mg PO DAILY 03/29/21 01/05/22 tablet (Vitamin C) s-adenosylmethionine 200 mg tablet 400 mg PO DAILY 03/29/21 01/05/22 (Lacho-E) zolpidem 10 mg tablet 20 mg PO QHS 5 days #10 tabs 09/20/21 01/05/22 cyclosporine 0.05 % eye drops 1 drp ophthalmic (eye) HS PRN 11/10/21 01/05/22 (Restasis MultiDose) levothyroxine 75 mcg capsule 1 cap PO QAM 11/10/21 01/05/22 (Tirosint) cetirizine 10 mg tablet (Zyrtec) 10 mg PO DAILY 11/13/21 01/05/22 clonidine HCl 0.1 mg tablet 0.1 mg PO HS 11/13/21 12/16/21 loteprednol etabonate 0.5 % eye 1 applic ophthalmic (eye) HS 11/13/21 01/05/22 ointment (Lotemax) mupirocin calcium 2 % topical cream 1 applic topical DIRECTED PRN 11/13/21 01/05/22 cyclosporine 0.05 % eye drops in a 1 drp ophthalmic (eye) QHS 09/25/22 10/15/22 dropperette (Restasis) eszopiclone 3 mg tablet (Lunesta) 3 mg PO QHS #10 tabs 12/19/21 01/05/22 Previous Rx's Medication Instructions Recorded estradiol 0.01% (0.1 mg/gram) 42.5 gm vaginal DIRECTED #1 tube 12/18/16 vaginal cream (Estrace) zolpidem 10 mg tablet 20 mg PO QHS 5 days #10 tabs 09/20/21 eszopiclone 3 mg tablet (Lunesta) 3 mg PO QHS #10 tabs 12/19/21 Allergies Allergy/AdvReac Type Severity Reaction Status Date / Time cephalexin [From Keflex] Allergy Unknown Unverified 01/05/22 10:13 clindamycin Allergy Unknown Unverified 01/05/22 10:13 estradiol [From Activella] Allergy Unknown Skin Rash Unverified 01/05/22 10:13 hydrochlorothiazide Allergy Unknown Unverified 01/05/22 10:13 lactose Allergy Unknown Unverified 01/05/22 10:13 losartan Allergy Unknown Swelling/Ed Unverified 01/05/22 10:13 bree norethindrone Allergy Unknown Skin Rash Unverified 01/05/22 10:13 [From Activella] oxycodone [From Percocet] Allergy Unknown Unverified 01/05/22 10:13 prednisolone Allergy Unknown Unverified 01/05/22 10:13 sulfamethoxazole Allergy Unknown fever Unverified 01/05/22 10:13 [From Bactrim] trimethoprim [From Bactrim] Allergy Unknown fever Unverified 01/05/22 10:13 amoxicillin Allergy Unverified 01/05/22 10:13 cetirizine [From Zyrtec] Allergy Skin Rash Unverified 01/05/22 10:13 acetaminophen [From Tylenol] AdvReac Unknown states Unverified 01/05/22 10:13 tylenol creates more pain aspirin AdvReac Unknown Diarrhea, Unverified 01/05/22 10:13 upset stomach but takes it daily esomeprazole [From Nexium] AdvReac Unknown depression Unverified 01/05/22 10:13 hydrocodone [From Vicodin] AdvReac Unknown Nausea Unverified 01/05/22 10:13 hydroxychloroquine AdvReac Unknown Swelling/Ed Unverified 01/05/22 10:13 [From Plaquenil] bree Influenza Virus Vaccines AdvReac Unknown Unverified 01/05/22 10:13 levothyroxine sodium AdvReac Unknown Itching Unverified 01/05/22 10:13 [From Synthroid] omeprazole [From Prilosec] AdvReac Unknown Nausea Unverified 01/05/22 10:13 sertraline [From Zoloft] AdvReac Unknown depression Unverified 01/05/22 10:13 topiramate [From Topamax] AdvReac Unknown Headache Unverified 01/05/22 10:13 venlafaxine [From Effexor] AdvReac Unknown Psychomotor Unverified 01/05/22 10:13 retardation wheat AdvReac Unknown bloating Unverified 01/05/22 10:13 zinc AdvReac Unknown Hives Unverified 01/05/22 10:13 zolpidem [From Intermezzo] AdvReac Unknown Itching Unverified 01/05/22 10:13 diazepam [From Valium] AdvReac shakes Unverified 01/05/22 10:13 red dye AdvReac Nausea Unverified 01/05/22 10:13 oatmeal AdvReac Unknown constipatio Uncoded 01/05/22 10:13 n SUGAR AdvReac Unknown Other (See Uncoded 01/05/22 10:13 Comment) General Stated Complaint: Recheck YUMIKO: 5 Review of Systems Narrative: 6 systems reviewed and unremarkable except what is marked below. Psychiatric Psychiatric: Reports as per HPI and Reports abnormal sleep pattern PFSH All Active Problems (Updated 01/05/22 @ 10:33 by Felix Wood NP) Chronic pain (Chronic) DVT prophylaxis (Acute) Discharge planning issues (Acute) Ambien use disorder, mild (Chronic) Encounter for medication refill (Acute) Medication addiction, continuous (Acute) Tinnitus, right (Acute) Sjogrens syndrome (Acute) Headache (Acute) Depression (Chronic) Restless leg syndrome (Acute) Osteochondritis (Acute) Hypokalemia (Acute) Chest pain (Acute) Tinnitus (Acute) Abnormal auditory perception (Acute) Skin ulcer, limited to breakdown of skin (Acute) Deviated nasal septum (Acute) Otalgia, right ear (Acute) SIMRAN (obstructive sleep apnea) (Chronic) Allergic rhinitis due to allergen (Acute) Nasal crusting (Acute) Thyroid nodule (Acute) DVT prophylaxis (Acute) Discharge planning issues (Acute) Anxiety and depression (Chronic) Hypertensive urgency (Acute) Thyroid disorder (Acute) Pancreatic abnormality (Acute) Lung nodules (Acute) Atypical chest pain (Acute) Hypoglycemia (Chronic) IBS (irritable bowel syndrome) (Chronic) Hypothyroid (Chronic) Hypertension (Chronic) Vertigo (Chronic) Insomnia (Chronic) Medical History 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 Dry eye dry mouth Elevated lipids Fibromyalgia History of urinary incontinence Hypercholesterolemia Hypertension Hypothyroidism lupus Myofascial pain Primary fibromyalgia syndrome Surgical History Biopsy of breast x2 section H/O section Hemorrhoidectomy History of colonoscopy 09/06/2008 Dr. Oropeza [facility] 01/02/2016 History of endoscopy 09/23/2013 Family History Mother Dementia Father Heart disease Stroke Social History Smoking/Tobacco Use Status: Former Tobacco Use Smoking risk assessment performed?: Yes Alcohol Intake: current Alcohol Intake frequency: 0-2 drinks per day Alcohol type: wine Drug use: Never Substance use type: does not use Details: quit smoking 40 yrs ago Household members: children Number of Children: 2 number of grandchildren: 1 What is your relationship status?: Panel score (0-1 are the most socially isolated patients): 0 What type of physical activity do you participate in: walking Duration: 60-90 minutes/day Do you feel safe at home: Yes Do you feel safe in your relationship?: Yes Exam Const General: cooperative, no acute distress and not ill appearing Orientation: alert, awake and oriented x3 HENMT Mouth: moist mucous membranes Resp Effort & Inspection: normal respiratory effort, able to speak in complete sentences and no respiratory distress Auscultation: clear to auscultation bilaterally Cardio Rate: regular rate Rhythm: regular rhythm Heart Sounds: S1 normal and S2 normal Neuro General: patient alert, patient awake, patient oriented x3, moves all extremities and no focal motor deficits Course Vital Signs Vital signs: Vital Signs Temperature 36.3 C L 01/05/22 10:10 Pulse 66 01/05/22 10:10 Respiratory Rate 18 01/05/22 10:10 Blood Pressure 176/81 H 01/05/22 10:10 Pulse Oximetry 97 01/05/22 10:10 Temperature 36.3 C L 01/05/22 10:10 Temperature Source Temporal Artery Scan 01/05/22 10:10 Pulse 66 01/05/22 10:10 Respiratory Rate 18 01/05/22 10:10 Respiratory Effort Non-Labored 01/05/22 10:14 Blood Pressure 176/81 H 01/05/22 10:10 Blood Pressure Position Sitting 01/05/22 10:10 Pulse Oximetry 97 01/05/22 10:10 Oxygen Delivery Method Room Air 01/05/22 10:10 Oxygen Flow Rate 0 01/05/22 10:10
[2022-01-05] MEDS: Eszopiclone 3 MG TAB 6 MG PO (10:39)
== END 2022-01-05 10:41 | disposition home or self-care (01) ==
PROVIDERS: Emergency Provider Nurse Practitioner Family; PCP Family Medicine
DX: G47.00 Insomnia, unspecified (principal); I10 Essential (primary) hypertension; Z87.891 Personal history of nicotine dependence
CPT/HCPCS: 99284

== ENCOUNTER 2022-01-27 09:06 | Emergency (ER) | payer MEDICARE, OTHER, SELFPAY ==
[2022-01-27 09:09] VITALS: BP 157/85; PULSE 75; RESP 18; TEMP 36.8; O2SAT 98
--- NOTE | 2022-01-27 10:33 | ED.GENADUL_ITS ---
Discharge Plan Disposition Patient Disposition: HOME Condition: Stable Discharge Details Clinical Impression: Insomnia, Ambien use disorder, mild Primary Care Provider: Rui Torres ED Provider: Felix Wood Home Meds and New Rx's Prescriptions: No Action Fish Oil 1 EACH capsule 1 ea PO DAILY estradiol [Estrace] 42.5 GM cream 42.5 gm VG DIRECTED Qty: 1 6RF Rx Instructions: apply 3mm dot of Estrace cream to vaginal opening 3 times a week. melatonin-pyridoxine (vit B6) [Melatonin (with B6)] 1 EACH tablet 1 tab PO HS ginkgo biloba leaf extract 120 MG capsule 240 mg PO DAILY hydroxyzine pamoate 25 mg Capsule 50 - 75 mg PO DIRECTED Rx Instructions: 50mg BID 75mg HS zolpidem 10 mg tablet 20 mg PO QHS 5 Days Qty: 10 0RF Rx Instructions: 1-2 tablets at bedtime as needed for insomnia levothyroxine [Tirosint] 75 mcg capsule 1 cap PO QAM Label Comments: Take one capsule by mouth with 8 ounces plain water each morning at least 30 minutes before any food, other beverages, other medication. Restasis MultiDose 0.05 % Drops 1 drp ophthalmic (eye) HS PRN clonidine HCl 0.1 mg tablet 0.1 mg PO HS Label Comments: TAKE ONE TABLET BY MOUTH ONCE DAILY AT BEDTIME mupirocin calcium 2 % Cream 1 applic TOPICAL DIRECTED PRN Lotemax 0.5 % ointment 1 applic ophthalmic (eye) HS Label Comments: Apply a thin layer into both eyes at bedtime cetirizine [Zyrtec] 10 mg Tablet 10 mg PO DAILY potassium chloride 20 MEQ tablet,ER particles/crystals 20 meq PO BID coenzyme Q10 [Co Q-10] 100 MG capsule 100 mg PO DAILY 5-hydroxytryptophan (5-HTP) 50 MG capsule 50 mg PO HS Rx Instructions: not as much as on rx glycerin (adult) Suppository 1 supp NV ascorbic acid (vitamin C) [Vitamin C] 500 mg Tablet 500 mg PO DAILY Lacho-E 200 mg Tablet 400 mg PO DAILY arginine HCl (L-arginine) 1,000 mg Tablet 3,000 mg PO DAILY cyclosporine [Restasis] 0.05 % dropperette 1 drp ophthalmic (eye) QHS eszopiclone [Lunesta] 3 mg tablet 3 mg PO QHS Qty: 10 0RF Discharge Instructions Instructions: Insomnia (ED) Additional Instructions: It is very important that you follow-up with your primary care provider and sleep medicine provider for medications to help you with your sleep. The emergency department is not the appropriate place for medication refills or lost medications. Please contact your primary care provider as well for arrangement of follow-up appointment and we have placed you on a care management list Referrals: Rui Torres [Primary Care Provider] - Discharge Data Discharge Date/Time-TO BE ENTERED AT DEPARTURE: 01/27/22 11:08 Medical Decision Making Patient presenting to the emergency department for chief complaint of insomnia. Patient is requesting medication for this. Patient is well familiar to myself and have seen her on multiple occasions for the same complaint. During last visit I did inform patient that I would be unable to further provide medication for insomnia due to her needing to establish a plan of care with her primary care provider given that this is a chronic issue. Patient has no features of change in condition, suicidality, or severe psychosis but is anxious about not having her Ambien. Patient was discharged with recommendation to follow-up with primary care provider. After discussion of diagnosis and plan of care patient has no further needs, questions, or concerns and states clear understanding to return to the emergency department for any worsening symptoms. This documentation was generated using [employer] dictation system, please disregard any oddities of phrase or misspellings. HPI General Mode of arrival: ambulatory . Date/Time Provider Initiated Documentation: 01/27/22 09:12 . Limitations to Documentation: no limitations . Information obtained by: RN notes reviewed and old records reviewed . History of Present Illness 76 year old F presents to the emergency department with the chief complaint of Insomnia, described as severe and similar to prior episodes, Patient started experiencing this day(s) (3) Patient notes no ot her symptoms.. Patient did receive the following treatments prior to arrival, none Related Data Home Medications Medication Instructions Recorded Confirmed ginkgo biloba leaf extract 120 mg 240 mg PO DAILY 08/26/12 01/27/22 capsule melatonin 5 mg-pyridoxine (vitamin 1 tab PO HS 08/26/12 01/27/22 B6) 1 mg tablet (Melatonin (with B6)) omega-3 fatty acids-fish oil 340 1 ea PO DAILY 06/04/13 01/27/22 mg-1,000 mg capsule (Fish Oil) 5-hydroxytryptophan (5-HTP) 50 mg 50 mg PO HS 06/27/16 01/27/22 capsule coenzyme Q10 100 mg capsule (Co 100 mg PO DAILY 06/27/16 01/27/22 Q-10) potassium chloride 20 mEq 20 meq PO BID 06/27/16 01/27/22 tablet,extended release(part/cryst) estradiol 0.01% (0.1 mg/gram) 42.5 gm vaginal DIRECTED #1 tube 12/18/16 01/27/22 vaginal cream (Estrace) hydroxyzine pamoate 25 mg capsule 50 - 75 mg PO DIRECTED 10/24/18 01/27/22 glycerin (adult) 1 supp NV 09/25/19 arginine HCl (L-arginine) 1,000 mg 3,000 mg PO DAILY 03/29/21 01/27/22 tablet ascorbic acid (vitamin C) 500 mg 500 mg PO DAILY 03/29/21 01/27/22 tablet (Vitamin C) s-adenosylmethionine 200 mg tablet 400 mg PO DAILY 03/29/21 01/27/22 (Lacho-E) zolpidem 10 mg tablet 20 mg PO QHS 5 days #10 tabs 09/20/21 01/27/22 cyclosporine 0.05 % eye drops 1 drp ophthalmic (eye) HS PRN 11/10/21 01/27/22 (Restasis MultiDose) levothyroxine 75 mcg capsule 1 cap PO QAM 11/10/21 01/27/22 (Tirosint) cetirizine 10 mg tablet (Zyrtec) 10 mg PO DAILY 11/13/21 01/27/22 clonidine HCl 0.1 mg tablet 0.1 mg PO HS 11/13/21 01/27/22 loteprednol etabonate 0.5 % eye 1 applic ophthalmic (eye) HS 11/13/21 01/27/22 ointment (Lotemax) mupirocin calcium 2 % topical cream 1 applic topical DIRECTED PRN 11/13/21 01/27/22 cyclosporine 0.05 % eye drops in a 1 drp ophthalmic (eye) QHS 12/16/21 01/27/22 dropperette (Restasis) eszopiclone 3 mg tablet (Lunesta) 3 mg PO QHS #10 tabs 12/19/21 01/27/22 Previous Rx's Medication Instructions Recorded estradiol 0.01% (0.1 mg/gram) 42.5 gm vaginal DIRECTED #1 tube 12/18/16 vaginal cream (Estrace) zolpidem 10 mg tablet 20 mg PO QHS 5 days #10 tabs 09/20/21 eszopiclone 3 mg tablet (Lunesta) 3 mg PO QHS #10 tabs 12/19/21 Allergies Allergy/AdvReac Type Severity Reaction Status Date / Time cephalexin [From Keflex] Allergy Unknown Unverified 01/27/22 09:13 clindamycin Allergy Unknown Unverified 01/27/22 09:13 estradiol [From Activella] Allergy Unknown Skin Rash Unverified 01/27/22 09:13 hydrochlorothiazide Allergy Unknown Unverified 01/27/22 09:13 lactose Allergy Unknown Unverified 01/27/22 09:13 losartan Allergy Unknown Swelling/Ed Unverified 01/27/22 09:13 bree norethindrone Allergy Unknown Skin Rash Unverified 01/27/22 09:13 [From Activella] oxycodone [From Percocet] Allergy Unknown Unverified 01/27/22 09:13 prednisolone Allergy Unknown Unverified 01/27/22 09:13 sulfamethoxazole Allergy Unknown fever Unverified 01/27/22 09:13 [From Bactrim] trimethoprim [From Bactrim] Allergy Unknown fever Unverified 01/27/22 09:13 amoxicillin Allergy Unverified 01/27/22 09:13 cetirizine [From Zyrtec] Allergy Skin Rash Unverified 01/27/22 09:13 acetaminophen [From Tylenol] AdvReac Unknown states Unverified 01/27/22 09:13 tylenol creates more pain aspirin AdvReac Unknown Diarrhea, Unverified 01/27/22 09:13 upset stomach but takes it daily esomeprazole [From Nexium] AdvReac Unknown depression Unverified 01/27/22 09:13 hydrocodone [From Vicodin] AdvReac Unknown Nausea Unverified 01/27/22 09:13 hydroxychloroquine AdvReac Unknown Swelling/Ed Unverified 01/27/22 09:13 [From Plaquenil] bree Influenza Virus Vaccines AdvReac Unknown Unverified 01/27/22 09:13 levothyroxine sodium AdvReac Unknown Itching Unverified 01/27/22 09:13 [From Synthroid] omeprazole [From Prilosec] AdvReac Unknown Nausea Unverified 01/27/22 09:13 sertraline [From Zoloft] AdvReac Unknown depression Unverified 01/27/22 09:13 topiramate [From Topamax] AdvReac Unknown Headache Unverified 01/27/22 09:13 venlafaxine [From Effexor] AdvReac Unknown Psychomotor Unverified 01/27/22 09:13 retardation wheat AdvReac Unknown bloating Unverified 01/27/22 09:13 zinc AdvReac Unknown Hives Unverified 01/27/22 09:13 zolpidem [From Intermezzo] AdvReac Unknown Itching Unverified 01/27/22 09:13 diazepam [From Valium] AdvReac shakes Unverified 01/27/22 09:13 red dye AdvReac Nausea Unverified 01/27/22 09:13 oatmeal AdvReac Unknown constipatio Uncoded 01/27/22 09:13 n SUGAR AdvReac Unknown Other (See Uncoded 01/27/22 09:13 Comment) General Stated Complaint: GenMedical YUMKIO: 5 Review of Systems Narrative: 6 systems reviewed and unremarkable except what is marked below. Psychiatric Psychiatric: Reports as per HPI, Reports abnormal sleep pattern and Reports anxiety PFSH All Active Problems (Updated 01/27/22 @ 10:35 by Felix Wood NP) Chronic pain (Chronic) Ambien use disorder, mild (Chronic) Tinnitus, right (Acute) Sjogrens syndrome (Acute) Headache (Acute) Depression (Chronic) Restless leg syndrome (Acute) Osteochondritis (Acute) Hypokalemia (Acute) Chest pain (Acute) Tinnitus (Acute) Abnormal auditory perception (Acute) Skin ulcer, limited to breakdown of skin (Acute) Deviated nasal septum (Acute) Otalgia, right ear (Acute) SIMRAN (obstructive sleep apnea) (Chronic) Allergic rhinitis due to allergen (Acute) Nasal crusting (Acute) Thyroid nodule (Acute) DVT prophylaxis (Acute) Discharge planning issues (Acute) Anxiety and depression (Chronic) Hypertensive urgency (Acute) Thyroid disorder (Acute) Pancreatic abnormality (Acute) Lung nodules (Acute) Atypical chest pain (Acute) Hypoglycemia (Chronic) IBS (irritable bowel syndrome) (Chronic) Hypothyroid (Chronic) Hypertension (Chronic) Vertigo (Chronic) Insomnia (Chronic) Medical History 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 Dry eye dry mouth Elevated lipids Fibromyalgia History of urinary incontinence Hypercholesterolemia Hypertension Hypothyroidism lupus Myofascial pain Primary fibromyalgia syndrome Surgical History Biopsy of breast x2 section H/O section Hemorrhoidectomy History of colonoscopy 09/06/[address] [facility] 01/02/2016 History of endoscopy 09/23/2013 Family History Mother Dementia Father Heart disease Stroke Social History Smoking/Tobacco Use Status: Former Tobacco Use Smoking risk assessment performed?: Yes Alcohol Intake: current Alcohol Intake frequency: 0-2 drinks per day Alcohol type: wine Drug use: Never Substance use type: does not use Details: quit smoking 40 yrs ago Household members: children Number of Children: 2 number of grandchildren: 1 What is your relationship status?: Panel score (0-1 are the most socially isolated patients): 0 What type of physical activity do you participate in: walking Duration: 60-90 minutes/day Do you feel safe at home: Yes Do you feel safe in your relationship?: Yes Exam Const General: cooperative, no acute distress and not ill appearing Orientation: alert, awake and oriented x3 Resp Effort & Inspection: normal respiratory effort, able to speak in complete sentences and no respiratory distress Auscultation: clear to auscultation bilaterally Cardio Rate: regular rate Rhythm: regular rhythm Heart Sounds: S1 normal and S2 normal Skin General skin exam: no rashes or lesions noted Neuro General: patient alert, patient awake, patient oriented x3, moves all extremities and no focal motor deficits Sensory Exam: no sensory deficits noted Course Vital Signs Vital signs: Vital Signs Temperature 36.8 C 01/27/22 09:09 Pulse 75 01/27/22 09:09 Respiratory Rate 18 01/27/22 09:09 Blood Pressure 157/85 H 01/27/22 09:09 Pulse Oximetry 98 01/27/22 09:09 Temperature 36.8 C 01/27/22 09:09 Temperature Source Oral 01/27/22 09:09 Pulse 75 01/27/22 09:09 Respiratory Rate 18 01/27/22 09:09 Respiratory Effort Non-Labored 01/27/22 09:12 Blood Pressure 157/85 H 01/27/22 09:09 Blood Pressure Position Sitting 01/27/22 09:09 Pulse Oximetry 98 01/27/22 09:09 Oxygen Delivery Method Room Air 01/27/22 09:09 Oxygen Flow Rate 0 01/27/22 09:09 Pain Level 0 01/27/22 09:09 PAWSS Have you Been Recently Intoxicated or Drunk Within the Last 30 days?: No Have you Ever Experienced Previous Episodes of Alcohol Withdrawal?: No Have you ever Experienced Withdrawal Seizures?: No Have you ever Experienced Delirium Tremens(DT)s?: No Have you ever undergone Alcohol Rehabilitation Treatment (i.e, inpt ot outpatient treatment programs)?: No Have you ever Experienced Blackouts?: No Have you ever Combined Alcohol with other Downers within the last 90 days?: No Have you ever Combined Alcohol with any other Substance of Abuse during the last 90 days?: No Positive Blood Alcohol level on Presentation? [PCS.BAL]: No Evidence of Increased Autonomic Activity (i.e. HR>120, tremor, sweating, agitation, nausea)?: No Result: 0
== END 2022-01-27 11:08 | disposition home or self-care (01) ==
PROVIDERS: Emergency Provider Nurse Practitioner Family; PCP Family Medicine
DX: G47.00 Insomnia, unspecified (principal); F13.90 Sedative, hypnotic, or anxiolytic use, unspecified, uncomplicated
CPT/HCPCS: 99281

== ENCOUNTER 2022-03-30 12:27 | Emergency (ER) | payer MEDICARE, OTHER, SELFPAY ==
[2022-03-30 12:34] VITALS: BP 181/96; PULSE 64; RESP 18; TEMP 36.6; O2SAT 99
[2022-03-30 12:45] VITALS: RESP 18
--- NOTE | 2022-03-30 12:45 | DI.RAD_ITS ---
Exam(s) XR CHEST 2V PA LATERAL EXAM: XR CHEST 2V PA LATERAL CLINICAL HISTORY: chest pain TECHNIQUE: 2D digital imaging was performed. COMPARISON: CR,XR XR CHEST 2V PA LATERAL from 11/10/2021 FINDINGS: HEART: Normal size. Aorta: Not dilated. PULMONARY VASCULATURE: Normal. LUNGS: Mild chronic fibrotic changes, otherwise clear. PLEURAL SPACE: No pleural effusion or pneumothorax. BONE:Unremarkable for age. IMPRESSION: No acute abnormality. DATA REPOSITORY: RADIATION DOSE DELIVERED:
--- NOTE | 2022-03-30 12:45 | RT.EKG_ITS ---
APPROVED REPORT Exam: Resting ECG Reason for Exam: chest pain Patient Location: E HR:60 bpm ECG Measurements Heart Rate 60 AXIS NE 125 P 55 QRSd 111 QRS -30 QT 498 T [id number] QTc 499 Conclusion Sinus rhythm...normal P axis, V-rate 60- 99 Left axis deviation...QRS axis (-30,-90) Abnrm T, consider ischemia, anterolateral lds...T <-0.20mV, I aVL V2-V6
--- NOTE | 2022-03-30 12:56 | ED.GENADUL_ITS ---
Discharge Plan Disposition Patient Disposition: Home Condition: Stable Discharge Details Clinical Impression: Insomnia, Chest pain Primary Care Provider: Rui Torres ED Provider: Jean Webber Home Meds and New Rx's Prescriptions: Continued Fish Oil 1 EACH capsule 1 ea PO DAILY estradiol [Estrace] 42.5 GM cream 42.5 gm VG DIRECTED Qty: 1 6RF Rx Instructions: apply 3mm dot of Estrace cream to vaginal opening 3 times a week. melatonin-pyridoxine (vit B6) [Melatonin (with B6)] 1 EACH tablet 1 tab PO HS ginkgo biloba leaf extract 120 MG capsule 240 mg PO DAILY hydroxyzine pamoate 25 mg Capsule 50 - 75 mg PO DIRECTED Rx Instructions: 50mg BID 75mg HS levothyroxine [Tirosint] 75 mcg capsule 1 cap PO QAM Label Comments: Take one capsule by mouth with 8 ounces plain water each morning at least 30 minutes before any food, other beverages, other medication. Restasis MultiDose 0.05 % Drops 1 drp ophthalmic (eye) HS PRN clonidine HCl 0.1 mg tablet 0.1 mg PO HS Label Comments: TAKE ONE TABLET BY MOUTH ONCE DAILY AT BEDTIME Rx Instructions: pt stopped 03/30/22 mupirocin calcium 2 % Cream 1 applic TOPICAL DIRECTED PRN Lotemax 0.5 % ointment 1 applic ophthalmic (eye) HS Label Comments: Apply a thin layer into both eyes at bedtime cetirizine [Zyrtec] 10 mg Tablet 10 mg PO DAILY potassium chloride 20 MEQ tablet,ER particles/crystals 20 meq PO BID coenzyme Q10 [Co Q-10] 100 MG capsule 100 mg PO DAILY 5-hydroxytryptophan (5-HTP) 50 MG capsule 50 mg PO HS Rx Instructions: not as much as on rx glycerin (adult) Suppository 1 supp FL PRN PRN ascorbic acid (vitamin C) [Vitamin C] 500 mg Tablet 500 mg PO DAILY Lacho-E 200 mg Tablet 400 mg PO DAILY arginine HCl (L-arginine) 1,000 mg Tablet 3,000 mg PO DAILY cyclosporine [Restasis] 0.05 % dropperette 1 drp ophthalmic (eye) QHS eszopiclone [Lunesta] 3 mg tablet 3 mg PO QHS Qty: 10 0RF No Action zolpidem 10 mg tablet 20 mg PO QHS 5 Days Qty: 10 0RF Rx Instructions: 1-2 tablets at bedtime as needed for insomnia Discharge Instructions Additional Instructions: follow up with your primary care provider, we do not provide medicine for sleep through the emergency department if you feel more ill, have severe worsening pain or difficulty breathing return to the emergency department Medical Decision Making 76 yo female with hx of insomnia, fibromyalgia, hypothyroidism, who comes in with primary complaint of insomnia and also chest discomfort. She was on ambien for years per patient 20mg at night but her pcp and sleep specialist took her off this and started her on lunesta. She feels lunesta is garbage and not effective. She has been seen in the ED in the past for ambien and advised this is not something we prescribe in the ED setting. She states she hasn't been sleeping well so came here for an evaluation and requesting an ambien prescription. She arrives stable, speaking clearly, caox4, normal gait, no focal deficits, no si/hi. She states she feels body aches for several days as well and an ache in her chest that comes and goes, is not associated with exertion and denies diaphoresis, n/v, or radiation of pain. She has clear lungs, no murmurs, no leg swelling or calf tenderness. Suspect her complaints are due to insomnia and fibromyalgia but will obtian ecg and troponin to further evaluate given her age. She has no hypoxia or tachycardia so doubt pe and no tearing back pain to suggest dissection. labs and xray unremarkable, she is stable with no pain, had symptoms over 3 hours so do not feel delta troponin indicated. Discussed with her and she will f/u with her pcp for her insomnia, return precautions given Differential Diagnosis Differential Diagnosis: insomnia, chest wall pain, nstemi Medical Records Medical records reviewed: Yes I reviewed the patient's medical records. Lab Data Lab results reviewed: Yes I reviewed the patient's lab results. ECG Data Attestation: I personally reviewed and interpreted this ECG (s) as follows: Prior ECG tracings: available for review Interpretation: sinus rhythm, rate of 76, pr 125, no acute st t wave ischemic findings HPI General Mode of arrival: ambulatory . Date/Time Provider Initiated Documentation: 03/30/22 12:28 . Limitations to Documentation: no limitations . Information obtained by: patient . History of Present Illness 76 year old F presents to the emergency department with the chief complaint of can't sleep, described as moderate, Patient started experiencing this year(s) (3) and it has been intermittent. No relieving factors improve symptom(s), No exacerbating factors reported . Patient notes chest pain. Patient did receive the following treatments prior to arrival, none Related Data Home Medications Medication Instructions Recorded Confirmed ginkgo biloba leaf extract 120 mg 240 mg PO DAILY 08/26/12 03/30/22 capsule melatonin 5 mg-pyridoxine (vitamin 1 tab PO HS 08/26/12 03/30/22 B6) 1 mg tablet (Melatonin (with B6)) omega-3 fatty acids-fish oil 340 1 ea PO DAILY 06/04/13 03/30/22 mg-1,000 mg capsule (Fish Oil) 5-hydroxytryptophan (5-HTP) 50 mg 50 mg PO HS 06/27/16 03/30/22 capsule coenzyme Q10 100 mg capsule (Co 100 mg PO DAILY 06/27/16 03/30/22 Q-10) potassium chloride 20 mEq 20 meq PO BID 06/27/16 03/30/22 tablet,extended release(part/cryst) estradiol 0.01% (0.1 mg/gram) 42.5 gm vaginal DIRECTED #1 tube 12/18/16 03/30/22 vaginal cream (Estrace) hydroxyzine pamoate 25 mg capsule 50 - 75 mg PO DIRECTED 10/24/18 03/30/22 glycerin (adult) 1 supp FL PRN PRN 09/25/19 03/30/22 arginine HCl (L-arginine) 1,000 mg 3,000 mg PO DAILY 03/29/21 03/30/22 tablet ascorbic acid (vitamin C) 500 mg 500 mg PO DAILY 03/29/21 03/30/22 tablet (Vitamin C) s-adenosylmethionine 200 mg tablet 400 mg PO DAILY 03/29/21 03/30/22 (Lacho-E) zolpidem 10 mg tablet 20 mg PO QHS 5 days #10 tabs 09/20/21 03/30/22 cyclosporine 0.05 % eye drops 1 drp ophthalmic (eye) HS PRN 11/10/21 03/30/22 (Restasis MultiDose) levothyroxine 75 mcg capsule 1 cap PO QAM 11/10/21 03/30/22 (Tirosint) cetirizine 10 mg tablet (Zyrtec) 10 mg PO DAILY 11/13/21 03/30/22 clonidine HCl 0.1 mg tablet 0.1 mg PO HS 11/13/21 03/30/22 loteprednol etabonate 0.5 % eye 1 applic ophthalmic (eye) HS 11/13/21 03/30/22 ointment (Lotemax) mupirocin calcium 2 % topical cream 1 applic topical DIRECTED PRN 11/13/21 03/30/22 cyclosporine 0.05 % eye drops in a 1 drp ophthalmic (eye) QHS 12/16/21 03/30/22 dropperette (Restasis) eszopiclone 3 mg tablet (Lunesta) 3 mg PO QHS #10 tabs 12/19/21 03/30/22 Previous Rx's Medication Instructions Recorded estradiol 0.01% (0.1 mg/gram) 42.5 gm vaginal DIRECTED #1 tube 12/18/16 vaginal cream (Estrace) zolpidem 10 mg tablet 20 mg PO QHS 5 days #10 tabs 09/20/21 eszopiclone 3 mg tablet (Lunesta) 3 mg PO QHS #10 tabs 12/19/21 Allergies Allergy/AdvReac Type Severity Reaction Status Date / Time cephalexin [From Keflex] Allergy Unknown Unverified 03/30/22 12:47 clindamycin Allergy Unknown Unverified 03/30/22 12:47 estradiol [From Activella] Allergy Unknown Skin Rash Unverified 03/30/22 12:47 hydrochlorothiazide Allergy Unknown Unverified 03/30/22 12:47 lactose Allergy Unknown Unverified 03/30/22 12:47 losartan Allergy Unknown Swelling/Ed Unverified 03/30/22 12:47 bree norethindrone Allergy Unknown Skin Rash Unverified 03/30/22 12:47 [From Activella] oxycodone [From Percocet] Allergy Unknown Unverified 03/30/22 12:47 prednisolone Allergy Unknown Unverified 03/30/22 12:47 sulfamethoxazole Allergy Unknown fever Unverified 03/30/22 12:47 [From Bactrim] trimethoprim [From Bactrim] Allergy Unknown fever Unverified 03/30/22 12:47 amoxicillin Allergy Unverified 03/30/22 12:47 cetirizine [From Zyrtec] Allergy Skin Rash Unverified 03/30/22 12:47 acetaminophen [From Tylenol] AdvReac Unknown states Unverified 03/30/22 12:47 tylenol creates more pain aspirin AdvReac Unknown Diarrhea, Unverified 03/30/22 12:47 upset stomach but takes it daily esomeprazole [From Nexium] AdvReac Unknown depression Unverified 03/30/22 12:47 hydrocodone [From Vicodin] AdvReac Unknown Nausea Unverified 03/30/22 12:47 hydroxychloroquine AdvReac Unknown Swelling/Ed Unverified 03/30/22 12:47 [From Plaquenil] bree Influenza Virus Vaccines AdvReac Unknown Unverified 03/30/22 12:47 levothyroxine sodium AdvReac Unknown Itching Unverified 03/30/22 12:47 [From Synthroid] omeprazole [From Prilosec] AdvReac Unknown Nausea Unverified 03/30/22 12:47 sertraline [From Zoloft] AdvReac Unknown depression Unverified 03/30/22 12:47 topiramate [From Topamax] AdvReac Unknown Headache Unverified 03/30/22 12:47 venlafaxine [From Effexor] AdvReac Unknown Psychomotor Unverified 03/30/22 12:47 retardation wheat AdvReac Unknown bloating Unverified 03/30/22 12:47 zinc AdvReac Unknown Hives Unverified 03/30/22 12:47 zolpidem [From Intermezzo] AdvReac Unknown Itching Unverified 03/30/22 12:47 diazepam [From Valium] AdvReac shakes Unverified 03/30/22 12:47 red dye AdvReac Nausea Unverified 03/30/22 12:47 oatmeal AdvReac Unknown constipatio Uncoded 03/30/22 12:47 n SUGAR AdvReac Unknown Other (See Uncoded 03/30/22 12:47 Comment) General Stated Complaint: GenMedical YUMIKO: 4 Review of Systems All systems reviewed & are unremarkable except as noted in HPI and below Constitutional Constitutional: Denies chills and Denies fever(s) Cardiovascular Cardiovascular: Denies dyspnea Respiratory Respiratory: Denies cough and Denies dyspnea Gastrointestinal Gastrointestinal: Denies nausea and Denies vomiting Genitourinary Genitourinary: Denies dysuria Musculoskeletal Musculoskeletal: Denies joint swelling Integumentary/Breasts Skin/Breast: Denies rash [facility] All Active Problems (Updated 03/30/22 @ 14:37 by Jean Webber MD) Chest pain (Acute) Chronic pain (Chronic) Ambien use disorder, mild (Chronic) Tinnitus, right (Acute) Sjogrens syndrome (Acute) Headache (Acute) Depression (Chronic) Restless leg syndrome (Acute) Osteochondritis (Acute) Hypokalemia (Acute) Chest pain (Acute) Tinnitus (Acute) Abnormal auditory perception (Acute) Skin ulcer, limited to breakdown of skin (Acute) Deviated nasal septum (Acute) Otalgia, right ear (Acute) SIMRAN (obstructive sleep apnea) (Chronic) Allergic rhinitis due to allergen (Acute) Nasal crusting (Acute) Thyroid nodule (Acute) DVT prophylaxis (Acute) Discharge planning issues (Acute) Anxiety and depression (Chronic) Hypertensive urgency (Acute) Thyroid disorder (Acute) Pancreatic abnormality (Acute) Lung nodules (Acute) Atypical chest pain (Acute) Hypoglycemia (Chronic) IBS (irritable bowel syndrome) (Chronic) Hypothyroid (Chronic) Hypertension (Chronic) Vertigo (Chronic) Insomnia (Chronic) Medical History 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 Dry eye dry mouth Elevated lipids Fibromyalgia History of urinary incontinence Hypercholesterolemia Hypertension Hypothyroidism lupus Myofascial pain Primary fibromyalgia syndrome Surgical History Biopsy of breast x2 section H/O section Hemorrhoidectomy History of colonoscopy 09/06/2008 Dr. Oropeza [facility] 01/02/2016 History of endoscopy 09/23/2013 Family History Mother Dementia Father Heart disease Stroke Social History Smoking/Tobacco Use Status: Former Tobacco Use Smoking risk assessment performed?: Yes Alcohol Intake: current Alcohol Intake frequency: 0-2 drinks per day Alcohol type: wine Drug use: Never Substance use type: does not use Details: quit smoking 40 yrs ago Household members: children Number of Children: 2 number of grandchildren: 1 What is your relationship status?: Panel score (0-1 are the most socially isolated patients): 0 What type of physical activity do you participate in: walking Duration: 60-90 minutes/day Do you feel safe at home: Yes Do you feel safe in your relationship?: Yes Exam Const General: no acute distress Orientation: alert HENMT Head: normal to inspection Ears: external ears normal General nose exam: external nose normal Mouth: moist mucous membranes Eyes General: appearance normal, both eyes and all related structures Neck Neck: normal visual inspection Resp Effort & Inspection: normal respiratory effort and able to speak in complete sentences Auscultation: clear to auscultation bilaterally Cardio Jugular venous pressure: no JVD Rate: regular rate Rhythm: regular rhythm Heart Sounds: no murmurs GI Palpation: soft and nontender Skin General skin exam: no rashes or lesions noted Neuro General: patient alert and patient oriented x3 Extrem General: normal to inspection Psych Mental Status: mental status grossly normal Course Vital Signs Vital signs: Vital Signs Temperature 36.6 C 03/30/22 12:34 Pulse 64 03/30/22 12:34 Respiratory Rate 18 03/30/22 12:34 Blood Pressure 181/96 H 03/30/22 12:34 Pulse Oximetry 99 03/30/22 12:34 Temperature 36.6 C 03/30/22 12:34 Temperature Source Temporal Artery Scan 03/30/22 12:34 Pulse 64 03/30/22 12:34 Respiratory Rate 18 03/30/22 12:45 Respiratory Effort Non-Labored 03/30/22 12:45 Respiratory Depth Normal 03/30/22 12:45 Respiratory Pattern Normal 03/30/22 12:45 Blood Pressure 181/96 H 03/30/22 12:34 Blood Pressure Position Sitting 03/30/22 12:34 Pulse Oximetry 99 03/30/22 12:34 Oxygen Delivery Method Room Air 03/30/22 12:34 Oxygen Flow Rate 0 03/30/22 12:34 PAWSS Have you Been Recently Intoxicated or Drunk Within the Last 30 days?: No Have you Ever Experienced Previous Episodes of Alcohol Withdrawal?: No Have you ever Experienced Withdrawal Seizures?: No Have you ever Experienced Delirium Tremens(DT)s?: No Have you ever undergone Alcohol Rehabilitation Treatment (i.e, inpt ot outpatient treatment programs)?: No Have you ever Experienced Blackouts?: No Have you ever Combined Alcohol with other Downers within the last 90 days?: No Have you ever Combined Alcohol with any other Substance of Abuse during the last 90 days?: No Positive Blood Alcohol level on Presentation? [PCS.BAL]: No Evidence of Increased Autonomic Activity (i.e. HR>120, tremor, sweating, agitation, nausea)?: No Result: 0
[2022-03-30] MEDS: Ondansetron 4 MG/2 ML VIAL IVP (13:08)
[2022-03-30 13:11] LABS: Abs Immature Grans 0.05 10^3/uL (0.0-0.06); Absolute Basophil Count 0.07 10^3/uL (0.0-0.2); Absolute Eosinophil Count 0.09 10^3/uL (0.0-0.7); Absolute Monocyte Count 0.79 10^3/uL (0.1-0.8); Absolute Neutrophil Count 5.94 10^3/uL (1.2-6.7); Basophils % 0.7; HCT 42.3 % (36.0-46.0); HGB 13.6 g/dL (11.2-15.7); Immature Grans % 0.5; Lymphocytes % 26.5; MCH 29.6 pg (27.0-33.0); MCHC 32.2 % (32.0-36.0); MCV 92 fL (80-95); MPV 9.7 fL (8.0-11.0); Monocytes % 8.4; Neutrophils % 62.9; Platelet Count 176 10^3/uL (130-400); RDW 12.1 % (11.7-14.6); RDW-SD 40.6 fL; WBC 9.44 10^3/uL (4.4-10.8)
[2022-03-30 13:34] LABS: ALT 52 U/L (14-59); AST 53 U/L (15-37); Albumin 4.2 g/dL (3.4-5.0); Alkaline Phosphatase 99 U/L (46-116); Anion Gap 7.2 mmol/L (3-11); BUN 16 mg/dL (7-18); Bilirubin, Total 0.6 mg/dL (0.2-1.0); CO2 29.8 mmol/L (21.0-32.0); CREATININE 1.1 mg/dL (0.55-1.02); Calcium 9.3 mg/dL (8.5-10.1); Chloride 103 mmol/L (98-107); Estimated GFR 52.08 (mL/min/1.73m2); Glucose 107 mg/dL (74-106); Lipase 163 U/L (73-393); Magnesium 2.2 mg/dL (1.8-2.4); Potassium 3.9 mmol/L (3.5-5.1); Sodium 140 mmol/L (136-145); TSH (W/Ref FT4) 11.23 uIU/mL (0.36-3.74); Total Protein 7.7 g/dL (6.4-8.2); Troponin I < 50 ng/L (<or=60)
[2022-03-30 14:00] LABS: FREE T4 0.91 ng/dL (0.76-1.46)
--- NOTE | 2022-03-30 14:16 | DI.VRAD_ITS ---
PROCEDURE INFORMATION: Exam: XR Chest Exam date and time: 03/30/2022 1:55 PM Age: 76 years old Clinical indication: Other: Chest pain TECHNIQUE: Imaging protocol: Radiologic exam of the chest. 2image(s) are provided. Views: 2 views. COMPARISON: CR XR CHEST 2V PA LATERAL 11/10/2021 12:41 PM FINDINGS: Lungs: No lobar consolidation is appreciated. Pleural spaces: No pneumothorax or pleural effusion is appreciated. Heart/Mediastinum: The cardiomediastinal silhouette is normal. No cardiac decompensation is appreciated. Diaphragm: There is slight asymmetric right hemidiaphragm elevation. Bones/joints: No fracture or dislocation is appreciated. Soft tissues: No radiopaque foreign body or subcutaneous emphysema is appreciated. Other findings: No other significant interval changes are appreciated. IMPRESSION: No lobar consolidation is appreciated.No acute cardiopulmonary changes are appreciated. Dictated and Authenticated by: Matheus Santana MD. Ordering:GIRISH Pena MD
== END 2022-03-30 14:55 | disposition home or self-care (01) ==
PROVIDERS: Emergency Provider Emergency Medicine; PCP Family Medicine
DX: G47.00 Insomnia, unspecified (principal); R07.89 Other chest pain; I10 Essential (primary) hypertension
CPT/HCPCS: 36415; 80053; 83690; 93005; 96374; 99284; 71046; 83735; 84439; 84443; 84484; 85025; 93010; J2405

== ENCOUNTER 2022-10-16 10:29 | Outpatient (CLI) | payer MEDICARE, OTHER, SELFPAY ==
[2022-10-16 10:44] LABS: Abs Immature Grans 0.04 10^3/uL (0.0-0.06); Absolute Basophil Count 0.05 10^3/uL (0.0-0.2); Absolute Eosinophil Count 0.21 10^3/uL (0.0-0.7); Absolute Monocyte Count 0.69 10^3/uL (0.1-0.8); Absolute Neutrophil Count 3.85 10^3/uL (1.2-6.7); Basophils % 0.7; Eosinophils % 2.9; HCT 46.1 % (36.0-46.0); HGB 15.1 g/dL (11.2-15.7); Immature Grans % 0.6; Lymphocytes % 33.1; MCH 30.8 pg (27.0-33.0); MCHC 32.8 % (32.0-36.0); MCV 94 fL (80-95); MPV 10.1 fL (8.0-11.0); Monocytes % 9.5; Neutrophils % 53.2; Platelet Count 166 10^3/uL (130-400); RDW 11.7 % (11.7-14.6); RDW-SD 40.9 fL; WBC 7.24 10^3/uL (4.4-10.8)
[2022-10-16 11:13] LABS: ALT 91 U/L (14-59); AST 73 U/L (15-37); Albumin 4.1 g/dL (3.4-5.0); Alkaline Phosphatase 85 U/L (46-116); Anion Gap 6.5 mmol/L (3-11); BUN 12 mg/dL (7-18); Bilirubin, Total 0.7 mg/dL (0.2-1.0); CO2 28.5 mmol/L (21.0-32.0); CREATININE 0.9 mg/dL (0.55-1.02); Calcium 9.5 mg/dL (8.5-10.1); Calculated LDL 244 mg/dL (<100); Chloride 104 mmol/L (98-107); Cholesterol 369 mg/dL (<200); Estimated GFR 66.26 (mL/min/1.73m2); Glucose 105 mg/dL (74-106); HDL Cholesterol 106 mg/dL (40-60); Potassium 4.2 mmol/L (3.5-5.1); Sodium 139 mmol/L (136-145); Total Protein 7.8 g/dL (6.4-8.2); Triglyceride 98 mg/dL (<150)
[2022-10-16 16:01] LABS: GGT 121 U/L (5-55)
[2022-10-17 14:07] LABS: ANA Interpretation Positive (Negative)
[2022-10-20 16:35] LABS: 25-Hydroxy D Total 42 ng/mL; 25-Hydroxy D2 <4.0 ng/mL; 25-Hydroxy D3 42 ng/mL
== END 2022-10-16 10:30 | disposition home or self-care (01) ==
LOC: LBO 10:34
PROVIDERS: PCP Nurse Practitioner Primary Care; Visit Provider Nurse Practitioner Primary Care
DX: M81.0 Age-related osteoporosis without current pathological fracture (principal); E78.00 Pure hypercholesterolemia, unspecified; I10 Essential (primary) hypertension; M35.00 Sjogren syndrome, unspecified; F10.20 Alcohol dependence, uncomplicated
CPT/HCPCS: 36415; 80053; 80061; 82306; 82977; 85025; 86038

== ENCOUNTER 2022-10-24 03:49 | Outpatient (RCR) | payer MEDICARE, OTHER, SELFPAY ==
[2022-10-24] MEDS: Normal Saline Flush 10 ML SYR IVP (09:08)
[2022-10-24] MEDS: ZOLEDRONIC ACID/MANNITOL/WATER 5 MG/100 ML BTL 300 MG IVPB (09:08)
== END 2022-11-21 23:59 | disposition home or self-care (01) ==
LOC: INF 03:49
PROVIDERS: PCP Nurse Practitioner Primary Care; Visit Provider Family Medicine
DX: M81.0 Age-related osteoporosis without current pathological fracture (principal)
CPT/HCPCS: 96365; J3489

== ENCOUNTER → 2022-12-06 00:50 | Outpatient (CLI) | payer MEDICARE, OTHER, SELFPAY ==
--- NOTE | 2022-12-06 | DI.US_ITS ---
Exam(s) US ABDOMEN LIMITED EXAM: US ABDOMEN LIMITED CLINICAL HISTORY: ELEVATED LIVER ENZYMES R74.01 TECHNIQUE: Ultrasound abdomen performed using standard protocol. COMPARISON: No exams were available for comparison FINDINGS: PANCREAS: Normal where visualized. LIVER: There is diffuse increased echogenicity of the liver consistent with fatty infiltration. Ther e is a 1 cm simple cyst in the liver. No follow-up is recommended. Hepatopedal flow in the Portal V ein. The liver measures in 15.8 cm length. GALLBLADDER: No evidence of cholelithiasis. No evidence of wall thickening. No pericholecystic fluid identified. BILIARY SYSTEM: Common bile duct measures < 7 mm. No intrahepatic biliary ductal dilation. YORK'S SIGN: Negative. RIGHT KIDNEY: Kidney is normal in size. No evidence of renal calculi. No evidence of hydronephrosis. No renal mass or cyst identified. ASCITES: None seen. ABDOMINAL AORTA AND IVC: Visualized portions normal caliber. IMPRESSION: Fatty infiltration of the liver. DATA REPOSITORY:
== END ==
PROVIDERS: PCP Nurse Practitioner Primary Care; Visit Provider Nurse Practitioner Primary Care
DX: R74.01 Elevation of levels of liver transaminase levels (principal); K76.0 Fatty (change of) liver, not elsewhere classified
CPT/HCPCS: 76705

== ENCOUNTER 2022-12-16 09:38 | Emergency (ER) | payer MEDICARE, OTHER, SELFPAY ==
[2022-12-16 09:42] VITALS: BP 211/81; PULSE 63; RESP 15; TEMP 37.3; O2SAT 98
--- NOTE | 2022-12-16 10:15 | W.ED.GENAD ---
Discharge Plan Disposition Patient Disposition: Home Discharge Details Clinical Impression: Ambien use disorder, mild, Insomnia Primary Care Provider: JANE LEMA ED Provider: Lashay Luque Home Meds and New Rx's Prescriptions: Continued Fish Oil 1 EACH capsule 1 ea PO DAILY estradiol [Estrace] 42.5 GM cream 42.5 gm VG DIRECTED Qty: 1 6RF Rx Instructions: apply 3mm dot of Estrace cream to vaginal opening 3 times a week. melatonin-pyridoxine (vit B6) [Melatonin (with B6)] 1 EACH tablet 1 tab PO HS ginkgo biloba leaf extract 120 MG capsule 240 mg PO DAILY hydroxyzine pamoate 25 mg Capsule 50 - 75 mg PO DIRECTED Rx Instructions: 50mg BID 75mg HS zolpidem 10 mg tablet 20 mg PO QHS 5 Days Qty: 10 0RF Patient Comments: PCP stopped this medication 12/16/22 CT Rx Instructions: 1-2 tablets at bedtime as needed for insomnia levothyroxine [Tirosint] 75 mcg capsule 1 cap PO QAM Patient Comments: Take one capsule by mouth with 8 ounces plain water each morning at least 30 minutes before any food, other beverages, other medication. Restasis MultiDose 0.05 % Drops 1 drp ophthalmic (eye) HS PRN clonidine HCl 0.1 mg tablet 0.1 mg PO HS Patient Comments: TAKE ONE TABLET BY MOUTH ONCE DAILY AT BEDTIME Rx Instructions: pt stopped 03/30/22 mupirocin calcium 2 % Cream 1 applic TOPICAL DIRECTED PRN Lotemax 0.5 % ointment 1 applic ophthalmic (eye) HS Patient Comments: Apply a thin layer into both eyes at bedtime cetirizine [Zyrtec] 10 mg Tablet 10 mg PO DAILY potassium chloride 20 MEQ tablet,ER particles/crystals 20 meq PO BID coenzyme Q10 [Co Q-10] 100 MG capsule 100 mg PO DAILY 5-hydroxytryptophan (5-HTP) 50 MG capsule 50 mg PO HS Rx Instructions: not as much as on rx glycerin (adult) Suppository 1 supp MD PRN PRN ascorbic acid (vitamin C) [Vitamin C] 500 mg Tablet 500 mg PO DAILY SCOTT-e 200 mg Tablet 400 mg PO DAILY arginine HCl (L-arginine) 1,000 mg Tablet 3,000 mg PO DAILY cyclosporine [Restasis] 0.05 % dropperette 1 drp ophthalmic (eye) QHS eszopiclone [Lunesta] 3 mg tablet 3 mg PO QHS Qty: 10 0RF Discharge Data Discharge Date/Time-TO BE ENTERED AT DEPARTURE: 12/16/22 10:14 Medical Decision Making 77-year-old female presenting to this facility, known to this facility for history of Ambien abuse and addiction Requesting a refill on her zolpidem as her primary care physician has been unwilling to supply this medication Saying that she is unable to sleep despite taking hydroxyzine, 50 mg prior to bed When asked regarding her specific complaints at this time, she states that she cannot sleep and is unable to elaborate additionally She is fully alert, oriented, of decisional capacity, she is ambulatory with steady gait, I did relay to this patient that I am uncomfortable prescribing a medication that her primary care physician is unable to fill She is alert and oriented x4, lungs are clear to auscultation cardiac rate rhythm regular, I did touch base with patient's primary care physician staff and spoke with ASHISH Garcia education general manager who is familiar with this patient, she has been attached to the office on numerous occasions asking for refills of this medication and her primary care is unwilling to fill this medication secondary to abuse history and concern for patient's safety Patient made aware that we are following the plan set forth by patient's primary care physician and she became very agitated, yelling at staff and ultimately walking out of the emergency department Of note, her blood pressure was quite elevated at 05/04/1980, secondary to patient walking out of the emergency department, we are essentially unable to reassess his blood pressure HPI General Date/Time Provider Initiated Documentation: 12/16/22 09:56. HPI Narrative: This 77-year-old female with past medical history of lupus, insomnia, Sjogren's syndrome, presents to this facility with a variety of complaints which she states is related to her insomnia. She states that her primary care physician has removed Ambien from her medication regimen and she feels as though she is not sleeping. She is taking hydroxyzine which she states is ineffective Patient states she feels as though she is being treated unfairly as she has insomnia and has been on zolpidem for years. She denies any chest pain or shortness of breath. She states she feels anxious about not being able to sleep. She denies any suicidal or homicidal ideation, she does have some anxiety but and states she feels depressed as she is unable to sleep. Denies urinary symptoms. Related Data Home Medications Medication Instructions Recorded Confirmed ginkgo biloba leaf extract 120 mg 240 mg PO DAILY 08/26/12 12/16/22 capsule melatonin 5 mg-pyridoxine (vitamin 1 tab PO HS 08/26/12 12/16/22 B6) 1 mg tablet (Melatonin (with B6)) omega-3 fatty acids-fish oil 340 1 ea PO DAILY 06/04/13 12/16/22 mg-1,000 mg capsule (Fish Oil) 5-hydroxytryptophan (5-HTP) 50 mg 50 mg PO HS 06/27/16 12/16/22 capsule coenzyme Q10 100 mg capsule (Co 100 mg PO DAILY 06/27/16 12/16/22 Q-10) potassium chloride 20 mEq 20 meq PO BID 06/27/16 12/16/22 tablet,extended release(part/cryst) estradiol 0.01% (0.1 mg/gram) 42.5 gm vaginal DIRECTED #1 tube 12/18/16 12/16/22 vaginal cream (Estrace) hydroxyzine pamoate 25 mg capsule 50 - 75 mg PO DIRECTED 10/24/18 12/16/22 glycerin (adult) 1 supp MD PRN PRN 09/25/19 12/16/22 arginine HCl (L-arginine) 1,000 mg 3,000 mg PO DAILY 03/29/21 12/16/22 tablet ascorbic acid (vitamin C) 500 mg 500 mg PO DAILY 03/29/21 12/16/22 tablet (Vitamin C) s-adenosylmethionine 200 mg tablet 400 mg PO DAILY 03/29/21 12/16/22 (SCOTT-e) zolpidem 10 mg tablet 20 mg PO QHS 5 days #10 tabs 09/20/21 03/30/22 cyclosporine 0.05 % eye drops 1 drp ophthalmic (eye) HS PRN 11/10/21 12/16/22 (Restasis MultiDose) levothyroxine 75 mcg capsule 1 cap PO QAM 11/10/21 12/16/22 (Tirosint) cetirizine 10 mg tablet (Zyrtec) 10 mg PO DAILY 11/13/21 12/16/22 clonidine HCl 0.1 mg tablet 0.1 mg PO HS 11/13/21 12/16/22 loteprednol etabonate 0.5 % eye 1 applic ophthalmic (eye) HS 11/13/21 12/16/22 ointment (Lotemax) mupirocin calcium 2 % topical cream 1 applic topical DIRECTED PRN 11/13/21 12/16/22 cyclosporine 0.05 % eye drops in a 1 drp ophthalmic (eye) QHS 12/16/21 12/16/22 dropperette (Restasis) eszopiclone 3 mg tablet (Lunesta) 3 mg PO QHS #10 tabs 12/19/21 12/16/22 Previous Rx's Medication Instructions Recorded estradiol 0.01% (0.1 mg/gram) 42.5 gm vaginal DIRECTED #1 tube 12/18/16 vaginal cream (Estrace) zolpidem 10 mg tablet 20 mg PO QHS 5 days #10 tabs 09/20/21 eszopiclone 3 mg tablet (Lunesta) 3 mg PO QHS #10 tabs 12/19/21 Allergies Allergy/AdvReac Type Severity Reaction Status Date / Time cephalexin [From Keflex] Allergy Unknown Unverified 03/30/22 12:47 clindamycin Allergy Unknown Unverified 03/30/22 12:47 estradiol [From Activella] Allergy Unknown Skin Rash Unverified 03/30/22 12:47 hydrochlorothiazide Allergy Unknown Unverified 03/30/22 12:47 lactose Allergy Unknown Unverified 03/30/22 12:47 losartan Allergy Unknown Swelling/Ed Unverified 03/30/22 12:47 bree norethindrone Allergy Unknown Skin Rash Unverified 03/30/22 12:47 [From Activella] oxycodone [From Percocet] Allergy Unknown Unverified 03/30/22 12:47 prednisolone Allergy Unknown Unverified 03/30/22 12:47 sulfamethoxazole Allergy Unknown fever Unverified 03/30/22 12:47 [From Bactrim] trimethoprim [From Bactrim] Allergy Unknown fever Unverified 03/30/22 12:47 amoxicillin Allergy Unverified 03/30/22 12:47 cetirizine [From Zyrtec] Allergy Skin Rash Unverified 03/30/22 12:47 acetaminophen [From Tylenol] AdvReac Unknown states Unverified 03/30/22 12:47 tylenol creates more pain aspirin AdvReac Unknown Diarrhea, Unverified 03/30/22 12:47 upset stomach but takes it daily esomeprazole [From Nexium] AdvReac Unknown depression Unverified 03/30/22 12:47 hydrocodone [From Vicodin] AdvReac Unknown Nausea Unverified 03/30/22 12:47 hydroxychloroquine AdvReac Unknown Swelling/Ed Unverified 03/30/22 12:47 [From Plaquenil] bree Influenza Virus Vaccines AdvReac Unknown Unverified 03/30/22 12:47 levothyroxine sodium AdvReac Unknown Itching Unverified 03/30/22 12:47 [From Synthroid] omeprazole [From Prilosec] AdvReac Unknown Nausea Unverified 03/30/22 12:47 sertraline [From Zoloft] AdvReac Unknown depression Unverified 03/30/22 12:47 topiramate [From Topamax] AdvReac Unknown Headache Unverified 03/30/22 12:47 venlafaxine [From Effexor] AdvReac Unknown Psychomotor Unverified 03/30/22 12:47 retardation wheat AdvReac Unknown bloating Unverified 03/30/22 12:47 zinc AdvReac Unknown Hives Unverified 03/30/22 12:47 zolpidem [From Intermezzo] AdvReac Unknown Itching Unverified 03/30/22 12:47 diazepam [From Valium] AdvReac shakes Unverified 03/30/22 12:47 red dye AdvReac Nausea Unverified 03/30/22 12:47 oatmeal AdvReac Unknown constipatio Uncoded 03/30/22 12:47 n SUGAR AdvReac Unknown Other (See Uncoded 03/30/22 12:47 Comment) General Stated Complaint: [facility]UMIKO: 3 PFSH All Active Problems (Updated 12/18/22 @ 16:18 by KONRAD Rivera) Insomnia (Acute) Chronic pain (Chronic) Ambien use disorder, mild (Chronic) Tinnitus, right (Acute) Sjogrens syndrome (Acute) Headache (Acute) Depression (Chronic) Restless leg syndrome (Acute) Osteochondritis (Acute) Hypokalemia (Acute) Chest pain (Acute) Tinnitus (Acute) Abnormal auditory perception (Acute) Skin ulcer, limited to breakdown of skin (Acute) Deviated nasal septum (Acute) Otalgia, right ear (Acute) SIMRAN (obstructive sleep apnea) (Chronic) Allergic rhinitis due to allergen (Acute) Nasal crusting (Acute) Thyroid nodule (Acute) DVT prophylaxis (Acute) Discharge planning issues (Acute) Anxiety and depression (Chronic) Hypertensive urgency (Acute) Thyroid disorder (Acute) Pancreatic abnormality (Acute) Lung nodules (Acute) Atypical chest pain (Acute) Hypoglycemia (Chronic) IBS (irritable bowel syndrome) (Chronic) Hypothyroid (Chronic) Hypertension (Chronic) Vertigo (Chronic) Insomnia (Chronic) Medical History 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 Dry eye dry mouth Elevated lipids Fibromyalgia History of urinary incontinence Hypercholesterolemia Hypertension Hypothyroidism lupus Myofascial pain Primary fibromyalgia syndrome Surgical History Biopsy of breast x2 section H/O section Hemorrhoidectomy History of colonoscopy 09/06/[address] [facility] 01/02/2016 History of endoscopy 09/23/2013 Family History Mother Dementia Father Heart disease Stroke Social History Smoking/Tobacco Use Status: Former Tobacco Use Smoking risk assessment performed?: Yes Alcohol Intake: current Alcohol Intake frequency: 0-2 drinks per day Alcohol type: wine Drug use: Never Substance use type: does not use Details: quit smoking 40 yrs ago Household members: children Number of Children: 2 number of grandchildren: 1 What is your relationship status?: Panel score (0-1 are the most socially isolated patients): 0 What type of physical activity do you participate in: walking Duration: 60-90 minutes/day Do you feel safe at home: Yes Do you feel safe in your relationship?: Yes Course Vital Signs Vital signs: Vital Signs Temperature 37.3 C 12/16/22 09:42 Pulse 63 12/16/22 09:42 Respiratory Rate 15 12/16/22 09:42 Blood Pressure 211/81 H 12/16/22 09:42 Pulse Oximetry 98 12/16/22 09:42 Temperature 37.3 C 12/16/22 09:42 Temperature Source Temporal Artery Scan 12/16/22 09:42 Pulse 63 12/16/22 09:42 Respiratory Rate 15 12/16/22 09:42 Blood Pressure 211/81 H 12/16/22 09:42 Blood Pressure Position Sitting 12/16/22 09:42 Pulse Oximetry 98 12/16/22 09:42 Oxygen Delivery Method Room Air 12/16/22 09:42 Oxygen Flow Rate 0 12/16/22 09:42 Pain Level 6 12/16/22 09:42
== END 2022-12-16 10:14 | disposition home or self-care (01) ==
PROVIDERS: Emergency Provider Physician Assistant; PCP Nurse Practitioner Primary Care
DX: M32.9 Systemic lupus erythematosus, unspecified (principal); G47.00 Insomnia, unspecified; F13.10 Sedative, hypnotic or anxiolytic abuse, uncomplicated; M35.00 Sjogren syndrome, unspecified; F32.A Depression, unspecified; F41.9 Anxiety disorder, unspecified; Z79.899 Other long term (current) drug therapy; I10 Essential (primary) hypertension; Z53.29 Procedure and treatment not carried out because of patient's decision for other reasons
CPT/HCPCS: 99283; 99284

== ENCOUNTER 2023-04-15 11:13 | Outpatient (CLI) | payer MEDICARE, OTHER, SELFPAY ==
[2023-04-15 11:04] LABS: Abs Immature Grans 0.02 10^3/uL (0.0-0.06); Absolute Basophil Count 0.07 10^3/uL (0.0-0.2); Absolute Eosinophil Count 0.33 10^3/uL (0.0-0.7); Absolute Lymphocyte Count 2.31 10^3/uL (1.2-3.4); Absolute Monocyte Count 0.67 10^3/uL (0.1-0.8); Absolute Neutrophil Count 3.91 10^3/uL (1.2-6.7); Eosinophils % 4.5; HGB 15.2 g/dL (11.2-15.7); Immature Grans % 0.3; Lymphocytes % 31.6; MCH 31.1 pg (27.0-33.0); MCV 94 fL (80-95); MPV 10.4 fL (8.0-11.0); Monocytes % 9.2; Neutrophils % 53.4; Platelet Count 168 10^3/uL (130-400); RBC 4.89 10^6/uL (3.93-5.22); RDW 12.9 % (11.7-14.6); RDW-SD 44.6 fL; WBC 7.31 10^3/uL (4.4-10.8)
[2023-04-15 11:34] LABS: ALT 59 U/L (14-59); AST 55 U/L (15-37); Alkaline Phosphatase 64 U/L (46-116); Anion Gap 5.2 mmol/L (3-11); BUN 12 mg/dL (7-18); Bilirubin, Total 0.4 mg/dL (0.2-1.0); CO2 30.8 mmol/L (21.0-32.0); CREATININE 0.8 mg/dL (0.55-1.02); Calcium 9.3 mg/dL (8.5-10.1); Chloride 104 mmol/L (98-107); Estimated GFR 75.84 (mL/min/1.73m2); Glucose 79 mg/dL (74-106); Potassium 4.3 mmol/L (3.5-5.1); Sodium 140 mmol/L (136-145)
[2023-04-16 15:03] LABS: RNP Ab, IgG <6.0 CU (<20.0); Ro60 Ab, IgG <7.0 CU (<20.0); SS-A/Ro, IgG <2.3 CU (<20.0); SS-B (La) Ab, IgG <3.3 CU (<20.0); Sm (Smith) Ab, IgG <8.0 CU (<20.0)
== END 2023-04-15 11:14 | disposition home or self-care (01) ==
LOC: LBO 11:14
PROVIDERS: PCP Nurse Practitioner Primary Care; Visit Provider Dermatology
DX: Z79.899 Other long term (current) drug therapy (principal)
CPT/HCPCS: 36415; 80053; 85025; 86235

== ENCOUNTER → 2023-06-10 09:54 | Outpatient (CLI) | payer MEDICARE, OTHER, SELFPAY ==
--- NOTE | 2023-06-10 10:55 | DI.RAD_ITS ---
Exam(s) XR FINGER LT LITTLE EXAM: XR FINGER LT LITTLE EXAM DATE/TIME: CLINICAL HISTORY: PAIN IN FINGER LT HAND, M79.645. TECHNIQUE: 2D digital imaging was performed of the left finger. Three views were obtained. PA/AP, oblique, and lateral views were obtained. COMPARISON: None. FINDINGS: BONES: There is a comminuted fracture involving the shaft of the middle phalanx of the left little fi nger. There does appear to be some callus formation about the fracture suggesting a subacute fractur e. No significant displacement of the fracture is noted. No bony destructive lesion is seen. JOINTS: No dislocation is present. There are mild degenerative changes seen in the hand consisting o f joint space narrowing and osteophytes. The findings are most marked in the interphalangeal joints of the hand. SOFT TISSUE: Normal. IMPRESSION: Subacute comminuted nondisplaced fracture involving the middle phalanx of the left little finger. DATA REPOSITORY: RADIATION DOSE DELIVERED:
== END ==
PROVIDERS: PCP Nurse Practitioner Primary Care; Visit Provider Nurse Practitioner Family
DX: S62.657A Nondisplaced fracture of middle phalanx of left little finger, initial encounter for closed fracture (principal); X58.XXXA Exposure to other specified factors, initial encounter
CPT/HCPCS: 73140

== ENCOUNTER 2023-07-10 18:09 | Outpatient (REF) | payer MEDICARE, OTHER, SELFPAY ==
[2023-07-10 18:12] LABS: BUN 11 mg/dL (7-18); CREATININE 0.9 mg/dL (0.55-1.02); Calcium 9.2 mg/dL (8.5-10.1); Chloride 106 mmol/L (98-107); Estimated GFR 65.84 (mL/min/1.73m2); Glucose 103 mg/dL (74-106); Potassium 4.4 mmol/L (3.5-5.1); Sodium 143 mmol/L (136-145)
== END 2023-07-10 18:10 | disposition home or self-care (01) ==
LOC: LBN 18:09
PROVIDERS: PCP Nurse Practitioner Primary Care; Visit Provider Family Medicine
DX: I10 Essential (primary) hypertension (principal)
CPT/HCPCS: 80048

== ENCOUNTER 2023-10-04 08:46 | Emergency (ER) | payer MEDICARE, OTHER, SELFPAY ==
[2023-10-04 08:43] VITALS: BP 189/67; PULSE 56; RESP 16; TEMP 36.8; O2SAT 99
[2023-10-04 09:36] LABS: Abs Immature Grans 0.02 10^3/uL (0.0-0.06); Absolute Basophil Count 0.04 10^3/uL (0.0-0.2); Absolute Eosinophil Count 0.11 10^3/uL (0.0-0.7); Absolute Lymphocyte Count 1.29 10^3/uL (1.2-3.4); Absolute Monocyte Count 0.47 10^3/uL (0.1-0.8); Absolute Neutrophil Count 3.62 10^3/uL (1.2-6.7); Basophils % 0.7 %; HCT 42.4 % (36.0-46.0); Immature Grans % 0.4 %; Lymphocytes % 23.2 %; MCH 30.7 pg (27.0-33.0); MCV 93 fL (80-95); Monocytes % 8.5 %; Neutrophils % 65.2 %; Platelet Count 144 10^3/uL (130-400); RBC 4.56 10^6/uL (3.93-5.22); RDW 11.3 % (11.7-14.6); RDW-SD 38.5 fL; WBC 5.55 10^3/uL (4.4-10.8)
[2023-10-04 09:38] LABS: ESR 4 mm/hr (0-30)
[2023-10-04 09:47] LABS: ALT 58 U/L (14-59); AST 60 U/L (15-37); Albumin 3.8 g/dL (3.4-5.0); Alkaline Phosphatase 74 U/L (46-116); Anion Gap 10.6 mmol/L (3-11); BUN 9 mg/dL (7-18); C-Reactive Protein 0.61 mg/dL (<or=0.5); CO2 26.4 mmol/L (21.0-32.0); CREATININE 0.9 mg/dL (0.55-1.02); Chloride 101 mmol/L (98-107); Estimated GFR 65.84 (mL/min/1.73m2); Glucose 92 mg/dL (74-106); Potassium 3.8 mmol/L (3.5-5.1); Sodium 138 mmol/L (136-145); Total Protein 7.3 g/dL (6.4-8.2)
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
[2023-10-04 11:10] VITALS: BP 189/67; PULSE 56; RESP 16; TEMP 36.8; O2SAT 99
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
[2023-10-06 10:42] LABS: Lyme Ab w Rflx to Lyme Confirm Negative (Negative)
[2023-10-07 21:14] LABS: Anaplasma phagocytophilum Negative (Negative); B. miyamotoi PCR Negative (Negative); Babesia divergens/MO-1 Negative (Negative); Babesia duncani Negative (Negative); Babesia microti Negative (Negative); Ehrlichia chaffeensis Negative (Negative); Ehrlichia ewingii/canis Negative (Negative); Ehrlichia muris eauclairensis Negative (Negative)
== END 2023-10-04 11:10 | disposition home or self-care (01) ==
PROVIDERS: Emergency Provider Physician Assistant; PCP Family Medicine
DX: R21 Rash and other nonspecific skin eruption (principal); L03.213 Periorbital cellulitis; M32.10 Systemic lupus erythematosus, organ or system involvement unspecified
CPT/HCPCS: 80053; 85652; 87798; 99283; 85025; 86140; 86618; J7512

== ENCOUNTER 2023-10-06 07:25 | Emergency (ER) | payer MEDICARE, OTHER, SELFPAY ==
--- NOTE | 2023-10-06 07:15 | RT.EKG_ITS ---
APPROVED REPORT Exam: Resting ECG Reason for Exam: SOB Patient Location: E HR:55 bpm ECG Measurements Heart Rate 55 AXIS WV 134 P 55 QRSd 106 QRS -33 QT 505 T 92 QTc 485 Conclusion Sinus bradycardia [address] specific st change
[2023-10-06 07:27] VITALS: PULSE 59; RESP 18; TEMP 36.9; O2SAT 100
[2023-10-06 07:36] VITALS: BP 112/82
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
[2023-10-06] MEDS: Loratidine 10 MG TAB PO (07:49)
[2023-10-06] MEDS: Famotidine 20 MG TAB PO (07:49)
[2023-10-06 08:12] LABS: Abs Immature Grans 0.04 10^3/uL (0.0-0.06); Absolute Basophil Count 0.06 10^3/uL (0.0-0.2); Absolute Eosinophil Count 0.07 10^3/uL (0.0-0.7); Absolute Monocyte Count 0.61 10^3/uL (0.1-0.8); Absolute Neutrophil Count 3.85 10^3/uL (1.2-6.7); Basophils % 0.9 %; Eosinophils % 1.1 %; HCT 45.6 % (36.0-46.0); HGB 15.2 g/dL (11.2-15.7); Immature Grans % 0.6 %; Lymphocytes % 26.9 %; MCH 30.3 pg (27.0-33.0); MCHC 33.3 % (32.0-36.0); MCV 91 fL (80-95); Monocytes % 9.6 %; Neutrophils % 60.9 %; Platelet Count 173 10^3/uL (130-400); RBC 5.01 10^6/uL (3.93-5.22); RDW 11.4 % (11.7-14.6); RDW-SD 38.4 fL; WBC 6.33 10^3/uL (4.4-10.8)
[2023-10-06 08:30] LABS: ALT 64 U/L (14-59); AST 80 U/L (15-37); Alkaline Phosphatase 77 U/L (46-116); Anion Gap 10.7 mmol/L (3-11); BUN 15 mg/dL (7-18); Bilirubin, Total 0.85 mg/dL (0.2-1.0); CO2 27.3 mmol/L (21.0-32.0); CREATININE 0.9 mg/dL (0.55-1.02); Calcium 9.6 mg/dL (8.5-10.1); Chloride 101 mmol/L (98-107); Estimated GFR 65.84 (mL/min/1.73m2); Glucose 85 mg/dL (74-106); Potassium 3.4 mmol/L (3.5-5.1); Sodium 139 mmol/L (136-145); Total Protein 7.7 g/dL (6.4-8.2); Troponin I < 50 ng/L (< or =60)
[2023-10-06] MEDS: Carvedilol 6.25 MG TAB PO (08:43)
--- NOTE | 2023-10-06 09:03 | DI.RAD_ITS ---
Exam(s) XR CHEST 2V PA LATERAL EXAM: XR CHEST 2V PA LATERAL CLINICAL HISTORY: chest pain. TECHNIQUE: 2D digital imaging was performed. COMPARISON: CR,XR XR CHEST 2V PA LATERAL from 03/30/2022 FINDINGS: 2 views: Heart size is normal. The mediastinum is not widened. Lungs are clear. No infiltrates nor pleural effusions. IMPRESSION: No acute pulmonary findings. DATA REPOSITORY: RADIATION DOSE DELIVERED:
[2023-10-06 09:47] VITALS: BP 186/75; PULSE 54; RESP 18; O2SAT 98
== END 2023-10-06 09:47 | disposition home or self-care (01) ==
PROVIDERS: Emergency Provider Emergency Medicine; PCP Family Medicine
DX: L20.81 Atopic neurodermatitis (principal); L28.1 Prurigo nodularis; E78.00 Pure hypercholesterolemia, unspecified; F41.9 Anxiety disorder, unspecified; I10 Essential (primary) hypertension; R00.1 Bradycardia, unspecified; M35.3 Polymyalgia rheumatica; Z87.891 Personal history of nicotine dependence
CPT/HCPCS: 36415; 80053; 93005; 99285; 71046; 84484; 85025; 93010; 99284

== ENCOUNTER 2023-12-18 10:00 | Emergency (ER) | payer MEDICARE, OTHER, SELFPAY ==
[2023-12-18] VITALS (23 sets, daily range): BP systolic 154–189; BP diastolic 46–131; PULSE 55–65; RESP 12–29; TEMP 36.8; O2SAT 96–100
--- NOTE | 2023-12-18 10:00 | RT.EKG_ITS ---
APPROVED REPORT Exam: Resting ECG Reason for Exam: dizziness Patient Location: E HR:58 bpm ECG Measurements Heart Rate 58 AXIS OH 131 P 39 QRSd 101 QRS -37 QT 473 T -21 QTc 467 Conclusion Sinus bradycardia...rate< 60 Inferior infarct, old...Q >35mS, II III aVF Abnrm T, consider ischemia, anterolateral lds...T <-0.20mV, I aVL V2-V6 sinus ashish, left axis, t wave inversions deepening inferior lateral compaired to prior, stable anter ior inversions
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
[2023-12-18 11:09] LABS: Abs Immature Grans 0.02 10^3/uL (0.0-0.06); Absolute Basophil Count 0.05 10^3/uL (0.0-0.2); Absolute Eosinophil Count 0.08 10^3/uL (0.0-0.7); Absolute Lymphocyte Count 1.59 10^3/uL (1.2-3.4); Absolute Monocyte Count 0.57 10^3/uL (0.1-0.8); Absolute Neutrophil Count 4.83 10^3/uL (1.2-6.7); Basophils % 0.7 %; Eosinophils % 1.1 %; HCT 45.9 % (36.0-46.0); HGB 14.9 g/dL (11.2-15.7); Immature Grans % 0.3 %; Lymphocytes % 22.3 %; MCH 30.6 pg (27.0-33.0); MCHC 32.5 % (32.0-36.0); MCV 94 fL (80-95); MPV 10.3 fL (8.0-11.0); Neutrophils % 67.6 %; Platelet Count 159 10^3/uL (130-400); RBC 4.87 10^6/uL (3.93-5.22); RDW 13.2 % (11.7-14.6); RDW-SD 45.5 fL; WBC 7.14 10^3/uL (4.4-10.8)
[2023-12-18 11:26] LABS: INR 1.1 (0.9-1.1); Prothrombin Time 10.6 sec (9.1-11.1)
[2023-12-18 11:28] LABS: Bilirubin Small (Negative); Blood Negative (Negative); Clarity Clear (Clear); Glucose Negative (Negative); Ketones 40 mg/dL (Negative); Leukocyte Esterase Negative (Negative); Nitrite Negative (Negative); Urobilinogen 0.2 mg/dL (Up to 0.2)
--- NOTE | 2023-12-18 11:31 | DI.RAD_ITS ---
Exam(s) XR CHEST 2V PA LATERAL EXAM: XR CHEST 2V PA LATERAL CLINICAL HISTORY: fatigued TECHNIQUE: 2D digital imaging was performed of the chest. Two images were obtained. PA and lateral views were obtained. COMPARISON: CR XR CHEST 2V PA LATERAL from 10/06/2023 FINDINGS: MEDIASTINUM: Normal. HEART: Normal. PULMONARY VASCULATURE: Normal. LUNGS: Clear. PLEURAL SPACE: No pleural effusion or pneumothorax. BONE:Within normal limits for the patient's age. OTHER FINDINGS:Normal. IMPRESSION: No acute pulmonary findings. DATA REPOSITORY: RADIATION DOSE DELIVERED:
[2023-12-18 11:36] LABS: ALT 81 U/L (14-59); AST 107 U/L (15-37); Alkaline Phosphatase 83 U/L (46-116); Anion Gap 8.9 mmol/L (3-11); BUN 9 mg/dL (7-18); Bilirubin, Total 0.84 mg/dL (0.2-1.0); CO2 27.1 mmol/L (21.0-32.0); CREATININE 0.9 mg/dL (0.55-1.02); Calcium 9.2 mg/dL (8.5-10.1); Chloride 101 mmol/L (98-107); Estimated GFR 65.44 (mL/min/1.73m2); Glucose 105 mg/dL (74-106); Magnesium 2.1 mg/dL (1.8-2.4); NT-proBNP 994 pg/mL (<300); Sodium 137 mmol/L (136-145); Total Protein 7.8 g/dL (6.4-8.2); Troponin I 9 ng/L (<or=51)
[2023-12-18 11:54] LABS: FREE T4 1.29 ng/dL (0.76-1.46)
[2023-12-18 12:33] LABS: Troponin I 7 ng/L (<or=51)
[2023-12-18 12:43] LABS: COVID-19 PCR Negative (Negative); Influenza A PCR Negative (Negative); Influenza B PCR Negative (Negative); RSV PCR Negative (Negative)
[2023-12-18 12:48] LABS: Source Nasopharynx
== END 2023-12-18 13:55 | disposition home or self-care (01) ==
PROVIDERS: Emergency Provider Emergency Medicine; PCP Family Medicine
DX: R53.83 Other fatigue (principal); R42 Dizziness and giddiness; R00.1 Bradycardia, unspecified; I10 Essential (primary) hypertension; M35.3 Polymyalgia rheumatica; Z87.891 Personal history of nicotine dependence
CPT/HCPCS: 36415; 80053; 87637; 93005; 99285; 71046; 81003; 83735; 83880; 84439; 84443; 84484; 85025; 85610; 85730; 93010; 99284

== ENCOUNTER 2023-12-27 10:26 | Emergency (ER) | payer MEDICARE, OTHER, SELFPAY ==
[2023-12-27] VITALS (15 sets, daily range): BP systolic 72–215; BP diastolic 50–154; PULSE 57–83; RESP 20; TEMP 37; O2SAT 96–98
--- NOTE | 2023-12-27 10:15 | RT.EKG_ITS ---
APPROVED REPORT Exam: Resting ECG Reason for Exam: Weakness Patient Location: E HR:60 bpm ECG Measurements Heart Rate 60 AXIS CA 150 P 70 QRSd 110 QRS -23 QT 480 T 20 QTc 480 Conclusion Sinus rhythm...normal P axis, V-rate 60- 99 Abnormal T, consider ischemia, anterior leads...T <-0.20mV, V2-V4
--- NOTE | 2023-12-27 10:30 | DI.RAD_ITS ---
Exam(s) XR PORTABLE CHEST AP EXAM: XR PORTABLE CHEST AP CLINICAL HISTORY: Weakness TECHNIQUE: 2D digital imaging was performed. COMPARISON: CR LEFT SHOULDER COMPLETE from 09/16/2009 CR CHEST 2 VIEWS PA,LAT from 04/13/2011 CR PORTABLE CHEST ONE VIEW from 07/08/2014 CR,XR XR CHEST 2V PA LATERAL from 11/10/2021 CR XR CHEST 2V PA LATERAL from 12/18/2023 FINDINGS: Exam limited by rotation LUNGS: Clear. No pleural abnormality seen. HEART: Normal size. AORTA: Normal diameter. BONES: Osteochondroma noted of the upper humeral shaft present on exams back to 2011. Soft tissues: Unremarkable. IMPRESSION: No acute findings. DATA REPOSITORY: RADIATION DOSE DELIVERED:
--- NOTE | 2023-12-27 10:41 | ED.GENADUL_ITS ---
Discharge Plan Disposition Patient Disposition: Home Condition: Stable Discharge Details Clinical Impression: Generalized weakness Primary Care Provider: Sean Griffin ED Provider: Glory Pierre Home Meds and New Rx's Prescriptions: Continued cetirizine [Zyrtec] 10 mg tablet 10 mg PO DAILY PRN (Reason: allergy symptoms) Qty: 90 3RF melatonin-pyridoxine (vit B6) [Melatonin (with B6)] 5-1 mg tablet See Rx Instructions PO HS PRN (Reason: sleep) Qty: 180 3RF Rx Instructions: orally bedtime PRN; 1-2 tabs hs levothyroxine [Tirosint] 100 mcg capsule 100 mcg PO DAILY Qty: 90 3RF potassium chloride 20 mEq tablet,ER particles/crystals 20 meq PO DAILY Qty: 90 3RF carvedilol 6.25 mg tablet 6.25 mg PO BID Qty: 180 3RF Rx Instructions: must administer with a meal/food zolpidem [Ambien] 10 mg tablet 20 mg PO QHS PRN (Reason: insomnia) Qty: 56 0RF amitriptyline 50 mg tablet 50 mg PO QHS Qty: 90 0RF daridorexant 25 mg tablet 25 mg PO QHS Qty: 7 0RF Fish Oil 1 EACH capsule 1 ea PO DAILY hydroxyzine pamoate 25 mg capsule See Rx Instructions PO DIRECTED Qty: 210 11RF Rx Instructions: 50mg BID; 75 mg hs ginkgo biloba leaf extract 120 MG capsule 240 mg PO DAILY Restasis MultiDose 0.05 % Drops 1 drp ophthalmic (eye) HS PRN mupirocin calcium 2 % Cream 1 applic TOPICAL DIRECTED PRN Lotemax 0.5 % ointment 1 applic ophthalmic (eye) HS Patient Comments: Apply a thin layer into both eyes at bedtime coenzyme Q10 [Co Q-10] 100 MG capsule 100 mg PO DAILY SCOTT-e 200 mg Tablet 400 mg PO DAILY Discharge Instructions Instructions: Weakness ED Additional Instructions: No evidence of pneumonia, heart attack or urinary tract infection today. Your labs are largely unremarkable. Please follow-up with your primary care provider in the next 3 to 5 days. Follow up with primary care provider in 3-5 days. Return to ED sooner if any worsening or concerns. Increase oral fluids. Thank you for allowing us to care for you today. Referrals: Sean Griffin DO [Primary Care Provider] - 3 days HPI General Mode of arrival: EMS . Date/Time Provider Initiated Documentation: 12/27/23 10:40 . Limitations to Documentation: no limitations . Information obtained by: patient, EMS, RN notes reviewed and old records reviewed . HPI Narrative: 78-year-old female presents to the ER via EMS with a chief complaint of weakness and being unable to get out of bed this morning. Patient did see her PCP yesterday and was prescribed a new sleeping medication daridorexant. EMS reports that they noticed blood in the urine at the bedside commode, patient does have her left index finger wrapped up she does have a laceration noted to the medial aspect of her finger. She denies any chest pain or shortness of breath. She does report diarrhea denies any problems urinating. No other signs of trauma noted. Related Data Home Medications ?Medication ?Instructions ?Recorded ?Confirmed ginkgo biloba leaf extract 120 mg 240 mg PO DAILY 08/26/12 12/27/23 capsule omega-3 fatty acids-fish oil 340 1 ea PO DAILY 06/04/13 12/27/23 mg-1,000 mg capsule (Fish Oil) coenzyme Q10 100 mg capsule (Co 100 mg PO DAILY 06/27/16 12/27/23 Q-10) s-adenosylmethionine 200 mg tablet 400 mg PO DAILY 03/29/21 12/27/23 (SCOTT-e) cyclosporine 0.05 % eye drops 1 drp ophthalmic (eye) HS PRN 11/10/21 12/27/23 (Restasis MultiDose) loteprednol etabonate 0.5 % eye 1 applic ophthalmic (eye) HS 11/13/21 12/27/23 ointment (Lotemax) mupirocin calcium 2 % topical cream 1 applic topical DIRECTED PRN 11/13/21 12/27/23 hydroxyzine pamoate 25 mg capsule See Rx Instructions PO DIRECTED 08/21/23 12/27/23 #210 caps cetirizine 10 mg tablet (Zyrtec) 10 mg PO DAILY PRN allergy 09/09/23 12/27/23 symptoms #90 tabs levothyroxine 100 mcg capsule 100 mcg PO DAILY #90 caps 09/09/23 12/27/23 (Tirosint) melatonin 5 mg-pyridoxine (vitamin See Rx Instructions PO HS PRN 09/09/23 12/27/23 B6) 1 mg tablet (Melatonin (with sleep #180 tabs B6)) carvedilol 6.25 mg tablet 6.25 mg PO BID #180 tabs 10/14/23 12/27/23 potassium chloride 20 mEq 20 meq PO DAILY #90 tabs 10/14/23 12/27/23 tablet,extended release(part/cryst) zolpidem 10 mg tablet (Ambien) 20 mg (2 x 10 mg) PO QHS PRN 12/19/23 12/27/23 insomnia #56 tabs amitriptyline 50 mg tablet 50 mg PO QHS #90 tabs 12/26/23 12/27/23 daridorexant 25 mg tablet 25 mg PO QHS #7 tabs 12/26/23 12/27/23 Previous Rx's ?Medication ?Instructions ?Recorded hydroxyzine pamoate 25 mg capsule See Rx Instructions PO DIRECTED 08/21/23 #210 caps cetirizine 10 mg tablet (Zyrtec) 10 mg PO DAILY PRN allergy 09/09/23 symptoms #90 tabs levothyroxine 100 mcg capsule 100 mcg PO DAILY #90 caps 09/09/23 (Tirosint) melatonin 5 mg-pyridoxine (vitamin See Rx Instructions PO HS PRN 09/09/23 B6) 1 mg tablet (Melatonin (with sleep #180 tabs B6)) carvedilol 6.25 mg tablet 6.25 mg PO BID #180 tabs 10/14/23 potassium chloride 20 mEq 20 meq PO DAILY #90 tabs 10/14/23 tablet,extended release(part/cryst) zolpidem 10 mg tablet (Ambien) 20 mg (2 x 10 mg) PO QHS PRN 12/19/23 insomnia #56 tabs amitriptyline 50 mg tablet 50 mg PO QHS #90 tabs 12/26/23 daridorexant 25 mg tablet 25 mg PO QHS #7 tabs 12/26/23 Allergies Allergy/AdvReac Type Severity Reaction Status Date / Time daridorexant (From Quviviq) Allergy Severe Other (See Verified 12/27/23 11:28 Comment) mirtazapine Allergy Severe Other (See Verified 12/27/23 11:28 Comment) cephalexin (From Keflex) Allergy Unknown unknown Unverified 12/27/23 11:28 clindamycin Allergy Unknown unknown Unverified 12/27/23 11:28 estradiol (From Activella) Allergy Unknown Skin Rash Unverified 12/27/23 11:28 hydrochlorothiazide Allergy Unknown unknown Unverified 12/27/23 11:28 lactose Allergy Unknown unknown Unverified 12/27/23 11:28 losartan Allergy Unknown Swelling/Ed Unverified 12/27/23 11:28 bree norethindrone (From Allergy Unknown Skin Rash Unverified 12/27/23 11:28 Activella) oxycodone (From Percocet) Allergy Unknown unknown Unverified 12/27/23 11:28 prednisolone Allergy Unknown unknown Unverified 12/27/23 11:28 sulfamethoxazole (From Allergy Unknown fever Unverified 12/27/23 11:28 Bactrim) trimethoprim (From Bactrim) Allergy Unknown fever Unverified 12/27/23 11:28 amoxicillin Allergy unknown Unverified 12/27/23 11:28 cetirizine (From Zyrtec) Allergy Skin Rash Unverified 12/27/23 11:28 acetaminophen (From Tylenol) AdvReac Unknown states Unverified 12/27/23 11:28 tylenol creates more pain aspirin AdvReac Unknown Diarrhea, Unverified 12/27/23 11:28 upset stomach but takes it daily esomeprazole (From Nexium) AdvReac Unknown depression Unverified 12/27/23 11:28 hydrocodone (From Vicodin) AdvReac Unknown Nausea Unverified 12/27/23 11:28 hydroxychloroquine (From AdvReac Unknown Swelling/Ed Unverified 12/27/23 11:28 Plaquenil) bree Influenza Virus Vaccines AdvReac Unknown unknown Unverified 12/27/23 11:28 levothyroxine sodium (From AdvReac Unknown Itching Unverified 12/27/23 11:28 Synthroid) omeprazole (From Prilosec) AdvReac Unknown Nausea Unverified 12/27/23 11:28 sertraline (From Zoloft) AdvReac Unknown depression Unverified 12/27/23 11:28 topiramate (From Topamax) AdvReac Unknown Headache Unverified 12/27/23 11:28 venlafaxine (From Effexor) AdvReac Unknown Psychomotor Unverified 12/27/23 11:28 retardation wheat AdvReac Unknown bloating Unverified 12/27/23 11:28 zinc AdvReac Unknown Hives Unverified 12/27/23 11:28 zolpidem (From Intermezzo) AdvReac Unknown Itching Unverified 12/27/23 11:28 diazepam (From Valium) AdvReac shakes Unverified 12/27/23 11:28 red dye AdvReac Nausea Unverified 12/27/23 11:28 oatmeal AdvReac Unknown constipatio Uncoded 12/27/23 11:28 n SUGAR AdvReac Unknown Other (See Uncoded 12/27/23 11:28 Comment) General Stated Complaint: [employer]Medical YUMIKO: 3 Review of Systems All systems reviewed & are unremarkable except as noted in HPI and below Constitutional Constitutional: Reports as per HPI and Reports weakness Neurologic Neurologic: Reports weakness Exam Narrative Exam Narrative: Constitutional: Alert and oriented x3. Appears stated age. Normal body habitus. Head: Normocephalic, no trauma. Eyes: Pupils PERRL, Red reflex noted, EOM's intact. Eyelids symmetrical without lesions, discharge, or swelling. ENT: Bilateral TM's WNL, External ear normal to inspection, no mastoid TTP, swelling, or erythema, Nasal turbinates WNL, no nasal discharge. Normal dentition, Posterior pharynx WNL, no exudate. Chest: RRR, Normal S1, S2, distal pulses intact. Resp: Lungs clear to auscultation bilaterally, no wheezes, rales, or rhonchi. Abdomen: Soft, non-distended, Normoactive bowel sounds all 4 quads. Musculoskeletal: , Moves all 4 extremities without difficulty. Skin: Laceration noted to left index finger with surrounding contusion. Capillary refill less than 2 sec. Neurologic: Cranial nerves II-XII intact. Alert and oriented x 3. Motor: No deficits noted. Sensory: Intact bilaterally all 4 extremities. Hematologic/Lymphatic: No ecchymosis, no lymphadenopathy. Course Vital Signs Vital signs: Vital Signs Temperature 37.0 C 12/27/23 10:30 Pulse 62 12/27/23 10:30 Respiratory Rate 20 12/27/23 10:30 Blood Pressure 197/67 H 12/27/23 10:30 Pulse Oximetry 97 12/27/23 10:30 Temperature 37.0 C 12/27/23 10:30 Temperature Source Oral 12/27/23 10:30 Pulse 62 12/27/23 10:30 Respiratory Rate 20 12/27/23 10:30 Blood Pressure 197/67 H 12/27/23 10:30 Blood Pressure Position Sitting 12/27/23 10:30 Pulse Oximetry 97 12/27/23 10:30 Oxygen Delivery Method Room Air 12/27/23 10:30 Oxygen Flow Rate 0 12/27/23 10:30 Medical Decision Making 78-year-old female presents to the ER via EMS with a chief complaint of weakness and being unable to get out of bed this morning. Patient did see her PCP yesterday and was prescribed a new sleeping medication daridorexant. EMS reports that they noticed blood in the urine at the bedside commode, patient does have her left index finger wrapped up she does have a laceration noted to the medial aspect of her finger. She denies any chest pain or shortness of breath. She does report diarrhea denies any problems urinating. No other signs of trauma noted. Workup ordered including CBC CMP troponin, proBNP, UDS Tylenol salicylate level. EMS did report that she had multiple bottles of NyQuil around her bed. Patient denies taking this recently. EKG was reviewed by Dr. Webber and myself ER attending, old EKG available for review, no significant change noted. Please see official report. Lab work is largely unremarkable no leukocytosis. Troponin is within normal limits, proBNP within normal limits. Negative Tylenol salicylate level. No evidence of urinary tract infection. Patient road tested by staff anesthetist around the emergency department with no difficulty. Patient is using a walker. Will plan to discharge home with follow-up with PCP. Patient discharged with RCT. This text was generated using [employer] dictation system, please disregard any oddities of phrase or misspellings. Medical Records Medical records reviewed: Yes I reviewed the patient's medical records. Lab Data Lab results reviewed: Yes I reviewed the patient's lab results. Labs: Laboratory Tests Range/Units 12/27/23 12/27/23 12/27/23 10:54 11:23 11:40 WBC (4.4-10.8) 10^3/uL 5.59 RBC (3.93-5.22) 10^6/uL 4.77 Hgb (11.2-15.7) g/dL 14.8 Hct (36.0-46.0) % 45.0 MCV (80-95) fL 94 MCH (27.0-33.0) pg 31.0 MCHC (32.0-36.0) % 32.9 RDW (11.7-14.6) % 13.0 Plt Count (130-400) 10^3/uL 152 MPV (8.0-11.0) fL 10.3 Immature Gran % % 0.5 Neutrophils % % 58.7 Lymphocytes % % 29.2 Monocytes % % 9.5 Eosinophils % % 1.4 Basophils % % 0.7 Nucleated RBC % (0.0-0.3) % 0.0 Absolute Neutrophils (1.2-6.7) 10^3/uL 3.28 Absolute Lymphocytes (1.2-3.4) 10^3/uL 1.63 Absolute Monocytes (0.1-0.8) 10^3/uL 0.53 Absolute Eosinophils (0.0-0.7) 10^3/uL 0.08 Absolute Basophils (0.0-0.2) 10^3/uL 0.04 PT (9.1-11.1) sec 10.5 INR (0.9-1.1) 1.0 APTT (23.6-32.8) sec 23.2 L Sodium (136-145) mmol/L 139 Potassium (3.5-5.1) mmol/L 4.4 Chloride (98-107) mmol/L 100 Carbon Dioxide (21.0-32.0) mmol/L 29.3 Anion Gap (3-11) mmol/L 9.7 BUN (7-18) mg/dL 12 Creatinine (0.55-1.02) mg/dL 0.9 Est GFR (CKD-EPI 2020) (mL/min/1.73m2) 65.44 Glucose (74-106) mg/dL 106 Calcium (8.5-10.1) mg/dL 9.4 Magnesium (1.8-2.4) mg/dL 2.1 Total Bilirubin (0.2-1.0) mg/dL 0.53 AST (15-37) U/L 113 H ALT (14-59) U/L 81 H Alkaline Phosphatase (46-116) U/L 79 Troponin I (<or=51) ng/L 8 9 NT-Pro-B Natriuret Pep (<300) pg/mL 187 Total Protein (6.4-8.2) g/dL 7.8 Albumin (3.4-5.0) g/dL 3.8 Urine Color (Yellow) Yellow Urine Clarity (Clear) Clear Urine pH (5-8) 6.0 Ur Specific [place] (1.005-1.025) 1.010 Urine Protein (Neg-Trace) mg/dL Negative Urine Ketones (Negative) mg/dL Negative Urine Blood (Negative) Negative Urine Nitrite (Negative) Negative Urine Bilirubin (Negative) Negative Urine Urobilinogen (Up to 0.2) mg/dL 0.2 Ur Leukocyte Esterase (Negative) Negative Urine Glucose (Negative) mg/dL Negative Salicylates (<2.8) mg/dL < 2.8 Urine Opiates Screen (Negative) Negative Urine Methadone Screen (Negative) Negative Acetaminophen (10-30) ug/mL < 2 Ur Barbiturates Screen (Negative) Negative Ur Tricyclics Screen (Negative) Positive A Ur Amphetamines Screen (Negative) Negative U Benzodiazepines Scrn (Negative) Negative Urine Cocaine Screen (Negative) Negative Ur THC Screen (Negative) Negative Range/Units 12/27/23 13:40 WBC (4.4-10.8) 10^3/uL RBC (3.93-5.22) 10^6/uL Hgb (11.2-15.7) g/dL Hct (36.0-46.0) % MCV (80-95) fL MCH (27.0-33.0) pg MCHC (32.0-36.0) % RDW (11.7-14.6) % Plt Count (130-400) 10^3/uL MPV (8.0-11.0) fL Immature Gran % % Neutrophils % % Lymphocytes % % Monocytes % % Eosinophils % % Basophils % % Nucleated RBC % (0.0-0.3) % Absolute Neutrophils (1.2-6.7) 10^3/uL Absolute Lymphocytes (1.2-3.4) 10^3/uL Absolute Monocytes (0.1-0.8) 10^3/uL Absolute Eosinophils (0.0-0.7) 10^3/uL Absolute Basophils (0.0-0.2) 10^3/uL PT (9.1-11.1) sec INR (0.9-1.1) APTT (23.6-32.8) sec Sodium (136-145) mmol/L Potassium (3.5-5.1) mmol/L Chloride (98-107) mmol/L Carbon Dioxide (21.0-32.0) mmol/L Anion Gap (3-11) mmol/L BUN (7-18) mg/dL Creatinine (0.55-1.02) mg/dL Est GFR (CKD-EPI 2020) (mL/min/1.73m2) Glucose (74-106) mg/dL Calcium (8.5-10.1) mg/dL Magnesium (1.8-2.4) mg/dL Total Bilirubin (0.2-1.0) mg/dL AST (15-37) U/L ALT (14-59) U/L Alkaline Phosphatase (46-116) U/L Troponin I (<or=51) ng/L Cancelled NT-Pro-B Natriuret Pep (<300) pg/mL Total Protein (6.4-8.2) g/dL Albumin (3.4-5.0) g/dL Urine Color (Yellow) Urine Clarity (Clear) Urine pH (5-8) Ur Specific [place] (1.005-1.025) Urine Protein (Neg-Trace) mg/dL Urine Ketones (Negative) mg/dL Urine Blood (Negative) Urine Nitrite (Negative) Urine Bilirubin (Negative) Urine Urobilinogen (Up to 0.2) mg/dL Ur Leukocyte Esterase (Negative) Urine Glucose (Negative) mg/dL Salicylates (<2.8) mg/dL Urine Opiates Screen (Negative) Urine Methadone Screen (Negative) Acetaminophen (10-30) ug/mL Ur Barbiturates Screen (Negative) Ur Tricyclics Screen (Negative) Ur Amphetamines Screen (Negative) U Benzodiazepines Scrn (Negative) Urine Cocaine Screen (Negative) Ur THC Screen (Negative) Quality:SDOH Health Related Social Needs: No Data to Display PFSH All Active Problems (Updated 12/27/23 @ 12:38 by Glory Pierre NP) Generalized weakness (Acute) Prurigo (Acute) Fatigue (Acute) Dry eye (Acute) 09/16/23 - [facility] [place] - Tx includes Restasis; Lotemax; Systane Osteoporosis (Chronic) Polymyalgia rheumatica (Acute) Duodenitis (Acute) Chronic interstitial cystitis (Acute) Arthralgia of temporomandibular joint (Acute) Sensorineural hearing loss, bilateral (Acute 05/03/13) Chronic pain (Chronic) Ambien use disorder, mild (Chronic) Tinnitus, right (Acute) Sjogrens syndrome (Acute) Headache (Acute) Depression (Chronic) Restless leg syndrome (Acute) Osteochondritis (Acute) Hypokalemia (Acute) Chest pain (Acute) Tinnitus (Acute) Abnormal auditory perception (Acute) Skin ulcer, limited to breakdown of skin (Acute) Deviated nasal septum (Acute) Otalgia, right ear (Acute) SIMRAN (obstructive sleep apnea) (Chronic) Allergic rhinitis due to allergen (Acute) Nasal crusting (Acute) Thyroid nodule (Acute) DVT prophylaxis (Acute) Discharge planning issues (Acute) Anxiety and depression (Chronic) Hypertensive urgency (Acute) Thyroid disorder (Acute) Pancreatic abnormality (Acute) Lung nodules (Acute) Atypical chest pain (Acute) Hypoglycemia (Chronic) IBS (irritable bowel syndrome) (Chronic) Hypothyroid (Chronic) Hypertension (Chronic) Vertigo (Chronic) Insomnia (Chronic) Medical History Anxiety Former tobacco use Tinnitus (05/03/13) Microscopic hematuria (10/15/16) History of urinary incontinence Hypercholesterolemia Fibromyalgia lupus dry mouth Hypertension 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 Primary fibromyalgia syndrome Myofascial pain Hypothyroidism Elevated lipids Surgical History H/O hemorrhoidectomy History of breast biopsy (2000) 1995 and 2000 - Both benign History of endoscopy (09/23/13) History of colonoscopy (01/02/16) 09/06/[address] [facility] 01/02/2016 H/O section section Family History Mother Dementia Father Heart disease Stroke Social History Smoking/Tobacco Use Status: Former Tobacco Use Pack-years: 50 Second Hand Exposure: No Smoking risk assessment performed?: Yes Alcohol Intake: current Alcohol Intake frequency: 0-2 drinks per day Alcohol type: wine Drug use: Never Substance use type: does not use Details: quit smoking 40 yrs ago Adopted: No Foster care: No Household members: children Housing: house Number of Children: 2 number of grandchildren: 1 Communication Needs: None Education Level: master's degree Do you need help understanding health information?: Never current occupation: Retired Pets and animals: No Sexually active: No Do you think of yourself as: straight/heterosexual What is your relationship status?: How often do you talk on the phone with friends or family?: once per week Panel score (0-1 are the most socially isolated patients): 0 What type of physical activity do you participate in: walking Duration: 30-45 minutes/day Frequency: 1-2 times per week Hattie/Roman Catholic: Lutheran Special hattie needs: No Seatbelt use: always Drive intox or ride w/intox medical van driver: No Do you feel safe at home: Yes Do you feel safe in your relationship?: Yes
[2023-12-27 11:25] LABS: Abs Immature Grans 0.03 10^3/uL (0.0-0.06); Absolute Basophil Count 0.04 10^3/uL (0.0-0.2); Absolute Eosinophil Count 0.08 10^3/uL (0.0-0.7); Absolute Lymphocyte Count 1.63 10^3/uL (1.2-3.4); Absolute Monocyte Count 0.53 10^3/uL (0.1-0.8); Absolute Neutrophil Count 3.28 10^3/uL (1.2-6.7); Basophils % 0.7 %; Eosinophils % 1.4 %; HGB 14.8 g/dL (11.2-15.7); Immature Grans % 0.5 %; Lymphocytes % 29.2 %; MCHC 32.9 % (32.0-36.0); MCV 94 fL (80-95); MPV 10.3 fL (8.0-11.0); Monocytes % 9.5 %; Neutrophils % 58.7 %; Platelet Count 152 10^3/uL (130-400); RBC 4.77 10^6/uL (3.93-5.22); RDW-SD 45.3 fL; WBC 5.59 10^3/uL (4.4-10.8)
[2023-12-27 11:33] LABS: PTT Activated 23.2 sec (23.6-32.8); Prothrombin Time 10.5 sec (9.1-11.1)
--- NOTE | 2023-12-27 11:37 | DI.VRAD_ITS ---
PROCEDURE INFORMATION: Exam: XR Chest Exam date and time: 12/27/2023 11:10 AM Age: 78 years old Clinical indication: Other: Weakness TECHNIQUE: Imaging protocol: Radiologic exam of the chest. Views: 1 view. COMPARISON: CR XR CHEST 2V PA LATERAL 12/18/2023 11:13 AM FINDINGS: Lungs: Lungs are clear with no infiltrate or nodule. Pleural spaces: Unremarkable. No pleural effusion. No pneumothorax. Heart/Mediastinum: Cardiomediastinal silhouette is normal. Bones/joints: Unremarkable. Other findings: Patient is rotated TRIMBLE. IMPRESSION: No active cardiopulmonary disease. Dictated and Authenticated by: Rui Fernandes MD. Ordering:STEFANIE Holder MD
[2023-12-27 11:56] LABS: Bilirubin Negative (Negative); Blood Negative (Negative); Clarity Clear (Clear); Glucose Negative (Negative); Ketones Negative (Negative); Leukocyte Esterase Negative (Negative); Nitrite Negative (Negative); Urobilinogen 0.2 mg/dL (Up to 0.2)
[2023-12-27 12:00] LABS: Salicylate < 2.8 mg/dL (<2.8)
[2023-12-27 12:02] LABS: Acetaminophen < 2 ug/mL (10-30)
[2023-12-27 12:02] LABS: *AMPHETAMINES SCREEN URINE Negative (Negative); *BARBITURATES SCREEN URINE Negative (Negative); *BENZODIAZEPINES SCREEN URINE Negative (Negative); Cannabinoids THC Negative (Negative); Cocaine Screen,Urine Negative (Negative); METHADONE URINE SCREEN Negative (Negative); OPIATES URINE SCREEN Negative (Negative)
[2023-12-27 12:03] LABS: ALT 81 U/L (14-59); AST 113 U/L (15-37); Albumin 3.8 g/dL (3.4-5.0); Alkaline Phosphatase 79 U/L (46-116); BUN 12 mg/dL (7-18); Bilirubin, Total 0.53 mg/dL (0.2-1.0); CO2 29.3 mmol/L (21.0-32.0); CREATININE 0.9 mg/dL (0.55-1.02); Calcium 9.4 mg/dL (8.5-10.1); Estimated GFR 65.44 (mL/min/1.73m2); Glucose 106 mg/dL (74-106); Magnesium 2.1 mg/dL (1.8-2.4); NT-proBNP 187 pg/mL (<300); Total Protein 7.8 g/dL (6.4-8.2); Troponin I 8 ng/L (<or=51)
[2023-12-27 12:03] LABS: Tricyclic Antidepressants Positive (Negative)
[2023-12-27 12:06] LABS: Sodium 139 mmol/L (136-145)
[2023-12-27 12:07] LABS: Anion Gap 9.7 mmol/L (3-11); Chloride 100 mmol/L (98-107); Potassium 4.4 mmol/L (3.5-5.1)
[2023-12-27 12:08] LABS: Troponin I 9 ng/L (<or=51)
== END 2023-12-27 14:24 | disposition home or self-care (01) ==
PROVIDERS: Emergency Provider Registered Nurse Emergency; PCP Family Medicine
DX: R53.1 Weakness (principal); R94.31 Abnormal electrocardiogram [ECG] [EKG]; I10 Essential (primary) hypertension; E78.00 Pure hypercholesterolemia, unspecified; M32.9 Systemic lupus erythematosus, unspecified
CPT/HCPCS: 36415; 80053; 80307; 93005; 99285; 71045; 80329; 81003; 83735; 83880; 84484; 85025; 85610; 85730; 93010; 99284